=== PATIENT | male | born 1945 | race Caucasian/White ===

== ENCOUNTER 2018-05-31 05:25 | Emergency (ER) | payer OTHER ==
--- OUTSIDE RECORDS SUMMARY | 2018-05-31 05:27 | XMS REPORT | Clinical Summary ---
:1945 Author Organization [facility] Address [address] [place] [address] Care Team Providers Name Role Phone Tom Molina MD Primary Care Provider Allergies No Known Allergies Current Medications Prescription Sig. Disp. Refills Start Date End Date Status lansoprazole (PREVACID) 08/12/2017 Active 30 MG capsule lisinopril 07/31/2017 Active (PRINIVIL,ZESTRIL) 30 mg tablet aspirin (ECOTRIN) 81 MG Take 81 mg by mouth Active enteric coated tablet daily. tiZANidine (ZANAFLEX) 4 Take 4 mg by mouth Active MG tablet every 8 (eight) hours as needed for muscle spasms. Active Problems Problem Noted Date Thoracic aortic aneurysm without rupture 08/12/2017 Encounters Date Type Specialty Care Team Description 09/05/2017 Orders Only Cardiology Vishal Mccain MD 08/19/2017 Telephone Cardiology Blanca Barbour MA Results 08/12/2017 Lab Lab Vishal Mccain MD Thoracic aortic aneurysm without rupture 08/12/2017 Office Visit Cardiology Vishal Mccain MD Thoracic aortic aneurysm without rupture (Primary Dx) after 05/30/2017 Social History Tobacco Use Types Packs/Day Years Used Date Former Smoker Alcohol Use Drinks/Week oz/Week Comments No Sex Assigned at Date Recorded Not on file Last Filed Vital Signs Vital Sign Reading Time Taken Blood Pressure 150/78 08/12/2017 10:21 AM CDT Pulse 65 08/12/2017 10:21 AM CDT Temperature - - Respiratory Rate - - Oxygen Saturation - - Inhaled Oxygen Concentration - - Weight 74.8 kg (165 lb) 08/15/2017 9:11 AM CDT Height 177.8 cm (5' 10") 08/15/2017 9:11 AM CDT Body Mass Index 23.68 08/15/2017 9:11 AM CDT Plan of Treatment Date Type Specialty Care Team Description 08/11/2018 Office Visit Cardiology Vishal Mccain MD [address] [place] [address] Health Maintenance Due Date Last Done Comments COLON CANCER SCREENING 1996 SHINGRIX VACCINE (#1) 1996 ZOSTER VACCINE 2006 PNEUMOCOCCAL POLYSACCHARIDE VACCINE AGE 65 AND OVER 2011 PNEUMOCOCCAL-13 2011 INFLUENZA VACCINE 06/10/2018 Procedures Procedure Name Priority Date/Time Associated Diagnosis Comments CT ANGIOGRAM CHEST Routine 08/15/2017 9:30 AM Thoracic aortic Results for this W WO CONTRAST CDT aneurysm without procedure are in rupture the results section. COPY RECEIVED FROM: Routine 08/12/2017 11:40 AM Results for this CDT procedure are in the results section. COPY(IES) SENT TO: Routine 08/12/2017 11:40 AM Results for this CDT procedure are in the results section. BASIC METABOLIC Routine 08/12/2017 11:40 AM Thoracic aortic Results for this PANEL CDT aneurysm without procedure are in rupture the results section. after 05/30/2017 Results CTA Chest W Wo Contrast (08/15/2017 9:30 AM) Narrative Performed At EXAMINATION:CT ANGIOGRAM CHEST W WO CONTRAST [facility] CLINICAL HISTORY:I71.2 Thoracic aortic aneurysmwithout rupture, other TECHNIQUE: Multiple CT angiographic images of the chest were obtained during intravenous administration of contrast. Multiple computerized reformatted images as well as 3-D volume rendered images were also obtained.Precontrast images of the chest were also obtained..All CT images were acquired using low-dose technique with automated exposure control. COMPARISON: August 01, 2015. FINDINGS: 1.Stable aneurysm involving the ascending thoracic aorta. Maximal AP diameter at the sinotubular junction is approximately 5.1 cm and 4.3 cm involving the mid ascending aorta. The right innominate artery, right subclavian artery, and visualized portions of the right carotid artery appear patent. Left carotid artery and left subclavian artery are patent. Visualized portions of the celiac artery and SMA are patent. No evidence to suggest an aortic dissection. 2. Measurements are as follows: Aortic root: 5.1 cm Mid ascending aorta: 4.3 cm Transverse arch: 3.8 cm Proximal descending thoracic aorta: 2.8 cm Mid descending thoracic aorta: 2.3 cm Distal descending thoracic aorta: 2.5 cm 4.The heart size is normal. There are extensive calcified atherosclerotic changes involving the coronary vessels. No mediastinal lymphadenopathy. 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 5.A suspicious pulmonary mass or opacity is not identified. No pleural or pericardial effusion. No pneumothorax. 6.Osseous structures are intact with generative changes along the thoracolumbar spine. IMPRESSION: 1.Stable aneurysm involving the aortic root and ascending thoracic aorta with no interval change from August 01, 2015. [id number] Procedure Note Hm Interface, Radiology Results Incoming - 08/15/2017 11:29 AM CDT EXAMINATION: CT ANGIOGRAM CHEST W WO CONTRAST CLINICAL HISTORY: I71.2 Thoracic aortic aneurysm without rupture, other TECHNIQUE: Multiple CT angiographic images of the chest were obtained during intravenous administration of contrast. Multiple computerized reformatted images as well as 3-D volume rendered images were also obtained. Precontrast images of the chest were also obtained..All CT images were acquired using low-dose technique with automated exposure control. COMPARISON: August 01, 2015. FINDINGS: 1. Stable aneurysm involving the ascending thoracic aorta. Maximal AP diameter at the sinotubular junction is approximately 5.1 cm and 4.3 cm involving the mid ascending aorta. The right innominate artery, right subclavian artery, and visualized portions of the right carotid artery appear patent. Left carotid artery and left subclavian artery are patent. Visualized portions of the celiac artery and SMA are patent. No evidence to suggest an aortic dissection. 2. Measurements are as follows: Aortic root: 5.1 cm Mid ascending aorta: 4.3 cm Transverse arch: 3.8 cm Proximal descending thoracic aorta: 2.8 cm Mid descending thoracic aorta: 2.3 cm Distal descending thoracic aorta: 2.5 cm 4. The heart size is normal. There are extensive calcified atherosclerotic changes involving the coronary vessels. No mediastinal lymphadenopathy. 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 5. A suspicious pulmonary mass or opacity is not identified. No pleural or pericardial effusion. No pneumothorax. 6. Osseous structures are intact with generative changes along the thoracolumbar spine. IMPRESSION: 1. Stable aneurysm involving the aortic root and ascending thoracic aorta with no interval change from August 01, 2015. [id number] Performing Organization Address City/State/Zipcode Phone Number [facility] [address] [place] [address] COPY RECEIVED FROM: (08/12/2017 11:40 AM) Copy received from: [facility] Comment: [facility] [address] [facility] [id number] [place] [address] Performing Organization Address City/State/Zipcode Phone Number [facility] COPY(IES) SENT TO: (08/12/2017 11:40 AM) Copies/mL [facility] Comment: [facility] [address] [facility] [address] [place] [address] Performing Organization Address City/State/Zipcode Phone Number [facility] Basic metabolic panel (08/12/2017 11:40 AM) Glucose 87 65 - 99 mg/dL [facility] Comment: [place] Fasting reference interval BUN, whole blood 19 7 - 25 mg/dL [facility] [place] Creatinine 1.47 (H) 0.70 - 1.18 [facility] Comment: mg/dL [place] For patients >49 years of age, the reference limit for Creatinine is approximately 13% higher for people identified as -Green[place]ic. EGFR Non-Afr. [place] 47 (L) > OR=60 [facility] mL/min/1.73m2 [place] EGFR 55 (L) > OR=60 [facility] mL/min/1.73m2 [place] BUN/creatinine ratio 13 6 - 22 (calc) [facility] [place] Sodium 141 135 - 146 mmol/L [facility] [place] Potassium 4.6 3.5 - 5.3 mmol/L [facility] [place] Chloride 106 98 - 110 mmol/L [facility] [place] CO2 27 20 - 31 mmol/L [facility] [place] Calcium 11.1 (H) 8.6 - 10.3 mg/dL [facility] [place] Specimen Blood Resulting Agency Comment Performing Organization Information: Site ID: [id number] Name: [facility] Address: [address] [place] [id number] Director: Anabelle Hutchinson MD Performing Organization Address City/[facility]/Zipcode Phone Number [facility] [address] [address] after 05/30/2017 Insurance Payer Benefit Plan / Group Subscriber ID Type Phone Address [employer] MED[employer]ARE [employer] MED[employer]ARE PPO/PFFS/[facility] xxxxxxxxx PPO Home: [address] [phone] [place] [id number]
--- OUTSIDE RECORDS SUMMARY | 2018-05-31 05:28 | XMS REPORT | Continuity of Care Document ---
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[facility] up> heart [facility] Chronic pain Active Problem 03/24/2017 in neck and [facility] disorder<sup>2</s back Hospital up> GERD (<span Active Problem 03/24/2017 [facility] ID="[id number]" Hospital >Confirmed</span> ) Hypertension Active Problem 03/24/2017 [facility] Enlarged prostate Active Problem 03/24/2017 [facility] Medications Medication Details Route Status Patient Ordering Order Source Instructions Provider Date Acetaminophen 325 1 tab, PO, Q4H, Active [facility] MG / Oxycodone PRN for pain, X [address] [place] [address] Hydrochloride 5 7 day, # 50 tab, MG Oral Tablet 0 Refill(s) [Percocet 5/325] rivaroxaban 10 MG 10 mg=1 tab, PO, Active [facility] Oral Tablet Daily, # 10 tab, [address] [place] [address] [Xarelto] 0 Refill(s), Pharmacy: [facility]/pharmacy #[id number] Saline Flush 0.9% 10 ml, Route: No Longer [facility] IVP, Drug Form: [facility] 2016 [facility] INJ, Dosing Weight 74.716, kg, Q12H, Start date: 03/20/17 21:00:00 CDT, Duration: 30 day, Stop date: 04/19/17 9:00:00 CDTNotes: (Same as: BD Posiflush) Saline Flush 0.9% 10 ml, Route: No Longer [facility] IVP, Drug Form: [facility] 2016 [facility] INJ, Dosing Weight 74.716, kg, PRN, PRN Line Flush, Start date: 03/20/17 13:01:00 CDT, Duration: 30 day, Stop date: 04/19/17 13:00:00 CDTNotes: (Same as: BD Posiflush) Lisinopril 30 mg, 3 tab, No Longer [facility] Route: PO, Drug Active 2016 Hospital form: TAB, Daily, Dosing Weight 74.716, kg, Start date: 03/20/17 9:00:00 CDT, Duration: 30 day, Stop date: 04/18/17 9:00:00 CDTNotes: (Same as: Prinivil, Zestril) lansoprazole 30 mg, Route: No Longer [facility] PO, Drug form: Active 2017 Hospital TABDIS, Daily, Dosing Weight 74.716, kg, Start date: 03/20/17 9:00:00 CDT, Duration: 30 day, Stop date: 04/18/17 9:00:00 CDT Famotidine 20 MG 20 mg, 1 tab, Inactive [facility] Oral Tablet Route: PO, Drug 2016 Hospital form: TAB, Q12H, Dosing Weight 74.716, kg, Start date: 03/19/17 21:00:00 CDT, Duration: 30 day, Stop date: 04/18/17 9:00:00 CDTNotes: (Same as: Pepcid) gabapentin 300 MG 300 mg, 1 cap, No Longer [facility] Oral Capsule Route: PO, Drug Active 2016 Hospital form: CAP, Bedtime, Dosing Weight 74.716, kg, Start date: 03/19/17 21:00:00 CDT, Duration: 30 day, Stop date: 04/17/17 21:00:00 CDTNotes: (Same as: Neurontin) Nortriptyline 50 mg, 2 cap, No Longer [facility] Route: PO, Drug Active 2016 Hospital form: CAP, Bedtime, Dosing Weight 74.716, kg, Start date: 03/19/17 21:00:00 CDT, Duration: 30 day, Stop date: 04/17/17 21:00:00 CDTNotes: (Same as:Pamelor, Aventyl) Tylenol 650 mg, 2 tab, No Longer [facility] Route: PO, Drug Active 2016 Hospital form: TAB, Q6H, Start date: 03/19/17 17:00:00 CDT, Duration: 30 day, Stop date: 04/18/17 11:00:00 CDTNotes: Do not exceed 4 gm/day. (Same as: Tylenol) Docusate Sodium 100 mg, 1 cap, No Longer [facility] 100 MG Oral Route: PO, Drug Active 2016 [facility] Capsule form: CAP, BID, Dosing Weight 74.716, kg, Start date: 03/19/17 17:00:00 CDT, Duration: 30 day, Stop date: 04/18/17 9:00:00 CDTNotes: (Same as: Colace) (Do Not Crush) Protonix 40 mg, 1 tab, No Longer [facility] Route: PO, Drug Active 2016 Hospital form: ECTAB, Before Dinner, Start date: 03/19/17 16:30:00 CDT, Duration: 30 day, Stop date: 04/17/17 16:30:00 CDTNotes: Tablet should not be chewed or crushed. (Same as: Protonix) rivaroxaban 10 mg, 1 tab, No Longer [facility] Route: PO, Drug Active 2016 Hospital form: TAB, Q24H, Dosing Weight 74.716, kg, Start date: 03/19/17 16:08:00 CDT, Duration: 30 day, Stop date: 04/17/17 16:08:00 CDTNotes: (Same as: Xarelto) Do Not Crush Acetaminophen 10 1,000 mg, 100 Inactive [facility] MG/ML Injectable mL, Route: IV, 2017 Hospital Solution Drug form: INJ, Q6H, Dosing Weight 74.716, kg, For > or=50 kg, Start date: 03/19/17 15:00:00 CDT, Duration: 30 day, Stop date: 04/18/17 9:00:00 CDTNotes: Infuse over 15 minutes Do not exceed 4gm/day of acetaminophen MEDICATION WASTE Product Size: 1000 mg Product Wasted: __0_ mg Dilaudid 1 mg, 1 mL, No Longer [facility] Route: IVP, Drug Active 2016 Hospital form: INJ, Q2H, Dosing Weight 74.716, kg, PRN Pain Score 4-6, Start date: 03/19/17 13:39:00 CDT, Duration: 30 day, Stop date: 04/18/17 13:38:00 CDTNotes: Same as: Dilaudid Cefazolin 1 gm, Route: No Longer [facility] IVPB, ABXQ8H, Active 2016 [facility] Dosing Weight 74.716, kg, Start date: 03/19/17 13:00:00 CDT, Duration: 3 doses or times, Stop date: 03/20/17 5:00:00 CDTNotes: (Same As: [facility]) MEDICATION WASTE Product Size: 1000 mg Product Wasted: _0 mg phenylephrine Route: IV, Drug Inactive [facility] (ANES) form: INJ, ONCE, 2016 Hospital Stop date: 03/19/17 10:15:00 CDT dexamethasone Route: IV, Drug Inactive [facility] (ANES) form: INJ, ONCE, 2016 Hospital Stop date: 03/19/17 10:15:00 CDT glycopyrrolate Route: IV, Drug Inactive [facility] (ANES) form: INJ, ONCE, 2016 Hospital Stop date: 03/19/17 10:15:00 CDT ondansetron Route: IV, Drug Inactive [facility] (ANES) form: INJ, ONCE, 2016 Hospital Stop date: 03/19/17 10:15:00 CDT Oxycodone 5 mg, 1 tab, No Longer [facility] Hydrochloride 5 Route: PO, Drug Active [facility] MG Oral Tablet form: TAB, Q4H, Dosing Weight 74.716, kg, PRN Pain Score 1-3, Start date: 03/19/17 10:07:00 CDT, Duration: 30 day, Stop date: 04/18/17 10:06:00 CDTNotes: (Same as: Roxicodone) Dulcolax Laxative 5 mg, 1 tab, No Longer [facility] Route: PO, Drug Active [address] [place] [address] form: ECTAB, Q24H, Dosing Weight 74.716, kg, PRN Constipation, Start date: 03/19/17 10:07:00 CDT, Duration: 30 day, Stop date: 04/18/17 10:06:00 CDTNotes: (Same As: Dulcolax, Correctol) (Do Not Crush) "Do Not Crush" Ondansetron 4 mg, 2 mL, No Longer [facility] Route: IVP, Drug Active 2017 Hospital form: INJ, Q6H, Dosing Weight 74.716, kg, PRN Nausea & Vomiting, Start date: 03/19/17 10:07:00 CDT, Duration: 30 day, Stop date: 04/18/17 10:06:00 CDTNotes: (Same as: Zofran) MEDICATION WASTE Product Size: 4 mg Product Wasted: _0__ mg Al hydroxide/Mg 30 ml, Route: No Longer [facility] hydroxide/simethi PO, Drug Form: Active 2017 Hospital cone 200 mg-200 SUSP, Dosing mg-20 mg/5 mL Weight 74.716, oral suspension kg, Q4H, PRN Indigestion, Start date: 03/19/17 10:07:00 CDT, Duration: 30 day, Stop date: 04/18/17 10:06:00 CDTNotes: (aluminum hydroxide-magnes ium hyd-simethicone [phone]/5ml 30 ml ud CHARITY) Lactated Ringers 1,000 mL, Rate: No Longer [facility] 1,000 mL 100 ml/hr, Active 2017 Hospital Infuse over: 10 hr, Route: IV, Dosing Weight 74.716 kg, Total Volume: 1,000, Start date: 03/19/17 10:07:00 CDT, Duration: 30 day, Stop date: 04/18/17 10:06:00 CDT Hydromorphone 1 mg, 0.5 mL, Inactive [facility] Route: IVP, Drug 2017 Hospital form: INJ, Q2H, Dosing Weight 74.716, kg, PRN Pain Score 4-6, Start date: 03/19/17 10:07:00 CDT, Duration: 30 day, Stop date: 04/18/17 10:06:00 CDTNotes: Same as Dilaudid metoprolol (ANES) Route: IV, Drug Inactive [facility] form: INJ, ONCE, 2016 Hospital Stop date: 03/19/17 9:39:00 CDT Dilaudid (ANES) Route: IV, Drug Inactive [facility] form: INJ, ONCE, 2016 Hospital Stop date: 03/19/17 9:34:00 CDT rocuronium (ANES) Route: IV, Drug Inactive [facility] form: INJ, ONCE, 2016 Hospital Stop date: 03/19/17 9:19:00 CDT ceFAZolin (ANES) Route: IV, Drug Inactive [facility] form: INJ, ONCE, 2016 Hospital Stop date: 03/19/17 9:19:00 CDT acetaminophen Route: IV, Drug Inactive [facility] (ANES) form: INJ, ONCE, 2016 Hospital Stop date: 03/19/17 9:19:00 CDT propofol (ANES) Route: IV, Drug Inactive [facility] form: INJ, ONCE, 2016 Hospital Stop date: 03/19/17 9:19:00 CDT tranexamic acid Route: IV, Drug Inactive [facility] (ANES) form: INJ, ONCE, 2016 Hospital Stop date: 03/19/17 9:14:00 CDT midazolam (ANES) Route: IV, Drug Inactive [facility] form: SOLN, 2016 [facility] ONCE, Stop date: 03/19/17 9:14:00 CDT fentaNYL (ANES) Route: IV, Drug Inactive [facility] form: INJ, ONCE, 2016 Hospital Stop date: 03/19/17 9:14:00 CDT Hydromorphone 0.5 mg, 0.25 mL, Inactive [facility] Route: IVP, Drug 2016 [facility] form: INJ, Q5Min, Dosing Weight 74.716, kg, PRN Pain Score 7-10, Start date: 03/19/17 8:48:00 CDT, Duration: 4 doses or times, Stop date: Limited # of timesNotes: Same as Dilaudid Naloxone 0.4 mg, 1 mL, Inactive [facility] Route: IVP, Drug 2016 Hospital form: INJ, Q2MIN, Dosing Weight 74.716, kg, PRN Narcotic Reversal, Start date: 03/19/17 8:48:00 CDT, Duration: 8 doses or times, Stop date: Limited # of timesNotes: Same as Narcan Flumazenil 0.2 mg, 2 mL, Inactive [facility] Route: IVP, Drug 2016 Hospital form: INJ, PRN, Dosing Weight 74.716, kg, PRN Benzodiazepine Reversal, Initial dose, Start date: 03/19/17 8:48:00 CDT, Duration: 30 day, Stop date: 04/18/17 8:47:00 CDTNotes: (Same as: Romazicon) Hydralazine 10 mg, 0.5 mL, Inactive [facility] Route: IVP, Drug 2016 Hospital form: INJ, Q20Min, Dosing Weight 74.716, kg, PRN Elevated BP, Start date: 03/19/17 8:48:00 CDT, Duration: 2 doses or times, Stop date: Limited # of timesNotes: (Same as: Apresoline) Push over 5 minutes Metoprolol 1 mg, 1 mL, Inactive 03/19/ [facility] Route: IVP, Drug 2016 Hospital form: INJ, Q5Min, Dosing Weight 74.716, kg, PRN Other -See Comment, Start date: 03/19/17 8:48:00 CDT, Duration: 5 doses or times, Stop date: Limited # of timesNotes: (Same as: Lopressor) Push over 2 minutes Diphenhydramine 12.5 mg, 0.25 Inactive [facility] mL, Route: IVP, 2016 Hospital Drug form: INJ, Q6H, Dosing Weight 74.716, kg, PRN Itching, Start date: 03/19/17 8:48:00 CDT, Duration: 30 day, Stop date: 04/18/17 8:47:00 CDTNotes: (Same as: Benadryl) Ondansetron 4 mg, 2 mL, Inactive 03/19/ [facility] Route: IVP, Drug 2016 Hospital form: INJ, ONCE, Dosing Weight 74.716, kg, PRN Nausea & Vomiting, Start date: 03/19/17 8:48:00 CDTNotes: (Same as: Zofran) MEDICATION WASTE Product Size: 4 mg Product Wasted: _0__ mg Morphine 2 mg, 1 mL, Inactive [facility] Route: IVP, Drug 2016 Hospital form: INJ, Q5Min, Dosing Weight 74.716, kg, PRN Pain Score 4-6, Start date: 03/19/17 8:48:00 CDT, Duration: 5 doses or times, Stop date: Limited # of timesNotes: (Same as:MORPhine Sulfate) LR 1000 mL INJ Route: IV, Total Inactive [facility] (ANES) Volume: 1,000, 2017 Hospital Start date: 03/19/17 8:29:00 CDT, Stop date: 03/19/17 9:29:00 CDT Lidocaine 0.1 mL, Route: Inactive [facility] INTRADERM, Drug 2016 Hospital Form: SOLN, Dosing Weight 74.716, kg, ONCALL, Start date: 03/19/17 7:00:00 CDT, Duration: 1 doses or timesNotes: Ingredients: 2 ml lidocaine 1% inj , 0.2ml sodium bicarbonate 8.4% inj total volume=2.2ml Refrigerate: 14 days Room temp: 7 days Calcium Chloride 1,000 mL, Rate: Inactive [facility] 0.0014 MEQ/ML / 25 ml/hr, Infuse 2017 Hospital Potassium over: 40 hr, Chloride 0.004 Route: IV, MEQ/ML / Sodium Dosing Weight Chloride 0.103 74.716 kg, Total MEQ/ML / Sodium Volume: 1,000, Lactate 0.028 Start date: MEQ/ML Injectable 03/19/17 6:59:00 Solution CDT, Duration: 30 day, Stop date: 04/18/17 6:58:00 CDT Neurontin 300 mg, 1 cap, Inactive [facility] Route: PO, Drug 2016 Hospital form: LAILA ONCFRANCHESCA, Start date: 03/19/17 6:00:00 CDT, Duration: 1 doses or times, Stop date: 03/19/17 18:00:00 CDTNotes: (Same as: Neurontin) Cyklokapron 1,000 mg, 10 mL, No Longer [facility] Route: IV, Drug Active 2017 Hospital form: INJ, ONCALL, Start date: 03/19/17 6:00:00 CDT, Duration: 1 doses or times, Stop date: 03/19/17 18:00:00 CDTNotes: (Same As: Cyklokapron) Lactated Ringers IV, 100 ml/hr, No Longer [facility] Injection IV ONCALL, Start Active 2017 Hospital date: 03/19/17 6:00:00 CDT, Duration: 1, 1,000 ml ceFAZolin + 2 gm, Route: No Longer [facility] sodium chloride IVPB, ONCALL, Active 2017 Hospital 0.9% 100 mL INJ Start date: (for IV set) 100 03/19/17 6:00:00 mL CDT, Duration: 1 doses or times, Stop date: 03/19/17 18:00:00 CDTNotes: (Same As: [facility]) MEDICATION WASTE Product Size: 1000 mg Product Wasted: 0__ mg Sodium Chloride IV, 0 ml/hr, No Longer [facility] 0.9% IV PRN, PRN Line Active 2017 Hospital Flush, Start date: 03/18/17 14:29:00 CDT, Duration: 30, 25 ml BD Normal Saline 10 mL, Route: No Longer [facility] Flush IV, Drug Form: Active 2016 [facility] INJ, PRN, PRN Line Flush, Start date: 03/18/17 14:29:00 CDT, Duration: 30 day, Stop date: 04/17/17 14:28:00 CDTNotes: (Same as: BD Posiflush) lansoprazole 30 30 mg=1 tab, PO, Active [facility] mg oral tablet, Daily, # 30 tab, 2017 Hospital disintegrating 0 Refill(s) lisinopril 30 mg 30 mg=1 tab, PO, Active [facility] oral tablet Daily, # 30 tab, 2017 Hospital 0 Refill(s) nortriptyline 50 50 mg=1 cap, PO, Active [facility] mg oral capsule Bedtime, # 30 2017 Hospital cap, 1 Refill(s) silodosin 8 MG 8 mg=1 cap, PO, Active [facility] Oral Capsule Daily, 0 2016 [facility] [Rapaflo] Refill(s) Allergies, Adverse Reactions, Alerts Substance Category Reaction Severity Reaction Status Date Comments Source type Reported NKDA Assertion Drug Active [facility] allergy [facility] Immunizations Immunization Date Given Site Status Last Updated Comments Source Results Order Name Results Value Reference Date Interpretation Comments Source Range CHEM PANEL Calcium Lvl 9.3 mg/dL 8.5 - 10.5 03/20 Hospital CHEM PANEL eGFR 50 03/20 Result Comment: The eGFR is calculated using the CKD-EPI formula. In most young, healthy individuals the eGFR will be >90 mL/ min/1.73m2. The eGFR declines with age. An eGFR of 60-89 may be normal in mL/min/1. some populations, particularly the elderly, for whom the CKD-EPI formula has not been extensively validated. Use of the eGFR is not recommended in the following populations: [address] Individuals with unstable creatinine concentrations, including patients and those with serious co-morbid conditions. Patients with extremes in muscle mass or diet. The data above are obtained from the National Kidney Disease Education Program (NKDEP) which additionally recommends that when the eGFR is used in patients with extremes of body mass index for purposes of drug dosing, the eGFR should be multiplied by the estimated BMI. CHEM PANEL Glucose Lvl 116 mg/dL 70 - 99 03/20 Hospital CHEM PANEL BUN 29 mg/dL 7 - 22 03/20 Hospital CHEM PANEL Chloride Lvl 104 meq/L 95 - 109 03/20 Hospital CHEM PANEL Sodium Lvl 138 meq/L 135 - 145 03/20 Hospital CHEM PANEL CO2 29 meq/L 24 - 32 03/20 Hospital CHEM PANEL Potassium 4.6 meq/L 3.5 - 5.1 03/20 Hospital CHEM PANEL Creatinine 1.41 mg/dL 0.50 - 03/20 [facility] Lvl 1.40 Hospital CHEM PANEL AGAP 9.6 meq/L 10.0 - 03/20 20.0 Hospital HEMATOLOGY Hct 38.5 % 42.0 - 03/20 [facility] 54.0 [facility] HEMATOLOGY Hgb 13.0 g/dL 14.0 - 03/20 [facility] 18. Hospital ELECTROLYTE Chloride Lvl 108 meq/L 95 - 109 03/19 Hospital ELECTROLYTE AGAP 14.7 meq/L 10.0 - 03/19 [facility] S 20. Hospital ELECTROLYTE Calcium Lvl 9.5 mg/dL 8.5 - 10.5 03/19 Hospital ELECTROLYTE CO2 25 meq/L 24 - 32 03/19 Hospital ELECTROLYTE eGFR 43 03/19 Result Comment: The eGFR is calculated using the CKD-EPI formula. In most young, healthy individuals the eGFR will be >90 mL/ min/1.73m2. The eGFR declines with age. An eGFR of 60-89 may be normal in [facility] mL/min/1. some populations, particularly the elderly, for whom the CKD-EPI formula has not been extensively validated. Use of the eGFR is not recommended in the following populations: [facility] 3m2 Individuals with unstable creatinine concentrations, including patients and those with serious co-morbid conditions. Patients with extremes in muscle mass or diet. The data above are obtained from the National Kidney Disease Education Program (NKDEP) which additionally recommends that when the eGFR is used in patients with extremes of body mass index for purposes of drug dosing, the eGFR should be multiplied by the estimated BMI. ELECTROLYTE Creatinine 1.60 mg/dL 0.50 - 03/19 [facility] S Lvl 1.40 Hospital ELECTROLYTE Glucose Lvl 143 mg/dL 70 - 99 03/19 Hospital ELECTROLYTE BUN 28 mg/dL 7 - 22 03/19 Hospital ELECTROLYTE Sodium Lvl 143 meq/L 135 - 145 03/19 Hospital ELECTROLYTE Potassium 4.7 meq/L 3.5 - 5.1 03/19 [facility] S Lvl Hospital HEMATOLOGY Hct 41.9 % 42.0 - 03/19 [facility] 54.0 [facility] HEMATOLOGY Hgb 14.1 g/dL 14.0 - 03/19 [facility] 18. [facility] CHEM PANEL B/C Ratio 19 6 - 25 03/19 [facility] CHEM PANEL A/G Ratio 1.0 0.7 - 1.6 / Hospital CHEM PANEL Globulin 3.9 g/dL 2.7 - 4.2 03/19 Hospital CHEM PANEL AGAP 16.2 meq/L 10.0 - 03/19 20.0 Hospital CHEM PANEL eGFR 44 03/19 Result Comment: The eGFR is calculated using the CKD-EPI formula. In most young, healthy individuals the eGFR will be >90 mL/ min/1.73m2. The eGFR declines with age. An eGFR of 60-89 may be normal in mL/min/1.7 some populations, particularly the elderly, for whom the CKD-EPI formula has not been extensively validated. Use of the eGFR is not recommended in the following populations: [address] Individuals with unstable creatinine concentrations, including patients and those with serious co-morbid conditions. Patients with extremes in muscle mass or diet. The data above are obtained from the National Kidney Disease Education Program (NKDEP) which additionally recommends that when the eGFR is used in patients with extremes of body mass index for purposes of drug dosing, the eGFR should be multiplied by the estimated BMI. CHEM PANEL AST 27 unit/L 0 - 37 03/19 Hospital CHEM PANEL Bili Total 0.4 mg/dL 0.2 - 1.3 03/19 Hospital CHEM PANEL Alk Phos 94 unit/L 39 - 136 03/19 Hospital CHEM PANEL Albumin Lvl 3.8 g/dL 3.5 - 5.0 03/19 Hospital CHEM PANEL Total 7.7 g/dL 6.4 - 8.4 03/19 [facility] CHEM PANEL Calcium Lvl 10.6 mg/dL 8.5 - 10.5 03/19 Hospital CHEM PANEL ALT 30 unit/L 0 - 65 03/19 Hospital CHEM PANEL BUN 30 mg/dL 7 - 22 03/19 Hospital CHEM PANEL Potassium 4.2 meq/L 3.5 - 5.1 03/19l Hospital CHEM PANEL Sodium Lvl 145 meq/L 135 - 145 03/19 Hospital CHEM PANEL Creatinine 1.58 mg/dL 0.50 - 05/10 [facility] Lvl 1.40 /2016 Hospital CHEM PANEL CO2 25 meq/L 24 - 32 05/ [facility] CHEM PANEL Chloride Lvl 108 meq/L 95 - 109 05 [facility] CHEM PANEL Glucose Lvl 101 mg/dL 70 - 99 05/ [facility] HEMATOLOGY Monocytes # 0.7 K/CMM 0.0 - 0.8 05/ [facility] HEMATOLOGY Eosinophils 0.3 K/CMM 0.0 - 0.5 05/10 [facility] # /2016 Hospital HEMATOLOGY Lymphocytes 1.7 K/CMM 1.0 - 5.5 05/ [facility] # Hospital HEMATOLOGY Monocytes 12.3 % 2.0 - 12.0 05/ [facility] HEMATOLOGY Eosinophils 4.7 % 0.0 - 4.0 05/ [facility] HEMATOLOGY Basophils 0.8 % 0.0 - 1.0 05 [facility] HEMATOLOGY Segs-Bands # 2.8 K/CMM 1.5 - 8.1 05 [facility] HEMATOLOGY Segs 51.7 % 45.0 - 05 [facility] 75.0 [facility] HEMATOLOGY Lymphocytes 30.5 % 20.0 - 05 [facility] 40.0 [facility] HEMATOLOGY PTT 33.8 s 22.9 - 03/19 [facility] 35.8 [facility] HEMATOLOGY PT 13.7 s 12.0 - 03/19 [facility] 14.7 [facility] HEMATOLOGY INR 1.03 0.85 - 03/19 [facility] 1.17 [facility] HEMATOLOGY RDW 12.8 % 11.5 - 0510 [facility] 14.5 [facility] HEMATOLOGY Platelet 123 K/CMM 133 - 450 05 [facility] HEMATOLOGY MPV 8.5 fL 7.4 - 10.4 05 [facility] HEMATOLOGY MCHC 34.5 g/dL 32.0 - 05 [facility] 36.0 [facility] HEMATOLOGY Hgb 16.6 g/dL 14.0 - 03/19 [facility] 18.0 [facility] HEMATOLOGY Hct 48.0 % 42.0 - 05 [facility] 54.0 [facility] HEMATOLOGY MCV 91.9 fL 80.0 - 0510 [facility] 94.0 [facility] HEMATOLOGY MCH 31.7 pg 27.0 - 03/19 [facility] 31.0 [facility] HEMATOLOGY WBC 5.5 K/CMM 3.7 - 10.4 03/19 [facility] HEMATOLOGY RBC 5.22 M/CMM 4.70 - 03/19 [facility] 6.10 [facility] URINE AND UA Sq Epi None Seen 03/19 [facility] STOOL [facility] URINE AND UA <=1.0 0.1 - 1.0 03/19 [facility] STOOL Urobilinogen mg/dL [facility] URINE AND UA Protein Negative Negative 03/19 [facility] STOOL mg/dL mg/dL [facility] URINE AND UA pH 6.0 5.0 - 8.0 03/19 [facility] STOOL [facility] URINE AND UA Blood Negative Negative 03/19 [facility] STOOL [facility] (03/19/17 7:14 AM) URINE AND UA Ketones Negative Negative 03/19 [facility] STOOL mg/dL mg/dL [facility] URINE AND UA Bili Negative Negative 03/19 [facility] STOOL [facility] *NA* (03/19/17 7:14 AM) URINE AND UA Glucose Negative Negative 03/19 [facility] STOOL mg/dL mg/dL [facility] URINE AND UA RBC null 0 - 2 03/19 [facility] STOOL [facility] URINE AND UA Leuk Est Negative Negative 03/19 [facility] STOOL [facility] (03/19/17 7:14 AM) URINE AND UA WBC 3 /HPF 0 - 5 03/19 [facility] STOOL [facility] URINE AND UA Nitrite Negative Negative 03/19 [facility] STOOL [facility] (03/19/17 7:14 AM) URINE AND UA Amorph Occasional None Seen 03/19 [facility] STOOL Mily /HPF /HPF /2016 [facility] URINE AND UA Mucus Few /LPF None Seen 03/19 [facility] STOOL /LPF /2016 [facility] URINE AND UA Turbidity Slight Clear 03/19 [facility] STOOL [facility] *ABN* (03/19/17 7:14 AM) URINE AND UA Spec Grav 1.017 <=1.030 03/19 [facility] STOOL [facility] URINE AND UA Color Yellow Yellow 03/19 [facility] STOOL Hospital *NA* (03/19/17 7:14 AM) Pelvis AP Pelvis AP DX Pelvis single view 03/19 - [facility] DX /2016 - Hospital HISTORY: Postop. Read by: Zak Monroy MD Dictated Date/time: 03/19/17 11:09 Electronically Signed by: Zak Monroy MD 03/19/17 11:10 FINAL REPORT COMPARISON: None available. FINDINGS: Left hip replacement evident. Postoperative changes surrounding soft tissues. 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 IMPRESSION: 1. Status post left hip replacement. SL: [id number] Hip 2/3 Hip 2/3 FLUOROSCOPIC GUIDANCE: 03/19 - [facility] views uni views uni DX - Hospital DX INDICATION: Intraoperative guidance for arthroplasty Read by: Maxime Pradhan MD Dictated Date/time: 03/19/17 16:51 Electronically Signed by: Maxime Pradhan 03/19/17 16:51 FINAL REPORT TOTAL FLUOROSCOPY TIME: 47.6 seconds FINDINGS: Fluoroscopic guidance provided to the clinical service for purposes interprocedural guidance. Images provided demonstrate intraoperative views during left total hip arthroplasty Images obtain ed during the procedure were interpreted by performing physician. IMPRESSION: 1. Intraoperative findings as described. SL: [id number] BLOOD BANK Antibody Negative 03/11 [facility] RESULTS Scrn /2016 [facility] (03/11/17 1:04 PM) BLOOD BANK ABO/Rh O POS 03/11 [facility] RESULTS [facility] BLOOD BANK RBC product Product available 03/11 [facility] RESULTS [facility] (03/11/17 12:59 PM) Vital Signs Vital Sign Value Date Comments Source Respitory Rate 16 03/21/2017 [facility] Systolic (mm Hg) 136 03/21/2017 [facility] Diastolic (mm Hg) 74 03/21/2017 [facility] Temperature Oral (F) 98.2 F 03/21/2017 [facility] Heart Rate 69 03/21/2017 [facility] Systolic (mm Hg) 142 03/21/2017 [facility] Diastolic (mm Hg) 74 03/21/2017 [facility] Respitory Rate 15 03/21/2017 [facility] Heart Rate 72 03/21/2017 [facility] Temperature Oral (F) 98.2 F 03/21/2017 [facility] Temperature Oral (F) 98.4 F 03/21/2017 [facility] Respitory Rate 15 03/21/2017 [facility] Heart Rate 76 03/21/2017 [facility] Systolic (mm Hg) 156 03/21/2017 [facility] Diastolic (mm Hg) 74 03/21/2017 [facility] Height 170.82 cm 03/11/2017 [facility] BMI Calculated 25.61 03/11/2017 [facility] Weight 74.716 03/11/2017 [facility] Encounters Location Location Encounter Encounter Reason Attending ADM DC Status Source Details Type Number For Provider Date Date Visit [facility] [id number] [place] [facility] Procedures Procedure Code Date Perfomer Comments Source Shoulder joint [id number] 11/11/2015 left shoulder [facility] operations<sup>1 [facility] </sup> Neck repair [id number] 03/11/2015 [facility]
--- OUTSIDE RECORDS SUMMARY | 2018-05-31 05:29 | XMS REPORT | Summary of Care ---
:1945 Author Organization [facility] Address [address] [place] [address]- Encounter HQ Ramya_nicko(KENNETH) [id number] Date(s): 03/19/17 - 03/21/17 [facility] [id number] [place] [address]- Discharge Disposition: Home or Self Care Attending Physician: Arden Lyons MD Admitting Physician: Arden Lyons MD Referring Physician: Arden Lyons MD Vital Signs Most recent to oldest 1 2 3 [Reference Range]: Height 170.82 cm (03/11/17 12:17 PM) Temperature Oral [96.4-99.1 98.2 DegF 98.2 DegF 98.4 DegF DegF] (03/21/17 9:13 AM) (03/21/17 5:35 AM) (03/20/17 11:33 PM) Blood Pressure [90-140/60-90 136/74 mmHg 142/74 mmHg 156/74 mmHg mmHg] (03/21/17 9:13 AM) *HI* *HI* (03/21/17 5:35 AM) (03/20/17 11:33 PM) Respiratory Rate [14-20 BRMIN] 16 BRMIN 15 BRMIN 15 BRMIN (03/21/17 9:13 AM) (03/21/17 5:35 AM) (03/20/17 11:33 PM) Peripheral Pulse Rate [60-100 69 bpm 72 bpm 76 bpm bpm] (03/21/17 9:13 AM) (03/21/17 5:35 AM) (03/20/17 11:33 PM) Weight 74.716 kg (03/11/17 12:17 PM) Body Mass Index 25.61 m2 (03/11/17 12:17 PM) Problem List Condition Effective Dates Status Health Status Informant Aneurysm(Confirmed)1 Resolved Chronic pain disorder(Confirmed)2 Active GERD (gastroesophageal reflux Active disease)(Confirmed) Hypertension(Confirmed) Active Enlarged prostate(Confirmed) Active 1of the [id number] neck and back Allergies, Adverse Reactions, Alerts Substance Reaction Severity Status NKDA Active Medications acetaminophen (ANES) Route: IV, Drug form: INJ, ONCE, Stop date: 03/19/17 9:19:00 CDT Start Date: 03/19/17 Stop Date: 03/19/17 Status: Completedacetaminophen-10 mg/mL INTRAVENOUS solution 1,000 mg, 100 mL, Route: IV, Drug form: INJ, Q6H, Dosing Weight 74.716, kg, For > or=50 kg, Start date: 03/19/17 15:00:00 CDT, Duration: 30 day, Stop date: 07/27 9:00:00 CDT Notes: Infuse over 15 minutesDo not exceed 4gm/day of acetaminophen MEDICATION WASTE ProductSize: 1000 mgProduct Wasted: __0_ mg Start Date: 03/19/17 Stop Date: 03/19/17 Status: DiscontinuedAl hydroxide/Mg hydroxide/simethicone 200 mg-200 mg-20 mg/5 mL oral suspension 30 ml, Route: PO, Drug Form: SUSP, Dosing Weight 74.716, kg, Q4H, PRN Indigestion, Start date: 03/19/17 10:07:00 CDT, Duration: 30 day, Stop date: 07/27 10:06:00 CDT Notes: (aluminum hydroxide-magnesium hyd-simethicone 398-770-10qi/5ml 30 ml ud CHARITY) Start Date: 03/19/17 Stop Date: 03/21/17 Status: DiscontinuedANES diphenhydrAMINE 12.5 mg, 0.25 mL, Route: IVP, Drug form: INJ, Q6H, Dosing Weight 74.716, kg, PRN Itching, Start date: 03/19/17 8:48:00 CDT, Duration: 30 day, Stop date: 07/27 8:47:00 CDT Notes: (Same as: Benadryl) Start Date: 03/19/17 Stop Date: 03/19/17 Status: DiscontinuedANES flumazenil 0.2 mg, 2 mL, Route: IVP, Drug form: INJ, PRN, Dosing Weight 74.716, kg, PRN Benzodiazepine Reversal, Initial dose, Start date: 03/19/17 8:48:00 CDT, Duration: 30 day, Stop date: 04/18/17 8:47:00 CDT Notes: (Same as: Romazicon) Start Date: 03/19/17 Stop Date: 03/19/17 Status: DiscontinuedANES hydrALAZINE 10 mg, 0.5 mL, Route: IVP, Drug form: INJ, Q20Min, Dosing Weight 74.716, kg, PRN Elevated BP, Start date: 03/19/17 8:48:00 CDT, Duration: 2 doses or times, Stop date: Limited # of times Notes: (Same as: Apresoline)Push over 5 minutes Start Date: 03/19/17 Stop Date: 03/19/17 Status: DiscontinuedANES HYDROmorphone 0.5 mg, 0.25 mL, Route: IVP, Drug form: INJ, Q5Min, Dosing Weight 74.716, kg, PRN Pain Score 7-10, Start date: 03/19/17 8:48:00 CDT, Duration: 4 doses or times, Stop date: Limited # of times Notes: Same as Dilaudid Start Date: 03/19/17 Stop Date: 03/19/17 Status: DiscontinuedANES metoprolol 1 mg, 1 mL, Route: IVP, Drug form: INJ, Q5Min, Dosing Weight 74.716, kg, PRN Other -See Comment, Start date: 03/19/17 8:48:00 CDT, Duration: 5 doses or times , Stop date: Limited # of times Notes: (Same as: Lopressor)Push over 2 minutes Start Date: 03/19/17 Stop Date: 03/19/17 Status: DiscontinuedANES morphine Sulfate 2 mg, 1 mL, Route: IVP, Drug form: INJ, Q5Min, Dosing Weight 74.716, kg, PRN Pain Score 4-6, Start date: 03/19/17 8:48:00 CDT, Duration: 5 doses or times, Stop date: Limited # of times Notes: (Same as:MORPhine Sulfate) Start Date: 03/19/17 Stop Date: 03/19/17 Status: DiscontinuedANES naloxone 0.4 mg, 1 mL, Route: IVP, Drug form: INJ, Q2MIN, Dosing Weight 74.716, kg, PRN Narcotic Reversal, Start date: 03/19/17 8:48:00 CDT, Duration: 8 doses or times , Stop date: Limited # of times Notes: Same as Narcan Start Date: 03/19/17 Stop Date: 03/19/17 Status: DiscontinuedANES ondansetron 4 mg, 2 mL, Route: IVP, Drug form: INJ, ONCE, Dosing Weight 74.716, kg, PRN Nausea & Vomiting, Start date: 03/19/17 8:48:00 CDT Notes: (Same as: Pilar) MEDICATION WASTE Product Size: 4 mgProduct Wasted: _0__ mg Start Date: 03/19/17 Stop Date: 03/19/17 Status: DiscontinuedBD Normal Saline Flush 10 mL, Route: IV, Drug Form: INJ, PRN, PRN Line Flush, Start date: 03/18/17 14: 29:00 CDT, Duration: 30 day, Stop date: 04/17/17 14:28:00 CDT Notes: (Same as: BD Posiflush) Start Date: 03/18/17 Stop Date: 03/20/17 Status: Discontinuedbuffered lidocaine 1% INJ 0.1 mL, Route: INTRADERM, Drug Form: SOLN, Dosing Weight 74.716, kg, ONCALL, Start date: 03/19/17 7:00:00 CDT, Duration: 1 doses or times Notes: Ingredients: 2 ml lidocaine 1% inj , 0.2ml sodium bicarbonate 8.4% inj total volume=2.2ml Refrigerate: 14 days Room temp: 7 days Start Date: 03/19/17 Stop Date: 03/19/17 Status: DiscontinuedceFAZolin (ANES) Route: IV, Drug form: INJ, ONCE, Stop date: 03/19/17 9:19:00 CDT Start Date: 03/19/17 Stop Date: 03/19/17 Status: CompletedceFAZolin (SCIP) + sodium chloride 0.9% INJ 100 mL 1 gm, Route: IVPB, ABXQ8H, Dosing Weight 74.716, kg, Start date: 03/19/17 13:00: 00 CDT, Duration: 3 doses or times, Stop date: 03/20/17 5:00:00 CDT Notes: (Same As: Ancef, Rigofzol) MEDICATION WASTE Product Size: 1000 mgProduct Wasted: _0 mg Start Date: 03/19/17 Stop Date: 03/20/17 Status: CompletedceFAZolin + sodium chloride 0.9% 100 mL INJ (for IV set) 100 mL 2 gm, Route: IVPB, ONCALL, Start date: 03/19/17 6:00:00 CDT, Duration: 1 doses or times, Stop date: 03/19/17 18:00:00 CDT Notes: (Same As: Rigo Stilesfzol) MEDICATION WASTE Product Size: 1000 mgProduct Wasted: 0__ mg Start Date: 03/19/17 Stop Date: 03/21/17 Status: DiscontinuedCyklokapron 1,000 mg, 10 mL, Route: IV, Drug form: INJ, ONCALL, Start date: 03/19/17 6:00: 00 CDT, Duration: 1 doses or times, Stop date: 03/19/17 18:00:00 CDT Notes: (Same As: Cyklokapron) Start Date: 03/19/17 Stop Date: 03/21/17 Status: DiscontinuedCyklokapron 1,000 mg, 10 mL, Route: IV, Drug form: INJ, PRE OP, Start date: 03/19/17 6:00: 00 CDT, Duration: 1 doses or times, Stop date: 03/19/17 18:00:00 CDT Notes: (Same As: Cyklokapron) Start Date: 03/19/17 Stop Date: 03/21/17 Status: Discontinueddexamethasone (ANES) Route: IV, Drug form: INJ, ONCE, Stop date: 03/19/17 10:15:00 CDT Start Date: 03/19/17 Stop Date: 03/19/17 Status: CompletedDilaudid 1 mg, 1 mL, Route: IVP, Drug form: INJ, Q2H, Dosing Weight 74.716, kg, PRN Pain Score 4-6, Start date: 03/19/17 13:39:00 CDT, Duration: 30 day, Stop date: 04/18 13:38:00 CDT Notes: Same as: Dilaudid Start Date: 03/19/17 Stop Date: 03/21/17 Status: DiscontinuedDilaudid (ANES) Route: IV, Drug form: INJ, ONCE, Stop date: 03/19/17 9:34:00 CDT Start Date: 03/19/17 Stop Date: 03/19/17 Status: Completeddocusate sodium 100 mg oral capsule 100 mg, 1 cap, Route: PO, Drug form: CAP, BID, Dosing Weight 74.716, kg, Start date: 03/19/17 17:00:00 CDT, Duration: 30 day, Stop date: 04/18/17 9:00:00 CDT Notes: (Same as: Colace) (Do Not Crush) Start Date: 03/19/17 Stop Date: 03/21/17 Status: DiscontinuedDulcolax Laxative 5 mg, 1 tab, Route: PO, Drug form: ECTAB, Q24H, Dosing Weight 74.716, kg, PRN Constipation, Start date: 03/19/17 10:07:00 CDT, Duration: 30 day, Stop date: 10:06:00 CDT Notes: (Same As: Dulcolax, Correctol) (Do Not Crush) "Do Not Crush" Start Date: 03/19/17 Stop Date: 03/21/17 Status: Discontinuedfamotidine 20 mg oral tablet 20 mg, 1 tab, Route: PO, Drug form: TAB, Q12H, Dosing Weight 74.716, kg, Start date: 03/19/17 21:00:00 CDT, Duration: 30 day, Stop date: 04/18/17 9:00:00 CDT Notes: (Same as: Pepcid) Start Date: 03/19/17 Stop Date: 03/19/17 Status: DeletedfentaNYL (ANES) Route: IV, Drug form: INJ, ONCE, Stop date: 03/19/17 9:14:00 CDT Start Date: 03/19/17 Stop Date: 03/19/17 Status: Completedgabapentin 300 mg oral capsule 300 mg, 1 cap, Route: PO, Drug form: CAP, Bedtime, Dosing Weight 74.716, kg, Start date: 03/19/17 21:00:00 CDT, Duration: 30 day, Stop date: 04/17/17 21:00: 00 CDT Notes: (Same as: Neurontin) Start Date: 03/19/17 Stop Date: 03/21/17 Status: Discontinuedglycopyrrolate (ANES) Route: IV, Drug form: INJ, ONCE, Stop date: 03/19/17 10:15:00 CDT Start Date: 03/19/17 Stop Date: 03/19/17 Status: Completedhydromorphone 1 mg, 0.5 mL, Route: IVP, Drug form: INJ, Q2H, Dosing Weight 74.716, kg, PRN Pain Score 4-6, Start date: 03/19/17 10:07:00 CDT, Duration: 30 day, Stop date: 04/18/17 10:06:00 CDT Notes: Same as Dilaudid Start Date: 03/19/17 Stop Date: 03/19/17 Status: DiscontinuedLactated Ringers 1,000 mL 1,000 mL, Rate: 100 ml/hr, Infuse over: 10 hr, Route: IV, Dosing Weight 74.716 kg, Total Volume: 1,000, Start date: 03/19/17 10:07:00 CDT, Duration: 30 day, Stop date: 04/18/17 10:06:00 CDT Start Date: 03/19/17 Stop Date: 03/21/17 Status: DiscontinuedLactated Ringers 1,000 mL 1,000 mL, Rate: 25 ml/hr, Infuse over: 40 hr, Route: IV, Dosing Weight 74.716 kg , Total Volume: 1,000, Start date: 03/19/17 6:59:00 CDT, Duration: 30 day, Stop date: 04/18/17 6:58:00 CDT Start Date: 03/19/17 Stop Date: 03/19/17 Status: DiscontinuedLactated Ringers Injection IV IV, 100 ml/hr, ONCALL, Start date: 03/19/17 6:00:00 CDT, Duration: 1, 1,000 ml Start Date: 03/19/17 Stop Date: 03/21/17 Status: Discontinuedlansoprazole 30 mg, Route: PO, Drug form: TABDIS, Daily, Dosing Weight 74.716, kg, Start date : 03/20/17 9:00:00 CDT, Duration: 30 day, Stop date: 04/18/17 9:00:00 CDT Start Date: 03/20/17 Stop Date: 03/19/17 Status: Deletedlansoprazole 30 mg oral tablet, disintegrating 30 mg=1 tab, PO, Daily, # 30 tab, 0 Refill(s) Start Date: 03/11/17 Status: Orderedlisinopril 30 mg, 3 tab, Route: PO, Drug form: TAB, Daily, Dosing Weight 74.716, kg, Start date: 03/20/17 9:00:00 CDT, Duration: 30 day, Stop date: 04/18/17 9:00:00 CDT Notes: (Same as: Venus Kapadia) Start Date: 03/20/17 Stop Date: 03/21/17 Status: Discontinuedlisinopril 30 mg oral tablet 30 mg=1 tab, PO, Daily, # 30 tab, 0 Refill(s) Start Date: 03/11/17 Status: OrderedLR 1000 mL INJ (ANES) Route: IV, Total Volume: 1,000, Start date: 03/19/17 8:29:00 CDT, Stop date: 08/26 9:29:00 CDT Start Date: 03/19/17 Stop Date: 03/19/17 Status: Completedmetoprolol (ANES) Route: IV, Drug form: INJ, ONCE, Stop date: 03/19/17 9:39:00 CDT Start Date: 03/19/17 Stop Date: 03/19/17 Status: Completedmidazolam (ANES) Route: IV, Drug form: SOLN, ONCE, Stop date: 03/19/17 9:14:00 CDT Start Date: 03/19/17 Stop Date: 03/19/17 Status: CompletedNeurontin 300 mg, 1 cap, Route: PO, Drug form: CAP, ONCALL, Start date: 03/19/17 6:00:00 CDT, Duration: 1 doses or times, Stop date: 03/19/17 18:00:00 CDT Notes: (Same as: Neurontin) Start Date: 03/19/17 Stop Date: 03/19/17 Status: Completednortriptyline 50 mg, 2 cap, Route: PO, Drug form: CAP, Bedtime, Dosing Weight 74.716, kg, Start date: 03/19/17 21:00:00 CDT, Duration: 30 day, Stop date: 04/17/17 21:00: 00 CDT Notes: (Same as:Pamelor, Aventyl) Start Date: 03/19/17 Stop Date: 03/21/17 Status: Discontinuednortriptyline 50 mg oral capsule 50 mg=1 cap, PO, Bedtime, # 30 cap, 1 Refill(s) Start Date: 03/11/17 Status: Orderedondansetron 4 mg, 2 mL, Route: IVP, Drug form: INJ, Q6H, Dosing Weight 74.716, kg, PRN Nausea & Vomiting, Start date: 03/19/17 10:07:00 CDT, Duration: 30 day, Stop date: 04/18/17 10:06:00 CDT Notes: (Same as: Pilar) MEDICATION WASTE Product Size: 4 mgProduct Wasted: _0__ mg Start Date: 03/19/17 Stop Date: 03/21/17 Status: Discontinuedondansetron (ANES) Route: IV, Drug form: INJ, ONCE, Stop date: 03/19/17 10:15:00 CDT Start Date: 03/19/17 Stop Date: 03/19/17 Status: CompletedoxyCODONE 5 mg immediate release 5 mg, 1 tab, Route: PO, Drug form: TAB, Q4H, Dosing Weight 74.716, kg, PRN Pain Score 1-3, Start date: 03/19/17 10:07:00 CDT, Duration: 30 day, Stop date: 04/18 10:06:00 CDT Notes: (Same as: Roxicodone) Start Date: 03/19/17 Stop Date: 03/21/17 Status: DiscontinuedPercocet 5/325 oral tablet 1 tab, PO, Q4H, PRN for pain, X 7 day, # 50 tab, 0 Refill(s) Start Date: 03/21/17 Stop Date: 03/28/17 Status: Orderedphenylephrine (ANES) Route: IV, Drug form: INJ, ONCE, Stop date: 03/19/17 10:15:00 CDT Start Date: 03/19/17 Stop Date: 03/19/17 Status: Completedpropofol (ANES) Route: IV, Drug form: INJ, ONCE, Stop date: 03/19/17 9:19:00 CDT Start Date: 03/19/17 Stop Date: 03/19/17 Status: CompletedProtonix 40 mg, 1 tab, Route: PO, Drug form: ECTAB, Before Dinner, Start date: 03/19/17 16:30:00 CDT, Duration: 30 day, Stop date: 04/17/17 16:30:00 CDT Notes: Tablet should not be chewed or crushed.(Same as: Protonix) Start Date: 03/19/17 Stop Date: 03/21/17 Status: DiscontinuedRapaflo 8 mg oral capsule 8 mg=1 cap, PO, Daily, 0 Refill(s) Start Date: 03/11/17 Status: Orderedrivaroxaban 10 mg, 1 tab, Route: PO, Drug form: TAB, Q24H, Dosing Weight 74.716, kg, Start date: 03/19/17 16:08:00 CDT, Duration: 30 day, Stop date: 04/17/17 16:08:00 CDT Notes: (Same as: Xarelto)Do Not Crush Start Date: 03/19/17 Stop Date: 03/21/17 Status: Discontinuedrocuronium (ANES) Route: IV, Drug form: INJ, ONCE, Stop date: 03/19/17 9:19:00 CDT Start Date: 03/19/17 Stop Date: 03/19/17 Status: CompletedSaline Flush 0.9% 10 ml, Route: IVP, Drug Form: INJ, Dosing Weight 74.716, kg, Q12H, Start date: 03/20/17 21:00:00 CDT, Duration: 30 day, Stop date: 04/19/17 9:00:00 CDT Notes: (Same as: BD Posiflush) Start Date: 03/20/17 Stop Date: 03/21/17 Status: DiscontinuedSaline Flush 0.9% 10 ml, Route: IVP, Drug Form: INJ, Dosing Weight 74.716, kg, PRN, PRN Line Flush , Start date: 03/20/17 13:01:00 CDT, Duration: 30 day, Stop date: 04/19/17 13:00 :00 CDT Notes: (Same as: BD Posiflush) Start Date: 03/20/17 Stop Date: 03/21/17 Status: DiscontinuedSodium Chloride 0.9% IV IV, 0 ml/hr, PRN, PRN Line Flush, Start date: 03/18/17 14:29:00 CDT, Duration: 30, 25 ml Start Date: 03/18/17 Stop Date: 03/21/17 Status: Discontinuedtranexamic acid (ANES) Route: IV, Drug form: INJ, ONCE, Stop date: 03/19/17 9:14:00 CDT Start Date: 03/19/17 Stop Date: 03/19/17 Status: CompletedTylenol 650 mg, 2 tab, Route: PO, Drug form: TAB, Q6H, Start date: 03/19/17 17:00:00 CDT , Duration: 30 day, Stop date: 04/18/17 11:00:00 CDT Notes: Do not exceed 4 gm/day. (Same as: Tylenol) Start Date: 03/19/17 Stop Date: 03/21/17 Status: DiscontinuedXarelto 10 mg oral tablet 10 mg=1 tab, PO, Daily, # 10 tab, 0 Refill(s), Pharmacy: [facility]/pharmacy #[id number] Start Date: 03/21/17 Status: Ordered Results BLOOD BANK RESULTS Most recent to oldest [Reference Range]: 1 2 3 ABO/Rh O POS *Unknown* (03/11/17 1:04 PM) Antibody Scrn Negative (03/11/17 1:04 PM) RBC product Product available (03/11/17 12:59 PM) ELECTROLYTES Most recent to oldest 1 2 3 [Reference Range]: Sodium Lvl [135-145 mEq/L] 138 mEq/L 143 mEq/L 145 mEq/L (03/20/17 3:29 AM) (03/19/17 10:28 AM) (03/19/17 7:14 AM) Potassium Lvl [3.5-5.1 4.6 mEq/L 4.7 mEq/L 4.2 mEq/L mEq/L] (03/20/17 3:29 AM) (03/19/17 10:28 AM) (03/19/17 7:14 AM) Chloride Lvl [95-109 mEq/L] 104 mEq/L 108 mEq/L 108 mEq/L (03/20/17 3:29 AM) (03/19/17 10:28 AM) (03/19/17 7:14 AM) CO2 [24-32 mEq/L] 29 mEq/L 25 mEq/L 25 mEq/L (03/20/17 3:29 AM) (03/19/17 10:28 AM) (03/19/17 7:14 AM) AGAP [10.0-20.0 mEq/L] 9.6 mEq/L 14.7 mEq/L 16.2 mEq/L *LOW* (03/19/17 10:28 AM) (03/19/17 7:14 AM) (03/20/17 3:29 AM) CHEM PANEL Most recent to oldest 1 2 3 [Reference Range]: Creatinine Lvl [0.50-1.40 1.41 mg/dL 1.60 mg/dL 1.58 mg/dL mg/dL] *HI* *HI* *HI* (03/20/17 3:29 AM) (03/19/17 10:28 AM) (03/19/17 7:14 AM) eGFR 50 mL/min/1.73m2 1 43 mL/min/1.73m2 2 44 mL/min/1.73m2 3 *NA* *NA* *NA* (03/20/17 3:29 AM) (03/19/17 10:28 AM) (03/19/17 7:14 AM) BUN [7-22 mg/dL] 29 mg/dL 28 mg/dL 30 mg/dL *HI* *HI* *HI* (03/20/17 3:29 AM) (03/19/17 10:28 AM) (03/19/17 7:14 AM) B/C Ratio [6-25] 19 (03/19/17 7:14 AM) Glucose Lvl [70-99 mg/dL] 116 mg/dL 143 mg/dL 101 mg/dL *HI* *HI* *HI* (03/20/17 3:29 AM) (03/19/17 10:28 AM) (03/19/17 7:14 AM) Total Protein [6.4-8.4 7.7 g/dL g/dL] (03/19/17 7:14 AM) Albumin Lvl [3.5-5.0 g/dL] 3.8 g/dL (03/19/17 7:14 AM) Globulin [2.7-4.2 g/dL] 3.9 g/dL (03/19/17 7:14 AM) A/G Ratio [0.7-1.6] 1.0 (03/19/17 7:14 AM) Calcium Lvl [8.5-10.5 9.3 mg/dL 9.5 mg/dL 10.6 mg/dL mg/dL] (03/20/17 3:29 AM) (03/19/17 10:28 AM) *HI* (03/19/17 7:14 AM) ALT [0-65 unit/L] 30 unit/L (03/19/17 7:14 AM) AST [0-37 unit/L] 27 unit/L (03/19/17 7:14 AM) Alk Phos [39-136 unit/L] 94 unit/L (03/19/17 7:14 AM) Bili Total [0.2-1.3 mg/dL] 0.4 mg/dL (03/19/17 7:14 AM) 1Result Comment: The eGFR is calculated using the CKD-EPI formula. In most young , healthy individualsthe eGFR will be >90 mL/min/1.73m2. The eGFR declines with age. An eGFR of 60-89 may be normal in some populations, particularly the elderly, for whom the CKD-EPI formula has not been extensively validated. Use of the eGFR is not recommended in the following populations: Individuals with unstable creatinine concentrations, including patients and those with serious co-morbid conditions. Patients with extremes in muscle mass or diet. The data above are obtained from the National Kidney Disease Education Program ( NKDEP) which additionally recommends that when the eGFR is used in patients with extremes of body mass index for purposesof drug dosing, the eGFR should be multiplied by the estimated BMI.2Result Comment: The eGFR is calculated using the CKD-EPI formula. In most young, healthy individualsthe eGFR will be >90 mL/ min/1.73m2. The eGFR declines with age. An eGFR of 60-89 may be normal in some populations, particularly the elderly, for whom the CKD-EPI formula has not been extensively validated. Use of the eGFR is not recommended in the following populations: Individuals with unstable creatinine concentrations, including patients and those with serious co-morbid conditions. Patients with extremes in muscle mass or diet. The data above are obtained from the National Kidney Disease Education Program ( NKDEP) which additionally recommends that when the eGFR is used in patients with extremes of body mass index for purposesof drug dosing, the eGFR should be multiplied by the estimated BMI.3Result Comment: The eGFR is calculated using the CKD-EPI formula. In most young, healthy individualsthe eGFR will be >90 mL/ min/1.73m2. The eGFR declines with age. An eGFR of 60-89 may be normal in some populations, particularly the elderly, for whom the CKD-EPI formula has not been extensively validated. Use of the eGFR is not recommended in the following populations: Individuals with unstable creatinine concentrations, including patients and those with serious co-morbid conditions. Patients with extremes in muscle mass or diet. The data above are obtained from the National Kidney Disease Education Program ( NKDEP) which additionally recommends that when the eGFR is used in patients with extremes of body mass index for purposesof drug dosing, the eGFR should be multiplied by the estimated BMI.URINE AND STOOL Most recent to oldest [Reference Range]: 1 2 3 UA Turbidity [Clear] Slight *ABN* (03/19/17 7:14 AM) UA Color [Yellow] Yellow *NA* (03/19/17 7:14 AM) UA pH [5.0-8.0] 6.0 (03/19/17 7:14 AM) UA Spec Grav [<=1.030] 1.017 (03/19/17 7:14 AM) UA Glucose [Negative mg/dL] Negative mg/dL *NA* (03/19/17 7:14 AM) UA Blood [Negative] Negative (03/19/17 7:14 AM) UA Ketones [Negative mg/dL] Negative mg/dL *NA* (03/19/17 7:14 AM) UA Protein [Negative mg/dL] Negative mg/dL (03/19/17 7:14 AM) UA Urobilinogen [0.1-1.0 mg/dL] <=1.0 mg/dL *NA* (03/19/17 7:14 AM) UA Bili [Negative] Negative *NA* (03/19/17 7:14 AM) UA Leuk Est [Negative] Negative (03/19/17 7:14 AM) UA Nitrite [Negative] Negative (03/19/17 7:14 AM) UA WBC [0-5 /HPF] 3 /HPF (03/19/17 7:14 AM) UA RBC [0-2 /HPF] <1 /HPF (03/19/17 7:14 AM) UA Sq Epi None Seen *NA* (03/19/17 7:14 AM) UA Amorph Mily [None Seen /HPF] Occasional /HPF *NA* (03/19/17 7:14 AM) UA Mucus [None Seen /LPF] Few /LPF *NA* (03/19/17 7:14 AM) HEMATOLOGY Most recent to oldest 1 2 3 [Reference Range]: WBC [3.7-10.4 K/CMM] 5.5 K/CMM (03/19/17 7:14 AM) RBC [4.70-6.10 M/CMM] 5.22 M/CMM (03/19/17 7:14 AM) Hgb [14.0-18.0 g/dL] 13.0 g/dL 14.1 g/dL 16.6 g/dL *LOW* (03/19/17 10:28 AM) (03/19/17 7:14 AM) (03/20/17 3:29 AM) Hct [42.0-54.0 %] 38.5 % 41.9 % 48.0 % *LOW* *LOW* (03/19/17 7:14 AM) (03/20/17 3:29 AM) (03/19/17 10:28 AM) MCV [80.0-94.0 fL] 91.9 fL (03/19/17 7:14 AM) MCH [27.0-31.0 pg] 31.7 pg *HI* (03/19/17 7:14 AM) MCHC [32.0-36.0 g/dL] 34.5 g/dL (03/19/17 7:14 AM) RDW [11.5-14.5 %] 12.8 % (03/19/17 7:14 AM) Platelet [133-450 K/CMM] 123 K/CMM *LOW* (03/19/17 7:14 AM) MPV [7.4-10.4 fL] 8.5 fL (03/19/17 7:14 AM) Segs [45.0-75.0 %] 51.7 % (03/19/17 7:14 AM) Lymphocytes [20.0-40.0 %] 30.5 % (03/19/17 7:14 AM) Monocytes [2.0-12.0 %] 12.3 % *HI* (03/19/17 7:14 AM) Eosinophils [0.0-4.0 %] 4.7 % *HI* (03/19/17 7:14 AM) Basophils [0.0-1.0 %] 0.8 % (03/19/17 7:14 AM) Segs-Bands # [1.5-8.1 K/CMM] 2.8 K/CMM (03/19/17 7:14 AM) Lymphocytes # [1.0-5.5 K/CMM] 1.7 K/CMM (03/19/17 7:14 AM) Monocytes # [0.0-0.8 K/CMM] 0.7 K/CMM (03/19/17 7:14 AM) Eosinophils # [0.0-0.5 K/CMM] 0.3 K/CMM (03/19/17 7:14 AM) PT [12.0-14.7 seconds] 13.7 seconds (03/19/17 7:14 AM) INR [0.85-1.17] 1.03 (03/19/17 7:14 AM) PTT [22.9-35.8 seconds] 33.8 seconds (03/19/17 7:14 AM) Immunizations No data available for this section Procedures Procedure Date Related Diagnosis Body Site Shoulder joint operations1 11/11/15 Neck repair 03/11/15 1left shoulder Social History Social History Type Response Substance Abuse Use: None. Alcohol Never Smoking Status Former smoker; Type: Cigarettes; Concerns about tobacco use in household: No; Exposure to Tobacco Smoke None; Other Tobacco Frequency stopped 1989; Cigarette Smoking Last 365 Days No; Reg Smoking Cessation Counseling No Assessment and Plan Extracted from: Title: Clinical Document Author: Arden Lyons MD Date: 03/21/17 Attending: Arden Lyons MD Service: Medicine General Code status: Full Code [Ordered] Reason for Admission: PAIN LEFT HIP, OSTEOARTHRITIS LEFT HIP Working DRG: Other musculoskelet sys & conn tiss O.R. proc w/o CC/HALF-WAY Isolation: None Documented Consulting Physicians: Arden Lyons MD Office: Service: Orthopedic Surgery Yunior Reardon MD Office: Service: Medicine Surgical Procedures: 03/19/17 08:57 LEFT ANTERIOR TOTAL HIP ARTHROPLASTY [id number] Primary Surgeon: Arden Lyons MD (Service: ORT) Vital Signs (last 24 hrs) Last Charted Temp Oral 98.4 DegF (MARCH 20 23:33) Heart Rate Peripheral 76 bpm (MARCH 20 23:33) Resp Rate 15 BRMIN (MARCH 20 23:33) SBP H 156mmHg (MARCH 20 23:33) DBP 74 mmHg (MARCH 20 23:33) SpO2 96 % (MARCH 20 23:33) ASSESSMENT & EXAM _left hip c/d/i PLAN & TREATMENT: continue PT continue current medical care plan d/c home after pt today DIAGNOSES & PROBLEMS: _ Ready for Discharge: _ Lines, Tubes, and Drains: 03/19/2017 07:53 Peripheral Lines: Forearm Left 20 gauge Over the needle catheter Continue above for medical neccesity.
[2018-05-31] MEDS ORDERED: ONDANSETRON 4 MG/2 ML VIAL ONE (05:43)
[2018-05-31] MEDS ORDERED: NA CHLORIDE 0.9% 1,000 ML ONE (05:43)
[2018-05-31] MEDS ORDERED: MORPHINE 4 MG/ML SYR ONE (05:52)
[2018-05-31] MEDS ORDERED: DIPHENOX/ATROP SULF 1 TAB PO ONE (05:52)
[2018-05-31 06:07] LABS: Absolute Lymphocytes (CBC) 1.6 K/uL (0.7-4.9); Absolute Monocytes 1.1 K/uL (0.1-1.3); Absolute Neutrophil 8.5 K/uL (1.8-8.0); Basophils % 0.6 % (0-1.3); Eosinophils % 0.7 % (0-4.4); Hematocrit 50.1 % (39.6-49.0); Lymphocytes % 13.8 % (15.3-44.8); MCV 96.5 fL (80-100); MPV 8.5 fL (7.6-11.3); Monocytes % 10.1 % (3.3-12.3); RBC Red Blood Cell Count 5.19 M/uL (4.33-5.43)
[2018-05-31 06:10] LABS: Albumin 3.8 g/dL (3.4-5.0); Bilirubin Direct 0.3 mg/dL (0-0.2); Bilirubin Total 1.2 mg/dL (0.2-1.0); Potassium 4.7 mmol/L (3.5-5.1); Protein, Total 7.6 g/dL (6.4-8.2)
--- NOTE | 2018-05-31 06:57 | EDPHYS ---
Physician Documentation [facility] Name: Omi Stone Age: 73 yrs Sex: Male : 1945 Arrival Date: 05/31/2018 Time: 05:26 Bed 7 Private MD: Chuck Molina C ED Physician Satr Chacko HPI: 05/31 05:45 This 73 yrs old Male presents to ER via Ambulatory with complaints of pkl Vomiting/Diarrhea. 05:45 The patient presents to the emergency department with nausea, vomiting, diarrhea. pkl Onset: The symptoms/episode began/occurred yesterday. Possible causes: unknown. Historical: - Allergies: 05:38 No Known Allergies; tl2 - Home Meds: 05:38 lansoprazole 30 mg Oral TbEC [Active]; Rapaflo 8 mg Oral cap [Active]; lisinopril 30 mg tl2 Oral tab 1 tab once daily [Active]; duloxetine oral oral [Active]; Crestor oral oral [Active]; - PMHx: 05:38 GERD; Hypertension; Hyperlipidemia; ascending aortic aneurysm; tl2 - Immunization history:: Adult Immunizations up to date. - Social history:: Smoking status: Patient/guardian denies using tobacco. - Ebola Screening: : No symptoms or risks identified at this time. ROS: 05:45 Eyes: Negative for injury, pain, redness, and discharge, ENT: Negative for injury, pkl pain, and discharge, Neck: Negative for injury, pain, and swelling, Cardiovascular: Negative for chest pain, palpitations, and edema, Respiratory: Negative for shortness of breath, cough, wheezing, and pleuritic chest pain. 05:45 Abdomen/GI: Positive for nausea, vomiting, and diarrhea, abdominal cramps. 05:45 Back: Negative for acute changes. 05:45 : Negative for urinary symptoms. 05:45 MS/extremity: Negative for acute changes. 05:45 Skin: Negative for rash. 05:45 Neuro: Negative for altered mental status. Exam: 05:45 Head/Face: Normocephalic, atraumatic. Eyes: Pupils equal round and reactive to light, pkl extra-ocular motions intact. Lids and lashes normal. Conjunctiva and sclera are non-icteric and not injected. Cornea within normal limits. Periorbital areas with no swelling, redness, or edema. ENT: Nares patent. No nasal discharge, no septal abnormalities noted. Tympanic membranes are normal and external auditory canals are clear. Oropharynx with no redness, swelling, or masses, exudates, or evidence of obstruction, uvula midline. Mucous membranes moist. Neck: Trachea midline, no thyromegaly or masses palpated, and no cervical lymphadenopathy. Supple, full range of motion without nuchal rigidity, or vertebral point tenderness. No Meningismus. Chest/axilla: Normal chest wall appearance and motion. Nontender with no deformity. No lesions are appreciated. Cardiovascular: Regular rate and rhythm with a normal S1 and S2. No gallops, murmurs, or rubs. Normal PMI, no JVD. No pulse deficits. Respiratory: Lungs have equal breath sounds bilaterally, clear to auscultation and percussion. No rales, rhonchi or wheezes noted. No increased work of breathing, no retractions or nasal flaring. 05:45 Abdomen/GI: Bowel sounds: active, Palpation: soft, mild abdominal tenderness, in the right upper quadrant and left upper quadrant. 05:45 Back: Exam negative for acute changes. 05:45 : Exam negative for acute changes. 05:45 Musculoskeletal/extremity: Exam is negative for acute changes. 05:45 Skin: Exam negative for rash. 05:45 Neuro: Orientation: is normal, Mentation: is normal, Cranial nerves: grossly normal, Motor: is normal. Vital Signs: 05:38 BP 126 / 79; Pulse 87; Resp 18; Temp 97.3; Pulse Ox 97% on R/A; Weight 72.57 kg; Height tl2 5 ft. 10 in. (177.80 cm); Pain 0/10; 06:36 BP 142 / 89; Pulse 64; Resp 18; Temp 97.4; Pulse Ox 98% on R/A; Pain 2/10; ak1 07:35 BP 151 / 80; Pulse 58; Resp 16; Temp 97.9(O); Pulse Ox 98% ; ae1 05:38 Body Mass Index 22.96 (72.57 kg, 177.80 cm) tl2 MDM: 05:38 Patient medically screened. pkl 06:12 Data reviewed: vital signs, nurses notes, lab test result(s), radiologic studies, plain pkl films. 06:58 ED course: Patient feeling better. No vomiting or diarrhea noted in ER. pkl 05/31 05:38 Order name: Amylase, Serum; Complete Time: 06:11 ak1 05/31 05:38 Order name: Basic Metabolic Panel; Complete Time: 06:11 ak1 05/31 05:38 Order name: CBC with Diff; Complete Time: 06:58 ak1 05/31 05:38 Order name: Creatinine for Radiology; Complete Time: 06:09 ak1 05/31 05:38 Order name: Hepatic Function; Complete Time: 06:11 ak1 05/31 05:38 Order name: Lipase; Complete Time: 06:11 ak1 05/31 05:38 Order name: IV Saline Lock; Complete Time: 06:36 ak1 05/31 05:43 Order name: XRAY Abdomen Acute Series pkl 05/31 05:38 Order name: Labs collected and sent; Complete Time: 06:36 ak1 Administered Medications: 05:50 Drug: NS 0.9% 1000 ml Route: IV; Rate: 1 bolus; Site: right antecubital; ea 07:40 Follow up: IV Status: Completed infusion ae1 05:50 Drug: Zofran 4 mg Route: IVP; Site: right antecubital; ea 06:32 Follow up: Response: No adverse reaction ak1 05:55 Drug: morphine 2 mg Route: IVP; Site: right antecubital; ea 06:33 Follow up: Response: No adverse reaction ak1 06:35 Drug: LoMOTIL 2 tabs Route: PO; ak1 07:06 Follow up: Response: No adverse reaction ak1 Disposition: 05/31/18 06:56 Discharged to Home. Impression: Gastroenteritis. Chronic renal disease. - Condition is Stable. - Prescriptions for Zofran 4 mg Oral Tablet - take 1 tablet by ORAL route every 12 hours As needed; 6 tablet. Cipro 500 mg Oral Tablet - take 1 tablet by ORAL route every 12 hours for 5 days; 10 tablet. Lomotil 2.5- 0.025 mg Oral Tablet - take 2 tablets by ORAL route once daily As needed; 6 tablet. - Medication Reconciliation Form, Thank You Letter, Antibiotic Education, Prescription Opioid Use form. - Follow up: Chuck Molina MD; When: 2 - 3 days; Reason: Re-evaluation by your physician. - Problem is new. - Symptoms have improved. Signatures: Dispatcher [employer] Star Hansen MD MD pkCristel Rivera RN RN ak1 Suzy Blackburn, RN RN tl2 Collins Martin RN RN ae1 Lily Tracey RN RN ea Corrections: (The following items were deleted from the chart) 07:40 06:56 05/31/2018 06:56 Discharged to Home. Impression: Gastroenteritis. Chronic renal ae1 disease. Condition is Stable. Forms are Medication Reconciliation Form, Thank You Letter, Antibiotic Education, Prescription Opioid Use. Follow up: A Molina; When: 2 - 3 days; Reason: Re-evaluation by your physician. Problem is new. Symptoms have improved. pkl
--- NOTE | 2018-05-31 06:57 | ER ---
Nurse's Notes [facility] Name: Omi Stone Age: 73 yrs Sex: Male : 1945 Arrival Date: 05/31/2018 Time: 05:26 Bed 7 Private MD: Chuck Molina C Diagnosis: Gastroenteritis. Chronic renal disease Presentation: 05/31 05:35 Presenting complaint: Patient states: Nausea, vomiting and diarrhea since 1300 tl2 yesterday. Denies pain. Transition of care: patient was not received from another setting of care. Onset of symptoms was May 30, 2018 at 13:00. Risk Assessment: Do you want to hurt yourself or someone else? Patient reports no desire to harm self or others. Initial Sepsis Screen: Does the patient meet any 2 criteria? No. Patient's initial sepsis screen is negative. Does the patient have a suspected source of infection? No. Patient's initial sepsis screen is negative. Care prior to arrival: None. 05:35 Method Of Arrival: Ambulatory tl2 05:35 Acuity: GABRIELA 3 tl2 Triage Assessment: 05:38 General: Appears in no apparent distress. uncomfortable, Behavior is calm, cooperative, tl2 appropriate for age. Pain: Denies pain. GI: Reports diarrhea, nausea, vomiting. Historical: - Allergies: 05:38 No Known Allergies; tl2 - Home Meds: 05:38 lansoprazole 30 mg Oral TbEC [Active]; Rapaflo 8 mg Oral cap [Active]; lisinopril 30 mg tl2 Oral tab 1 tab once daily [Active]; duloxetine oral oral [Active]; Crestor oral oral [Active]; - PMHx: 05:38 GERD; Hypertension; Hyperlipidemia; ascending aortic aneurysm; tl2 - Immunization history:: Adult Immunizations up to date. - Social history:: Smoking status: Patient/guardian denies using tobacco. - Ebola Screening: : No symptoms or risks identified at this time. Screenin:39 Abuse screen: Denies threats or abuse. Nutritional screening: No deficits noted. tl2 Tuberculosis screening: No symptoms or risk factors identified. Fall Risk None identified. Assessment: 05:48 General: Appears uncomfortable, Behavior is calm, cooperative, appropriate for age. ea Pain: Denies pain. Neuro: Level of Consciousness is awake, alert, Oriented to person, place, time, situation. Cardiovascular: Heart tones S1 S2 present Patient's skin is warm and dry. Respiratory: Airway is patent Respiratory effort is even, unlabored, Respiratory pattern is regular, symmetrical. GI: Abdomen is non-distended, Bowel sounds present X 4 quads. Reports diarrhea. : No signs and/or symptoms were reported regarding the genitourinary system. EENT: No signs and/or symptoms were reported regarding the EENT system. Derm: Skin is intact. Musculoskeletal: Circulation, motion, and sensation intact. 06:36 Reassessment: Patient appears in no apparent distress at this time. Patient and/or ak1 family updated on plan of care and expected duration. Pain level reassessed. Patient is alert, oriented x 3, equal unlabored respirations, skin warm/dry/pink. Patient states symptoms have improved. 07:05 Reassessment: report given to Donald Nicole RN and Anai Hernandez RN. ak1 07:36 Reassessment: Patient appears in no apparent distress at this time. Patient denies pain ae1 at this time. Patient states feeling better. Patient states symptoms have improved. Vital Signs: 05:38 BP 126 / 79; Pulse 87; Resp 18; Temp 97.3; Pulse Ox 97% on R/A; Weight 72.57 kg; Height tl2 5 ft. 10 in. (177.80 cm); Pain 0/10; 06:36 BP 142 / 89; Pulse 64; Resp 18; Temp 97.4; Pulse Ox 98% on R/A; Pain 2/10; ak1 07:35 BP 151 / 80; Pulse 58; Resp 16; Temp 97.9(O); Pulse Ox 98% ; ae1 05:38 Body Mass Index 22.96 (72.57 kg, 177.80 cm) tl2 ED Course: 05:26 Patient arrived in ED. ds1 05:26 Chuck Molina MD is Private Physician. ds1 05:35 Triage completed. tl2 05:38 Star Chacko MD is Attending Physician. pkl 05:38 Arm band placed on right wrist. tl2 05:39 Patient has correct armband on for positive identification. Bed in low position. Call tl2 light in reach. Side rails up X 1. Adult w/ patient. 05:45 Inserted saline lock: 20 gauge in right antecubital area, using aseptic technique. ea Blood collected. 05:47 Lily Tracey, RN is Primary Nurse. ea 06:13 Patient moved to radiology via wheelchair. tm4 06:14 XRAY Abdomen Acute Series In Process Unspecified. EDMS 06:55 Chuck Molina MD is Referral Physician. pkl 07:36 No provider procedures requiring assistance completed. IV discontinued, intact, ae1 bleeding controlled, No redness/swelling at site. Pressure dressing applied. Administered Medications: 05:50 Drug: NS 0.9% 1000 ml Route: IV; Rate: 1 bolus; Site: right antecubital; ea 07:40 Follow up: IV Status: Completed infusion ae1 05:50 Drug: Zofran 4 mg Route: IVP; Site: right antecubital; ea 06:32 Follow up: Response: No adverse reaction ak1 05:55 Drug: morphine 2 mg Route: IVP; Site: right antecubital; ea 06:33 Follow up: Response: No adverse reaction ak1 06:35 Drug: LoMOTIL 2 tabs Route: PO; ak1 07:06 Follow up: Response: No adverse reaction ak1 Outcome: 06:56 Discharge ordered by . pkl 07:36 Discharged to home ambulatory, with significant other. ae1 07:36 Condition: stable 07:36 Discharge instructions given to patient, significant other, Instructed on discharge instructions, follow up and referral plans. medication usage, Demonstrated understanding of instructions, Prescriptions given X 3. 07:40 Patient left the ED. ae1 Signatures: Dispatcher [employer] EDMA Star Chacko MD MD pkl Padmini Andre tm4 Ifeoma Espinosa ds1 Cristel Ramos RN RN ak1 Suzy Blackburn RN RN tl2 Collins Martin RN RN ae1 Lily Tracey, RN MK ea
[2018-05-31 07:47] VITALS: O2SAT 98
[2018-05-31 07:49] VITALS: BP 151/80; TEMP 97.9
--- NOTE | 2018-06-01 08:53 | RAD REPORT ---
EXAM DESCRIPTION: RAD - Abdomen Acute Series - 06/01/2018 6:58 am CLINICAL HISTORY: vomiting diarrhea COMPARISON: Abdomen 1 View (KUB) dated 06/11/2017; Abdomen 1 View (KUB) dated 05/22/2017; Chest Pa And Lat (2 Views) dated 05/22/2017; Chest Pa And Lat (2 Views) dated 02/13/2017 FINDINGS: Frontal view of the chest demonstrates clear lungs. The heart is normal in size. Hardware is noted in the right aspect of the cervical spine. The bowel gas pattern is nonobstructive. No pathologic calcifications seen. Left total hip arthroplas ty present. S-shaped scoliosis of the thoracolumbar spine is noted. IMPRESSION: No acute abnormality detected.
== END 2018-05-31 07:40 | disposition home or self-care (01) ==
LOC: ER 05:25
DX: K52.9 Noninfective gastroenteritis and colitis, unspecified (principal); I12.9 Hypertensive chronic kidney disease with stage 1 through stage 4 chronic kidney disease, or unspecified chronic kidney disease; N18.9 Chronic kidney disease, unspecified; E78.5 Hyperlipidemia, unspecified
CPT/HCPCS: 36415; 74022; 80048; 80076; 82150; 83690; 85025; 96361; 96374; 96375; 99284; J2405; J7030

== ENCOUNTER 2019-03-22 19:15 | Emergency (ER) | payer OTHER ==
--- OUTSIDE RECORDS SUMMARY | 2019-03-22 19:18 | XMS REPORT | Clinical Summary ---
:1945 Author Organization [facility] Address [address] [place] [address] Care Team Providers Name Role Phone Tom Molina MD Primary Care Provider Allergies No Known Allergies Medications Medication Sig Dispensed Refills Start Date End Date Status lansoprazole (PREVACID) 0 08/12/2017 Active 30 MG capsule lisinopril 0 07/31/2017 Active (PRINIVIL,ZESTRIL) 30 mg tablet aspirin (ECOTRIN) 81 MG Take 81 mg by 0 Active enteric coated tablet mouth daily. tiZANidine (ZANAFLEX) 4 Take 4 mg by 0 Active MG tablet mouth every 8 (eight) hours as needed for muscle spasms. ULTRAM 50 mg tablet 0 07/20/2018 Active CRESTOR 5 mg tablet 0 06/21/2018 Active RAPAFLO 8 mg capsule 0 08/07/2018 Active DULoxetine (CYMBALTA) Take 20 mg by 0 Active 20 MG capsule mouth daily. Active Problems Problem Noted Date Essential hypertension 08/11/2018 Thoracic aortic aneurysm without rupture 08/12/2017 Encounters Date Type Specialty Care Team Description 10/27/2018 Orders Only Cardiology Vishal Dover MD 08/27/2018 Orders Only Cardiology Blanca Barbour MA Thoracic aortic aneurysm without rupture (HCC) (Primary Dx) 08/25/2018 Orders Only Cardiology Blanca Barbour MA Thoracic aortic aneurysm without rupture (HCC) (Primary Dx) 08/11/2018 Office Visit Cardiology Vishal Dover MD Thoracic aortic aneurysm without rupture (HCC) (Primary Dx); Essential hypertension after 03/21/2018 Social History Tobacco Use Types Packs/Day Years Used Date Former Smoker Smokeless Tobacco: Never Used Alcohol Use Drinks/Week oz/Week Comments No Sex Assigned at Date Recorded Not on file Job Start Date Occupation Industry Not on file Not on file Not on file Travel History Travel Start Travel End No recent travel history available. Last Filed Vital Signs Vital Sign Reading Time Taken Blood Pressure 123/72 08/11/2018 8:59 AM CDT Pulse 68 08/11/2018 8:59 AM CDT Temperature - - Respiratory Rate - - Oxygen Saturation - - Inhaled Oxygen Concentration - - Weight 72.6 kg (160 lb) 09/21/2018 9:13 AM [employer] Height 180.3 cm (5' 11") 09/21/2018 9:13 AM [employer]GER Body Mass Index 22.32 09/21/2018 9:13 AM [employer]OURCES MANAGER Plan of Treatment Date Type Specialty Care Team Description 08/10/2019 Office Visit Cardiology Vishal Dover MD [address] [address] Health Maintenance Due Date Last Done Comments COLON CANCER SCREENING 1996 SHINGLES VACCINES (#1) 1996 65+ PNEUMOCOCCAL VACCINE (1 of 2 - PCV13) 2011 PNEUMOCOCCAL POLYSACCHARIDE VACCINE AGE 65 AND OVER 2011 INFLUENZA VACCINE 06/10/2019 Procedures Procedure Name Priority Date/Time Associated Diagnosis Comments CT ANGIOGRAM ABDOMEN W Routine 10/27/[address] ANGIOGRAM CHEST W Routine 09/21/2018 10:23 Thoracic aortic Results for this WO CONTRAST AM [employer]GER aneurysm without procedure are in rupture (HCC) the results section. POC CREATININE Routine 09/21/2018 9:18 Results for this AM [employer]OURCES MANAGER procedure are in the results section. ESTIMATED GFR Routine 09/21/2018 9:18 Results for this AM [employer]NAGER procedure are in the results section. ECHOCARDIOGRAM 2D Routine 08/21/2018 11:17 Thoracic aortic Results for this COMPLETE W MMODE AM CDT aneurysm without procedure are in SPECTRAL COLOR DOPPLER rupture (HCC) the results (66757) Essential section. hypertension after 03/21/2018 Results CTA Abdomen W Wo Contrast (10/27/2018) Narrative Performed At CTA Chest W Wo Contrast (09/21/2018 10:23 AM [employer] RESOURCES MANAGER) Narrative Performed At EXAMINATION:CT ANGIOGRAM CHEST W WO CONTRAST HM RADIANT CLINICAL HISTORY:I71.2 Thoracic aortic aneurysmwithout rupture, other TECHNIQUE: Multiple CT angiographic images of the chest were obtained during intravenous administration of contrast. Multiple computerized reformatted images as well as 3-D volume rendered images were also obtained. CT scans are performed using radiation dose reduction techniques. Technical factors are evaluated and adjusted to ensure appropriate moderation of exposure. Automated dose management technology is applied to adjust radiation exposure while achieving a diagnostic quality image. COMPARISON:None. FINDINGS: Aneurysmal dilatation of the aortic root is stable to previous examination and measures 49 mm in maximal diameter. Aneurysmal dilatation of the ascending thoracic aorta is also relatively stable, measuring maximal diameter 46 mm (image 20, series 400b and image 61, series 2). Previously it was reported to measure 42 mm; however, when measured in the same coronal plane, the maximal diameter is stable. The transverse arch and descending thoracic aorta remain normal in caliber, measuring approximately 29 mm and and 26 mm in diameter, respectively. There is no great vessel origin stenosis off the thoracic aortic arch. The heart size is normal. Calcifications are present within the coronary arteries. There is no pericardial effusion. A tiny amount of fluid in the superior pericardial recess is again noted. No lymphadenopathy is present within the chest. There is no pleural effusion. Atelectasis is present in the right and left lower lobes. There is no consolidation. Imaging of the upper abdomen demonstrates a partially visualized right renal cyst, measuring 7.3 cm in maximal diameter. Cysts are again demonstrated within the liver, the largest measuring 1.9 cm. There are degenerative changes within the thoracic spine. Surgical clips are present within the right lower neck. IMPRESSION: Stable aneurysmal dilatation of the aortic root and ascending thoracic aorta to maximal diameters of 49 mm and 46 mm, respectively. [id number] Procedure Note [facility], Radiology Results Incoming - 09/21/2018 11:04 AM NATURAL RESOURCES MANAGER EXAMINATION: CT ANGIOGRAM CHEST W WO CONTRAST CLINICAL HISTORY: I71.2 Thoracic aortic aneurysm without rupture, other TECHNIQUE: Multiple CT angiographic images of the chest were obtained during intravenous administration of contrast. Multiple computerized reformatted images as well as 3-D volume rendered images were also obtained. CT scans are performed using radiation dose reduction techniques. Technical factors are evaluated and adjusted to ensure appropriate moderation of exposure. Automated dose management technology is applied to adjust radiation exposure while achieving a diagnostic quality image. COMPARISON: None. FINDINGS: Aneurysmal dilatation of the aortic root is stable to previous examination and measures 49 mm in maximal diameter. Aneurysmal dilatation of the ascending thoracic aorta is also relatively stable, measuring maximal diameter 46 mm (image 20, series 400b and image 61, series 2). Previously it was reported to measure 42 mm; however, when measured in the same coronal plane, the maximal diameter is stable. The transverse arch and descending thoracic aorta remain normal in caliber, measuring approximately 29 mm and and 26 mm in diameter, respectively. There is no great vessel origin stenosis off the thoracic aortic arch. The heart size is normal. Calcifications are present within the coronary arteries. There is no pericardial effusion. A tiny amount of fluid in the superior pericardial recess is again noted. No lymphadenopathy is present within the chest. There is no pleural effusion. Atelectasis is present in the right and left lower lobes. There is no consolidation. Imaging of the upper abdomen demonstrates a partially visualized right renal cyst, measuring 7.3 cm in maximal diameter. Cysts are again demonstrated within the liver, the largest measuring 1.9 cm. There are degenerative changes within the thoracic spine. Surgical clips are present within the right lower neck. IMPRESSION: Stable aneurysmal dilatation of the aortic root and ascending thoracic aorta to maximal diameters of 49 mm and 46 mm, respectively. [id number] Performing Organization Address [facility] Phone Number [facility] [address] [place] [address] Estimated GFR (09/21/2018 9:18 AM [employer]URAL RESOURCES MANAGER) Estimated GFR 50 (A) mL/min/1.73 m2 [facility] Comment: HOSPITAL CatergoryUnitsInterpretation G1 >=90 Normal or high G2 60-89Mildly decreased G2t33-95Iapbet to moderately decreased S7x30-99Lwdvqnnyva to severely decreased G4 15-29Severely decreased G5 <15Kidney failure The eGFR was calculated using the Chronic Kidney Disease Epidemiology Collaboration (CKD-EPI) equation. Interpretation is based on recommendations of the National Kidney Foundation-Kidney Disease Outcomes Quality Initiative (NKF-KDOQI) published in 2014. Specimen Blood Performing Organization Address City/[facility]/Zipcode Phone Number [facility] DEPARTMENT OF PATHOLOGY AND [address] [place] [address] GENOMIC MEDICINE [address] [address] POC creatinine (09/21/2018 9:18 AM [employer]URAL RESOURCES MANAGER) POC creatinine 1.4 (H) 0.7 - 1.2 mg/dl [facility] Comment: Meter ID: [id number] Repairer Helper: Anshu Raphael Specimen Blood Performing Organization Address City/State/Zipcode Phone Number [facility] DEPARTMENT OF PATHOLOGY AND [address] [place] [address] GENOMIC MEDICINE [facility] [address] [place] [address] Echocardiogram complete w contrast and 3D if needed (08/21/2018 11:17 AM CDT) Narrative Performed At [facility] Echocardiography Report Pat.Name:OMI STONE RPat.ID:[id number] St.Date: 08/21/2018Refer.MD:VISHAL DOVER MD Exam Time: 10:12:00 AM Study Type:Routine Echo Height:70inWeight: 160lb BSA: 1.9 c1UBKMyo:1945,73Y Sex: MALEBP:123/72 HR:61 bpm Sonogrphr: HEMANT Saenz FASE Pat. Stat.:OutpatientRoom:Star ICD - 9: 424.1 Study Status:Final Echo Event ID:[id number] Order ID:[id number] Reason for Study:Thoracic aortic aneurysm without rupture History / Clinical:Aortic Valve Disorders Procedures:2D Echo, Colorflow Doppler, Two-Dimensional Echocardiogram with Spectral Doppler and Color Flow Race:C SUMMARY: Left ventricular size is normal. LV function is normal. Aortic root diameter is severely enlarged. Ascending aorta diameter is moderately enlarged. 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 Recommend CT for further aortic evaluation FINDINGS: LV: LV size is normal. LV function is normal. Overall wall motionis normal. Estimated EF is 55-59%. RV: RV size is normal. RV function is normal. LA: LA size is normal. RA: RA size is normal. AO: Aortic root diameter is severely enlarged. Ascending aorta diameteris moderately enlarged. TOREY: No pericardial effusion seen. AV: Focal calcification. Bi cuspid aortic valve. Mild aortic regurgitation.No evidence of aortic stenosis. MV: No structural abnormalities noted. PV: No structural abnormalities noted. TV: No structural abnormalities noted. Fairchild: LV relaxation is impaired. LV filling pressure is within normalrange. Other:Estimated PA systolic pressure is 25 mmHg, assuming a mean RAPof 5 mmHg. MEASUREMENTS: 2D Parasternal Long Reading LVOT 2.2 cmAo An2.3 cm LVIDd4.5 cmIndex2.4 cm/m Ao Rtd 5.5 cm Index2.9 cm/m LVIDs3.2 cm LV Kwyg462.8 g(122-174) LV%fs 30.2 % LVM Index 89.9 g/m2 IVSd 0.9 cmRWT0.4 LVPWd0.9 cm LA Sng Plane LA Area 14.4 cm2(8.8-23.4) LA Vol33.5 ml Index17.6 ml/m LA LngAx 5.4 cm Signed 08/21/2018 01:18 PM Danie Kelley MD Procedure Note Interface, Radiology Results In - 08/21/2018 1:19 PM CDT [facility] Echocardiography Report Pat.Name: OMI STONE Adan Breaux.ID: [id number] .Date: 08/21/2018 Refer.MD: VISHAL DOVER MD Exam Time: 10:12:00 AM Study Type:Routine Echo Height: 70in Weight: 160lb BSA: 1.9 m2 Age: 7 1945,73Y Sex: MALE BP: 123/72 HR: 61 bpm Sonogrphr: HEMANT Saenz FASE Pat. Stat.:Outpatient Room: Star ICD - 9: 424.1 Study Status:Final Echo Event ID:[id number] Order ID: [id number] Reason for Study:Thoracic aortic aneurysm without rupture History / Clinical:Aortic Valve Disorders Procedures:2D Echo, Colorflow Doppler, Two-Dimensional Echocardiogram with Spectral Doppler and Color Flow Race: C SUMMARY: Left ventricular size is normal. LV function is normal. Aortic root diameter is severely enlarged. Ascending aorta diameter is moderately enlarged. 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 Recommend CT for further aortic evaluation FINDINGS: LV: LV size is normal. LV function is normal. Overall wall motion is normal. Estimated EF is 55-59%. RV: RV size is normal. RV function is normal. LA: LA size is normal. RA: RA size is normal. AO: Aortic root diameter is severely enlarged. Ascending aorta diameter is moderately enlarged. TOREY: No pericardial effusion seen. AV: Focal calcification. Bi cuspid aortic valve. Mild aortic regurgitation. No evidence of aortic stenosis. MV: No structural abnormalities noted. PV: No structural abnormalities noted. TV: No structural abnormalities noted. Fairchild: LV relaxation is impaired. LV filling pressure is within normal range. Other: Estimated PA systolic pressure is 25 mmHg, assuming a mean RAP of 5 mmHg. MEASUREMENTS: 2D Parasternal Long Reading LVOT 2.2 cm Ao An 2.3 cm LVIDd 4.5 cm Index 2.4 cm/m Ao Rtd 5.5 cm Index 2.9 cm/m LVIDs 3.2 cm LV Mass 170.8 g (122-174) LV%fs 30.2 % LVM Index 89.9 g/m2 IVSd 0.9 cm RWT 0.4 LVPWd 0.9 cm LA Sng Plane LA Area 14.4 cm2 (8.8-23.4) LA Vol 33.5 ml Index 17.6 ml/m LA LngAx 5.4 cm Signed 08/21/2018 01:18 PM Danie Kelley MD Performing Organization Address City/State/Zipcode Phone Number [facility] [address] [place] [address] after 03/21/2018 Insurance Payer Benefit Plan / Group Subscriber ID Type Phone Address [employer] MED[employer]ARE HU[employer] MEDICARE PPO/PFFS/ERS [facility] xxxxxxxxx PPO
--- OUTSIDE RECORDS SUMMARY | 2019-03-22 19:19 | XMS REPORT | Continuity of Care Document ---
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 Enlarged prostate Active Problem 03/24/2017 [facility] Medications Medication Details Route Status Patient Ordering Order Source Instructions Provider Date Acetaminophen 325 1 tab, PO, Q4H, Active [facility] / Oxycodone PRN for pain, X [address] [place] [address] Hydrochloride 5 7 day, # 50 tab, MG Oral Tablet 0 Refill(s) [Percocet 5/325] rivaroxaban 10 MG 10 mg=1 tab, PO, Active [facility] Oral Tablet Daily, # 10 tab, [address] [place] [address] [Xarelto] 0 Refill(s), Pharmacy: [facility]/pharmacy #[id number] Saline Flush 0.9% 10 ml, Route: No Longer [facility] IVP, Drug Form: [facility] 2016 [facility] INJ, Dosing Weight 74.716, kg, Q12H, Start date: 03/20/17 21:00:00 CDT, Duration: 30 day, Stop date: 04/19/17 9:00:00 CDTNotes: (Same as: BD Posiflush) Saline Flush 0.9% 10 ml, Route: No Longer [facility] IVP, Drug Form: [facility] 2016 [facility] INJ, Dosing Weight 74.716, kg, PRN, PRN [...] MG 300 mg, 1 cap, No Longer [facility] Oral Capsule Route: PO, Drug Active 2016 [...] MG Oral Route: PO, Drug Active 2016 [facility] Capsule form: CAP, BID, Dosing Weight 74.716, [...] No Longer [facility] IVPB, ABXQ8H, Active 2016 [facility] Dosing Weight 74.716, kg, Start date: 03/19/17 [...] [facility] Hydrochloride 5 Route: PO, Drug Active [facility] Oral Tablet form: TAB, Q4H, Dosing Weight 74.716, kg, PRN Pain Score 1-3, Start date: 03/19/17 10:07:00 CDT, Duration: 30 day, Stop date: 04/18/17 10:06:00 CDTNotes: (Same as: Roxicodone) Dulcolax Laxative 5 mg, 1 tab, No Longer [facility] Route: PO, Drug Active [address] [place] [address] form: ECTAB, Q24H, Dosing Weight 74.716, kg, [...] 04/18/17 10:06:00 CDTNotes: (aluminum hydroxide-magnes ium hyd-simethicone [id number]/5ml 30 ml ud CHARITY) Lactated Ringers 1,000 [...] IV, Drug Inactive [facility] form: SOLN, 2016 [facility] ONCE, Stop date: 03/19/17 9:14:00 CDT fentaNYL (ANES) Route: IV, Drug Inactive [facility] form: INJ, ONCE, 2016 Hospital Stop date: 03/19/17 9:14:00 CDT Hydromorphone 0.5 mg, 0.25 mL, Inactive [facility] Route: IVP, Drug 2016 [facility] form: INJ, Q5Min, Dosing Weight 74.716, [...] [facility] Flush IV, Drug Form: Active 2016 [facility] INJ, PRN, PRN Line Flush, Start date: [...] 8 MG 8 mg=1 cap, PO, Active y Oral Capsule Daily, 0 2016 [facility] [Rapaflo] Refill(s) Allergies, Adverse Reactions, Alerts Substance Category Reaction Severity Reaction Status Date Comments Source type Reported Immunizations Immunization Date Given Site Status Last [...] is not recommended in the following populations: [address] Individuals with unstable creatinine concentrations, including [...] Lvl 116 mg/dL 70 - 99 03/20 [facility] CHEM PANEL BUN 29 mg/dL 7 - 22 03/20 Hospital CHEM PANEL Chloride Lvl 104 meq/L 95 - 109 03/20 Hospital CHEM PANEL Sodium Lvl 138 meq/L 135 - 145 03/20 Hospital CHEM PANEL CO2 29 meq/L 24 - 32 03/20 Hospital CHEM PANEL Potassium 4.6 meq/L 3.5 - 5.1 03/20 Hospital CHEM PANEL Creatinine 1.41 mg/dL 0.50 - 03[facility] CHEM PANEL AGAP 9.6 meq/L 10.0 - 03/20 20.0 Hospital HEMATOLOGY Hct 38.5 % 42.0 - 03/20 [facility] 54.0 [facility] HEMATOLOGY Hgb 13.0 g/dL 14.0 - 03/20 [facility] 18.0 [facility] ELECTROLYTE Chloride Lvl 108 meq/L 95 - 109 03/19 Hospital ELECTROLYTE AGAP 14.7 meq/L 10.0 - 03/19 [facility] S 20.0 [facility] ELECTROLYTE Calcium Lvl 9.5 mg/dL 8.5 [...] is not recommended in the following populations: [address] Individuals with unstable creatinine concentrations, including [...] ELECTROLYTE Creatinine 1.60 mg/dL 0.50 - 03/19 [facility] S Lvl 1.40 Hospital ELECTROLYTE Glucose Lvl 143 mg/dL 70 - 99 03/19 Hospital ELECTROLYTE BUN 28 mg/dL 7 - 22 03/19 Hospital ELECTROLYTE Sodium Lvl 143 meq/L 135 - 145 03/19 Hospital ELECTROLYTE Potassium 4.7 meq/L 3.5 - 5.1 03/19 [facility] HEMATOLOGY Hct 41.9 % 42.0 - 03/19 54.0 [facility] HEMATOLOGY Hgb 14.1 g/dL 14.0 - 03/19 [facility] 18. [facility] CHEM PANEL B/C Ratio 19 6 - 25 03/19 Hospital CHEM PANEL A/G Ratio 1.0 0.7 - 1.6 05 Hospital CHEM PANEL Globulin 3.9 g/dL 2.7 [...] is not recommended in the following populations: [facility] 3m2 Individuals with unstable creatinine concentrations, including [...] CHEM PANEL Creatinine 1.58 mg/dL 0.50 - 03/19 Lvl 1.40 Hospital CHEM PANEL CO2 25 meq/L 24 - 32 05/10 [facility] CHEM PANEL Chloride Lvl 108 meq/L 95 - 109 05/ [facility] CHEM PANEL Glucose Lvl 101 mg/dL 70 - 99 05/ [facility] HEMATOLOGY Monocytes # 0.7 K/CMM 0.0 - 0.8 05/10 [facility] HEMATOLOGY Eosinophils 0.3 K/CMM 0.0 - 0.5 05/10 [facility] # /2016 Hospital HEMATOLOGY Lymphocytes 1.7 K/CMM 1.0 - 5.5 05/10 [facility] # /2016 [facility] HEMATOLOGY Monocytes 12.3 % 2.0 - 12.0 05/10 [facility] HEMATOLOGY Eosinophils 4.7 % 0.0 - 4.0 05/ [facility] HEMATOLOGY Basophils 0.8 % 0.0 - 1.0 05/ [facility] HEMATOLOGY Segs-Bands # 2.8 K/CMM [...] Hospital HEMATOLOGY RDW 12.8 % 11.5 - 10 [facility] 14.5 [facility] HEMATOLOGY Platelet 123 K/CMM 133 - 450 05/ [facility] HEMATOLOGY MPV 8.5 fL 7.4 - 10.4 05/ [facility] HEMATOLOGY MCHC 34.5 g/dL 32.0 - 05 [facility] 36.0 [facility] HEMATOLOGY Hgb 16.6 g/dL 14.0 - 03/19 [facility] 18.0 [facility] HEMATOLOGY Hct 48.0 % 42.0 - 0510 [facility] 54.0 [facility] HEMATOLOGY MCV 91.9 fL 80.0 - 0510 [facility] 94.0 [facility] HEMATOLOGY MCH 31.7 pg 27.0 - 03/19 [facility] 31.0 [facility] HEMATOLOGY WBC 5.5 K/CMM 3.7 - 10.4 03/19 [facility] HEMATOLOGY RBC 5.22 M/CMM 4.70 - 03/19 [facility] 6.10 [facility] URINE AND UA Sq Epi None Seen 03/19 [facility] STOOL [facility] URINE AND UA <=1.0 0.1 - 1.0 03/19 [facility] Urobilinogen mg/dL [facility] URINE AND UA Protein Negative Negative 03/19 [facility] mg/dL mg/dL [facility] URINE AND UA pH 6.0 5.0 - 8.0 03/19 [facility] URINE AND UA Blood Negative Negative 03/19 [facility] (03/19/17 7:14 AM) URINE AND UA Ketones Negative Negative 03/19 [facility] mg/dL mg/dL [facility] URINE AND UA Bili Negative Negative 03/19 [facility] STO[facility] *NA* (03/19/17 7:14 AM) URINE AND UA Glucose Negative Negative 03/19 [facility] mg/dL mg/dL [facility] URINE AND UA RBC null 0 - 2 03/19 [facility] STO[facility] URINE AND UA Leuk Est Negative Negative 03/19 [facility] STO[facility] (03/19/17 7:14 AM) URINE AND UA WBC 3 /HPF 0 - 5 [facility] ST[facility] URINE AND UA Nitrite Negative Negative 03/19 [facility] STOOL [facility] (03/19/17 7:14 AM) URINE AND UA Amorph Occasional None Seen 03/19 [facility] Mily /HPF /HPF /2016 [facility] URINE AND UA Mucus Few /LPF None Seen 03/19 [facility] /LPF /2016 [facility] URINE AND UA Turbidity Slight Clear 03/19 [facility] STO[facility] *ABN* (03/19/17 7:14 AM) URINE AND UA Spec Grav 1.017 <=1.030 [facility] ST[facility] URINE AND UA Color Yellow Yellow 03/19 [facility] STOOL [facility] *NA* (03/19/17 7:14 AM) Pelvis AP Pelvis AP DX Pelvis single view 03/19 [facility] DX - Hospital HISTORY: Postop. Read by: Zak Monroy MD Dictated Date/time: 03/19/17 11:09 Electronically Signed by: Zak Monroy MD 03/19/17 11:10 FINAL REPORT COMPARISON: None available. FINDINGS: Left hip replacement evident. Postoperative changes surrounding soft tissues. 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 IMPRESSION: 1. Status post left hip replacement. SL: [id number] Hip 2/3 Hip 2/3 FLUOROSCOPIC GUIDANCE: 03/19 - [facility] views uni views uni DX - [...] IMPRESSION: 1. Intraoperative findings as described. SL: [id number] BLOOD BANK Antibody Negative 03/11 [facility] RESULTS Scrn /2016 [facility] (03/11/17 1:04 PM) BLOOD BANK ABO/Rh O POS 03/11 [facility] RESULTS [facility] BLOOD BANK RBC product Product available 03/11 [facility] RESULTS /2016 [facility] (03/11/17 12:59 PM) Vital Signs Vital Sign Value Date Comments Source Respitory Rate 16 03/21/2017 [facility] Systolic (mm Hg) 136 03/21/2017 [facility] Diastolic (mm Hg) 74 03/21/2017 [facility] Temperature Oral (F) 98.2 F 03/21/2017 [facility] Heart Rate 69 03/21/2017 [facility] Systolic (mm Hg) 142 03/21/2017 [facility] Diastolic (mm Hg) 74 03/21/2017 [facility] Respitory Rate 15 03/21/2017 [facility] Heart Rate 72 03/21/2017 [facility] Temperature Oral (F) 98.2 F 03/21/2017 [facility] Temperature Oral (F) 98.4 F 03/21/2017 [facility] Respitory Rate 15 03/21/2017 [facility] Heart Rate 76 03/21/2017 [facility] Systolic (mm Hg) 156 03/21/2017 [facility] Diastolic (mm Hg) 74 03/21/2017 [facility] Height 170.82 cm 03/11/2017 [facility] BMI Calculated 25.61 03/11/2017 [facility] Weight 74.716 03/11/2017 [facility] Encounters Location Location Encounter Encounter Reason Attending ADM DC Status Source Details Type Number For Provider Date Date Visit [facility] Inpatient [id number] [place] 03/19 03/21 [facility] /2016 [facility] Procedures Procedure Code Date Perfomer Comments Source Shoulder joint [id number] 11/11/2015 left shoulder [facility] operations<sup>1 [facility] </sup> Neck repair [id number] 03/11/2015 [facility]
--- OUTSIDE RECORDS SUMMARY | 2019-03-22 19:20 | XMS REPORT ---
:1945 [facility] [address] [place] [address] [address] Care Team Providers Name Role Phone KAL TARANGO Unavailable Unavailable Problems This patient has no known problems. Allergies, Adverse Reactions, Alerts This patient has no known allergies or adverse reactions. Medications This patient has no known medications. Encounters Start End Encounter Admission Attending Care Care Encounter Date/Time Date/Time Type Type Clinicians Facility Department ID 2018-08-28 2018-11-21 Outpatient C DOLLY TARANGO BALANCE PT [id number] 09:11:00 23:59:00 KAL
[2019-03-22 21:20] LABS: Absolute Lymphocytes (CBC) 1.7 K/uL (0.7-4.9); Absolute Monocytes 0.7 K/uL (0.1-1.3); Absolute Neutrophil 6.9 K/uL (1.8-8.0); Basophils % 1.3 % (0-1.3); Eosinophils % 2.6 % (0-4.4); Hematocrit 47.9 % (39.6-49.0); Lymphocytes % 17.6 % (15.3-44.8); MPV 8.1 fL (7.6-11.3); Monocytes % 7.4 % (3.3-12.3); RBC Red Blood Cell Count 5.07 M/uL (4.33-5.43)
[2019-03-22 21:43] LABS: Albumin 4.1 g/dL (3.4-5.0); Bilirubin Direct 0.1 mg/dL (0-0.2); Bilirubin Total 0.4 mg/dL (0.2-1.0); Potassium 4.7 mmol/L (3.5-5.1); Protein, Total 8.2 g/dL (6.4-8.2)
[2019-03-22] MEDS ORDERED: TETANUS & DIPHTHERIA TOX,ADULT 0.5 ML VIAL ONE (22:10)
[2019-03-22] MEDS ORDERED: NA CHLORIDE 0.9% 1,000 ML ONE (22:19)
[2019-03-22] MEDS ORDERED: MAGNESIUM CITRATE 300 ML BOT ONE (23:12)
[2019-03-22] MEDS ORDERED: NACL 0.9% IRR SOLN 0 ML IRR ONE (23:26)
--- NOTE | 2019-03-23 00:30 | EDPHYS ---
Physician Documentation [facility] Name: Omi Stone Age: 73 yrs Sex: Male : 1945 Arrival Date: 03/22/2019 Time: 19:18 Bed 19 Private MD: Chuck Molina C ED Physician Patrick Hancock HPI: 03/22 20:45 This 73 yrs old Male presents to ER via Ambulatory with complaints of cp Constipation. 20:45 The patient presents with constipation. cp 20:45 Onset: The symptoms/episode began/occurred today. Associated signs and symptoms: cp Pertinent negatives: blood in stools, chest pain, diarrhea, fever, hematuria, testicular pain, vomiting, abdominal pain. Modifying factors: The symptoms are alleviated by nothing, tried OTC laxative and enema. reports last BM 2 days ago. Historical: - Allergies: 19:22 No Known Allergies; aj - Home Meds: 19:22 Crestor Oral [Active]; duloxetine Oral [Active]; lansoprazole 30 mg Oral TbEC [Active]; aj lisinopril 30 mg Oral tab [Active]; lisinopril 30 mg Oral tab 1 tab once daily [Active]; nortriptyline 50 mg Oral cap [Active]; Rapaflo 8 mg Oral cap [Active]; - PMHx: 19:22 ascending aortic aneurysm; GERD; Hyperlipidemia; Hypertension; aj - Immunization history:: Adult Immunizations up to date. - Social history:: Smoking status: Patient/guardian denies using tobacco. - Ebola Screening: : Patient negative for fever greater than or equal to 101.5 degrees Fahrenheit, and additional compatible Ebola Virus Disease symptoms Patient denies exposure to infectious person Patient denies travel to an Ebola-affected area in the 21 days before illness onset No symptoms or risks identified at this time. ROS: 21:00 Constitutional: Negative for body aches, chills, fever, poor PO intake. cp 21:00 Eyes: Negative for injury, pain, redness, and discharge. cp 21:00 ENT: Negative for drainage from ear(s), ear pain, sore throat, difficulty swallowing, difficulty handling secretions. 21:00 Cardiovascular: Negative for chest pain, palpitations. 21:00 Respiratory: Negative for cough, shortness of breath, wheezing. 21:00 Abdomen/GI: Positive for constipation, Negative for abdominal pain, vomiting, diarrhea, anorexia, black/tarry stool, rectal bleeding. 21:00 Back: Negative for radiated pain. 21:00 : Negative for urinary symptoms. 21:00 Skin: Negative for cellulitis, rash. 21:00 Neuro: Negative for altered mental status, dizziness, headache, weakness. 21:00 All other systems are negative. Exam: 21:05 Constitutional: The patient appears in no acute distress, alert, awake, cp non-diaphoretic, non-toxic, well developed, well nourished. 21:05 Head/Face: Normocephalic, atraumatic. cp 21:05 Eyes: Periorbital structures: appear normal, Conjunctiva: normal, no exudate, no injection, Sclera: no appreciated abnormality, Lids and lashes: appear normal, bilaterally. 21:05 ENT: External ear(s): are unremarkable, Nose: is normal, Mouth: Lips: moist, Oral mucosa: pink and intact, moist, Posterior pharynx: is normal, airway is patent, no erythema, no exudate. 21:05 Chest/axilla: Inspection: normal, Palpation: is normal, no crepitus, no tenderness. 21:05 Cardiovascular: Rate: normal, Rhythm: regular, Edema: is not appreciated, JVD: is not appreciated. 21:05 Respiratory: the patient does not display signs of respiratory distress, Respirations: normal, no use of accessory muscles, no retractions, no splinting, no tachypnea, labored breathing, is not present, Breath sounds: are clear throughout, no decreased breath sounds, no stridor, no wheezing. 21:05 Abdomen/GI: Inspection: distension, is not seen, Bowel sounds: active, all quadrants, Palpation: soft, in all quadrants, nontender, in all quadrants, rebound tenderness, is not appreciated, voluntary guarding, is not appreciated, involuntary guarding, is not appreciated, Rectal exam: Stool: brown, fecal impaction, is not appreciated. 21:05 Back: pain, is absent, ROM is normal. 21:05 Skin: no rash present. 21:05 Neuro: Orientation: to person, place \T\ time. Mentation: is normal. Vital Signs: 19:22 BP 163 / 88; Pulse 72; Resp 20; Temp 98.4; Pulse Ox 96% on R/A; Weight 74.84 kg; Height aj 5 ft. 10 in. (177.80 cm); 21:35 BP 162 / 98; Pulse 76; Resp 17 S; Pulse Ox 97% on R/A; jd3 22:21 BP 175 / 94; Pulse 61; Resp 17 S; Pulse Ox 99% on R/A; jd3 23:28 BP 183 / 99; Pulse 65; Resp 17 S; Pulse Ox 100% on R/A; jd3 03/23 00:43 BP 164 / 98; Pulse 75; Resp 17 S; Pulse Ox 100% on R/A; jd3 03/22 19:22 Body Mass Index 23.67 (74.84 kg, 177.80 cm) aj MDM: 03/22 20:29 Patient medically screened. cp 21:00 Differential diagnosis: bowel obstruction, constipation, fecal impaction, ileus. cp 21:50 ED course: xrays of abdomen show air/fluid levels. cp 03/23 00:27 Data reviewed: vital signs, nurses notes, lab test result(s), radiologic studies, CT cp scan, plain films. 00:27 Test interpretation: by ED physician or midlevel provider: plain radiologic studies. cp Response to treatment: the patient's symptoms have markedly improved after treatment, Patient with observed bowel movement while in Ed and patient reports he is feeling better, and as a result, I will discharge patient. 03/22 20:37 Order name: Basic Metabolic Panel; Complete Time: 21:47 cp 03/22 20:37 Order name: CBC with Diff; Complete Time: 21:47 cp 03/22 20:37 Order name: Creatinine for Radiology; Complete Time: 21:47 cp 03/22 20:37 Order name: Hepatic Function; Complete Time: 21:47 cp 03/22 20:37 Order name: Lipase; Complete Time: 21:47 cp 03/22 20:38 Order name: XRAY Abdomen With Erect cp 03/22 20:37 Order name: IV Saline Lock; Complete Time: 21:14 cp 03/22 20:37 Order name: Labs collected and sent; Complete Time: 21:14 cp 03/22 21:53 Order name: CT Abd/Pelvis - Without Cont: no oral contrast cp 03/22 22:48 Order name: Misc. Order: soap suds enema; Complete Time: 23:27 cp Administered Medications: 03/22 22:19 Drug: NS 0.9% 500 ml Route: IV; Rate: bolus; Site: right antecubital; jd3 23:03 Follow up: Response: No adverse reaction; IV Status: Completed infusion; IV Intake: jd3 500ml 22:19 Drug: NS 0.9% 500 ml Route: IV; Rate: 100 ml/hr; Site: right antecubital; jd3 03/23 00:49 Follow up: Response: No adverse reaction; IV Status: Order to discontinue infusion jd3 03/22 23:02 Drug: Magnesium Citrate Liquid 300 ml Route: PO; jd3 03/23 00:48 Follow up: Response: No adverse reaction jd3 Disposition: 03/23/19 00:29 Discharged to Home. Impression: Constipation. - Condition is Stable. - Discharge Instructions: Constipation, Adult. - Prescriptions for Miralax 17 gram/dose Oral - take 1 packet by ORAL route once daily As needed dilute powder in 8 ounces of water or juice; 20 packet. - Medication Reconciliation Form, Thank You Letter, Antibiotic Education, Prescription Opioid Use form. - Follow up: Gary Padilla MD; When: 1 - 2 days; Reason: Recheck today's complaints. - Problem is new. - Symptoms have improved. Signatures: Dispatcher [employer] María Elena John RN RN Slim Shaffer PA PA cp Davies, Jonathon, RN RN jd3 Corrections: (The following items were deleted from the chart) 00:50 00:29 03/23/2019 00:29 Discharged to Home. Impression: Constipation. Condition is jd3 Stable. Forms are Medication Reconciliation Form, Thank You Letter, Antibiotic Education, Prescription Opioid Use. Follow up: Gary Padilla; When: 1 - 2 days; Reason: Recheck today's complaints. Problem is new. Symptoms have improved. cp
--- NOTE | 2019-03-23 00:30 | ER ---
Nurse's Notes [facility] Name: Omi Stone Age: 73 yrs Sex: Male : 1945 Arrival Date: 03/22/2019 Time: 19:18 Bed 19 Private MD: Chuck Molina C Diagnosis: Constipation Presentation: 03/22 19:20 Presenting complaint: Patient states: No BM for 2 days. 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 Reports pressure at rectum, denies abdominal pain. Transition of care: patient was not received from another setting of care. Onset of symptoms was March 19, 2019. Risk Assessment: Do you want to hurt yourself or someone else? Patient reports no desire to harm self or others. Initial Sepsis Screen: Does the patient meet any 2 criteria? No. Patient's initial sepsis screen is negative. Does the patient have a suspected source of infection? No. Patient's initial sepsis screen is negative. Care prior to arrival: None. 19:20 Method Of Arrival: Ambulatory 19:20 Acuity: GABRIELA 3 aj Triage Assessment: 19:22 General: Appears in no apparent distress. uncomfortable, Behavior is calm, cooperative, aj appropriate for age. Pain: Denies pain. Neuro: Level of Consciousness is awake, alert, obeys commands, Oriented to person, place, time, situation, Appropriate for age. Respiratory: Airway is patent Respiratory effort is even, unlabored, Respiratory pattern is regular, symmetrical. GI: Reports constipation. Derm: Skin is intact, is healthy with good turgor, Skin is pink, warm \T\ dry. normal. Historical: - Allergies: 19:22 No Known Allergies; aj - Home Meds: 19:22 Crestor Oral [Active]; duloxetine Oral [Active]; lansoprazole 30 mg Oral TbEC [Active]; aj lisinopril 30 mg Oral tab [Active]; lisinopril 30 mg Oral tab 1 tab once daily [Active]; nortriptyline 50 mg Oral cap [Active]; Rapaflo 8 mg Oral cap [Active]; - PMHx: 19:22 ascending aortic aneurysm; GERD; Hyperlipidemia; Hypertension; aj - Immunization history:: Adult Immunizations up to date. - Social history:: Smoking status: Patient/guardian denies using tobacco. - Ebola Screening: : Patient negative for fever greater than or equal to 101.5 degrees Fahrenheit, and additional compatible Ebola Virus Disease symptoms Patient denies exposure to infectious person Patient denies travel to an Ebola-affected area in the 21 days before illness onset No symptoms or risks identified at this time. Screenin:29 Abuse screen: Denies threats or abuse. Nutritional screening: No deficits noted. jd3 Tuberculosis screening: No symptoms or risk factors identified. Fall Risk Ambulatory Aid- None/Bed Rest/Nurse Assist (0 pts). Gait- Normal/Bed Rest/Wheelchair (0 pts) Mental Status- Oriented to own ability (0 pts). Total Carias Fall Scale indicates No Risk (0-24 pts). Assessment: 20:26 General: Appears in no apparent distress. uncomfortable, Behavior is calm, cooperative, jd3 appropriate for age. Pain: Complains of pain in abdomen Quality of pain is described as aching, pressure, tender. Neuro: Level of Consciousness is awake, alert, obeys commands, Oriented to person, place, time, situation, Appropriate for age. Cardiovascular: Capillary refill < 3 seconds Patient's skin is warm and dry. Respiratory: Airway is patent Respiratory effort is even, unlabored, Respiratory pattern is regular, symmetrical. GI: Bowel sounds present X 4 quads. Abd is soft X 4 quads Abdomen is tender to palpation X 4 quads. : No signs and/or symptoms were reported regarding the genitourinary system. EENT: No signs and/or symptoms were reported regarding the EENT system. Derm: Skin is intact, Skin is dry, Skin is normal, Skin temperature is warm. Musculoskeletal: Circulation, motion, and sensation intact. Range of motion: intact in all extremities. 21:35 Reassessment: Patient appears in no apparent distress at this time. Patient and/or jd3 family updated on plan of care and expected duration. Pain level reassessed. Patient is alert, oriented x 3, equal unlabored respirations, skin warm/dry/pink. awaiting results. 22:20 Reassessment: Patient appears in no apparent distress at this time. Patient and/or jd3 family updated on plan of care and expected duration. Pain level reassessed. Patient is alert, oriented x 3, equal unlabored respirations, skin warm/dry/pink. 23:29 Reassessment: Patient appears in no apparent distress at this time. Patient and/or jd3 family updated on plan of care and expected duration. Pain level reassessed. Patient is alert, oriented x 3, equal unlabored respirations, skin warm/dry/pink. Vital Signs: 19:22 BP 163 / 88; Pulse 72; Resp 20; Temp 98.4; Pulse Ox 96% on R/A; Weight 74.84 kg; Height aj 5 ft. 10 in. (177.80 cm); 21:35 BP 162 / 98; Pulse 76; Resp 17 S; Pulse Ox 97% on R/A; jd3 22:21 BP 175 / 94; Pulse 61; Resp 17 S; Pulse Ox 99% on R/A; jd3 23:28 BP 183 / 99; Pulse 65; Resp 17 S; Pulse Ox 100% on R/A; jd3 03/23 00:43 BP 164 / 98; Pulse 75; Resp 17 S; Pulse Ox 100% on R/A; jd3 03/22 19:22 Body Mass Index 23.67 (74.84 kg, 177.80 cm) ED Course: 03/22 19:18 Patient arrived in ED. es 19:18 Chuck Molina MD is Private Physician. es 19:21 Triage completed. 19:22 Arm band placed on right wrist. Patient placed in waiting room, Patient notified of wait time. 20:26 Stephane Gold, RN is Primary Nurse. jd3 20:29 Slim Silva PA is PHCP. cp 20:29 Patrick Hancock MD is Attending Physician. cp 20:29 Patient has correct armband on for positive identification. Bed in low position. Call j light in reach. Side rails up X 1. Adult w/ patient. 21:03 XRAY Abdomen With Erect In Process Unspecified. EDMS 21:[address] vm2 22:15 Inserted saline lock: 20 gauge in right antecubital area, using aseptic technique. jd3 Blood collected. 22:20 CT Abd/Pelvis - Without Cont: no oral contrast In Process Unspecified. EDMS 03/23 00:27 Gary Padilla MD is Referral Physician. cp 00:44 No provider procedures requiring assistance completed. jd3 00:46 IV discontinued, intact, bleeding controlled, No redness/swelling at site. Pressure jd3 dressing applied. Administered Medications: 03/22 22:19 Drug: NS 0.9% 500 ml Route: IV; Rate: bolus; Site: right antecubital; jd3 23:03 Follow up: Response: No adverse reaction; IV Status: Completed infusion; IV Intake: jd3 500ml 22:19 Drug: NS 0.9% 500 ml Route: IV; Rate: 100 ml/hr; Site: right antecubital; jd3 03/23 00:49 Follow up: Response: No adverse reaction; IV Status: Order to discontinue infusion jd3 03/22 23:02 Drug: Magnesium Citrate Liquid 300 ml Route: PO; jd3 03/23 00:48 Follow up: Response: No adverse reaction jd3 Intake: 03/22 23:03 IV: 500ml; Total: 500ml. jd3 Outcome: 03/23 00:29 Discharge ordered by . cp 00:46 Discharged to home ambulatory, with family. jd3 00:46 Condition: stable 00:46 Discharge instructions given to patient, family, Instructed on discharge instructions, follow up and referral plans. medication usage, Demonstrated understanding of instructions, follow-up care, medications, Prescriptions given X 1. 00:50 Patient left the ED. jd3 Signatures: Dispatcher [employer] María Elena John, RN Meghann Lara Corey, PA PA cp McGuire, [facility] Stephane Gold RN RN jd3
[2019-03-23 09:09] VITALS: TEMP 98.4
[2019-03-23 09:13] VITALS: O2SAT 100
[2019-03-23 09:15] VITALS: BP 164/98
--- NOTE | 2019-03-23 10:27 | RAD REPORT ---
EXAM DESCRIPTION: RAD - Abdomen W Erect - 03/22/2019 9:02 pm CLINICAL HISTORY: 73 years old and is Male; CONSTIPATION TECHNIQUE: Frontal view of the abdomen/pelvis with upright view of the abdomen. COMPARISON: No relevant prior studies available. FINDINGS: Limitations: None. Intraperitoneal space: No free air. Gastrointestinal tract: There is a small to moderate amount of fluid layering throughout the int estinal tract. No gaseous distention. Small amounts of formed stool identified in the rectum. Bones/joints: Visualized portions of the left hip arthroplasty are in good position and well sea alexandro. There is moderate degenerative change in the spine and right hip. IMPRESSION: Nonspecific fluid layering throughout the intestinal tract most consistent with mild ile us. Small amount of rectal stool present. Electronically signed by: Kelly Alamo MD 03/22/2019 10:24 PM CDT Due to temporary technical issues with the PACS/Fluency reporting system, reports are being signed by the in house radiologist as a courtesy to ensure prompt reporting. The interpreting radiologist is f ully responsible for the content of the report.
--- NOTE | 2019-03-23 10:29 | RAD REPORT ---
EXAM DESCRIPTION: CT - Abdomen Pelvis Wo Contrast - 03/22/2019 10:44 pm CLINICAL HISTORY: 73 years Male, CONSTIPATION COMPARISON: None. TECHNIQUE: 5 mm axial images of the abdomen and pelvis were obtained without intravenous contrast. 3 mm coronal and sagittal reformatted images were obtained. This exam was performed according to our departmental dose-optimization program, which includes autom ated exposure control, adjustment of the mA and/or kV according to patient size and/or use of iterati ve reconstruction technique. INTRAVENOUS CONTRAST: None. FINDINGS: Lung bases: There are no active infiltrates. There is evidence of coronary arterial diseas e. Liver: There are 3 hepatic cysts. The largest is exophytic arising from the anterior and inferior asp ect of the right hepatic lobe. This measures 4.3 x 4.9 x 4.0 cm in maximum dimensions. Spleen: Normal. Pancreas: Normal. Gallbladder: Normal. Right adrenal gland: Normal. Left adrenal gland: Normal. Right kidney: There are 6 cortical cyst identified. The largest arises from the upper pole measuring 6.9 x 8.2 x 7. 7 cm. There is a small hyperdense nodule arising from the midpole directed laterally best identified on axi al image #44 coronal image #6. This measures 1.1 x 0.7 cm. Further evaluation with a nonemergent ultrasound recommended. Left kidney: There are 4 cortical cyst identified. The largest arises from the lower pole and measures 3.2 x 2.8 c m. There are multiple small nonobstructing medullary stones. The largest stone is in the lower pole osiel uring 0.4 x 0.3 cm. Retroperitoneal structures: There is severe atherosclerotic disease about the abdominal aorta and marilee ac arteries. Bowel survey: There is increased stool throughout the colon. There is no evidence of impaction. The a ppendix is unremarkable. The distal ileum is unremarkable.. Urinary bladder: Normal. Uterus and adnexa: Normal. Prostate gland: Obscured by beam hardening artifact associated with left hip prosthesis. The prostate gland appears to be grossly normal in size.. Peritoneal cavity: Normal. Mesentery structures: Normal. Abdominal wall: No hernia. Bony structures: No suspicious lesions. There is severe multilevel degenerative disease throughout th e lower thoracic and lumbar spine. IMPRESSION: 1. Increased stool throughout the colon. No evidence of impaction. 2. Indeterminate small nodular mass right kidney. Nonemergent ultrasound evaluation recommended. 3. Left nephrolithiasis. 4. Hepatic and bilateral renal cysts. 5. Atherosclerotic disease. Electronically signed by: Constantine White MD 03/22/2019 10:34 PM CDT Due to temporary technical issues with the PACS/Fluency reporting system, reports are being signed by the in house radiologist as a courtesy to ensure prompt reporting. The interpreting radiologist is f ully responsible for the content of the report.
== END 2019-03-23 00:50 | disposition home or self-care (01) ==
LOC: ER 19:15
DX: K59.00 Constipation, unspecified (principal); I10 Essential (primary) hypertension; E78.5 Hyperlipidemia, unspecified; K21.9 Gastro-esophageal reflux disease without esophagitis
CPT/HCPCS: 96361; 85025; 80048; 36415; 80076; 83690; 74176; 74019; 96360; 99284; J7030; 90714

== ENCOUNTER 2019-11-04 22:46 | Emergency (ER) | payer OTHER ==
--- OUTSIDE RECORDS SUMMARY | 2019-11-04 22:49 | XMS REPORT ---
:1945 [facility] Address [address] [place] [address] [address] Care Team Providers Name Role Phone KAL TARANGO Unavailable Unavailable Problems This patient has no known problems. Allergies, Adverse Reactions, Alerts This patient has no known allergies or adverse reactions. Medications This patient has no known medications. Encounters Start End Encounter Admission Attending Care Care Encounter Date/Time Date/Time Type Type Clinicians Facility Department ID 2018-08-28 2018-11-21 Outpatient C DOLLY TARANGO BALANCE PT [id number] 09:11:00 23:59:00 KAL
[2019-11-05 01:06] LABS: Protime INR 0.99
[2019-11-05 01:07] LABS: Absolute Lymphocytes (CBC) 2.8 K/uL (0.7-4.9); Basophils % 0.6 % (0-1.3); Hematocrit 39.3 % (39.6-49.0); Lymphocytes % 40.7 % (15.3-44.8); MPV 7.8 fL (7.6-11.3)
[2019-11-05 01:22] LABS: ALT/SGPT 34 U/L (12-78); AST/SGOT 32 U/L (15-37); Albumin 3.7 g/dL (3.4-5.0); Alkaline Phosphatase 48 U/L (45-117); BUN Blood Urea Nitrogen 40 mg/dL (7-18); Bicarbonate 27 mmol/L (21-32); Bilirubin Direct 0.1 mg/dL (0-0.2); Bilirubin Total 0.4 mg/dL (0.2-1.0); Glucose Level 105 mg/dL (74-106); Lipase 249 U/L (73-393); Magnesium 2.3 mg/dL (1.8-2.4); NT PRO-BNP 362 pg/mL (<125); Protein, Total 7.2 g/dL (6.4-8.2); Sodium Level 139 mmol/L (136-145); Troponin (Emerg Dept Use Only) < 0.02 ng/mL (0.0-0.045)
[2019-11-05] MEDS ORDERED: NA CHLORIDE 0.9% 1,000 ML ONE (01:22)
--- NOTE | 2019-11-05 02:20 | ER ---
Nurse's Notes [facility] Name: Omi Stone Age: 74 yrs Sex: Male : 1945 Arrival Date: 11/04/2019 Time: 22:49 Bed 13 Private MD: Diagnosis: Edema, unspecified;Aneurysm of aorta in diseases classified elsewhere;Essential (primary) hypertension;Unspecified kidney failure Presentation: 11/04 22:52 Presenting complaint: Patient states: Noticed ankle swollen today, denies any pain; lp1 States some shortness of breath; Had a recent heart cath surgery on 10/20/19. Transition of care: patient was not received from another setting of care. Onset of symptoms was November 04, 2019. Risk Assessment: Do you want to hurt yourself or someone else? Patient reports no desire to harm self or others. Initial Sepsis Screen: Does the patient meet any 2 criteria? No. Patient's initial sepsis screen is negative. Does the patient have a suspected source of infection? No. Patient's initial sepsis screen is negative. Care prior to arrival: None. 22:52 Method Of Arrival: Ambulatory lp1 22:52 Acuity: GABRIELA 3 lp1 Historical: - Allergies: 22:54 No Known Allergies; lp1 - Home Meds: 23:00 amlodipine 10 mg tab 1 tab once daily [Active]; tamsulosin 0.4 mg oral cp24 1 cap once lp1 daily [Active]; Rapaflo 8 mg Oral cap 1 cap once daily [Active]; rosuvastatin 5 mg oral tab 1 tab once daily [Active]; tramadol 50 mg Oral tab 1 tab every 6 hours [Active]; tizanidine 4 mg oral cap [Active]; duloxetine 60 mg oral cpDR 1 cap twice a day [Active]; - PMHx: 22:54 ascending aortic aneurysm; GERD; Hyperlipidemia; Hypertension; lp1 - PSHx: 22:54 None; lp1 - Immunization history:: Adult Immunizations up to date. - Social history:: Smoking status: Patient/guardian denies using tobacco. - Ebola Screening: : No symptoms or risks identified at this time. - Family history:: not pertinent. Screenin:54 Abuse screen: Denies threats or abuse. Denies injuries from another. Nutritional lp1 screening: No deficits noted. Tuberculosis screening: No symptoms or risk factors identified. 11/05 01:15 Fall Risk IV access (20 points). Total Carias Fall Scale indicates No Risk (0-24 pts). rr5 Assessment: 01:15 General: Appears in no apparent distress. comfortable, Behavior is calm, cooperative, rr5 appropriate for age, received patient, awake conscious and coherent not in distress, awaiting for review. chatting with his doctorate of chiropractic at bedside.. 01:15 Pain: Denies pain. Neuro: Level of Consciousness is awake, alert, obeys commands, rr5 Oriented to person, place, time, situation, Appropriate for age. Cardiovascular: Capillary refill < 3 seconds Patient's skin is warm and dry. Respiratory: Airway is patent Respiratory effort is even, unlabored, Respiratory pattern is regular, symmetrical. GI: No signs and/or symptoms were reported involving the gastrointestinal system. : No signs and/or symptoms were reported regarding the genitourinary system. EENT: No signs and/or symptoms were reported regarding the EENT system. Derm: Skin is intact, is healthy with good turgor, Skin temperature is warm. Musculoskeletal: Swelling present in right leg and left leg. 02:15 Reassessment: Patient appears in no apparent distress at this time. No changes from rr5 previously documented assessment. Patient is alert, oriented x 3, equal unlabored respirations, skin warm/dry/pink. chatting with his doctorate of chiropractic at bedside. 03:15 Reassessment: Patient appears in no apparent distress at this time. Patient is alert, rr5 oriented x 3, equal unlabored respirations, skin warm/dry/pink. discharge instruction given and explained without complaints made, verbalized understading. Vital Signs: 11/04 22:54 BP 129 / 85; Pulse 66; Resp 18; Temp 97.5(O); Pulse Ox 97% on R/A; Weight 76.2 kg (R); lp1 Height 5 ft. 10 in. (177.80 cm); Pain 0/10; 11/05 01:15 BP 143 / 88; Pulse 73; Resp 17; Pulse Ox 98% ; rr5 02:15 BP 147 / 85; Pulse 70; Resp 16; Pulse Ox 97% on R/A; rr5 03:15 BP 138 / 84; Pulse 74; Resp 19; Pulse Ox 100% on R/A; rr5 11/04 22:54 Body Mass Index 24.11 (76.20 kg, 177.80 cm) lp1 ED Course: 11/04 22:49 Patient arrived in ED. cl3 22:53 Triage completed. lp1 22:53 Arm band placed on right wrist. lp1 23:25 Slim Sherman MD is Attending Physician. chuck 11/05 00:50 Inserted saline lock: 20 gauge in right antecubital area, using aseptic technique. Blood collected. 01:15 Patient has correct armband on for positive identification. Bed in low position. Call rr5 light in reach. Side rails up X2. campus monitor on. Pulse ox on. NIBP on. 01:20 Ultrasound completed. hr 01:23 US Extremity Venous W Compression Raudel In Process Unspecified. EDMS 01:23 Chriss Martel, MK is Primary Nurse. rr5 01:26 XRAY Chest (1 view) In Process Unspecified. EDMS 02:18 Neal Warren MD is Referral Physician. chuck 03:15 No provider procedures requiring assistance completed. IV discontinued, intact, rr5 bleeding controlled, No redness/swelling at site. Pressure dressing applied. Administered Medications: 01:24 Drug: NS 0.9% 1000 ml Route: IV; Rate: 75 ml/hr; Site: right antecubital; rr5 03:46 Follow up: Response: No adverse reaction; IV Status: Order to discontinue infusion; IV rr5 Intake: 150ml 02:30 Drug: ToPROL XL (metoprolol SUCCINATE XL) 50 mg Route: PO; 03:20 Follow up: Response: No adverse reaction 03:19 Drug: Lisinopril 10 mg Route: PO; 03:20 Follow up: Response: No adverse reaction Intake: 03:46 IV: 150ml; Total: 150ml. rr5 Outcome: 02:19 Discharge ordered by . chuck 03:15 Discharged to home ambulatory, with family. rr5 03:15 Condition: stable 03:15 Discharge instructions given to patient, Instructed on discharge instructions, follow up and referral plans. medication usage, Demonstrated understanding of instructions, follow-up care, medications, Prescriptions given X 2. 03:21 Patient left the ED. Signatures: Dispatcher [employer] EDAZ Slim Sherman MD MD cha Rod, Haley hr Pena, Laura, RN RN lp1 Jesse Bynum Raymond RN RN rr5 Feliberto Danielson cl3
--- NOTE | 2019-11-05 02:21 | EDPHYS ---
Physician Documentation [facility] Name: Omi Stone Age: 74 yrs Sex: Male : 1945 Arrival Date: 11/04/2019 Time: 22:49 Bed 13 Private MD: ED Physician Slim Sherman HPI: 11/05 00:31 This 74 yrs old Male presents to ER via Ambulatory with complaints of Ankle chuck Swelling. 00:31 The patient presents with decreased range of motion. The complaints affect the right chuck leg and left leg. Onset: The symptoms/episode began/occurred 1 week(s) ago. Context: The problem was sustained at an unknown location. Associated signs and symptoms: The patient has no apparent associated signs or symptoms. Modifying factors: The symptoms are alleviated by elevation of extremity, the symptoms are aggravated by weight bearing, movement. Severity of symptoms: At their worst the symptoms were mild, in the emergency department the symptoms are unchanged. The patient has not experienced similar symptoms in the past. Historical: - Allergies: 11/04 22:54 No Known Allergies; lp1 - Home Meds: 23:00 amlodipine 10 mg tab 1 tab once daily [Active]; tamsulosin 0.4 mg oral cp24 1 cap once lp1 daily [Active]; Rapaflo 8 mg Oral cap 1 cap once daily [Active]; rosuvastatin 5 mg oral tab 1 tab once daily [Active]; tramadol 50 mg Oral tab 1 tab every 6 hours [Active]; tizanidine 4 mg oral cap [Active]; duloxetine 60 mg oral cpDR 1 cap twice a day [Active]; - PMHx: 22:54 ascending aortic aneurysm; GERD; Hyperlipidemia; Hypertension; lp1 - PSHx: 22:54 None; lp1 - Immunization history:: Adult Immunizations up to date. - Social history:: Smoking status: Patient/guardian denies using tobacco. - Ebola Screening: : No symptoms or risks identified at this time. - Family history:: not pertinent. ROS: 11/05 00:31 Constitutional: Negative for fever, chills, and weight loss, Eyes: Negative for injury, chuck pain, redness, and discharge, ENT: Negative for injury, pain, and discharge, Neck: Negative for injury, pain, and swelling, Cardiovascular: Negative for chest pain, palpitations, and edema, Respiratory: Negative for shortness of breath, cough, wheezing, and pleuritic chest pain, Abdomen/GI: Negative for abdominal pain, nausea, vomiting, diarrhea, and constipation, Back: Negative for injury and pain, : Negative for injury, bleeding, discharge, and swelling, Skin: Negative for injury, rash, and discoloration, Neuro: Negative for headache, weakness, numbness, tingling, and seizure, Psych: Negative for depression, anxiety, suicide ideation, homicidal ideation, and hallucinations, Allergy/Immunology: Negative for hives, rash, and allergies, Endocrine: Negative for neck swelling, polydipsia, polyuria, polyphagia, and marked weight changes, Hematologic/Lymphatic: Negative for swollen nodes, abnormal bleeding, and unusual bruising. MS/extremity: Positive for swelling, of the right leg and left leg. Exam: 00:31 Constitutional: This is a well developed, well nourished patient who is awake, alert, hcuck and in no acute distress. Head/Face: Normocephalic, atraumatic. Eyes: Pupils equal round and reactive to light, extra-ocular motions intact. Lids and lashes normal. Conjunctiva and sclera are non-icteric and not injected. Cornea within normal limits. Periorbital areas with no swelling, redness, or edema. ENT: Nares patent. No nasal discharge, no septal abnormalities noted. Tympanic membranes are normal and external auditory canals are clear. Oropharynx with no redness, swelling, or masses, exudates, or evidence of obstruction, uvula midline. Mucous membranes moist. Neck: Trachea midline, no thyromegaly or masses palpated, and no cervical lymphadenopathy. Supple, full range of motion without nuchal rigidity, or vertebral point tenderness. No Meningismus. Chest/axilla: Normal chest wall appearance and motion. Nontender with no deformity. No lesions are appreciated. Cardiovascular: Regular rate and rhythm with a normal S1 and S2. No gallops, murmurs, or rubs. Normal PMI, no JVD. No pulse deficits. Respiratory: Lungs have equal breath sounds bilaterally, clear to auscultation and percussion. No rales, rhonchi or wheezes noted. No increased work of breathing, no retractions or nasal flaring. Back: No spinal tenderness. No costovertebral tenderness. Full range of motion. Skin: Warm, dry with normal turgor. Normal color with no rashes, no lesions, and no evidence of cellulitis. Neuro: Awake and alert, GCS 15, oriented to person, place, time, and situation. Cranial nerves II-XII grossly intact. Motor strength 5/5 in all extremities. Sensory grossly intact. Cerebellar exam normal. Normal gait. Psych: Awake, alert, with orientation to person, place and time. Behavior, mood, and affect are within normal limits. 00:31 Musculoskeletal/extremity: ROM: full active range of motion, full passive range of motion, Circulation is intact in all extremities. Sensation intact. Compartment Syndrome exam of affected extremity: is normal. DVT Exam: no pain, no tenderness, negative Homans' sign noted on exam, no appreciated bluish discoloration, no erythema, no increased warmth, swelling. Vital Signs: 11/04 22:54 BP 129 / 85; Pulse 66; Resp 18; Temp 97.5(O); Pulse Ox 97% on R/A; Weight 76.2 kg (R); lp1 Height 5 ft. 10 in. (177.80 cm); Pain 0/10; 11/05 01:15 BP 143 / 88; Pulse 73; Resp 17; Pulse Ox 98% ; rr5 02:15 BP 147 / 85; Pulse 70; Resp 16; Pulse Ox 97% on R/A; rr5 03:15 BP 138 / 84; Pulse 74; Resp 19; Pulse Ox 100% on R/A; rr5 11/04 22:54 Body Mass Index 24.11 (76.20 kg, 177.80 cm) lp1 MDM: 11/04 23:25 Patient medically screened. [facility] 11/05 00:31 Data reviewed: vital signs, nurses notes, lab test result(s), EKG, radiologic studies, chuck plain films. 11/05 00:31 Order name: Basic Metabolic Panel; Complete Time: 02:16 [facility] 11/05 00:31 Order name: CBC with Diff; Complete Time: 02:16 [facility] 11/05 00:31 Order name: LFT's; Complete Time: 02:16 [facility] 11/05 00:31 Order name: Magnesium; Complete Time: 02:16 [facility] 11/05 00:31 Order name: NT PRO-BNP; Complete Time: 02:16 [facility] 11/05 00:31 Order name: PT-INR; Complete Time: 02:16 [facility] 11/05 00:31 Order name: Troponin (emerg Dept Use Only); Complete Time: 02:16 [facility] 11/05 00:31 Order name: XRAY Chest (1 view) [facility] 11/05 00:31 Order name: EKG; Complete Time: 00:33 [facility] 11/05 00:31 Order name: US Extremity Venous W Compression Raudel [facility] 11/05 00:31 Order name: Lipase; Complete Time: 02:16 [facility] 11/05 00:31 Order name: Cardiac monitoring; Complete Time: 01:07 [facility] 11/05 00:31 Order name: EKG - Nurse/Tech; Complete Time: 01:07 [facility] 11/05 00:31 Order name: IV Saline Lock; Complete Time: : [facility] 11/05 00:31 Order name: Labs collected and sent; Complete Time: 01:07 [facility] 11/05 00:31 Order name: O2 Per Protocol; Complete Time: 01:08 [facility] 11/05 00:31 Order name: O2 Sat Monitoring; Complete Time: 01:08 [facility] Administered Medications: 01:24 Drug: NS 0.9% 1000 ml Route: IV; Rate: 75 ml/hr; Site: right antecubital; rr5 03:46 Follow up: Response: No adverse reaction; IV Status: Order to discontinue infusion; IV rr5 Intake: 150ml 02:30 Drug: ToPROL XL (metoprolol SUCCINATE XL) 50 mg Route: PO; 03:20 Follow up: Response: No adverse reaction 03:19 Drug: Lisinopril 10 mg Route: PO; 03:20 Follow up: Response: No adverse reaction Disposition: 11/05/19 02:19 Discharged to Home. Impression: Edema, unspecified, Aneurysm of aorta in diseases classified elsewhere, Essential (primary) hypertension, Unspecified kidney failure. - Condition is Stable. - Discharge Instructions: Edema, Hypertension, Hypertension, [id number], Edema, Sgkp-[id number]-[id number], How to Take Your Blood Pressure, Eudc-[id number], Managing Your Hypertension, Peripheral Edema. - Prescriptions for Norvasc 5 mg Oral Tablet - take 1 tablet by ORAL route once daily; 20 tablet. Lisinopril 10 mg Oral Tablet - take 1 tablet by ORAL route once daily; 20 tablet. Toprol XL 25 mg Oral Tablet - take 1 tablet by ORAL route once daily; 20 tablet. - Medication Reconciliation Form, Thank You Letter, Antibiotic Education, Prescription Opioid Use form. - Follow up: Private Physician; When: 2 - 3 days; Reason: Recheck today's complaints, Continuance of care, Re-evaluation by your physician. Follow up: Neal Warren; When: 2 - 3 days; Reason: Recheck today's complaints, Continuance of care, Re-evaluation by your physician. - Problem is new. - Symptoms have improved. Signatures: Dispatcher [employer] EDMS Slim Sherman MD MD cha Pena, Laura, RN RN lp1 Fletcher, Chriss Stack RN RN rr5 Corrections: (The following items were deleted from the chart) 03:21 02:19 11/05/2019 02:19 Discharged to Home. Impression: Edema, unspecified; Aneurysm of wh aorta in diseases classified elsewhere; Essential (primary) hypertension; Unspecified kidney failure. Condition is Stable. Discharge Instructions: Edema, Hypertension, Hypertension, Plar-oj-Ezmk, Edema, Bnqb-oe-Wuka, How to Take Your Blood Pressure, Ipzu-zv-Lwzj, Managing Your Hypertension, Peripheral Edema. Prescriptions for Norvasc 5 mg Oral Tablet - take 1 tablet by ORAL route once daily; 20 tablet, Lisinopril 10 mg Oral Tablet - take 1 tablet by ORAL route once daily; 20 tablet, Toprol XL 25 mg Oral Tablet - take 1 tablet by ORAL route once daily; 20 tablet. and Forms are Medication Reconciliation Form, Thank You Letter, Antibiotic Education, Prescription Opioid Use. Follow up: Private Physician; When: 2 - 3 days; Reason: Recheck today's complaints, Continuance of care, Re-evaluation by your physician. Follow up: Neal Warren; When: 2 - 3 days; Reason: Recheck today's complaints, Continuance of care, Re-evaluation by your physician. Problem is new. Symptoms have improved. chuck
[2019-11-05] MEDS ORDERED: METOPROLOL XL 50 MG TAB PO ONE (02:25)
[2019-11-05] MEDS ORDERED: lisinopriL 10 MG TAB ONE (03:17)
[2019-11-05 03:43] VITALS: TEMP 97.5
[2019-11-05 03:45] VITALS: BP 143/88; O2SAT 98
--- NOTE | 2019-11-05 08:22 | RAD REPORT ---
EXAM DESCRIPTION: US - Extrem Venous W Compress Raudel - 11/05/2019 1:23 am CLINICAL HISTORY: Bilateral leg pain and swelling COMPARISON: None. TECHNIQUE: Real-time sonographic evaluation of the bilateral lower extremity common femoral, superfi cial femoral, popliteal and posterior tibial veins was performed. FINDINGS: Normal compressibility, flow augmentation, phasic flow and spontaneous flow are identified in the left and right lower extremity common femoral, superficial femoral, popliteal and posterior t ibial veins. No intraluminal filling defects seen. IMPRESSION: No DVT identified in either lower extremity. Exam is considered limited due to affects of body habitus limiting vascular assessment.
--- NOTE | 2019-11-05 08:23 | RAD REPORT ---
EXAM DESCRIPTION: RAD - Chest Single View - 11/05/2019 1:26 am CLINICAL HISTORY: Cough COMPARISON: May 2018 TECHNIQUE: AP portable chest image was obtained 0119 hours . FINDINGS: No peripheral mass or consolidation. Interstitial pattern is not significantly different f rom comparison. Heart size is upper normal. Vasculature within normal limits. Mediastinum is accentua alexandro due to patient rotation. No measurable pleural effusion and no pneumothorax. No acute bony abnorm ality seen. No acute aortic findings suspected. IMPRESSION: No acute cardiopulmonary process. No significant changes from comparison exam.
--- NOTE | 2019-11-05 13:47 | EKG ---
Test Date: 2019-11-05 Test Time: 00:36:12 Sub[address] Operator: FERDINAND MEASUREMENT RESULTS: Intervals: Rate: 68 OK: 166 QRSD: 86 QT: 416 QTc: 442 Clarence: P: 64 OK: 166 QRS: 53 T: 85 INTERPRETIVE STATEMENTS: Normal sinus rhythm Normal ECG Compared to ECG 02/13/2017 08:35:54 Sinus bradycardia no longer present Electronically Signed On 11-05-19 13:46:22 TRANSITION NURSE by Neal Warren
== END 2019-11-05 03:21 | disposition home or self-care (01) ==
LOC: ER 22:46
DX: R60.9 Edema, unspecified (principal); I79.0 Aneurysm of aorta in diseases classified elsewhere; I10 Essential (primary) hypertension; N19 Unspecified kidney failure; E78.5 Hyperlipidemia, unspecified
CPT/HCPCS: 96361; 93005; 85025; 80048; 36415; 83735; 85610; 80076; 84484; 83690; 83880; 71045; 93970; 96360; 99284; J7030

== ENCOUNTER 2019-12-02 14:55 | Emergency (ER) | payer OTHER ==
--- OUTSIDE RECORDS SUMMARY | 2019-12-02 15:06 | XMS REPORT ---
:1945 [facility] Address [address] [place] [address] [address] Care Team Providers Name Role Phone KAL TARANGO Unavailable Unavailable Problems This patient has no known problems. Allergies, Adverse Reactions, Alerts This patient has no known allergies or adverse reactions. Medications This patient has no known medications. Encounters Start End Encounter Admission Attending Care Care Encounter Date/Time Date/Time Type Type Clinicians Facility Department ID 2018-08-28 2018-11-21 Outpatient C DOLLY TARANGO BALANCE PT [id number] 09:11:00 23:59:00 KAL
[2019-12-02 15:40] LABS: Absolute Lymphocytes (CBC) 0.9 K/uL (0.7-4.9); Basophils % 0.6 % (0-1.3); Hematocrit 27.4 % (39.6-49.0); Lymphocytes % 11.8 % (15.3-44.8); MPV 7.6 fL (7.6-11.3); RBC Red Blood Cell Count 2.88 M/uL (4.33-5.43)
[2019-12-02 15:53] LABS: Protime INR 11.92
[2019-12-02 16:06] LABS: Potassium 4.4 mmol/L (3.5-5.1)
[2019-12-02] MEDS ORDERED: VITAMIN K (ADULT) 10 MG/ML ONE (16:08)
--- NOTE | 2019-12-02 17:01 | ER ---
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 Transition of care: patient was not received from another setting of care. Onset of symptoms was December 02, 2019. Risk Assessment: Do you want to hurt yourself or someone else? Patient reports no desire to harm self or others. Initial Sepsis Screen: Does the patient meet any 2 criteria? No. Patient's initial sepsis screen is negative. Does the patient have a suspected source of infection? No. Patient's initial sepsis screen is negative. Care prior to arrival: None. 14:57 Method Of Arrival: EMS: [facility] iw 14:57 Acuity: GABRIELA 3 iw Historical: - Allergies: 15:00 No Known Allergies; iw - PMHx: 14:59 ascending aortic aneurysm; GERD; Hyperlipidemia; Hypertension; iw - PSHx: 14:59 CABG; iw - Immunization history:: Adult Immunizations up to date. - Social history:: Smoking status: Patient denies any tobacco usage or history of. - Ebola Screening: : Patient negative for fever greater than or equal to 101.5 degrees Fahrenheit, and additional compatible Ebola Virus Disease symptoms Patient denies exposure to infectious person Patient denies travel to an Ebola-affected area in the 21 days before illness onset No symptoms or risks identified at this time. Screenin:25 Abuse screen: Denies threats or abuse. Denies injuries from another. Nutritional sv screening: No deficits noted. Tuberculosis screening: No symptoms or risk factors identified. Fall Risk None identified. Assessment: 15:25 General: Appears in no apparent distress. comfortable, well groomed, well developed, sv Behavior is calm, cooperative, appropriate for age. Pain: Denies pain. Neuro: Level of Consciousness is awake, alert, obeys commands, Oriented to person, place, time, situation, Moves all extremities. Full function Speech is normal. Respiratory: Airway is patent Respiratory effort is even, unlabored, Respiratory pattern is regular, symmetrical. Derm: Skin is intact, Skin is pink, warm \T\ dry. Pt has a midsternal incision covered with steri strips from his recent surgery. 16:10 Reassessment: Johan BAIN at bedside speaking with pt and family. sv 17:41 Reassessment: Patient appears in no apparent distress at this time. No changes from sv previously documented assessment. Patient and/or family updated on plan of care and expected duration. Pain level reassessed. Patient is alert, oriented x 3, equal unlabored respirations, skin warm/dry/pink. Vital Signs: 15:00 BP 102 / 55; Pulse 43; Resp 15 S; Temp 97.7(O); Pulse Ox 100% on R/A; Weight 72.57 kg ca1 (R); Height 5 ft. 9 in. (175.26 cm) (R); 16:02 BP 120 / 74; Pulse 45; Resp 16; Pulse Ox 100% ; sv 17:09 BP 127 / 69; Pulse 50; Resp 19; Pulse Ox 100% on R/A; ca1 15:00 Body Mass Index 23.63 (72.57 kg, 175.26 cm) ca1 ED Course: 14:57 Patient arrived in ED. iw 14:58 Triage completed. iw 15:00 Arm band placed on. iw 15:05 [facility] Cooper [facility]C [facility] la1 15:05 Kody Castillo MD is Attending Physician. la1 15:10 EKG done, by manufacturing lab technician. reviewed by Johan BRINK. jp3 15:15 Inserted saline lock: 20 gauge in right forearm, using aseptic technique. Blood jp3 collected. Patient maintains SpO2 saturation greater than 95% on room air. 15:15 Initial lab(s) drawn, by nh, sent to lab. jp3 15:21 Ni Liu, RN is Primary Nurse. sv 15:21 Bed in low position. Call light in reach. Side rails up X 1. Side rails up X2. Warm jp3 blanket given. Pillow given. Verbal reassurance given. conveyor monitor on. Pulse ox on. NIBP on. 16:40 Warm blanket given. ice pack to his neck per his request. sv 17:41 No provider procedures requiring assistance completed. IV discontinued, intact, sv bleeding controlled, No redness/swelling at site. Pressure dressing applied. Administered Medications: 16:09 Drug: Vitamin K1 10 mg Route: Sub-Q; Site: right upper arm; sv Outcome: 17:01 Discharge ordered by MD. us 17:41 Discharged to home via wheelchair, with family. sv 17:41 Condition: stable 17:41 Discharge instructions given to patient, family, Instructed on discharge instructions, follow up and referral plans. Demonstrated understanding of instructions, follow-up care. 17:41 Patient left the ED. 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
--- NOTE | 2019-12-02 17:01 | EDPHYS ---
Physician Documentation [facility] Name: Omi Stone Age: 74 yrs Sex: Male : 1945 Arrival Date: 12/02/2019 Time: 14:57 Bed 26 Private MD: ED Physician Kody Castillo HPI: 12/02 15:20 This 74 yrs old Male presents to ER via EMS with complaints of Abnormal Lab la1 Results. 15:20 Elevated INR. Onset: The symptoms/episode began/occurred today. Severity of symptoms: la1 At their worst the symptoms were moderate. The patient has not experienced similar symptoms in the past. Pt recently had an aneurysm repair on 11/16/2019 and has an increased INR per home health of 9. . Historical: - Allergies: 15:00 No Known Allergies; iw - PMHx: 14:59 ascending aortic aneurysm; GERD; Hyperlipidemia; Hypertension; iw - PSHx: 14:59 CABG; iw - Immunization history:: Adult Immunizations up to date. - Social history:: Smoking status: Patient denies any tobacco usage or history of. - Ebola Screening: : Patient negative for fever greater than or equal to 101.5 degrees Fahrenheit, and additional compatible Ebola Virus Disease symptoms Patient denies exposure to infectious person Patient denies travel to an Ebola-affected area in the 21 days before illness onset No symptoms or risks identified at this time. ROS: 15:22 Constitutional: Negative for fever, chills, and weight loss, Eyes: Negative for injury, la1 pain, redness, and discharge, ENT: Negative for injury, pain, and discharge, Neck: Negative for injury, pain, and swelling, Cardiovascular: Negative for chest pain, palpitations, and edema, Respiratory: Negative for shortness of breath, cough, wheezing, and pleuritic chest pain, Abdomen/GI: Negative for abdominal pain, nausea, vomiting, diarrhea, and constipation, Back: Negative for injury and pain, MS/Extremity: Negative for injury and deformity, Neuro: Negative for headache, weakness, numbness, tingling, and seizure. 15:22 Neck: Positive for pain at rest. 15:22 Skin: Positive for Surgical wound to anterior chest wall from recent procedure. Exam: 15:24 Constitutional: This is a well developed, well nourished patient who is awake, alert, la1 and in no acute distress. Head/Face: Normocephalic, atraumatic. Eyes: Periorbital areas with no swelling, redness, or edema. ENT: Mucous membranes moist. Neck: Trachea midline. no vertebral point tenderness. No Meningismus. Chest/axilla: Normal chest wall appearance and motion. Nontender with no deformity. No lesions are appreciated. Cardiovascular: Regular rate and rhythm with a normal S1 and S2. No gallops, murmurs, or rubs. Normal PMI, no JVD. No pulse deficits. Respiratory: Lungs have equal breath sounds bilaterally, clear to auscultation Abdomen/GI: Soft, non-tender, with normal bowel sounds. No distension or tympany. No guarding or rebound. No evidence of tenderness throughout. Back: No spinal tenderness. No costovertebral tenderness. Full range of motion. MS/ Extremity: Pulses equal, no cyanosis. Neurovascular intact. Full, normal range of motion. 15:24 Skin: Wound recheck: surgical wounds to chest and abd, appear to be healing well without redness, swelling, or drainage.. Vital Signs: 15:00 BP 102 / 55; Pulse 43; Resp 15 S; Temp 97.7(O); Pulse Ox 100% on R/A; Weight 72.57 kg ca1 (R); Height 5 ft. 9 in. (175.26 cm) (R); 16:02 BP 120 / 74; Pulse 45; Resp 16; Pulse Ox 100% ; sv 17:09 BP 127 / 69; Pulse 50; Resp 19; Pulse Ox 100% on R/A; ca1 15:00 Body Mass Index 23.63 (72.57 kg, 175.26 cm) ca1 MDM: 15:05 Patient medically screened. la1 16:56 Data reviewed: vital signs, nurses notes, lab test result(s), I have discussed the la1 patient's presentation/case with the attending Emergency Department Physician; and as a result, I will discharge patient. Data interpreted: Pulse oximetry: on room air is 100 %. Interpretation: normal. Test interpretation: by ED physician or midlevel provider: ECG. Counseling: I had a detailed discussion with the patient and/or guardian regarding: the historical points, exam findings, and any diagnostic results supporting the discharge/admit diagnosis, lab results, the need for outpatient follow up, a parliamentary librarian, to return to the emergency department if symptoms worsen or persist or if there are any questions or concerns that arise at home. Physician consultation: Discussed case with Ximena RAM from [facility] cardiology, states pt should hold coumadin for the weekend and she will call to get them an appointment for Friday in the clinic, also updated Dr. napier on case who will be seeing the patient in his office the following Friday. PT given strict return precautions, family and pt amendable to plan. . Special discussion: Based on the history and exam findings, there is no indication for further emergent testing or inpatient evaluation. I discussed with the patient/guardian the need to see the parliamentary librarian for further evaluation of the symptoms. 16:59 ED course: Also discussed bradycaria with YO for cardiothoracic at [facility] who state la1 they will be adjusting his meds on Friday, pt denies CP, SOB, ABD pain, SMITH, or any complaints.. 12/02 15:15 Order name: CBC with Diff; Complete Time: 15:47 la1 12/02 15:15 Order name: BMP; Complete Time: 16:17 la1 12/02 15:15 Order name: IV; Complete Time: 15:16 la1 12/02 15:15 Order name: PT-INR; Complete Time: 15:58 la1 12/02 16:00 Order name: EKG Electrocardiogram; Complete Time: 16:10 EDMS 12/02 15:15 Order name: EKG - Nurse/Tech; Complete Time: 15:16 la1 Administered Medications: 16:09 Drug: Vitamin K1 10 mg Route: Sub-Q; Site: right upper arm; sv Disposition: 12/02/19 17:01 Discharged to Home. Impression: Coumadin Toxicity, Elevated INR. - Condition is Stable. - Discharge Instructions: Warfarin Coagulopathy. - Medication Reconciliation Form, Thank You Letter form. - Follow up: Private Physician; When: 2 - 3 days; Reason: Recheck today's complaints, Re-evaluation by your physician. - Problem is new. - Symptoms are unchanged. - Notes: Expect a call from your cardiology office tomorrow for appointment, if you do not hear from then please call them tomorrow to be seen on Friday. Do not take any more warfarin until you see your doctor. Return to the ER immediately with any new or concerning symptoms. Addendum: 12/04/2019 19:43 Co-signature as Attending Physician, Kody Castillo MD. r n Signatures: Dispatcher [employer] Ni Osman RN RN sv Williams, Irene, RN RN iw Nieto, Roman, MD MD rn Johan Cooper, PART MAKER-C PART MAKER-Cla1 Corrections: (The following items were deleted from the chart) 12/02 17:41 17:01 12/02/2019 17:01 Discharged to Home. Impression: Coumadin Toxicity; Elevated INR. sv Condition is Stable. Forms are Medication Reconciliation Form, Thank You Letter, Antibiotic Education, Prescription Opioid Use. Follow up: Private Physician; When: 2 - 3 days; Reason: Recheck today's complaints, Re-evaluation by your physician. Problem is new. Symptoms are unchanged. la1
[2019-12-02 17:48] VITALS: TEMP 97.7; O2SAT 100
[2019-12-02 17:51] VITALS: BP 127/69
--- NOTE | 2019-12-03 14:32 | EKG ---
Test Date: 2019-12-02 Test Time: 15:08:14 Dental Laboratory Worker: APOLINAR MEASUREMENT RESULTS: Intervals: Rate: 45 MI: 132 QRSD: 96 QT: 586 QTc: 506 [place]: P: 75 MI: 132 QRS: 92 T: 83 INTERPRETIVE STATEMENTS: Marked sinus bradycardia with premature atrial complexes Rightward axis Nonspecific T wave abnormality Prolonged QT Abnormal ECG Compared to ECG 11/05/2019 00:36:12 Atrial premature complex(es) now present Right-axis deviation now present T-wave abnormality now present Prolonged QT interval now present Sinus rhythm no longer present Electronically Signed On 12-03-19 14:31:24 LANDSCAPING SPECIALIST by Chaim Cook
== END 2019-12-02 17:41 | disposition home or self-care (01) ==
LOC: ER 14:55
DX: T45.511A Poisoning by anticoagulants, accidental (unintentional), initial encounter (principal); I10 Essential (primary) hypertension; Z98.890 Other specified postprocedural states; Z95.1 Presence of aortocoronary bypass graft
CPT/HCPCS: 93005; 85025; 80048; 36415; 85610; 96372; 99285; J3430

== ENCOUNTER 2019-12-06 00:55 | Inpatient (IN) | payer OTHER ==
--- OUTSIDE RECORDS SUMMARY | 2019-12-06 00:58 | XMS REPORT ---
:1945 [facility] Address [address] [place] [address] [address] [address] Care Team Providers Name Role Phone KAL TARANGO Unavailable Unavailable Problems This patient has no known problems. Allergies, Adverse Reactions, Alerts This patient has no known allergies or adverse reactions. Medications This patient has no known medications. Encounters Start End Encounter Admission Attending Care Care Encounter Date/Time Date/Time Type Type Clinicians Facility Department ID 2018-08-28 2018-11-21 Outpatient C DOLLY TARANGO BALANCE PT [id number] 09:11:00 23:59:00 KAL
[2019-12-06 01:33] LABS: Absolute Lymphocytes (CBC) 1.2 K/uL (0.7-4.9); Basophils % 0.9 % (0-1.3); Hematocrit 30.1 % (39.6-49.0); Lymphocytes % 15.5 % (15.3-44.8); MPV 7.4 fL (7.6-11.3); RBC Red Blood Cell Count 3.19 M/uL (4.33-5.43)
[2019-12-06 01:46] LABS: BUN Blood Urea Nitrogen 21 mg/dL (7-18); Bicarbonate 23 mmol/L (21-32); Glucose Level 108 mg/dL (74-106); NT PRO-BNP 3739 pg/mL (<125); Potassium 4.1 mmol/L (3.5-5.1); Sodium Level 135 mmol/L (136-145); Troponin (Emerg Dept Use Only) < 0.02 ng/mL (0.0-0.045); Uric Acid 2.8 mg/dL (3.5-7.2)
[2019-12-06 01:50] LABS: Protime INR 1.66
[2019-12-06] MEDS ORDERED: FUROSEMIDE 20 MG/ 2ML VIAL ONE (03:44)
[2019-12-06] MEDS ORDERED: ACETAMINOPHEN 325 MG TABLET ONE (03:44)
[2019-12-06] MEDS ORDERED: LIDOCAINE 1% MPF 2 ML AMPULE ONE (03:47)
[2019-12-06 06:01] LABS: Appearance TURBID (CLEAR); Body Fluid Source SYNOVIAL; Body Fluid WBC 21800 /mm^3; Color of fluid Red (COLORLESS)
--- NOTE | 2019-12-06 06:04 | ER ---
Nurse's Notes [facility] Name: Omi Stone Age: 74 yrs Sex: Male : 1945 Arrival Date: 12/06/2019 Time: 00:56 Bed 5 Private MD: Diagnosis: Pneumonia;Pleural effusion, not elsewhere classified;Inflammatory arthritis left first carpo-metacarpal joint Presentation: 12/06 00:52 Presenting complaint: EMS states: that pt had recent open heart surg and yesterday at 1600 started to complain of left wrist swelling and pain. Last week pt was taken off his Coumadin due to high INR and given Vitamin K shot. Pt is concerned that he is having some type of reaction to having no Coumadin. Transition of care: patient was not received from another setting of care. Onset of symptoms was December 05, 2019 at 16:00. Risk Assessment: Do you want to hurt yourself or someone else? Patient reports no desire to harm self or others. Initial Sepsis Screen: Does the patient meet any 2 criteria? RR > 20 per min. No. Patient's initial sepsis screen is negative. Does the patient have a suspected source of infection? No. Patient's initial sepsis screen is negative. Care prior to arrival: IV initiated. 20 GA, in the right forearm. 00:52 Method Of Arrival: EMS: [facility] 00:52 Acuity: GABRIELA 3 Historical: - Allergies: 01:21 No Known Allergies; - Home Meds: 01:21 Coumadin 5 mg oral tab - on hold at this time [Active]; amiodarone 400 mg Oral tab 1 fc tab once daily [Active]; tizanidine 4 mg Oral cap 1 cap twice a day [Active]; duloxetine 60 mg Oral cpDR 1 cap twice a day [Active]; tramadol 50 mg Oral tab 1 tab twice a day [Active]; metoprolol tartrate 50 mg Oral tab 1 tab 2 times per day [Active]; atorvastatin 40 mg oral tab 1 tab once daily [Active]; amlodipine 10 mg tab 1 tab once daily [Active]; tamsulosin 0.4 mg Oral cp24 1 cap once daily [Active]; - PMHx: 01:21 ascending aortic aneurysm; GERD; Hyperlipidemia; Hypertension; CAD; Atrial Fib; fc - PSHx: 01:21 CABG; Aortic Aneurysm repair; fc - Immunization history:: Last tetanus immunization: unknown, Flu vaccine is not up to date. - Coronavirus screen:: The patient has NOT traveled to [place], [place], or [place] in the past 14 days. The patient has NOT had contact with known/suspected case of Coronavirus?. - Social history:: Smoking status: Patient/guardian denies using tobacco, Patient/guardian denies using alcohol, street drugs. - Family history:: not pertinent. - Ebola Screening: : Patient negative for fever greater than or equal to 101.5 degrees Fahrenheit, and additional compatible Ebola Virus Disease symptoms Patient denies exposure to infectious person Patient denies travel to an Ebola-affected area in the 21 days before illness onset. - Hospitalizations: : Patient was recently seen at. Screenin:52 Abuse screen: Denies threats or abuse. Nutritional screening: No deficits noted. fc Tuberculosis screening: No symptoms or risk factors identified. Fall Risk None identified. Assessment: 01:22 Pain: Complains of pain in left hand Pain currently is 7 out of 10 on a pain scale. ls4 Quality of pain is described as throbbing. 01:43 General: Appears in no apparent distress. Behavior is cooperative. Pain: Complains of ea pain in left hand Quality of pain is described as throbbing. Neuro: Level of Consciousness is awake, alert, obeys commands, Oriented to person, place, time, situation. Cardiovascular: Patient's skin is warm and dry. Respiratory: Airway is patent Respiratory effort is even, unlabored, Respiratory pattern is regular, symmetrical. Derm: Skin is pink, warm \T\ dry. 02:24 Reassessment: Patient and/or family updated on plan of care and expected duration. Pain ea level reassessed. Patient is alert, oriented x 3, equal unlabored respirations, skin warm/dry/pink. 03:56 Reassessment: Patient and/or family updated on plan of care and expected duration. Pain ea level reassessed. Patient is alert, oriented x 3, equal unlabored respirations, skin warm/dry/pink. provider at bedside. 05:34 Reassessment: Patient appears in no apparent distress at this time. Patient and/or rv family updated on plan of care and expected duration. Pain level reassessed. Patient is alert, oriented x 3, equal unlabored respirations, skin warm/dry/pink. Patient states feeling better. Patient states symptoms have improved. 06:34 Reassessment: Patient appears in no apparent distress at this time. Patient and/or rv family updated on plan of care and expected duration. Pain level reassessed. Patient is alert, oriented x 3, equal unlabored respirations, skin warm/dry/pink. PATIENT UPDATED ON PLAN OF CARE, FOR ADMISSION. AWAITING ROOM ASSIGNMENT. 07:00 Reassessment: RECD REPORT FROM LILY TERRAZAS. 74YO WM P/W LEFT HAND SWELLING AFTER CARDIAC bp CATH WITH RADIAL ACCESS. VS STABLE ON MONITOR, ADMIT FOR PNEUMONIA IN PROCESS. 08:13 Reassessment: Dr. Molina at bedside. em Vital Signs: 00:52 BP 118 / 68; Pulse 53; Resp 24; Temp 98.1(O); Pulse Ox 97% on R/A; Weight 72.57 kg (R); fc Height 5 ft. 10 in. (177.80 cm) (R); Pain 8/10; 02:24 BP 130 / 75; Pulse 63; Resp 18; Pulse Ox 95% on R/A; ea 04:19 BP 137 / 70; Pulse 61; Resp 18; Pulse Ox 96% ; ea 05:34 BP 114 / 72; Pulse 62; Resp 21; Pulse Ox 96% on R/A; rv 06:00 BP 122 / 65; Pulse 59; Resp 25; Pulse Ox 97% on R/A; rv 06:35 BP 119 / 55; Pulse 57; Resp 19; Pulse Ox 95% on R/A; rv 07:39 BP 130 / 65; Pulse 57; Resp 17; Pulse Ox 97% ; bp 00:52 Body Mass Index 22.96 (72.57 kg, 177.80 cm) fc ED Course: 00:52 Arm band placed on Patient placed in an exam room, on a stretcher. fc 00:52 Patient has correct armband on for positive identification. Placed in gown. Bed in low fc position. Call light in reach. Side rails up X2. k 9 handler/ deputy on. Pulse ox on. NIBP on. 00:52 No provider procedures requiring assistance completed. Maintain EMS IV. Dressing fc intact. Good blood return noted. Site clean \T\ dry. Gauge \T\ site: 20 gauge to right f/a. 00:56 Patient arrived in ED. ds1 01:00 Lily Tracey, MK is Primary Nurse. ea 01:09 Kody Castillo MD is Attending Physician. rn 01:15 Triage completed. fc 01:21 Initial lab(s) drawn, by me, sent to lab. Inserted saline lock: 20 gauge in right ls4 antecubital area, using aseptic technique. Blood collected. Patient maintains SpO2 saturation greater than 95% on room air. 01:56 XRAY Chest (1 view) In Process Unspecified. EDMS 01:56 XRAY Wrist LEFT 3 view In Process Unspecified. EDMS 03:17 Extremity Venous Uni Ltd US In Process Unspecified. EDMS 04:00 assisted provider with left wrist joint aspiration, pt tolerated well. ea 06:02 Chuck Molina MD is Hospitalizing Provider. rn 07:02 Primary Nurse role handed off by Lily Tracey RN bp 07:02 Dominick Nguyễn, MK is Primary Nurse. bp 08:39 Patient admitted, IV remains in place. bp Administered Medications: 03:54 Drug: Tylenol 650 mg Route: PO; ea 04:18 Follow up: Response: No adverse reaction ea 03:54 Drug: Lasix 20 mg Route: IVP; Site: right antecubital; ea 04:18 Follow up: Response: No adverse reaction ea 03:55 Drug: Lidocaine (1 %) 1 amp {Note: administered by provider.} Volume: 5 ml; Route: ea Infiltration; 06:14 Drug: Cefepime 1 grams Route: IVPB; Rate: 200 ml/hr; Infused Over: 30 mins; Site: right ea antecubital; 06:39 Follow up: IV Status: Completed infusion rv 06:38 Drug: vancoMYCIN 1 grams Route: IVPB; Infused Over: 2 hrs; Site: right forearm; rv 08:38 Follow up: IV Status: Completed infusion; IV Intake: 150ml bp Intake: 08:38 IV: 150ml; Total: 150ml. bp Outcome: 06:03 Decision to Hospitalize by Provider. rn 08:37 Admitted to Tele accompanied by tech, via wheelchair, room 214, with chart, Report bp called to CONSUELO TERARZAS 08:37 Condition: stable 08:37 Instructed on the need for admit. 09:07 Patient left the ED. iw Signatures: Dispatcher [employer] Tess Bradford RN RN fc Munoz, Edgar, RN RN Ifeoma Medina ds1 Anat Pedro, RN RN Kody Quesada MD MD rn Antunez, Elena, RN RN ea Peltier, Brian, RN Jem Elias RN Nevaeh Marroquin RN RN ls4 Corrections: (The following items were deleted from the chart) 03:56 03:55 Lidocaine (1 %) 1 amp 5 ml Infiltration 5 ml salvador franco
[2019-12-06] MEDS ORDERED: NA CHLORIDE 0.9% 250 ML ONE (06:05)
[2019-12-06] MEDS ORDERED: VANCOMYCIN 1 GM/VIAL ONE (06:05)
--- NOTE | 2019-12-06 06:05 | EDPHYS ---
Physician Documentation [facility] Name: Omi Stone Age: 74 yrs Sex: Male : 1945 Arrival Date: 12/06/2019 Time: 00:56 Bed 5 Private MD: ED Physician Kody Castillo HPI: 12/06 02:20 This 74 yrs old Male presents to ER via EMS with complaints of Hand Swelling. rn 02:20 This 74 yrs old Male presents to ER via EMS with complaints of Hand Swelling rn and pain. 02:20 The patient or guardian reports pain, swelling. The complaints affect the MCP of left rn thumb and CMC of left thumb. Onset: The symptoms/episode began/occurred today. Modifying factors: The symptoms are alleviated by nothing, the symptoms are aggravated by movement. Severity of symptoms: At their worst the symptoms were mild, in the emergency department the symptoms are unchanged. The patient has not experienced similar symptoms in the past. Reports aortic aneurysm repair 11/16/19, at [facility], has been doing well, seen here recently and INR was very elevated, taken off coumadin. Here today because noticed swelling to left hand at base of thumb, does not recall injury. No fever. Denies previous gout or inflammatory arthritis. . Historical: - Allergies: : No Known Allergies; fc - Home Meds: : Coumadin 5 mg oral tab - on hold at this time [Active]; amiodarone 400 mg Oral tab 1 fc tab once daily [Active]; tizanidine 4 mg Oral cap 1 cap twice a day [Active]; duloxetine 60 mg Oral cpDR 1 cap twice a day [Active]; tramadol 50 mg Oral tab 1 tab twice a day [Active]; metoprolol tartrate 50 mg Oral tab 1 tab 2 times per day [Active]; atorvastatin 40 mg oral tab 1 tab once daily [Active]; amlodipine 10 mg tab 1 tab once daily [Active]; tamsulosin 0.4 mg Oral cp24 1 cap once daily [Active]; - PMHx: 01: ascending aortic aneurysm; GERD; Hyperlipidemia; Hypertension; CAD; Atrial Fib; fc - PSHx: : CABG; Aortic Aneurysm repair; fc - Immunization history:: Last tetanus immunization: unknown, Flu vaccine is not up to date. - Coronavirus screen:: The patient has NOT traveled to [place], [place], or [place] in the past 14 days. The patient has NOT had contact with known/suspected case of Coronavirus?. - Social history:: Smoking status: Patient/guardian denies using tobacco, Patient/guardian denies using alcohol, street drugs. - Family history:: not pertinent. - Ebola Screening: : Patient negative for fever greater than or equal to 101.5 degrees Fahrenheit, and additional compatible Ebola Virus Disease symptoms Patient denies exposure to infectious person Patient denies travel to an Ebola-affected area in the 21 days before illness onset. - Hospitalizations: : Patient was recently seen at. ROS: 02:20 Constitutional: Negative for fever, chills, and weight loss, Eyes: Negative for injury, rn pain, redness, and discharge, Neck: Negative for injury, pain, and swelling, Cardiovascular: Negative for chest pain, palpitations, and edema, Respiratory: Negative for cough, wheezing, and pleuritic chest pain, Abdomen/GI: Negative for abdominal pain, nausea, vomiting, diarrhea, and constipation, MS/Extremity: + left hand swelling and pain Skin: Negative for injury, rash, and discoloration, Neuro: Negative for headache, weakness, numbness, tingling, and seizure. Exam: 02:20 Constitutional: This is a well developed, well nourished patient who is awake, alert, rn and in no acute distress. Head/Face: Normocephalic, atraumatic. ENT: MMM, no stridor Cardiovascular: Bradycardic, irregular, intact and strong distal pulses Respiratory: Mild tachypnea, diminished at bases Abdomen/GI: soft, non-tender MS/ Extremity: Pulses equal, no cyanosis. Neurovascular intact. Full, normal range of motion. + area of swelling and tenderness dorsal base of left thumb without warmth or erythema. No cyanosis or ecchymosis. Neuro: Awake and alert, GCS 15, oriented to person, place, time, and situation. Cranial nerves II-XII grossly intact. Motor strength 5/5 in all extremities. Sensory grossly intact. Cerebellar exam normal. Vital Signs: 00:52 BP 118 / 68; Pulse 53; Resp 24; Temp 98.1(O); Pulse Ox 97% on R/A; Weight 72.57 kg (R); fc Height 5 ft. 10 in. (177.80 cm) (R); Pain 8/10; 02:24 BP 130 / 75; Pulse 63; Resp 18; Pulse Ox 95% on R/A; ea 04:19 BP 137 / 70; Pulse 61; Resp 18; Pulse Ox 96% ; ea 05:34 BP 114 / 72; Pulse 62; Resp 21; Pulse Ox 96% on R/A; rv 06:00 BP 122 / 65; Pulse 59; Resp 25; Pulse Ox 97% on R/A; rv 06:35 BP 119 / 55; Pulse 57; Resp 19; Pulse Ox 95% on R/A; rv 07:39 BP 130 / 65; Pulse 57; Resp 17; Pulse Ox 97% ; bp 00:52 Body Mass Index 22.96 (72.57 kg, 177.80 cm) fc Procedures: 04:03 Joint Treatment: Aspiration of left wrist using Lidocaine, 27g needle. Removed 1 ml's rn of clear fluid, yellow fluid, bloody fluid, Specimen sent to lab. Patient tolerated well. Pain resolved completely after injection of lidocaine into wrist. MDM: 01:09 Patient medically screened. rn 04:22 ED course: U/S BARBIE neg for DVT.. rn 05:58 Differential diagnosis: arthritis of left 1st CMC joint, inflammatory arthritis. rn Pneumonia, pleural effusion, pulmonary edema. Data reviewed: vital signs, nurses notes, lab test result(s), EKG, radiologic studies, plain films, ultrasound, and as a result, I will admit patient. Counseling: I had a detailed discussion with the patient and/or guardian regarding: the historical points, exam findings, and any diagnostic results supporting the discharge/admit diagnosis, lab results, radiology results, the need for further work-up and treatment in the hospital. Response to treatment: the patient's symptoms have markedly improved after treatment, and as a result, I will admit patient. Admission orders: after a detailed discussion of the patient's condition and case, the admit orders are written by me. ED course: Attempted transfer to [facility] given recent surgery and continuation of care, [facility] states no available beds, to admit here and reassess need for transfer, spoke with family, they are happy to stay here, did not want to be transferred, and will admit to Dr. Molina.. 12/06 01:11 Order name: Basic Metabolic Panel; Complete Time: 02:24 rn 12/06 01:11 Order name: CBC with Diff; Complete Time: 02:24 rn 12/06 01:11 Order name: NT PRO-BNP; Complete Time: 02:24 rn 12/06 01:11 Order name: PT-INR; Complete Time: 02:24 rn 12/06 01:11 Order name: Troponin (emerg Dept Use Only); Complete Time: 02:24 rn 12/06 01:11 Order name: Uric Acid; Complete Time: 02:24 rn 12/06 01:11 Order name: XRAY Chest (1 view) rn 12/06 01:12 Order name: Extremity Venous Uni Ltd US rn 12/06 01:12 Order name: XRAY Wrist LEFT 3 view rn 12/06 04:03 Order name: Fluid Cell Count,Body; Complete Time: 06:06 rn 12/06 04:03 Order name: Body Fluid Culture rn 12/06 04:03 Order name: Fluid Crystals; Complete Time: 04:22 rn 12/06 05:11 Order name: Blood Culture Adult (2) rn 12/06 05:11 Order name: Procalcitonin; Complete Time: 06:54 rn 12/06 01:11 Order name: EKG; Complete Time: 01:12 rn 12/06 01:11 Order name: Cardiac monitoring; Complete Time: rn 12/06 01:11 Order name: EKG - Nurse/Tech; Complete Time: : rn 12/06 01:11 Order name: IV Saline Lock; Complete Time: : rn 12/06 01:11 Order name: Labs collected and sent; Complete Time: rn 12/06 01:11 Order name: O2 Per Protocol; Complete Time: rn 12/06 01:11 Order name: O2 Sat Monitoring; Complete Time: : rn 12/06 08:43 Order name: Diet Heart Healthy; Complete Time: 08:44 iw Administered Medications: 03:54 Drug: Tylenol 650 mg Route: PO; ea 04:18 Follow up: Response: No adverse reaction ea 03:54 Drug: Lasix 20 mg Route: IVP; Site: right antecubital; ea 04:18 Follow up: Response: No adverse reaction ea 03:55 Drug: Lidocaine (1 %) 1 amp {Note: administered by provider.} Volume: 5 ml; Route: ea Infiltration; 06:14 Drug: Cefepime 1 grams Route: IVPB; Rate: 200 ml/hr; Infused Over: 30 mins; Site: right ea antecubital; 06:39 Follow up: IV Status: Completed infusion rv 06:38 Drug: vancoMYCIN 1 grams Route: IVPB; Infused Over: 2 hrs; Site: right forearm; rv 08:38 Follow up: IV Status: Completed infusion; IV Intake: 150ml bp Disposition: 12/06/19 06:03 Hospitalization ordered by Chuck Molina for Inpatient Admission. Preliminary diagnosis are Pneumonia, Pleural effusion, not elsewhere classified, Inflammatory arthritis left first carpo-metacarpal joint. - Bed requested for Telemetry/MedSurg (Inpatient). - Status is Inpatient Admission. iw - Condition is Stable. - Problem is new. - Symptoms have improved. UTI on Admission? No Signatures: Dispatcher [employer] EDMS Kelly Santos Felicia, RN RN fc Williams, Irene RN Kody Obrien MD MD rn Antunez, Elena, RN RN ea Vicente, Ronaldo, RN RN rv Dominick Nguyễn RN bp Corrections: (The following items were deleted from the chart) 07:50 06:03 Hospitalization Ordered by A Jesse WALDRON for Inpatient Admission. Preliminary bd diagnosis is Pneumonia; Pleural effusion, not elsewhere classified; Inflammatory arthritis left first carpo-metacarpal joint. Bed requested for Telemetry/MedSurg (Inpatient). Status is Inpatient Admission. Condition is Stable. Problem is new. Symptoms have improved. UTI on Admission? No. rn 09:07 07:50 12/06/2019 06:03 Hospitalization Ordered by A Jesse WALDRON for Inpatient Admission. iw Preliminary diagnosis is Pneumonia; Pleural effusion, not elsewhere classified; Inflammatory arthritis left first carpo-metacarpal joint. Bed requested for Telemetry/MedSurg (Inpatient). Status is Inpatient Admission. Condition is Stable. Problem is new. Symptoms have improved. UTI on Admission? No. bd
--- NOTE | 2019-12-06 06:55 | EKG ---
Test Date: 2019-12-06 Test Time: 01:03:08 Recycling Worker: NATALI MEASUREMENT RESULTS: Intervals: Rate: 61 NM: 186 QRSD: 88 QT: 502 QTc: 505 [place]: P: 58 NM: 186 QRS: 99 T: 247 INTERPRETIVE STATEMENTS: Sinus bradycardia with premature supraventricular complexes Rightward axis T wave abnormality, non specific Prolonged QT Abnormal ECG Compared to ECG 12/02/2019 15:08:14 T-wave abnormality still present Electronically Signed On 12-06-19 06:54:55 LIFE INSURANCE SALES AGENT by Chaim Cook
--- NOTE | 2019-12-06 08:04 | EKG ---
Test Date: 2019-12-06 Test Time: 01:01:21 Hospice Care Consultant: NATALI MEASUREMENT RESULTS: Intervals: Rate: 60 WV: 166 QRSD: 92 QT: 518 QTc: 518 [place]: P: 62 WV: 166 QRS: 96 T: 253 INTERPRETIVE STATEMENTS: Sinus bradycardia with frequent premature ventricular complexes Rightward axis Nonspecific ST and T wave abnormality Prolonged QT Abnormal ECG Compared to ECG 12/02/2019 15:08:14 Ventricular premature complex(es) now present ST (T wave) deviation now present Atrial premature complex(es) no longer present T-wave abnormality no longer present Electronically Signed On 12-06-19 08:03:55 BOWL ATTENDANT by Chaim Cook
--- NOTE | 2019-12-06 08:10 | RAD REPORT ---
EXAM DESCRIPTION: USExtremity Venous Uni Ltd12/06/2019 3:17 am CLINICAL HISTORY: Left arm pain COMPARISON: None FINDINGS: The left internal jugular, left subclavian, left cephalic, left axillary, left brachial, l eft basilic, left ulnar and left radial veins are generally compressible and demonstrate augmentation . Doppler demonstrates good flow. IMPRESSION: No evidence of thrombus within the veins of the left upper extremity
[2019-12-06] MEDS ORDERED: ONDANSETRON 4 MG/2 ML VIAL IV PRN (09:22)
[2019-12-06] MEDS ORDERED: ALBUTEROL 2.5 MG/3 ML NEB SOL NEB PRN (09:22)
[2019-12-06] MEDS ORDERED: IPRATROPIUM BROM 0.5MG/2.5ML NEB PRN (09:22)
[2019-12-06 09:26] VITALS: BMI 22.1
[2019-12-06] MEDS: CEFEPIME/SWI 1gm 10 ML IV SCH ×2 (10:00→20:35)
[2019-12-06] MEDS ORDERED: ASPIRIN EC 81 MG TAB PO ONE (10:21)
[2019-12-06] MEDS ORDERED: WARFARIN SODIUM 5 MG TAB PO ONE (10:21)
--- NOTE | 2019-12-06 10:51 | RAD REPORT ---
EXAM DESCRIPTION: RAD - Wrist Left 3 View - 12/06/2019 1:56 am CLINICAL HISTORY: Pain and swelling. COMPARISON: None. TECHNIQUE: PA, lateral, and oblique left hand views. FINDINGS: There is significant dextro articular hypertrophic bony changes about the first carpometac arpal joint and along the joint space between the scaphoid and trapezium. No acute fracture. No dislo cation. Mildly decreased bone density. Unremarkable soft tissues. IMPRESSION: 1. Lateral left wrist osteoarthritis. 2. Mild osteopenia. Electronically signed by: Irina Duong DO 12/06/2019 3:09 AM SWEEPER CLEANER INDUSTRIAL Due to temporary technical issues with the PACS/Fluency reporting system, reports are being signed by the in house radiologist as a courtesy to ensure prompt reporting. The interpreting radiologist is f ully responsible for the content of the report.
--- NOTE | 2019-12-06 10:52 | RAD REPORT ---
EXAM DESCRIPTION: RAD - Chest Single View - 12/06/2019 1:56 am CLINICAL HISTORY: Tachypnea, recent aneurysm repair COMPARISON: None. TECHNIQUE: AP Chest. FINDINGS: Mild cardiac enlargement. Sternal wires and mediastinal clips are present. There is left l ower lobe consolidation. Small left pleural effusion. Mild pulmonary vascular congestion. No pneumoth orax. Bones appear intact. Lower cervical fusion hardware is present. IMPRESSION: 1. Left lower lobe consolidation with a small left pleural effusion. Electronically signed by: Irina Duong DO 12/06/2019 3:07 AM NUCLEAR POWERPLANT SUPERVISOR Due to temporary technical issues with the PACS/Fluency reporting system, reports are being signed by the in house radiologist as a courtesy to ensure prompt reporting. The interpreting radiologist is f ully responsible for the content of the report.
[2019-12-06] MEDS ORDERED: CEFEPIME 1 GM/VIAL IV SCH (18:00)
[2019-12-06] MEDS ORDERED: VANCOMYCIN 1 GM in NA CHLORIDE 0.9% 500 ML IVPB SCH (18:00)
[2019-12-07] MEDS: VANCOMYCIN 1.25 GM in NA CHLORIDE 0.9% 250 ML IVPB SCH (05:32)
[2019-12-07 05:54] LABS: Absolute Lymphocytes (CBC) 1.4 K/uL (0.7-4.9); Basophils % 1.1 % (0-1.3); Hematocrit 30.4 % (39.6-49.0); Lymphocytes % 20.1 % (15.3-44.8); MPV 7.3 fL (7.6-11.3); RBC Red Blood Cell Count 3.28 M/uL (4.33-5.43)
[2019-12-07 06:40] LABS: Potassium 3.4 mmol/L (3.5-5.1)
[2019-12-07] MEDS ORDERED: POTASSIUM CL SA 10 MEQ TAB PO ONE (08:06)
[2019-12-07] MEDS ORDERED: TRAMADOL HCL 50 MG TAB PO PRN (08:09)
[2019-12-07] MEDS ORDERED: TIZANIDINE 4 MG TABLET PO PRN (08:09)
[2019-12-07] MEDS ORDERED: METOPROLOL XL 25 MG TAB PO ONE (08:15)
[2019-12-07] MEDS: CEFEPIME/SWI 1gm 10 ML IV SCH ×2 (08:29→21:10)
[2019-12-07] MEDS: COLCHICINE 0.6 MG TAB PO SCH ×2 (08:30→21:10)
[2019-12-07 08:32] LABS: Protime INR 1.84
[2019-12-07] MEDS ORDERED: WARFARIN SODIUM 4 MG TAB PO ONE (09:09)
[2019-12-07] MEDS: DULOXETINE 30 MG CAP PO PRN ×2 (10:47→21:08)
--- NOTE | 2019-12-07 15:55 | EKG ---
Test Date: 2019-12-07 Test Time: 08:14:08 Mock Up Assembler: RENNY MEASUREMENT RESULTS: Intervals: Rate: 88 TX: 132 QRSD: 84 QT: 370 QTc: 447 [place]: P: 36 [place]: 132 QRS: 75 T: 244 INTERPRETIVE STATEMENTS: Normal sinus rhythm ST & T wave abnormality, consider inferior ischemia ST & T wave abnormality, consider anterolateral ischemia Abnormal ECG Compared to ECG 12/06/2019 01:03:08 ST (T wave) deviation now present Possible ischemia now present Sinus bradycardia no longer present Atrial premature complex(es) no longer present Right-axis deviation no longer present T-wave abnormality no longer present Prolonged QT interval no longer present Electronically Signed On 12-07-19 15:51:54 VERIFICATION REP by Neal Warren
[2019-12-07] MEDS ORDERED: ATORVASTATIN 40 MG TAB PO SCH (21:00)
[2019-12-07] MEDS ORDERED: TAMSULOSIN 0.4 MG SR CAP PO SCH (21:00)
--- NOTE | 2019-12-08 00:39 | PN ---
Date of Progress Note: 12/07/2019 Subjective: Patient was seen this morning for followup. He still has some pain and slight swelling of the left wrist joint area. Overall, he looks better today than yesterday. No new complaints or p roblems reported. Objective: Vital Signs: Reviewed. HEENT: Unremarkable. Lungs: Clear to auscultation except some rales noted in lower lung truong. Not using accessory musc les of respiration. Heart: Heart sounds normal. No guarding, rigidity, tenderness, or distention. Extremities: No leg edema. Laboratory Data: White count 6.8, hemoglobin 10.3, platelets 172. Sodium 137, potassium 3.4, chlori de 108, bicarb 23, BUN 15, creatinine 1.23, glucose 103. Impression: 1.Pneumonia. 2.Chronic anticoagulation therapy. 3.Hypokalemia. 4.Paroxysmal atrial fibrillation. 5.Anemia. Plan: This morning patient had a short episode of paroxysmal atrial fibrillation and he converted to sinus rhythm on his own. Hemodynamically, he was stable. Metoprolol 25 mg p.o. x1 dose was ordered at that time. His usual dose of metoprolol 50 mg b.i.d. will be continued starting this evening. H is INR this morning was 1.8 and warfarin 4 mg p.o. x1 dose was ordered today. We will repeat blood w ork tomorrow. So far, cultures negative. Continue current antibiotics. I did talk to his network support engineer last night in [place], Dr. Mccain. YESY/MODL Voice ID: [id number] Report ID: [id number]
[2019-12-08] MEDS: VANCOMYCIN 1.25 GM in NA CHLORIDE 0.9% 250 ML IVPB SCH (06:11)
[2019-12-08 07:35] LABS: Absolute Lymphocytes (CBC) 1.6 K/uL (0.7-4.9); Basophils % 0.9 % (0-1.3); Hematocrit 31.4 % (39.6-49.0); MPV 7.2 fL (7.6-11.3); Protime INR 2.27; RBC Red Blood Cell Count 3.37 M/uL (4.33-5.43)
[2019-12-08 07:41] LABS: Magnesium 1.8 mg/dL (1.8-2.4); Potassium 3.8 mmol/L (3.5-5.1)
[2019-12-08] MEDS: COLCHICINE 0.6 MG TAB PO SCH (08:43)
[2019-12-08] MEDS: CEFEPIME/SWI 1gm 10 ML IV SCH (08:43)
[2019-12-08] MEDS ORDERED: WARFARIN SODIUM 2.5 MG TAB PO ONE (09:00)
--- NOTE | 2019-12-08 10:23 | RAD REPORT ---
EXAM DESCRIPTION: RAD - Chest Pa And Lat (2 Views) - 12/08/2019 10:00 am CLINICAL HISTORY: pneumonia Chest pain. COMPARISON: Chest Single View dated 12/06/2019; Chest Single View dated 11/05/2019; Abdomen Acute Ser ies dated 05/31/2018; Abdomen 1 View (KUB) dated 06/11/2017 FINDINGS: Small right and a moderate left pleural effusion is seen. Area of airspace opacity in the left lung base medially appears mildly improved since prior study. Small area of nodularity is presen t in the left lung base. This was not definitively present prior examinations. The heart is mildly en larged in size with sternotomy wires present. Followup CT imaging of the chest may be of value for fu rther workup.
--- NOTE | 2019-12-08 12:56 | RAD REPORT ---
EXAM DESCRIPTION: CT - Thorax Wo Con CLINICAL HISTORY: Chest pain abnormal CXR COMPARISON: THORAX W CONTRAST dated 08/09/2009; Chest Pa And Lat (2 Views) dated 12/08/2019; Chest Sin gle View dated 12/06/2019 FINDINGS: Mild airspace opacity is present in the left lung base likely representing pneumonia or at electasis. There is no evidence of a worrisome pulmonary nodule. Mild right basilar atelectasis also seen. Small bilateral pleural effusions are present, larger on the left. No pneumothorax. No axillary, mediastinal or hilar adenopathy. Sternotomy wires present. Lucency is seen in the left anterior first rib which may represent a nonuni alexandro fracture. Mild S-shaped scoliosis of the thoracic spine is evident. Renal cysts are present bilat erally with small calculi left kidney. Hepatic cysts also present. All CT scans are performed using dose optimization technique as appropriate and may include automated exposure control or mA/KV adjustment according to patient size. IMPRESSION: Airspace opacity in the left lung base is noted suggesting mild residual consolidation/ pneumonia. No worrisome pulmonary nodule seen in the region. Small bilateral pleural effusions are present, slightly greater on the left.
[2019-12-08 15:42] VITALS: BP 146/68; TEMP 97
[2019-12-08 15:48] VITALS: O2SAT 100
--- NOTE | 2020-01-10 14:26 | HP ---
Date of Admission: 12/06/2019 Reason For Admission: Pneumonia. History Of Present Illness: This is a 74-year-old male patient, came into emergency room, who recently had surgery done at [facility], takes chronic anticoagulation therapy and came into emergency room, had some cough, shortness of breath, and after he was evaluated, he was admitted to the hospital with pneumonia and I saw him in the evening time. His was with him at bedside. Recently, he was evaluated in the emergency room a few days ago for elevated INR on 12/02/2019. His INR was 11.92, and he was given vitamin K injection in the emergency room and his warfarin is being managed by his cardiothoracic surgeon in [place] who just did the surgery on him earlier this month. Patient has been complaining of some pain in his left wrist area with some swelling. Allergies: NO KNOWN ALLERGIES. Medications: List reviewed. Review of Systems: Respiratory: Cough, congestion. Constitutional: Fatigue. Musculoskeletal: Left wrist pain and swelling. All other systems reviewed and negative. Past Medical History: Type 2 diabetes mellitus, hypertension, mixed hyperlipidemia, coronary artery disease, paroxysmal atrial fibrillation, bicuspid aortic valve, thoracic aortic aneurysm involving ascending aorta, diverticulosis, chronic kidney disease stage 3, prostate cancer, thrombocytopenia, hypercalcemia. Past Surgical History: TURP, cervical laminectomy, and recent surgery for aortic valve repair with CABG and repair of ascending aortic aneurysm done in November,. Family History: Father , had ruptured appendix. Mother had hypertension. Brother with lung cancer. Social History: Negative for smoking or alcohol use. Physical Examination: Vital Signs: When he first came in, pulse rate 63, respiratory rate 18, blood pressure 130/75, oxygen saturation 95%. Height 5 feet 10 inches, weight 154 pounds. Temperature 97.3. General: Awake, alert, oriented, not in distress. HEENT: Head atraumatic, normocephalic. Conjunctivae nonerythematous. Sclerae white. Mouth, no thrush or edema noted. Ears/Nose, no mass, lesion, discharge noted. Neck: Supple. No JVD, lymph nodes, bruit, thyromegaly noted. Lungs: Some crackles noted in lower lung with diminished air entry. Heart: Normal heart sounds, no murmur or gallop. Abdomen: Soft, bowel sounds normal. No guarding, rigidity, tenderness, mass, hepatosplenomegaly, distention, or bruit noted. Extremities: No leg edema. No calf tenderness. Skin: No rash, ulcer, cellulitis. Lymphatics: No lymph node enlargement in neck, supraclavicular, infraclavicular region. Neuro: No focal neurological deficit. Chest: Unremarkable. External Genitalia: Deferred. Rectal: Deferred. Laboratory Data: White count 8, hemoglobin 9.9, platelets 190. INR 1.66. Sodium 135, potassium 4.1, chloride 105, bicarb 23, BUN 21, creatinine 1.59, glucose 108. ProBNP 3739. Uric acid 2.8. Wrist x-ray: Left wrist x-ray shows left wrist osteoarthritis, mild osteopenia. No other acute changes noted. Venous Doppler of left upper extremity was negative for DVT. Chest x-ray shows left lower lobe consolidation with small left pleural effusion. Impression: 1. Pneumonia. 2. Left wrist pain. 3. Paroxysmal atrial fibrillation. 4. Anemia. 5. Chronic anticoagulation therapy. 6. Volume depletion. 7. Hypertension. 8. Mixed hyperlipidemia. 9. Type 2 diabetes mellitus. 10. Coronary artery disease. Plan: Admit patient to hospital for further evaluation and management of this problem. Patient is appropriate for inpatient and is expected to spend 2 midnights in hospital. Patient had arthrocentesis done in the emergency room and synovial fluid analysis showed 21,800 WBC, 44,000 RBC, 94% neutrophils, 2 lymphocytes, no crystals noted. Uric acid level came back at 2.8. We will follow up on culture results. Continue empiric antibiotic at this point, and I will see him tomorrow for followup. Anticoagulation therapy will be continued. We will monitor INR and IV fluid will be given per order. Details and plan of treatment discussed with the patient and patient's . YESY/MODL Voice ID: [id number] MTDD
--- NOTE | 2020-01-11 00:41 | DS ---
Date of Discharge: 12/08/2019 Disposition: Discharged to go home. Physical Examination: HEENT: Unremarkable. Lungs: Clear to auscultation. Heart: Heart sounds normal. Abdomen: Soft, bowel sounds normal. No guarding, rigidity, tenderness, or distention. Extremities: No leg edema. Left wrist swelling and pain have almost resolved completely. Discharge Medications And Instructions: 1.Continue all prior home medication. 2.Take antibiotic for 10 days as prescribed. 3.As of tomorrow, start warfarin 5 mg take half tablet daily and get PT/INR blood test done this wee k on 12/10/2019 and you should contact dust handler, Dr. Mccain with test results so he can dallin e decision on adjustment on warfarin. 4.Follow up at my office next week. Laboratory Data: Last sodium 139, potassium 3.8, chloride 108, bicarb 23, BUN 14, creatinine 1.1, gl ucose 97, magnesium 1.8 yesterday which is on 12/07/2019, potassium was 3.4 and it was corrected. La st white count today on day of discharge 7.3, hemoglobin 10.4, platelets 165 and INR today on day of discharge is 2.27. Blood culture remained negative. Synovial fluid culture from left wrist remained negative. Final Diagnoses: 1.Pneumonia. 2.Paroxysmal atrial fibrillation. 3.Chronic anticoagulation therapy. 4.Hypokalemia. 5.Anemia. 6.Volume depletion. 7.Coronary artery disease. 8.Hypertension. 9.Mixed hyperlipidemia. 10.Type 2 diabetes mellitus. Hospital Course: This is a 74-year-old pleasant male patient, admitted to the hospital with pneumoni a and left wrist pain. Please see dictated H and P for more information. After patient was evaluate d in the emergency room, he was admitted to the hospital. Chest x-ray and CAT scan of the chest were done during this hospitalization. CAT scan from today on day of discharge shows airspace opacificat ion left lung base noted suggesting pneumonia. Bilateral small pleural effusion noted, low grade on the left side. Patient responded well to empiric IV antibiotics and his left wrist pain, swelling, a nd range of motion has improved significantly. He started ambulating well without any problem and he was discharged to go home in stable condition with above-mentioned medications and instructions. YESY/MODL Voice ID: [id number] Report ID: [id number]
== END 2019-12-08 17:34 | disposition home health service (06) | DRG 195 ==
LOC: ER 00:55 → ERHOLD 06:26 → 2ND 08:46
PROVIDERS: ADMIT Internal Medicine; ATTEND Internal Medicine
DX: J18.9 Pneumonia, unspecified organism (principal); I48.0 Paroxysmal atrial fibrillation; E11.9 Type 2 diabetes mellitus without complications; I10 Essential (primary) hypertension; E87.6 Hypokalemia; D64.9 Anemia, unspecified; E86.9 Volume depletion, unspecified; I25.10 Atherosclerotic heart disease of native coronary artery without angina pectoris; E78.2 Mixed hyperlipidemia; K57.90 Diverticulosis of intestine, part unspecified, without perforation or abscess without bleeding; E11.22 Type 2 diabetes mellitus with diabetic chronic kidney disease; I12.9 Hypertensive chronic kidney disease with stage 1 through stage 4 chronic kidney disease, or unspecified chronic kidney disease; N18.3 Chronic kidney disease, stage 3 (moderate); D69.6 Thrombocytopenia, unspecified; M25.532 Pain in left wrist; Z79.01 Long term (current) use of anticoagulants
CPT/HCPCS: 36415; 71045; 71046; 71250; 80048; 80202; 83735; 83880; 84145; 84484; 84550; 85025; 85610; 87040; 87070; 89050; 89060; 93005; 93971; 94760; 96365; 96366; 96368; 96375; 99285; J0692; J1940; J2001; J7030

== ENCOUNTER 2021-06-10 10:29 | Emergency (ER) | payer OTHER ==
--- OUTSIDE RECORDS SUMMARY | 2021-06-10 10:32 | XMS REPORT | Continuity of Care Document ---
:1945 Author Organization [facility] t Address [address] [place] [address] Care Team Providers Name Role Phone Hi Tarango MD Primary Care Physician Therapy, Covid Infusion Attending Clinician Unavailable Doctor Unassigned, Name Attending Clinician Unavailable Hi TARANGO Attending Clinician Unavailable Cosme Dover MD Attending Clinician Km CROUCH Attending Clinician Unavailable Luna CROUCH Attending Clinician Unavailable RON Attending Clinician Unavailable Prasad Lyons Attending Clinician Hi TARANGO Admitting Clinician Unavailable RON Admitting Clinician Unavailable STANISLAW Admitting Clinician Unavailable Prasad Lyons Admitting Clinician Payers Payer Name Policy Type Policy Effective Date Expiration Date Sour ce Number UHC MEDICAREUHC [id number] 2020 [facility] 00:00:00 Hospital [id number] 2020-Present Problems Condition Condition Condition Status Onset Resolution Last Treating Co mments Source Name Details Category Date Date Treatment Clinician Date Hx of CABG Hx of CABG Disease Active M ethodi 2-18 st 00:00: Hospita 00 l S/P AVR S/P AVR Disease Active Methodi (aortic (aortic 2-03 st valve valve 00:00: Hospita replacemen replacemen 00 l t) and t) and aortoplast aortoplast y y 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 0-29 st disease disease 00:00: Hospita involving involving 00 [place] coronary coronary artery of artery of [place] heart heart without without angina angina pectoris pectoris Bicuspid Bicuspid Disease Active 2018-11 Metho di aortic aortic 0-01 st valve valve 00:00: Hospita 00 l Essential Essential Disease Active 2017-11 Met hodi hypertensi hypertensi 0-02 st on on 00:00: Hospita 00 l 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 00:00: Hospit a without without 00 l rupture rupture PAIN LEFT Diagnosis Active 2017-03-28 Memoria HIP, 5-02 22:02:00 l OSTEOARTHR PAIN 00:00: Enoc n ITIS LEFT LEFT HIP, 00 HIP OSTEOARTHR ITIS LEFT HIP Active 03/11/2017 [facility] Aneurysm Problem Resolve 2017-03-24 Me moria (disorder) d 00:14:07 l Aneurysm Enoc n (disorder) Resolved Problem 03/24/2017 of the heart [facility] Chronic Problem Active 2017-03-24 Herb cris pain 00:14:07 l syndrome Chronic Sabi nn (disorder) pain syndrome (disorder) Active Problem 03/24/2017 in neck and back [facility] Gastroesop Problem Active 2017-03-24 M emoria hageal 00:14:07 l reflux Gravette disease Gastroesop (disorder) hageal reflux disease (disorder) Active Problem 03/24/2017 [facility] Hypertensi Problem Active 2017-03-24 M emoria ve 00:14:07 l disorder, Jarek systemic Hypertensi arterial ve (disorder) disorder, systemic arterial (disorder) Active Problem 03/24/2017 [facility] Large Problem Active 2017-03-24 Memdulce maria ia prostate 00:14:07 l (finding) Large Enoc n prostate (finding) Active Problem 03/24/2017 [facility] Allergies, Adverse Reactions, Alerts This patient has no known allergies or adverse reactions. Family History Family Member Diagnosis Comments Start Date Stop Date Source Natural father [facility] Natural mother [facility] Social History Social Habit Start Date Stop Date Quantity Comments Source Cigarettes smoked 2020-07-25 2020-07-[address] current (pack per 00:00:00 00:00:00 Hospita l day) - Reported Cigarette 2020-07-25 2020-07-25 [facility] pack-[facility] 00:00[facility]00 00:00:00 Hospital Tobacco use and 2020-07-25 2020-07-25 Never used [facility] exposure 00:00:00 00:00:00 Hospital Alcohol intake 2020-07-25 2020-07-25 Current [facility] 00:00:00 00:00:00 non-drinker of Hospital alcohol (finding) Social History 2017-03-11 2017-03-11 [facility] 17:34:26 17:34:26 History of tobacco 1999-08-10 Current smoker [facility] use 00:00:00 Hospital Sex Ass[birth year] At [birth year] [facility] 00:00:00 00:00:00 Hospital Smoking Status Start Date Stop Date Source Former smoker 2020-07-25 00:00:00 2020-07-25 00:00:[facility] Medications Ordered Filled Start Stop Current Ordering Indication Dosage Frequency Signature Comments Components Source Medication Medication Date Date Medication? Clinician (SIG) Name Name apixaban Yes 2.5mg Q.5D Take 1 Method i (Eliquis) 5-[address] 2.5 mg 00:00: (2.5 mg Hospita tablet 00 total) by l mouth 2 (two) times a day. Eliquis 2.5 2020- No TAKE 1 Met hodi mg tablet 5-03 05-[address] 00:00: 00:00 MOUTH Hospita 00 :00 TWICE A l DAY metoprolol Yes TAKE 1 Metho di tartrate 3-[address] (LOPRESSOR) 00:00: MOUTH Hospi ta 25 mg 00 TWICE A l tablet DAY DULoxetine 60mg Take 60 mg Methodi (CYMBALTA) 01-[address] 60 MG 13:53: 00:00 as needed. Hospi ta capsule 04 :00 l losartan 50mg QD Take 1 Method i (Cozaar) 50 01-23-17 tablet (50 s t MG tablet 00:00: 04:59 mg total) Ho spita 00 :00 by mouth l daily. Eliquis 2.5 No TAKE 1 Met hodi mg tablet 12-18- TABLET BY st 00:00: 00:00 MOUTH Hospita 00 :00 TWICE A l DAY apixaban 2019-11 2.5mg Q.5D Take 1 Metho di (Eliquis) 11-[address] 2.5 mg 00:00: 00:00 (2.5 mg Hospita tablet 00 :00 total) by l mouth 2 (two) times a day. apixaban 2019-11 No 2.5mg Q.5D Take 1 Metho di (Eliquis) 0-07 10-[address] 2.5 mg 00:00: 00:00 (2.5 mg Hospita tablet 00 :00 total) by l mouth 2 (two) times a day. Eliquis 2.5 No TAKE 1 Met hodi mg tablet 08-07-[address] 00:00: 00:00 MOUTH Hospita 00 :00 TWICE A l DAY metoprolol No TAKE 1 Meth giselle tartrate 14 -[address] (LOPRESSOR) 00:00: 00:00 MOUTH Hosp cynthia 25 mg 00 :00 TWICE A l tablet DAY apixaban No 2.5mg Q.5D Take 1 Metho di (Eliquis) 07-12-[address] 2.5 mg 00:00: 00:00 (2.5 mg Hospita tablet 00 :00 total) by l mouth 2 (two) times a day. losartan TAKE 1 Method i (COZAAR) 50 -20 -[address] MG tablet 00:00: 00:00 MOUTH Hospit a 00 :00 EVERY DAY l metoprolol 2020- No TAKE 1 Meth giselle tartrate 7-20 -[address] (LOPRESSOR) 00:00: 00:00 MOUTH Hosp cynthia 50 mg 00 :00 TWICE A l tablet DAY aspirin Yes 81mg QD Take 81 mg Meth giselle (ECOTRIN) 5-[address] 81 MG 15:10: daily. Hospita enteric 53 l coated tablet tiZANidine Yes 4mg Q8H Take 4 mg Me thodi (ZANAFLEX) 5-[address] 4 MG tablet 15:10: every 8 Hos helio 53 (eight) l hours as needed for muscle spasms. tamsulosin Yes .4mg QD Take 0.4 Met hodi (FLOMAX) 5-[address] 0.4 mg 15:10: mouth Hospita capsule 53 daily with l dinner. metoprolol 2019- No 25mg Q.5D Take 1 Meth giselle tartrate 5-19 09-14 tablet (25 st (LOPRESSOR) 00:00: 00:00 mg total) Hospita 25 mg 00 :00 by mouth 2 l tablet (two) times a day. ULTRAM 50 No 50mg Q8H Take 50 mg M ethodi mg tablet 07-20-[address] 00:00: 00:00 every 8 Hospita 00 :00 (eight) l hours as needed. rosuvastati 2020- No 1{tbl} Take 1 M ethodi n (CRESTOR) 06-21-[address] 5 MG tablet 00:00: 00:00 mouth. Hos helio 00 :00 l Acetaminoph Yes 1 tab, PO, Memoria en 325 MG / 5-12 Q4H, PRN l Oxycodone 15:37: for pain, Her faustin Hydrochlori 00 X 7 day, # de 5 MG 50 tab, 0 Oral Tablet Refill(s) [Percocet 5/325] rivaroxaban Yes 10 mg = 1 M emoria 10 MG Oral 5-12 tab, PO, l Tablet 11:04: Daily, Martinez Tilley [Xarelto] 00 10 tab, 0 Refill(s), Pharmacy: [id number] Saline 2017-0 No Notes: Memoria Flush 0.9% 5-12 (Same as: l 02:00: BD Posiflush) Saline No Notes: Memoria Flush 0.9% 5-11 (Same as: l 18:01: BD Posiflush) Lisinopril No Notes: Memor ia 5-11 (Same as: l 14:00: Prinivil, Zestril) lansoprazol No 30 mg, Herb cris e 5-11 Route: PO, l 14:00: Drug form: TABDIS, Daily, Dosing Weight 74.716, kg, Start date: 03/20/17 9:00:00 CDT, Duration: 30 day, Stop date: 04/18/17 9:00:00 CDT Famotidine No Notes: Memor ia 20 MG Oral 5-11 (Same as: l Tablet 02:00: Pepcid) Gravette 00 gabapentin No Notes: Memor ia 300 MG Oral 5-11 (Same as: l Capsule 02:00: Neurontin) Herm cj Nortriptyli No Notes: Herb cris ne 5-11 (Same l 02:00: as:Pamelor Jarek , Aventyl) Tylenol No Notes: Do Memor ia 5-10 not exceed l 22:00: 4 gm/day. Jarek 00 (Same as: Tylenol) Docusate No Notes: Memoria Sodium 100 5-10 (Same as: l MG Oral 22:00: Colace) Jarek Capsule 00 (Do Not Crush) Protonix No Notes: Memoria 5-10 Tablet l 21:30: should not Jarek 00 be chewed or crushed. (Same as: Protonix) rivaroxaban No Notes: Herb cris 5-10 (Same as: l 21:08: Xarelto) Gravette 00 Do Not Crush Acetaminoph No Notes: Herb cris en 10 MG/ML 5-10 Infuse l Injectable 20:00: over 15 Herm cj Solution 00 minutes Do not exceed 4gm/day of acetaminop hen MEDICATION WASTE Product Size: 1000 mg Product Wasted: __0_ mg Dilaudid No Notes: Memoria 5-10 Same as: l 18:39: Dilaudid [place] Cefazolin No Notes: Memori a 5-10 (Same As: l 18:00: Ancef, Gravette Kefzol) MEDICATION WASTE Product Size: 1000 mg Product Wasted: _0 mg phenylephri No Route: IV, Memoria ne (ANES) 5-10 Drug form: l 15:15: INJ, ONCE, Jarek 00 Stop date: 03/19/17 10:15:00 CDT dexamethaso No Route: IV, Memoria ne (ANES) 5-10 Drug form: l 15:15: INJ, ONCE, Jarek 00 Stop date: 03/19/17 10:15:00 CDT glycopyrrol No Route: IV, Memoria ate (ANES) 5-10 Drug form: l 15:15: INJ, ONCE, Gravette 00 Stop date: 03/19/17 10:15:00 CDT ondansetron No Route: IV, Memoria (ANES) 5-10 Drug form: l 15:15: INJ, ONCE, Stop date: 03/19/17 10:15:00 CDT Oxycodone No Notes: Memori a Hydrochlori 5-10 (Same as: l de 5 MG 15:07: Roxicodone Herm cj Oral Tablet ) Dulcolax No Notes: Memoria Laxative 5-10 (Same As: l 15:07: Dulcolax, Jarek 00 Correctol) (Do Not Crush) "Do Not Crush" Ondansetron No Notes: Herb cris 5-10 (Same as: l 15:07: Zofran) Gravette MEDICATION WASTE Product Size: 4 mg Product Wasted: _0__ mg Al No Notes: Memoria hydroxide/M 5-10 (aluminum l g 15:07: hydroxide- Jarek hydroxide/s 00 magnesium imethicone hyd-simeth 200 mg-200 icone mg-20 mg/5 200-200-20 mL oral mg/5ml 30 suspension ml ud CHARITY) Lactated 2017- No 1,000 mL, Herb cris Ringers 5-10 Rate: 100 l 1,000 mL 15:07: ml/hr, Infuse over: 10 hr, Route: IV, Dosing Weight 74.716 kg, Total Volume: 1,000, Start date: 03/19/17 10:07:00 CDT, Duration: 30 day, Stop date: 04/18/17 10:06:00 CDT Hydromorpho No Notes: Herb cris ne 5-10 Same as l 15:07: Dilaudid metoprolol No Route: IV, M emoria (ANES) 5-10 Drug form: l 14:39: INJ, ONCE, Stop date: 03/19/17 9:39:00 CDT Dilaudid No Route: IV, Mem oria (ANES) 5-10 Drug form: l 14:34: INJ, ONCE, Stop date: 03/19/17 9:34:00 CDT rocuronium No Route: IV, M emoria (ANES) 5-10 Drug form: l 14:19: INJ, ONCE, Stop date: 03/19/17 9:19:00 CDT ceFAZolin No Route: IV, Me moria (ANES) 5-10 Drug form: l 14:19: INJ, ONCE, Stop date: 03/19/17 9:19:00 CDT acetaminoph No Route: IV, Memoria en (ANES) 5-10 Drug form: l 14:19: INJ, ONCE, Stop date: 03/19/17 9:19:00 CDT propofol No Route: IV, Mem oria (ANES) 5-10 Drug form: l 14:19: INJ, ONCE, Stop date: 03/19/17 9:19:00 CDT tranexamic No Route: IV, M emoria acid (ANES) 5-10 Drug form: l 14:14: INJ, ONCE, Stop date: 03/19/17 9:14:00 CDT midazolam No Route: IV, Me moria (ANES) 5-10 Drug form: l 14:14: SOLN, 00 ONCE, Stop date: 03/19/17 9:14:00 CDT fentaNYL No Route: IV, Mem oria (ANES) 5-10 Drug form: l 14:14: INJ, ONCE, Stop date: 03/19/17 9:14:00 CDT Hydromorpho No Notes: Herb cris ne 5-10 Same as l 13:48: Dilaudid Naloxone No Notes: Memoria 5-10 Same as l 13:48: Narcan Flumazenil No Notes: Memor ia 5-10 (Same as: l 13:48: Romazicon) Hydralazine No Notes: Herb cris 5-10 (Same as: l 13:48: Apresoline ) Push over 5 minutes Metoprolol No Notes: Memor ia 5-10 (Same as: l 13:48: Lopressor) Push over 2 minutes Diphenhydra No Notes: Herb cris mine 5-10 (Same as: l 13:48: Benadryl) Ondansetron No Notes: Herb cris 5-10 (Same as: l 13:48: Zofran) MEDICATION WASTE Product Size: 4 mg Product Wasted: _0__ mg Morphine No Notes: Memoria 5-10 (Same l 13:48: as:MORPhin e Sulfate) LR 1000 mL No Route: IV, M emoria INJ (ANES) 5-10 Total l 13:29: Volume: 1,000, Start date: 03/19/17 8:29:00 CDT, Stop date: 03/19/17 9:29:00 CDT Lidocaine No Notes: Memori a 5-10 Ingredient l 12:00: s: 2 ml lidocaine 1% inj , 0.2ml sodium bicarbonat e 8.4% inj total volume = 2.2ml Refrigerat e: 14 days Room temp: 7 days Calcium 2017- No 1,000 mL, Memor ia Chloride 5-10 Rate: 25 l 0.0014 11:59: ml/hr, Jarek MEQ/ML / 00 Infuse Potassium over: 40 Chloride hr, Route: 0.004 IV, Dosing MEQ/ML / Weight Sodium 74.716 kg, Chloride Total 0.103 Volume: MEQ/ML / 1,000, Sodium Start Lactate date: 0.028 03/19/17 MEQ/ML 6:59:00 Injectable CDT, Solution Duration: 30 day, Stop date: 04/18/17 6:58:00 CDT Neurontin No Notes: Memori a 5-10 (Same as: l 11:00: Neurontin) Gravette 00 Cyklokapron No Notes: Herb cris 5-10 (Same As: l 11:00: Cyklokapro Gravette 00 n) Lactated No IV, 100 Memori a Ringers 5-10 ml/hr, l Injection 11:00: Sbai GONZALEZ nn IV 00 Start date: 03/19/17 6:00:00 CDT, Duration: 1, 1,000 ml ceFAZolin + No Notes: Herb cris sodium 5-10 (Same As: l chloride 11:00: Jarek Stiles 0.9% 100 mL 00 Kefzol) INJ (for IV set) 100 mL MEDICATION WASTE Product Size: 1000 mg Product Wasted: 0__ mg Sodium No IV, 0 Memoria Chloride 5-09 ml/hr, l 0.9% IV 19:29: PRN, PRN Enoc n 00 Line Flush, Start date: 03/18/17 14:29:00 CDT, Duration: 30, 25 ml BD Normal No Notes: Memori a Saline 5-09 (Same as: l Flush 19:29: BD Jarek 00 Posiflush) lansoprazol Yes 30 mg = 1 M emoria e 30 mg 5-02 tab, PO, l oral 17:13: Daily, # Jarek tablet, 00 30 tab, 0 disintegrat Refill(s) ing lisinopril 2017-0 Yes 30 mg = 1 Me moria 30 mg oral 5-02 tab, PO, l tablet 17:13: Daily, # Gravette 00 30 tab, 0 Refill(s) nortriptyli Yes 50 mg = 1 M emoria ne 50 mg 5-02 cap, PO, l oral 17:13: Bedtime, # Gravette capsule 00 30 cap, 1 Refill(s) silodosin 8 Yes 8 mg = 1 Me moria MG Oral 5-02 cap, PO, l Capsule 17:13: Daily, 0 Enoc n [Rapaflo] 00 Refill(s) Vital Signs Vital Name Observation Time Observation Value Comments Source Systolic blood 2021-01-23 13:56:00 144 mm[Hg] [facility] pressure Diastolic blood 2021-01-23 13:56:00 77 mm[Hg] [facility] pressure Heart rate 2021-01-23 13:56:00 44 /min [facility] Body height 2021-01-23 13:56:00 177.8 cm [facility] Body weight 2021-01-23 13:56:00 75.751 kg [facility] BMI 2021-01-23 13:56:00 23.96 kg/m2 [facility] Respitory Rate 2017-03-21 14:13:00 Memori al Jarek Systolic (mm Hg) 2017-03-21 14:13:00 Herb rial Jarek Diastolic (mm Hg) 2017-03-21 14:13:00 Mem orial Jarek Temperature Oral (F) 2017-03-21 14:13:00 98.2 F [facility] [place] Heart Rate 2017-03-21 14:13:00 [facility] [place] Systolic (mm Hg) 2017-03-21 10:35:00 Herb rial [place] Diastolic (mm Hg) 2017-03-21 10:35:00 Mem orial [place] Respitory Rate 2017-03-21 10:35:00 Memori al Jarek Heart Rate 2017-03-21 10:35:00 Memorial [place] Temperature Oral (F) 2017-03-21 10:35:00 98.2 F Memorial Jarek Temperature Oral (F) 2017-03-21 04:33:00 98.4 F Memorial Jarek Respitory Rate 2017-03-21 04:33:00 Memori al [place] Heart Rate 2017-03-21 04:33:00 Clarence Tilley Systolic (mm Hg) 2017-03-21 04:33:00 Herb Tilley Diastolic (mm Hg) 2017-03-21 04:33:00 Nona Tilley Height 2017-03-11 17:17:00 170.82 cm [facility] Jarek BMI Calculated 2017-03-11 17:17:00 Juan Diego Goff Weight 2017-03-11 17:17:00 [facility] Procedures Procedure Date / Time Performed Performing Clinician [facility] e ECG 12-LEAD 2021-01-23 13:58:29 Jose Dover spital TTE COMPLETE, W 2020-09-21 18:53:55 Jose Dovertal CONTRAST, W DOPPLER ([id number]) Shoulder joint 2015-11-11 06:00:00 [facility] Her faustin operations<sup>1</sup> Neck repair 2015-03-11 05:00:00 [facility] Plan of Care Planned Activity Planned Date Details Comments Source Future Scheduled Test 65+ PNEUMOCOCCAL Me [facility] VACCINE (1 of 4 - PCV13) [code = 65+ PNEUMOCOCCAL VACCINE (1 of 4 - PCV13)] Future Scheduled Test COVID-19 VACCINE (1) [facility] [code = COVID-19 VACCINE (1)] Future Scheduled Test Hepatitis C screening [facility] (procedure) [code = 526691731] Future Scheduled Test COLONOSCOPY SCREENING [facility] [code = COLONOSCOPY SCREENING] Future Scheduled Test SHINGLES VACCINES (#1) [facility] [code = SHINGLES VACCINES (#1)] Future Scheduled Test INFLUENZA VACCINE [code [facility] = INFLUENZA VACCINE] Encounters Start End Encounter Admission Attending Care Care Encounter Source Date/Time Date/Time Type Type Clinicians Facility Department ID 2021-05-26 2021-05-26 Nurse Therapy, [facility] 1.2.840.114 [id number] 07:59:21 08:29:21 Visit Adc Imani Adams 350.1.13.10 Infusion [place] 4.2.7.2.686 Surgical [id number] [place] 053 2021-05-26 2021-05-26 Orders Doctor SERRATO 1.2.840.114 [id number] 00:00:00 00:00:00 Only Unassigned, DALILA 350.1.13.10 [place] 4.2.7.2.686 [id number] 2021-05-21 2021-05-21 Outpatient STLMLC [facility] [id number] [facility] 00[facility]:00 [facility] 2020-12-13 2021-04-01 Outpatient C TARANGO, [facility] BALANCE PT [id number] [place] 11:08:00 23:59:00 [facility] 2021-03-20 2021-03-20 Refill Stanislaw, 1.2.840.1 [id number] Methodi 00:00:00 00:00:00 Jose Aguiar 88824.1.[address] 3.430.2.7 Hospit a .3.631454 l .8 2021-03-11 2021-03-11 Refill Stanislaw, 1.2.840.1 [id number] Methodi 00:00:00 00:00:[address] 3.430.2.7 Hospit a .3.164741 l .8 2021-01-23 2021-01-23 Office Stanislaw 1.2.840.1 [id number] Methodi 08:44:13 13:22:27 Visit Jose Aguiar 30903.1.[address] 3.430.2.7 Hospit a .3.220193 l .8 2021-01-23 2021-01-23 Outpatient [facility] [id number] [place] 00:00:00 00:00:00 JOSE [address] 2021-01-23 2021-01-23 Refill Stanislaw, 1.2.840.1 [id number] Methodi 00:00:00 00:00:[address] 3.430.2.7 Hospit a .3.497706 l .8 2020-12-17 2020-12-17 Refill Stanislaw, 1.2.840.1 [id number] Methodi 00:00:00 00:00:[address]65[address] 3.430.2.7 Hospit a .3.408825 l .8 2020-11-21 2020-11-21 [facility] [id number] 2020-09-25 2020-09-25 Refill Stanislaw, 1.2.840.1 [id number] Methodi 00:00:00 00:00:[address] 3.430.2.7 Hospit a .3.946592 l .8 2020-09-21 2020-09-21 Outpatient [facility] [id number] [address] [place] [address] 00:00:00 00:00:00 JOSE [address] 2020-09-21 2020-09-21 Travel 1.2.840.1 1.2.984.620 [id number] Methodi 00:00:00 00:00:[address] 3.430.2.7 0.2.7.3.698 Ho spita .3.321892 084.8 l .8 2020-09-06 2020-09-06 Refisabella Barbour, 1.2.840.1 [id number] Methodi 00:00:00 00:00:[address] 3.430.2.7 Hospit a .3.100347 l .8 2020-08-10 2020-08-10 Outpatient [facility] [id number] [facility] 2020-08-06 2020-08-06 Refill Stanislaw, 1.2.840.1 [id number] Methodi 00:00:00 00:00:00 Jose [address]37.1.[address] 3.430.2.7 Hospit a .3.114617 l .8 2020-07-25 2020-07-25 Osvaldo Dover 1.2.840.1 [id number] Methodi 11:35:29 14:53:02 Visit Jose Aguiar 38112.1.[address] 3.430.2.7 Hospit a .3.333084 l .8 2020-07-25 2020-07-25 Outpatient [facility] [id number] [address] [place] [address] 00:00:00 00:00:00 JOSE [address] 2020-07-24 2020-07-24 Travel 1.2.840.1 1.2.302.945 [id number] Methodi 00:00:00 00:00:[address] 3.430.2.7 0.2.7.3.698 Ho spita .3.580777 084.8 l .8 2020-07-23 2020-07-23 Refill Stanislaw, 1.2.840.1 [id number] Methodi 00:00:00 00:00:[address]52.1.[address] 3.430.2.7 Hospit a .3.334618 l .8 2020-07-12 2020-07-12 Orders Tommy Carrasco 1.2.840.1 [id number] Methodi 00:00:00 00:00:[address] 3.430.2.7 Hospit a .3.208418 l .8 2020-07-11 2020-07-11 Telephone Tommy Carrasco 1.2.840.1 [id number] Methodi 00:00:00 00:00:[address] 3.430.2.7 Hospit a .3.733690 l .8 2020-06-27 2020-06-27 Travel 1.2.840.1 1.2.323.373 [id number] Methodi 00:00:00 00:00:[address] 3.430.2.7 0.2.7.3.698 Ho spita .3.124945 084.8 l .8 2020-03-28 2020-03-28 Outpatient DOVER, [facility] [id number] [place] 00:00:00 00:00:00 JOSE [address] 2019-11-16 2019-11-24 Inpatient [facility]GILLIVRA [facility] [id number] [place] 00:00:00 00:00:00 Y, NENA [address] 2019-10-27 2019-10-27 Outpatient MACGILLIVRA [facility] [id number] [place] 00:00:00 00:00:00 Y, NENA 058 [facility] 2019-10-27 2019-10-27 Outpatient MACGILLIVRA [facility] [id number] [place] 00:00:00 00:00:00 Y, NENA 619 Meth giselle 2019-10-20 2019-10-20 Outpatient STANISLAW [facility] [id number] 000 [place] 00:00:00 00:00:00 JOSE [address] 2018-08-28 2018-11-21 Outpatient C TARANGO, [facility] [id number] [facility] 09:11:00 23:59:00 [facility] 2017-03-19 2017-03-21 [facility] [id number] [facility] 06:59:00 11:15:00 Arden B 00 Results Test Description Test Time Test Comments Results Result Comments Source ECG 12 lead 2021-01-24 10:24:59 Test Item Value Reference Range Interpretation Comme nts Ventricular rate (test code = 253) Atrial rate (test code = 255) TX interval (test code = 266) QRSD interval (test code = 260) QT interval (test code = 264) QTC interval (test code = 265) P axis 1 (test code = 267) QRS axis 1 (test code = 268) T wave axis (test code = 270) EKG impression (test code = 273) [id number]009[facility] 2017-03-20 08:29:0050[facility] [id number] 08:29:55028Pdxyswon HermannCHEM ZOEUF9562-17-11 08:29:0029[facility]CHE[facility] FUSZJ3764-73-16 08:29:55264Xqiizxec HermannCHEM XIWLF4352-73-82 08:29:33700Fopiogkb [facility]annCHE[facility] SZHQD0486-22-96 08:29:0029[facility]CHE[facility] OHQIE0418-44-36 08:29:004.6 [facility] PLPGL9625-30-61 08:29:001.41[facility]annCHE[facility] PANEL 2017-03-20 08:29:009.6[facility] KjzucbbPEDFHMDESR0492-43-33 08:29:0038.5[facility] MovkeqvLWURJLPWVR4612-53-68 08:29:0013.0[facility] RviaqyyFJADWUIDKWFM8071-90-75 15:28:23075Ebrbnyog FakzytoFWDIOBJKISTE8119-62-86 15:28:0014.7[facility] RBWGOXXBMMAP2556-02-46 15:28:009.5[facility] MqsrsfgTRMUDARSTQWN9924-49-69 15:28:0025[facility] TrftwhjUHMYKHWJRGLA6039-74-60 15:28:0043[facility] FGRWDVFXROME4213-73-60 15:28:001.60[facility] FrwbvymZHRWYLXNRSVW2470-05-57 15:28:91119Urpxicpu WzhcfsvIAWCCGKUAIYC1942-68-25 15:28:0028[facility] FZVKHUMLCKZW2272-21-39 15:28:46117Vglevglc VtmotleNVIDOQFUBCFE0846-41-05 15:28:004.7[facility] MxrbuioARDIAKLNKW2140-26-16 15:28:0041.9[facility] AAJQUAFPIU7767-91-75 15:28:0014.1[facility]UR[facility] AND UHOXV4528-75-34 12:14:001.017[facility] AND JTDYZ6806-01-35 12:14:00Yellow *NA*(03/19/17 7:14 AM)[facility]CHE[facility] WKIUB7189-73-33 12:14:0019[facility]annCHE[facility] LVYGP9216-69-85 12:14:001.0[facility]CHE[facility] XQMPE2401-00-38 12:14:003.9[facility]CHE[facility] FSWPE0220-48-15 12:14:0016.2[facility]CHE[facility] TJVEB5908-97-11 12:14:0044[facility]CHE[facility] YAKCB9904-73-82 12:14:0027 [facility] HermannCHEM [id number] 12:14:000.4[facility]ann[facility]M PANEL 2017-03-19 12:14:0094[facility] HermannCHEM [id number] 12:14:003.8[facility]annCHEM [id number] 12:14:007.7[facility]annCHEM [id number] 12:14:0010.6[facility]annCHEM SBFOE3587-14-21 12:14:0030[facility]annCHEM [id number] 12:14:0030[facility]annCHEM [id number] 12:14:004.2 [facility]annCHEM [id number] 12:14:23957Svjckulr HermannCHEM PANEL 2017-03-19 12:14:001.58[facility] HermannCHEM [id number] 12:14:0025[facility] HermannCHEM [id number] 12:14:83682Duvhukzc HermannCHEM ORIMY6908-79-02 12:14:50588Qtxrgldd HdwlihiGAQIJXOHEJ4872-99-80 12:14:000.7[facility] HXUWDQRDTW3508-29-74 12:14:000.3[facility] XojduxkJMAIUZGIPG2751-71-42 12:14:001.7 [facility] LhyeasjELCSJBJKOF5393-48-10 12:14:0012.3[facility] HermannHEMATOLOGY 2017-03-19 12:14:004.7[facility] CgppujcSANKBYYTJU1837-97-58 12:14:000.8[facility] EuztajqAECLSITLSW8590-59-21 12:14:002.8[facility] EawjrwmSRRLUHDOKF6733-77-92 12:14:0051.7[facility] EmsbrpdTAWORFUSFB2595-25-29 12:14:0030.5[facility] [id number] 12:14:00 Test Item Value Reference Range Interpretation Comments PTT (test code = PTT) 33.8 s 22.9-35.8 [facility] UeosfqlDWTCPUYGBO9657-30-19 12:14:00 Test Item Value Reference Range Interpretation Comments PT (test code = PT) 13.7 s 12.0-14.7 [facility] RlkubhjJHLRGJWXWY0193-39-35 12:14:001.03[facility] HermannHEMATOLOGY 2017-03-19 12:14:0012.8[facility] TxaoptcYDMWHBFDAQ8301-93-75 12:14:35865Zxprhnhf OsmmikyRPIAAKQDMQ4388-35-71 12:14:008.5[facility] IdtqyhtVMKPBCKXYP2333-16-27 12:14:0034.5[facility] MznkrmmHXVNZNPSTG7269-42-50 12:14:0016.6[facility] RCLTAXBNNN4801-74-38 12:14:0048.0[facility] OmbaxebEZKGJKANKR5788-19-21 12:14:00 91.9[facility] DwmzyutLMZIHNXXMO8297-91-13 12:14:00 Test Item Value Reference Range Interpretation Comments MCH (test code = MCH) 31.7 pg 27.0-31.0 [facility] OjjdxrfZSPZGEHQRV9620-91-45 12:14:005.5[facility] HermannHEMATOLOGY 2017-03-19 12:14:005.22[facility] AND [id number] 12:14:006.0 [facility] [id number] 12:14:00Negative (03/19/17 7:14 AM) [facility] [id number] 12:14:00Negative *NA*(03/19/17 7:14 AM) [facility] [id number] 12:14:00<1[facility] [id number] 12:14:00Negative (03/19/17 7:14 AM)[facility] [id number] 12:14:003[facility] [id number] 12:14:00 Negative (03/19/17 7:14 AM)[facility] AND [id number] 12:14:00 Slight *ABN*(03/19/17 7:14 AM)[facility] [id number] 18:04:00Negative (03/11/17 1:04 PM)[facility] [id number] 17:59:00Product available (03/11/17 12:59 PM)[facility]
[2021-06-10 11:40] LABS: Absolute Lymphocytes (CBC) 2.1 K/uL (0.7-4.9); Basophils % 2.6 % (0-1.3); Hematocrit 43.4 % (39.6-49.0); Lymphocytes % 33.3 % (15.3-44.8); MPV 8.5 fL (7.6-11.3); RBC Red Blood Cell Count 4.64 M/uL (4.33-5.43)
[2021-06-10 11:44] LABS: Protime INR 1.28
--- NOTE | 2021-06-10 11:47 | RAD REPORT ---
EXAM DESCRIPTION: CT - Stone Protocol - 06/10/2021 11:36 am CLINICAL HISTORY: Flank pain. HEMATURIA COMPARISON: Abdomen Pelvis Wo Contrast dated 03/22/2019; Renal Ultrasound-Complete dated 10/29/2019 TECHNIQUE: Axial images were obtained without oral or IV contrast. Lack of contrast limits solid org an and vascular assessment. The uquiq-zr-hlql spans the entirety of the system partially obscuring uppermost abdomen and lung bases. Coronal reformatted images were obtained and reviewed. All CT scans are performed using dose optimization technique as appropriate and may include automated exposure control or mA/KV adjustment according to patient size. FINDINGS: The lower lung truong are clear. Small hiatal hernia. Several low-density hepatic lesions present likely representing cysts.The spleen is normal. The pancr eas and adrenal glands are normal. No pathologic lymphadenopathy in the abdomen or pelvis. Cysts present in both kidneys hip bilateral caliceal stones also present. Hydronephrosis. No bowel obstruction, free air, free fluid or abscess. Normal appendix noted. Left total hip arthroplasty. Small bilateral inguinal hernias containing fat. IMPRESSION: Punctate caliceal stones in both kidneys without hydronephrosis. Extensive multiple renal cysts are present, benign in appearance.
[2021-06-10 11:50] LABS: Albumin 3.5 g/dL (3.4-5.0); Bilirubin Direct 0.2 mg/dL (0-0.2); Bilirubin Total 0.9 mg/dL (0.2-1.0); Potassium 4.3 mmol/L (3.5-5.1); Protein, Total 7.1 g/dL (6.4-8.2)
[2021-06-10 11:51] LABS: Urine Bacteria NONE SEEN /HPF (NONE SEEN); Urine Mucus LIGHT /HPF (NONE SEEN); Urine RBC >50 /HPF (NONE SEEN)
[2021-06-10] MEDS ORDERED: NA CHLORIDE 0.9% 500 ML ONE (11:52)
--- NOTE | 2021-06-10 12:20 | ER ---
Nurse's Notes [facility] Name: Omi Stone Age: 76 yrs Sex: Male : 1945 Arrival Date: 06/10/2021 Time: 10:37 Bed 15 Private MD: Diagnosis: Hematuria, unspecified Presentation: 06/10 10:50 Chief complaint: Patient states: Blood in urine since . + abd discomfort. No ll1 fever or N/V/D. Coronavirus screen: Client denies travel out of the [place] in the last 14 days. At this time, the client does not indicate any symptoms associated with coronavirus-19. Ebola Screen: Patient denies travel to an Ebola-affected area in the 21 days before illness onset. No symptoms or risks identified at this time. Initial Sepsis Screen: Does the patient meet any 2 criteria? No. Patient's initial sepsis screen is negative. Does the patient have a suspected source of infection? Yes: Dysuria/Frequency/Urgency/UTI. Risk Assessment: Do you want to hurt yourself or someone else? Patient reports no desire to harm self or others. Onset of symptoms was June 07, 2021. 10:50 Method Of Arrival: Ambulatory ll1 10:50 Acuity: GABRIELA 3 ll1 Historical: - Allergies: 10:49 No Known Allergies; ll1 - PMHx: 10:49 Atrial Fib; GERD; CAD; ascending aortic aneurysm; Hyperlipidemia; Hypertension; ll1 - PSHx: 10:49 3 heart surgeries; ll1 10:52 medtronic implant-NO MRI; ll1 - Immunization history:: Client reports having NOT received the Covid vaccine. Flu vaccine is not up to date. - Social history:: Smoking status: Patient denies any tobacco usage or history of. Screenin:38 Abuse screen: Denies threats or abuse. Nutritional screening: No deficits noted. jd3 Tuberculosis screening: No symptoms or risk factors identified. Fall Risk Ambulatory Aid- None/Bed Rest/Nurse Assist (0 pts). Gait- Normal/Bed Rest/Wheelchair (0 pts) Mental Status- Oriented to own ability (0 pts). Total Carias Fall Scale indicates No Risk (0-24 pts). Assessment: 11:36 General: Appears in no apparent distress. comfortable, Behavior is calm, cooperative, jd3 appropriate for age. Pain: Denies pain. Neuro: Level of Consciousness is awake, alert, obeys commands, Oriented to person, place, time, situation. Cardiovascular: Denies chest pain, Capillary refill < 3 seconds Patient's skin is warm and dry. Respiratory: Airway is patent Respiratory effort is even, unlabored, Respiratory pattern is regular, symmetrical, Denies cough, shortness of breath. GI: Abdomen is non-distended, Abd is soft and non tender X 4 quads. : Urine is blood tinged, Reports urgency, blood in urine. EENT: No signs and/or symptoms were reported regarding the EENT system. Derm: Skin is intact, Skin is dry, Skin is normal, Skin temperature is warm. Musculoskeletal: Circulation, motion, and sensation intact. Range of motion: intact in all extremities. 11:57 Reassessment: Patient appears in no apparent distress at this time. No changes from jd3 previously documented assessment. Patient and/or family updated on plan of care and expected duration. Pain level reassessed. Patient is alert, oriented x 3, equal unlabored respirations, skin warm/dry/pink. 12:32 Reassessment: Patient appears in no apparent distress at this time. Patient and/or jd3 family updated on plan of care and expected duration. Pain level reassessed. Patient is alert, oriented x 3, equal unlabored respirations, skin warm/dry/pink. reported understanding of discharge instructions. Vital Signs: 10:50 BP 106 / 75; Pulse 69; Resp 16; Temp 97.2; Pulse Ox 97% ; Weight 74.84 kg; Height 5 ft. ll1 10 in. (177.80 cm); Pain 7/10; 11:57 Pulse 68; Resp 17 S; Pulse Ox 97% on R/A; jd3 10:50 Body Mass Index 23.67 (74.84 kg, 177.80 cm) ll1 ED Course: 10:37 Patient arrived in ED. ds1 10:49 Arm band placed on. ll1 10:51 Triage completed. ll1 11:04 Latrice Calix FNP-C is [facility]. kb 11:04 Kody Castillo MD is Attending Physician. kb 11:35 CT Stone Protocol In Process Unspecified. EDMS 11:36 Stephane Gold RN is Primary Nurse. jd3 11:36 Inserted saline lock: 20 gauge in left forearm, using aseptic technique. Blood jd3 collected. 11:38 Patient has correct armband on for positive identification. Bed in low position. Call jd3 light in reach. Side rails up X 1. Adult w/ patient. Pulse ox on. NIBP on. 12:32 No provider procedures requiring assistance completed. IV discontinued, intact, jd3 bleeding controlled, No redness/swelling at site. Pressure dressing applied. Administered Medications: 11:57 Drug: NS 0.9% 500 ml Route: IV; Rate: bolus; Site: left forearm; jd3 12:33 Follow up: Response: No adverse reaction; IV Status: Completed infusion; IV Intake: jd3 500ml Intake: 12:33 IV: 500ml; Total: 500ml. jd3 Outcome: 12:20 Discharge ordered by . zee 12:32 Discharged to home ambulatory, with family. jd3 12:32 Condition: stable 12:32 Discharge instructions given to patient, family, Instructed on discharge instructions, follow up and referral plans. Demonstrated understanding of instructions, follow-up care. 12:32 Patient left the ED. jd3 Signatures: Dispatcher [employer] EDVT Latrice Calix, ENGINEERING DESIGNER-C ENGINEERING DESIGNER-Ifeoma Yates ds1 Stephane Gold RN RN jd3 Angela Danielson RN RN ll1
--- NOTE | 2021-06-10 12:20 | EDPHYS ---
Physician Documentation [facility] Name: Omi Stone Age: 76 yrs Sex: Male : 1945 Arrival Date: 06/10/2021 Time: 10:37 Bed 15 Private MD: ED Physician Kody Castillo HPI: 06/10 11:04 This 76 yrs old Male presents to ER via Ambulatory with complaints of Blood kb in Urine, Abdominal Pain. 12:45 The patient presents with urinary symptoms, hematuria. Onset: The symptoms/episode kb began/occurred 4 day(s) ago. Modifying factors: The symptoms are alleviated by nothing, the symptoms are aggravated by nothing. Associated signs and symptoms: Pertinent positives: hematuria, Pertinent negatives: abdominal pain, constipation, diarrhea, dysuria, fever, nausea, vomiting. Severity of symptoms: At their worst the symptoms were moderate, in the emergency department the symptoms are unchanged. The patient has not experienced similar symptoms in the past. The patient has not recently seen a physician. Pt reports blood in his urine since . Denies pain, difficulty urinating, or any other symptoms. Historical: - Allergies: 10:49 No Known Allergies; ll1 - PMHx: 10:49 Atrial Fib; GERD; CAD; ascending aortic aneurysm; Hyperlipidemia; Hypertension; ll1 - PSHx: 10:49 3 heart surgeries; ll1 10:52 medtronic implant-NO MRI; ll1 - Immunization history:: Client reports having NOT received the Covid vaccine. Flu vaccine is not up to date. - Social history:: Smoking status: Patient denies any tobacco usage or history of. ROS: 12:50 Constitutional: Negative for fever, chills, and weight loss. kb 12:50 Abdomen/GI: Positive for "gurgling" , Negative for abdominal pain, nausea, vomiting, and diarrhea. 12:50 : Positive for hematuria, Negative for urinary frequency, small amounts, burning with urination, difficulty urinating. 12:50 All other systems are negative. 12:50 All other systems are negative. Exam: 12:56 Constitutional: This is a well developed, well nourished patient who is awake, alert, kb and in no acute distress. Head/Face: Normocephalic, atraumatic. ENT: Moist Mucous membranes Cardiovascular: Regular rate and rhythm with a normal S1 and S2. No gallops, murmurs, or rubs. No pulse deficits. Respiratory: Respirations even and unlabored. No increased work of breathing, no retractions or nasal flaring. Abdomen/GI: Soft, non-tender. No distention Back: No spinal tenderness. No costovertebral tenderness. Full range of motion. Skin: Warm, dry with normal turgor. Normal color. MS/ Extremity: Pulses equal, no cyanosis. Neurovascular intact. Full, normal range of motion. Neuro: Awake and alert, GCS 15, oriented to person, place, time, and situation. Moves all extremities. Normal gait. Psych: Awake, alert, with orientation to person, place and time. Behavior, mood, and affect are within normal limits. Vital Signs: 10:50 BP 106 / 75; Pulse 69; Resp 16; Temp 97.2; Pulse Ox 97% ; Weight 74.84 kg; Height 5 ft. ll1 10 in. (177.80 cm); Pain 7/10; 11:57 Pulse 68; Resp 17 S; Pulse Ox 97% on R/A; jd3 10:50 Body Mass Index 23.67 (74.84 kg, 177.80 cm) ll1 MDM: 11:04 Patient medically screened. kb 12:18 Data reviewed: vital signs, nurses notes. Data interpreted: Pulse oximetry: on room air kb is 97 %. Interpretation: normal. Counseling: I had a detailed discussion with the patient and/or guardian regarding: the historical points, exam findings, and any diagnostic results supporting the discharge/admit diagnosis, lab results, radiology results, the need for outpatient follow up, a urologist, to return to the emergency department if symptoms worsen or persist or if there are any questions or concerns that arise at home. ED course: Discussed findings with ERP. Recommends outpatient follow up with urologist. Pt in agreement with plan. Pt educated on return precautions. Verbal understanding received. . 06/10 11:04 Order name: Basic Metabolic Panel kb 06/10 11:04 Order name: CBC with Diff; Complete Time: 11:46 kb 06/10 11:04 Order name: Hepatic Function; Complete Time: 11:51 kb 06/10 11:04 Order name: Lipase; Complete Time: 11:51 kb 06/10 11:04 Order name: Protime (+inr); Complete Time: 11:46 kb 08/01 11:04 Order name: Ptt, Activated; Complete Time: 11:46 kb 06/10 11:04 Order name: IV Saline Lock; Complete Time: 11:36 kb 06/10 11:04 Order name: Labs collected and sent; Complete Time: 11:36 kb 06/10 11:04 Order name: CT Stone Protocol; Complete Time: 11:49 kb 06/10 11:05 Order name: Basic Metabolic Panel; Complete Time: 11:51 EDMS 06/10 11:05 Order name: Urine Microscopic Only; Complete Time: 11:57 kb 06/10 11:05 Order name: Urine Dipstick-Ancillary (obtain specimen); Complete Time: 11:57 kb Administered Medications: :57 Drug: NS 0.9% 500 ml Route: IV; Rate: bolus; Site: left forearm; jd3 12:33 Follow up: Response: No adverse reaction; IV Status: Completed infusion; IV Intake: jd3 500ml Disposition: 13:07 Co-signature as Attending Physician, Kody Castillo MD I agree with the assessment and rn plan of care. Attestation: The patient's history, exam findings, diagnostics, and a summary of any interventions or procedures was reviewed in detail with Latrice BRINK. Disposition Summary: 06/10/21 12:20 Discharge Ordered Location: Home kb Condition: Stable kb Diagnosis - Hematuria, unspecified kb Followup: kb - With: Emergency Department - When: As needed - Reason: Worsening of condition Followup: kb - With: Private Physician - When: 2 - 3 days - Reason: Recheck today's complaints, Continuance of care, Re-evaluation by your physician Discharge Instructions: - Discharge Summary Sheet kb - Hematuria, Adult kb Forms: - Medication Reconciliation Form kb - Thank You Letter kb - Antibiotic Education kb - Prescription Opioid Use kb Signatures: Dispatcher [employer] EDLatrice Vallecillo FNP-C FNP-CkKody Gilliam MD MD rn Davies, Jonathon, RN RN jd3 Lewis, Lynsay, RN RN ll1 Corrections: (The following items were deleted from the chart) 12:05 11:33 URINALYSIS+U.LAB.BRZ ordered. EDMS EDMS
[2021-06-10 12:46] VITALS: BP 106/75; TEMP 97.2; O2SAT 97
== END 2021-06-10 12:32 | disposition home or self-care (01) ==
LOC: ER 10:29
DX: R31.9 Hematuria, unspecified (principal); R10.9 Unspecified abdominal pain; I48.91 Unspecified atrial fibrillation; K21.9 Gastro-esophageal reflux disease without esophagitis; I25.10 Atherosclerotic heart disease of native coronary artery without angina pectoris; E78.5 Hyperlipidemia, unspecified; I10 Essential (primary) hypertension; I71.2 Thoracic aortic aneurysm, without rupture
CPT/HCPCS: 85025; 80048; 36415; 85610; 80076; 85730; 81015; 83690; 76377; 74176; J7040; 96360; 99284

== ENCOUNTER 2022-05-29 05:59 | Emergency (ER) | payer OTHER ==
[2022-05-29 06:56] LABS: Absolute Lymphocytes (CBC) 3.2 K/uL (0.7-4.9); Hematocrit 47.1 % (39.6-49.0); Lymphocytes % 40.1 % (15.3-44.8); MCV 92.6 fL (80-100); MPV 8.3 fL (7.6-11.3); RBC Red Blood Cell Count 5.08 M/uL (4.33-5.43)
[2022-05-29] MEDS ORDERED: NA CHLORIDE 0.9% 1,000 ML ONE (06:57)
[2022-05-29] MEDS ORDERED: ONDANSETRON 4 MG/2 ML VIAL ONE (06:57)
[2022-05-29 07:12] LABS: Albumin 3.8 g/dL (3.4-5.0); Potassium 3.2 mmol/L (3.5-5.1); Protein, Total 7.8 g/dL (6.4-8.2)
--- NOTE | 2022-05-29 10:26 | RAD REPORT ---
EXAM DESCRIPTION: CTAbdomen Pelvis W Contrast - 05/29/2022 10:11 am CLINICAL HISTORY: Abdominal pain. abd pain, vomiting COMPARISON: Abdomen Pelvis W Contrast dated 05/10/2017 TECHNIQUE: Biphasic CT imaging of the abdomen and pelvis was performed with 100 ml non-ionic IV cont rast. All CT scans are performed using dose optimization technique as appropriate and may include automated exposure control or mA/KV adjustment according to patient size. FINDINGS: The lung bases are clear. There are multiple small cysts within the liver parenchyma. No solid liver mass seen. Bilateral renal cysts are present, benign in appearance. Small stones are present in the left kidney. No hydronephro sis. The spleen, adrenal glands pancreas are within normal limits. No bowel obstruction, free air, free fluid or abscess. There is mild wall thickening seen involving t he rectosigmoid colon which could indicate a mild colitis. The appendix is normal. Small fat containi ng right inguinal hernia. No evidence of significant lymphadenopathy. Left total hip arthroplasty. Mild lumbar degenerative changes. IMPRESSION: Mild rectosigmoid colitis pattern is seen. Left nephrolithiasis without hydronephrosis.
--- NOTE | 2022-05-29 11:10 | EDPHYS ---
Physician Documentation [facility] Name: Omi Stone Age: 77 yrs Sex: Male : 1945 Arrival Date: 05/29/2022 Time: 06:02 Bed 14 Private MD: ED Physician Maldonado Cole HPI: 05/29 06:31 This 77 yrs old Male presents to ER via Ambulatory with complaints of rn Vomiting/Diarrhea, abd pain. 06:31 The patient presents to the emergency department with nausea, vomiting, diarrhea, rn abdominal pain. Onset: The symptoms/episode began/occurred yesterday. Possible causes: unknown. The symptoms are aggravated by nothing. The symptoms are alleviated by nothing. Associated signs and symptoms: Pertinent positives: abdominal pain, diarrhea, nausea, vomiting, Pertinent negatives: GI bleeding. Severity of symptoms: At their worst the symptoms were moderate in the emergency department the symptoms are unchanged. The patient has not experienced similar symptoms in the past. The patient has not recently seen a physician. Patient reports nausea/vomiting/diarrhea and abdominal pain. Reports having trouble "keeping things down". No bleeding. Takes eliquis. Thinks may have been exposed to COVID, has not been tested. Reports fatigue and malaise. . Historical: - Allergies: 06:20 No Known Allergies; lg3 - Home Meds: 06:20 Eliquis oral [Active]; losartan oral [Active]; Tylenol #3 Oral [Active]; venlafaxine lg3 oral [Active]; atorvastatin 40 mg Oral tab 1 tab once daily [Active]; Famotidine Oral [Active]; icosapent ethyl oral [Active]; tamsulosin 0.4 mg Oral cp24 1 cap once daily [Active]; Hydromorphone Oral [Active]; metoprolol tartrate 50 mg Oral tab 1 tab 2 times per day [Active]; tramadol 50 mg Oral tab 1 tab twice a day [Active]; - PMHx: 06:20 ascending aortic aneurysm; Atrial Fib; CAD; GERD; Hyperlipidemia; Hypertension; lg3 - PSHx: 06:20 3 heart surgeries; medtronic implant-NO MRI; lg3 - Immunization history:: Adult Immunizations up to date, Client reports having NOT received the Covid vaccine. - Social history:: Smoking status: Patient denies any tobacco usage or history of. Patient/guardian denies using alcohol, street drugs. - Family history:: not pertinent. - Hospitalizations: : No recent hospitalization is reported. ROS: 06:31 Constitutional: Negative for fever, chills, and weight loss, Eyes: Negative for injury, rn pain, redness, and discharge, ENT: Negative for injury, pain, and discharge, Neck: Negative for injury, pain, and swelling, Cardiovascular: Negative for chest pain, palpitations, and edema, Respiratory: Negative for shortness of breath, cough, wheezing, and pleuritic chest pain, Abdomen/GI: Negative for constipation Back: Negative for injury and pain, MS/Extremity: Negative for injury and deformity, Skin: Negative for injury, rash, and discoloration, Neuro: Negative for numbness, tingling, and seizure. Exam: 06:31 Constitutional: This is a well developed, well nourished patient who is awake, alert, rn and in no acute distress. Head/Face: Normocephalic, atraumatic. ENT: dry MM Cardiovascular: Regular rate and rhythm. No pulse deficits. Respiratory: No increased work of breathing, no retractions or nasal flaring. Abdomen/GI: soft, mild mid abd tenderness, no peritoneal signs or distension Skin: Warm, dry MS/ Extremity: Pulses equal, no cyanosis. Equal circumference. Neuro: Awake and alert, GCS 15 Vital Signs: 06:18 BP 168 / 93; Pulse 72; Resp 18 S; Temp 98.0(O); Pulse Ox 98% on R/A; Weight 77.11 kg lg3 (R); Height 5 ft. 10 in. (177.80 cm) (R); 07:27 BP 167 / 92; Pulse 52; Resp 19; Pulse Ox 95% on 1.5 lpm NC; vg1 08:45 BP 165 / 96; Pulse 64; Resp 14; Pulse Ox 98% on 1.5 lpm NC; vg1 09:44 BP 144 / 86; Pulse 55; Resp 20; Pulse Ox 97% on 1.5 lpm NC; vg1 10:45 BP 160 / 94; Pulse 64; Resp 20; Pulse Ox 96% on R/A; vg1 06:18 Body Mass Index 24.39 (77.11 kg, 177.80 cm) lg3 MDM: 06:03 Patient medically screened. rn 05/30 04:06 Data reviewed: vital signs, nurses notes, lab test result(s), and as a result, I will. rn 05/29 06:25 Order name: CBC with Diff; Complete Time: 09: rn 05/29 06:25 Order name: CMP; Complete Time: 09: rn 05/29 06:25 Order name: Lipase; Complete Time: 09: rn 05/29 06:25 Order name: SARS-COV-2 RT PCR (Document "Date of Onset" if Symptomatic); Complete Time: rn 05/29 06:25 Order name: Flu; Complete Time: : rn 05/29 06:25 Order name: IV Saline Lock; Complete Time: 06:51 rn 05/29 06:25 Order name: Labs collected and sent; Complete Time: 06: rn 05/29 09:39 Order name: Abdomen ; Complete Time: 11:08 EDMS Administered Medications: 05/29 06:57 Drug: NS 0.9% 1000 ml Route: IV; Rate: 1 bolus; Site: left antecubital; lg3 08:30 Follow up: IV Status: Completed infusion; IV Intake: 1000ml vg1 06:57 Drug: Zofran (Ondansetron) 4 mg Route: IVP; Site: left antecubital; lg3 08:30 Follow up: Response: No adverse reaction; Marked relief of symptoms vg1 Disposition Summary: 05/29/22 11:09 Discharge Ordered Location: Home ms3 Condition: Stable ms3 Diagnosis - Left sided colitis ms3 - Renal insufficiency ms3 Followup: ms3 - With: Private Physician - When: 1 - 2 days - Reason: Re-evaluation by your physician Discharge Instructions: - Discharge Summary Sheet ms3 - Diarrhea, Adult ms3 - Vomiting, Adult ms3 Forms: - Medication Reconciliation Form ms3 - Thank You Letter ms3 - Antibiotic Education ms3 - Prescription Opioid Use ms3 Prescriptions: - Augmentin 875-125 mg Oral Tablet - take 1 tablet by ORAL route every 12 hours for 10 days; 20 tablet; Refills: 0, ms3 Product Selection Permitted Signatures: Dispatcher [employer] EDKody Dill MD MD rn Gibson, Lacie, RN RN lg3 Maldonado Cole DO DO ms3 Marjorie Vincent RN vg1
--- NOTE | 2022-05-29 11:10 | ER ---
Nurse's Notes [facility] Name: Omi Stone Age: 77 yrs Sex: Male : 1945 Arrival Date: 05/29/2022 Time: 06:02 Bed 14 Private MD: Diagnosis: Left sided colitis;Renal insufficiency Presentation: 05/29 06:18 Chief complaint: Patient states: generalized weakness, fatigue, nausea, vomiting, lg3 diarrhea and headache starting Friday. denies fever, cough, congestion or shortness of breath. Coronavirus screen: Client denies travel out of the [place] in the last 14 days. Client presents with at least one sign or symptom that may indicate coronavirus-19. Standard/surgical mask placed on the client. Ebola Screen: No symptoms or risks identified at this time. Initial Sepsis Screen: Does the patient meet any 2 criteria? No. Patient's initial sepsis screen is negative. Does the patient have a suspected source of infection? No. Patient's initial sepsis screen is negative. Risk Assessment: Do you want to hurt yourself or someone else? Patient reports no desire to harm self or others. Onset of symptoms was May 27, 2022. 06:18 Method Of Arrival: Ambulatory lg3 06:18 Acuity: GABRIELA 3 lg3 Triage Assessment: 06:20 General: Appears in no apparent distress. comfortable, Behavior is calm, cooperative. lg3 Pain: Complains of pain in abdomen. EENT: No deficits noted. No signs and/or symptoms were reported regarding the EENT system. Neuro: No deficits noted. Level of Consciousness is awake, alert, obeys commands, Oriented to person, place, time, situation. Cardiovascular: No deficits noted. Denies chest pain, shortness of breath, Capillary refill < 3 seconds Clubbing of nail beds is absent JVD is absent Patient's skin is warm and dry. Respiratory: No deficits noted. Airway is patent Trachea midline Respiratory effort is even, unlabored, Respiratory pattern is regular, symmetrical, Breath sounds are clear bilaterally. Denies cough, shortness of breath. GI: Reports lower abdominal pain, upper abdominal pain, cramping, intolerance of fluids, intolerance of food, nausea, vomiting. : No deficits noted. No signs and/or symptoms were reported regarding the genitourinary system. Derm: No deficits noted. No signs and/or symptoms reported regarding the dermatologic system. Skin is intact, is healthy with good turgor, Skin is dry, Skin temperature is warm. Musculoskeletal: No deficits noted. No signs and/or symptoms reported regarding the musculoskeletal system. Circulation, motion, and sensation intact. Range of motion: intact in all extremities, Reports generalized weakness. Historical: - Allergies: 06:20 No Known Allergies; lg3 - Home Meds: 06:20 Eliquis oral [Active]; losartan oral [Active]; Tylenol #3 Oral [Active]; venlafaxine lg3 oral [Active]; atorvastatin 40 mg Oral tab 1 tab once daily [Active]; Famotidine Oral [Active]; icosapent ethyl oral [Active]; tamsulosin 0.4 mg Oral cp24 1 cap once daily [Active]; Hydromorphone Oral [Active]; metoprolol tartrate 50 mg Oral tab 1 tab 2 times per day [Active]; tramadol 50 mg Oral tab 1 tab twice a day [Active]; - PMHx: 06:20 ascending aortic aneurysm; Atrial Fib; CAD; GERD; Hyperlipidemia; Hypertension; lg3 - PSHx: 06:20 3 heart surgeries; medtronic implant-NO MRI; lg3 - Immunization history:: Adult Immunizations up to date, Client reports having NOT received the Covid vaccine. - Social history:: Smoking status: Patient denies any tobacco usage or history of. Patient/guardian denies using alcohol, street drugs. - Family history:: not pertinent. - Hospitalizations: : No recent hospitalization is reported. Screenin:26 Abuse screen: Denies threats or abuse. Denies injuries from another. Nutritional lg3 screening: No deficits noted. Tuberculosis screening: No symptoms or risk factors identified. Fall Risk None identified. Assessment: 06:26 General: see triage assessment . lg3 07:12 Reassessment: Patient appears in no apparent distress at this time. Patient and/or vg1 family updated on plan of care and expected duration. Pain level reassessed. Patient is alert, oriented x 3, equal unlabored respirations, skin warm/dry/pink. placed pt on 1.5 L NC; pt decreased O2 to 89% while resting with eyes closed. 08:31 Reassessment: Patient appears in no apparent distress at this time. Patient and/or vg1 family updated on plan of care and expected duration. Pain level reassessed. Patient is alert, oriented x 3, equal unlabored respirations, skin warm/dry/pink. Patient states feeling better. 09:44 Reassessment: Patient appears in no apparent distress at this time. No changes from vg1 previously documented assessment. Patient and/or family updated on plan of care and expected duration. Pain level reassessed. Patient is alert, oriented x 3, equal unlabored respirations, skin warm/dry/pink. 10:48 Reassessment: Patient appears in no apparent distress at this time. pt resting with vg1 eyes closed. Vital Signs: 06:18 BP 168 / 93; Pulse 72; Resp 18 S; Temp 98.0(O); Pulse Ox 98% on R/A; Weight 77.11 kg lg3 (R); Height 5 ft. 10 in. (177.80 cm) (R); 07:27 BP 167 / 92; Pulse 52; Resp 19; Pulse Ox 95% on 1.5 lpm NC; vg1 08:45 BP 165 / 96; Pulse 64; Resp 14; Pulse Ox 98% on 1.5 lpm NC; vg1 09:44 BP 144 / 86; Pulse 55; Resp 20; Pulse Ox 97% on 1.5 lpm NC; vg1 10:45 BP 160 / 94; Pulse 64; Resp 20; Pulse Ox 96% on R/A; vg1 06:18 Body Mass Index 24.39 (77.11 kg, 177.80 cm) lg3 ED Course: 06:02 Patient arrived in ED. ja2 06:03 Kody Castillo MD is Attending Physician. rn 06:06 Paula Lu, MK is Primary Nurse. lg3 06:20 Triage completed. lg3 06:20 Arm band placed on right wrist. lg3 06:27 Patient has correct armband on for positive identification. Bed in low position. Call lg3 light in reach. Side rails up X 1. Client placed on continuous cardiac and pulse oximetry monitoring. NIBP monitoring applied. Door closed. Noise minimized. Family accompanied patient. 06:51 Flu Sent. lg3 06:51 SARS-COV-2 RT PCR (Document "Date of Onset" if Symptomatic) Sent. lg3 06:51 CBC with Diff Sent. lg3 06:51 CMP Sent. lg3 06:51 Lipase Sent. lg3 06:51 Inserted saline lock: 20 gauge in left antecubital area, using aseptic technique. Blood lg3 collected. 07:11 Attending Physician role handed off by Kody Castillo MD ms3 07:11 Maldonado Cole DO is Attending Physician. ms3 07:24 Primary Nurse role handed off by Paula Lu RN jl7 07:27 Marjorie Vincent, RN is Primary Nurse. vg1 09:47 Patient moved to [place] via stretcher. vg1 09:58 Abdomen In Process Unspecified. EDMS 11:23 No provider procedures requiring assistance completed. IV discontinued, intact, vg1 bleeding controlled, No redness/swelling at site. Pressure dressing applied. Administered Medications: 06:57 Drug: NS 0.9% 1000 ml Route: IV; Rate: 1 bolus; Site: left antecubital; lg3 08:30 Follow up: IV Status: Completed infusion; IV Intake: 1000ml vg1 06:57 Drug: Zofran (Ondansetron) 4 mg Route: IVP; Site: left antecubital; lg3 08:30 Follow up: Response: No adverse reaction; Marked relief of symptoms vg1 Medication: 11:23 VIS not applicable for this client. vg1 Intake: 08:30 IV: 1000ml; Total: 1000ml. vg1 Outcome: 11:09 Discharge ordered by . ms3 11:22 Discharged to home ambulatory, with family. vg1 11:22 Condition: good 11:22 Discharge instructions given to patient, Instructed on discharge instructions, follow up and referral plans. medication usage, Demonstrated understanding of instructions, follow-up care, medications, Prescriptions given X 1. 11:23 Patient left the ED. vg1 Signatures: Dispatcher [employer] EDMS Kody Castillo MD MD rn Leal, Jahala, RN RN jl7 Paula Lu, MK RN lg3 Marjorie Vincent, MK RN vg1 Maldonado Cole DO DO ms3 Eliseo Lakeisha workman
[2022-05-29 11:32] VITALS: TEMP 98
[2022-05-29 11:41] VITALS: BP 160/94; O2SAT 96
--- OUTSIDE RECORDS SUMMARY | 2022-05-30 15:02 | XMS REPORT | Continuity of Care Document ---
:1945 Author Organization [facility] t Address [address] [place] [address] Care Team Providers Name Role Phone Hi Tarango MD Primary Care Physician STANISLAW Attending Clinician Unavailable Therapy, Covid Infusion Attending Clinician Unavailable Ofelia Boogie MD Attending Clinician Ofelia BOOGIE Attending Clinician Unavailable Doctor Unassigned, Name Attending Clinician Unavailable Hi TARANGO Attending Clinician Unavailable Km CROUCH Attending Clinician Unavailable Luna CROUCH Attending Clinician Unavailable RON Attending Clinician Unavailable Hi TARANGO Admitting Clinician Unavailable RON Admitting Clinician Unavailable STANISLAW Admitting Clinician Unavailable Payers Payer Name Policy Type Policy Number Effective Date Expiration Date Jalen macdonald 0578 [id number] 2020 00:00:00 Problems Condition Condition Condition Status Onset Resolution Last Treating Co mments Source Name Details Category Date Date Treatment Clinician Date Hx of CABG Hx of CABG Disease Active 2020-0 M [facility] 00:00: Hospita 00 l H/O aortic H/O aortic Disease Active 2020-0 M ethodi valve valve 2-03 st replacemen replacemen 00:00: Ho spita t t 00 l 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 Meth[facility] di artery artery 0-29 st disease disease 00:00: Hospita involving involving 00 l [place] coronary coronary artery of artery of [place] heart heart without without angina angina pectoris pectoris Bicuspid Bicuspid Disease Active 2018-11 Metho di aortic aortic 0-01 st valve valve 00:00: Hospita 00 l Primary Primary Disease Active 2017-11 Method[facility] hypertensi hypertensi 0-02 st on on 00:00: Hospita 00 l 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 00:00: Hospit a without without 00 l rupture rupture PAIN LEFT Diagnosis Active 2017-03-28 Memoria HIP, 5-02 22:02:00 l OSTEOARTHR PAIN 00:00: Enoc n ITIS LEFT LEFT HIP, 00 HIP OSTEOARTHR ITIS LEFT HIP Active 03/11/2017 [facility] Aneurysm Problem Resolve 2017-03-24 Me moria (disorder) d 00:14:07 l Aneurysm Enoc n (disorder) Resolved Problem 03/24/2017 of the heart [facility] Chronic Problem Active 2017-03-24 Herb cris pain 00:14:07 l syndrome Chronic Sabi nn (disorder) pain syndrome (disorder) Active Problem 03/24/2017 in neck and back [facility] Gastroesop Problem Active 2017-03-24 M emoria hageal 00:14:07 l reflux Jarek disease Gastroesop (disorder) hageal reflux disease (disorder) Active Problem 03/24/2017 [facility] Hypertensi Problem Active 2017-03-24 M emoria ve 00:14:07 l disorder, Jarek systemic Hypertensi arterial ve (disorder) disorder, systemic arterial (disorder) Active Problem 03/24/2017 [facility] Large Problem Active 2017-03-24 Memor ia prostate 00:14:07 l (finding) Large Enoc n prostate (finding) Active Problem 03/24/2017 [facility] Allergies, Adverse Reactions, Alerts Allergy Allergy Status Severity Reaction(s) Onset Inactive Treating Comm ents Source Name Type Date Date Clinician NO KNOWN Drug Active Univers ALLERGIE Class ity of S [facility] Family History Family Member Diagnosis Comments Start Date Stop Date Source Natural father [facility] Natural mother [facility] Social History Social Habit Start Date Stop Date Quantity Comments Source Alcohol intake 2021-08-14 2021-08-14 Current Buddhism 00:00:00 00:00:00 non-drinker of Hospital alcohol (finding) Cigarettes smoked 2017-08-12 2017-08-[address] current (pack per 00:00:00 00:00:00 Hospita l day) - Reported Cigarette 2017-08-12 2017-08-12 Buddhism pack-years 00:00:00 00:00:00 Hospital Tobacco use and 2017-08-12 2017-08-12 Smokeless Buddhism exposure 00:00:00 00:00:00 tobacco non-user [facility] Social History 2017-03-11 2017-03-11 [facility] 17:34:26 17:34:26 History of tobacco 1999-08-10 Cigarette Smoker [facility] use 00:00:00 Hospital Sex Ass[birth year] Universit [facility] of 00:00:00 00:00:00 [facility] Smoking Status Start Date Stop Date Source Ex-smoker 2017-08-12 00:00:00 2017-08-12 00:00:00 [facility] Medications Ordered Filled Start Stop Current Ordering Indication Dosage Frequency Signature Comments Components Source Medication Medication Date Date Medication? Clinician (SIG) Name Name Jose 2.5 Yes TAKE 1 Meth giselle mg tablet 1-[address] 00:00: MOUTH Hospita 00 TWICE A l DAY aspirin 2020-11 Yes 81mg QD Take 81 mg Meth giselle (ECOTRIN) 2-[address] 81 MG 12:56: daily. Hospita enteric 54 l coated tablet tamsulosin 2020-11 Yes .4mg QD Take 0.4 Met hodi (FLOMAX) 2-[address] 0.4 mg 12:56: mouth Hospita capsule 54 daily with l dinner. famotidine 2020-11 Yes 40mg QD Take 40 mg M ethodi (PEPCID) 40 2-[address] MG tablet 12:56: daily. Hospit a 54 l venlafaxine 2020-11 Yes 50mg QD Take 50 mg Methodi (EFFEXOR) 2-[address] 50 MG 12:56: daily. Hospita tablet 54 l atorvastati 2020-11 Yes 40mg QD Take 40 mg Methodi n (LIPITOR) 2-[address] 40 mg 12:56: daily. Hospita tablet 54 l acetaminoph 2020-11 Yes [id number] 1{tbl} Q4H Take 1 M ethodi en-codeine 2-[address] (TYLENOL 12:56: mouth Hospita WITH 54 every 4 l CODEINE #3) (four) 300-30 mg hours as per tablet needed for moderate pain .acute pain. losartan-hy 2020-11- No 1{tbl} QD Take 1 M ethodi drochloroth 12-[address] iazide 00:00: 05:59 mouth Hospita (HYZAAR) 00 :00 daily. l 100-12.5 mg per tablet tiZANidine 2020-11- No 4mg Q8H Take 4 mg M ethodi (ZANAFLEX) 0 10-[address] 4 MG tablet 14:43: 00:00 every 8 Ho spita 47 :00 (eight) l hours as needed for muscle spasms. losartan 2020-11- No [id number] 50mg QD Take 1 Methodi (Cozaar) 50 0-05 10-30 00 tablet (50 s t MG tablet 00:00: 00:00 mg total) Ho spita 00 :00 by mouth l daily. Eliquis 2.5 2021- No TAKE 1 Met hodi mg tablet 07-[address] 00:00: 00:00 MOUTH Hospita 00 :00 TWICE A l DAY metoprolol 2020- No TAKE 1 Meth giselle tartrate 07-27 10-[address] (LOPRESSOR) 00:00: 00:00 MOUTH Hosp cynthia 25 mg 00 :00 TWICE A l tablet DAY imdevimab 2020- No [id number] Un [place] ([id number]) 05-26 ity of 600 mg, 13:15: 14:08 [place] casirivimab 00 :00 Medical ([id number]) Branch 600 mg in NaCl 0.9% (NS) 60 mL infusion imdevimab 2020- No [id number] IV Un [place] ([id number]) 05-26 Infusion, it y of 600 mg, 13:15: 14:08 ONCE, Sat Josepha s casirivimab 00 :00 05/26/21 at Pr [facility] ([id number]) 0815, For Bra nch 600 mg in 1 NaCl 0.9% dose
Ad (NS) 60 mL clinical care leader infusion as an IV infusion via pump or gravity through an intravenou s line containing a sterile, in-line or add-on 0.2-micron polyethers ulfone (PES) filter. Stable 36 hours refrigerat ed; 4 hours at room temperatur e.
apixaban Yes 2.5mg Q.5D Take 1 Method i (Eliquis) 03-[address] 2.5 mg 00:00: (2.5 mg Hospita tablet 00 total) by l mouth 2 (two) times a day. apixaban 2020- No 2.5mg Q.5D Take 1 Metho di (Eliquis) 03-[address] 2.5 mg 00:00: 00:00 (2.5 mg Hospita tablet 00 :00 total) by l mouth 2 (two) times a day. Eliquis 2.5 2020- No TAKE 1 Met hodi mg tablet 03-[address] 00:00: 00:00 MOUTH Hospita 00 :00 TWICE A l DAY Eliquis 2.5 2020- No TAKE 1 Met hodi mg tablet 03-[address] 00:00: 00:00 MOUTH Hospita 00 :00 TWICE A l DAY metoprolol Yes TAKE 1 Metho di tartrate 3-[address] (LOPRESSOR) 00:00: MOUTH Hospi ta 25 mg 00 TWICE A l tablet DAY metoprolol 2020- No TAKE 1 Meth giselle tartrate 3-17 09-[address] (LOPRESSOR) 00:00: 00:00 MOUTH Hosp cynthia 25 mg 00 :00 TWICE A l tablet DAY DULoxetine 2020- No 60mg Take 60 mg Methodi (CYMBALTA) 01-[address] 60 MG 13:53: 00:00 as needed. Hospi ta capsule 04 :00 l DULoxetine 2020- No 60mg Take 60 mg Methodi (CYMBALTA) 01-[address] 60 MG 08:53: 00:00 as needed. Hospi ta capsule 04 :00 l losartan 2021- No 50mg QD Take 1 Method i (Cozaar) 50 01-23 tablet (50 s t MG tablet 00:00: 04:59 mg total) Ho spita 00 :00 by mouth l daily. losartan No 50mg QD Take 1 Method i (Cozaar) 50 01-23- tablet (50 s t MG tablet 00:00: 00:00 mg total) Ho spita 00 :00 by mouth l daily. Eliquis 2.5 2020- No TAKE 1 Met hodi mg tablet 12-18- TABLET BY st 00:00: 00:00 MOUTH Hospita 00 :00 TWICE A l DAY Eliquis 2.5 2020- No TAKE 1 Met hodi mg tablet 12-18- TABLET BY st 00:00: 00:00 MOUTH Hospita 00 :00 TWICE A l DAY apixaban 2019-11 No 2.5mg Q.5D Take 1 [...] 2.5mg Q.5D Take 1 Metho di (Eliquis) 0-28 11-[address] 2.5 mg 00:00: 00:00 (2.5 mg Hospita tablet 00 :00 total) by l mouth 2 (two) times a day. Eliquis 2.5 2019- No TAKE 1 Met hodi mg tablet 08-07-[address] 00:00: 00:00 MOUTH Hospita 00 :00 TWICE A l DAY metoprolol 2020- No TAKE 1 Meth giselle tartrate 07-24-[address] (LOPRESSOR) 00:00: 00:00 MOUTH Hosp cynthia 25 mg 00 :00 TWICE A l tablet DAY metoprolol 2020- No TAKE 1 Meth giselle tartrate 07-24-[address] (LOPRESSOR) 00:00: 00:00 MOUTH Hosp cynthia 25 mg 00 :00 TWICE A l tablet DAY apixaban 2019- No 2.5mg Q.5D Take 1 Metho di (Eliquis) 07-12-[address] 2.5 mg 00:00: 00:00 (2.5 mg Hospita tablet 00 :00 total) by l mouth 2 (two) times a day. losartan 2020- No TAKE 1 Method i (COZAAR) 50 7-20 -[address] MG tablet 00:00: 00:00 MOUTH Hospit a 00 :00 EVERY DAY l metoprolol 2020- No TAKE 1 Meth giselle tartrate 20 -[address] (LOPRESSOR) 00:00: 00:00 MOUTH Hosp cynthia 50 mg 00 :00 TWICE A l tablet DAY losartan 2020- No TAKE 1 Method i (COZAAR) 50 7-20 -[address] MG tablet 00:00: [...] tablet (two) times a day. ULTRAM 50 2020- No 50mg Q8H Take 50 mg M ethodi mg tablet 07-[address] 00:00: 00:00 every 8 Hospita 00 :00 (eight) l hours as needed. ULTRAM 50 No 50mg Q8H Take 50 mg M ethodi mg tablet 07-[address] 00:00: 00:00 every 8 Hospita 00 :00 (eight) l hours as needed. rosuvastati 2020- No 1{tbl} Take 1 M ethodi n (CRESTOR) 06-[address] 5 MG tablet 00:00: 00:00 mouth. Hos helio 00 :00 l rosuvastati 2020- No 1{tbl} Take 1 M ethodi n (CRESTOR) 06-[address] 5 MG tablet 00:00: 00:00 mouth. Hos helio 00 :00 l nortriptyli Yes Univer s ne 25 mg 9-10 ity of capsule 00:00: [address] nortriptyli Yes Univer s ne 25 mg 9-10 ity of capsule 00:00: [address] lisinopril Yes Univers 30 mg 8-25 ity of tablet 00:00: [address] lisinopril Yes Univers 30 mg 8-25 ity of tablet 00:00: [place] 00 [facility] baclofen 10 Yes Univer s mg tablet 06-27 ity of 00:00: Medical Branch baclofen 10 Yes Univer s mg tablet 06-27 ity of 00:00: Medical Branch RAPAFLO 8 Yes Univers mg capsule 06-16 ity of 00:00: Medical Branch RAPAFLO 8 Yes Univers mg capsule 06-16 ity of 00:00: Medical Branch Acetaminoph Yes 1 tab, PO, Memoria en 325 MG / 5-12 Q4H, PRN l Oxycodone 15:37: for pain, Her faustin Hydrochlori 00 X 7 day, # de 5 MG 50 tab, 0 Oral Tablet Refill(s) [Percocet 5/325] rivaroxaban Yes 10 mg = 1 M emoria 10 MG Oral 5-12 tab, PO, l Tablet 11:04: Daily, # Jarek [Xarelto] 00 10 tab, 0 Refill(s), Pharmacy: [facility][id number] Saline No Notes: Memoria Flush 0.9% 5-12 (Same as: l 02:00: BD Posiflush) Saline No Notes: Memoria Flush 0.9% 5-11 (Same as: l 18:01: BD Jarek 00 Posiflush) Lisinopril No Notes: Memor ia 5-11 (Same as: l 14:00: Prinivil, Zestril) lansoprazol No 30 mg, Herb cris e 5-11 Route: PO, l 14:00: Drug form: TABDIS, Daily, Dosing Weight 74.716, kg, Start date: 03/20/17 9:00:00 CDT, Duration: 30 day, Stop date: 04/18/17 9:00:00 CDT Famotidine No Notes: Memor ia 20 MG Oral 5-11 (Same as: l Tablet 02:00: Pepcid) gabapentin No Notes: Memor ia 300 MG Oral 5-11 (Same as: l Capsule 02:00: Neurontin) Nortriptyli No Notes: Herb cris ne 5-11 (Same l 02:00: as:Pamelor Jarek 00 , Aventyl) Tylenol No Notes: Do Memor ia 5-10 not exceed l 22:00: 4 gm/day. [place] 00 (Same as: Tylenol) Docusate No Notes: Memoria Sodium 100 5-10 (Same as: l MG Oral 22:00: Colace) Jarek Capsule 00 (Do Not Crush) Protonix No Notes: Memoria 5-10 Tablet l 21:30: should not [place] 00 be chewed or crushed. (Same as: Protonix) rivaroxaban No Notes: Herb cris 5-10 (Same as: l 21:08: Xarelto) Jarek 00 Do Not Crush Acetaminoph No Notes: Herb cris en 10 MG/ML 5-10 Infuse l Injectable 20:00: over 15 Herm cj Solution 00 minutes Do not exceed 4gm/day of acetaminop hen MEDICATION WASTE Product Size: 1000 mg Product Wasted: __0_ mg Dilaudid No Notes: Memoria 5-10 Same as: l 18:39: Dilaudid Cefazolin No Notes: Memori a 5-10 (Same As: l 18:00: Ancef, [place] 00 Kefzol) MEDICATION WASTE Product Size: 1000 mg Product Wasted: _0 mg phenylephri No Route: IV, Memoria ne (ANES) 5-10 Drug form: l 15:15: INJ, ONCE, Stop date: 03/19/17 10:15:00 CDT dexamethaso No Route: IV, Memoria ne (ANES) 5-10 Drug form: l 15:15: INJ, ONCE, Stop date: 03/19/17 10:15:00 CDT glycopyrrol No Route: IV, Memoria ate (ANES) 5-10 Drug form: l 15:15: INJ, ONCE, Stop date: 03/19/17 10:15:00 CDT ondansetron No Route: IV, Memoria (ANES) 5-10 Drug form: l 15:15: INJ, ONCE, Jarek Stop date: 03/19/17 10:15:00 CDT Oxycodone No Notes: Memori a Hydrochlori 5-10 (Same as: l de 5 MG 15:07: Roxicodone Herm cj Oral Tablet 00 ) Dulcolax No Notes: Memoria Laxative 5-10 (Same As: l 15:07: Dulcolax, [place] 00 Correctol) (Do Not Crush) "Do Not Crush" Ondansetron No Notes: Herb cris 5-10 (Same as: l 15:07: Zofran) [place] 00 MEDICATION WASTE Product Size: 4 mg Product Wasted: _0__ mg Al No Notes: Memoria hydroxide/M 5-10 (aluminum l g 15:07: hydroxide- Jarek hydroxide/s 00 magnesium imethicone hyd-simeth 200 mg-200 icone mg-20 mg/5 200-200-20 mL oral mg/5ml 30 suspension ml ud CHARITY) Lactated No 1,000 mL, Herb cris Ringers 5-10 [...] 5-10 Drug form: l 14:34: INJ, ONCE, [place] 00 Stop date: 03/19/17 9:34:00 CDT rocuronium No [...] (ANES) 5-10 Drug form: l 14:14: SOLN, ONCE, Stop date: 03/19/17 9:14:00 CDT fentaNYL [...] INJ (ANES) 5-10 Total l 13:29: Volume: Jarek 00 1,000, Start date: 03/19/17 8:29:00 CDT, Stop date: 03/19/17 9:29:00 CDT Lidocaine No Notes: Memori a 5-10 Ingredient l 12:00: s: 2 ml lidocaine 1% inj , 0.2ml sodium bicarbonat e 8.4% inj total volume = 2.2ml Refrigerat e: 14 days Room temp: 7 days Calcium No 1,000 mL, Memor ia Chloride 5-10 Rate: 25 l 0.0014 11:59: ml/hr, MEQ/ML / 00 Infuse Potassium over: 40 Chloride hr, Route: 0.004 IV, Dosing MEQ/ML / Weight Sodium 74.716 kg, Chloride Total 0.103 Volume: MEQ/ML / 1,000, Sodium Start Lactate date: 0.028 03/19/17 MEQ/ML 6:59:00 Injectable CDT, Solution Duration: 30 day, Stop date: 04/18/17 6:58:00 CDT Neurontin No Notes: Memori a 5-10 (Same as: l 11:00: Neurontin) Jarek 00 Cyklokapron No Notes: Herb cris 5-10 (Same As: l 11:00: Cyklokapro n) Lactated No IV, 100 Memori a Ringers 5-10 ml/hr, l Injection 11:00: Sabi GONZALEZ nn IV 00 Start date: 03/19/17 6:00:00 CDT, Duration: 1, 1,000 ml ceFAZolin + No Notes: Herb cris sodium 5-10 (Same As: l chloride 11:00: Ancef, [place] 0.9% 100 mL 00 Kefzol) INJ (for [...] 30 tab, 0 disintegrat Refill(s) ing lisinopril Yes 30 mg = 1 Me moria 30 mg oral 5-02 tab, PO, l tablet 17:13: Daily, # [place] 00 30 tab, 0 Refill(s) nortriptyli Yes 50 mg = 1 M emoria ne 50 mg 5-02 cap, PO, l oral 17:13: Bedtime, # Jarek capsule 00 30 cap, 1 Refill(s) silodosin 8 Yes 8 mg = 1 Me moria MG Oral 5-02 cap, PO, l Capsule 17:13: Daily, 0 Enoc n [Rapaflo] 00 Refill(s) Vital Signs Vital Name Observation Time Observation Value Comments Source Systolic blood 2021-05-26 15:10:00 146 mm[Hg] Univer sity [facility] Diastolic blood 2021-05-26 15:10:00 81 mm[Hg] [facility] Heart rate 2021-05-26 15:10:00 67 /min [facility] Body temperature 2021-05-26 15:10:00 36.78 Rena [facility] saturation in 2021-05-26 15:10:00 97 /min [facility] blood by [facility] Pulse oximetry Branch Respiratory rate 2021-05-26 14:40:00 18 /min Univ ersity of [facility] Body height 2021-05-26 13:05:00 177.8 cm Universi ty of [facility] Body weight 2021-05-26 13:05:00 74.844 kg Universi ty of [facility] BMI 2021-05-26 13:05:00 23.68 kg/m2 Universi ty of [facility] Systolic blood 2021-05-26 15:10:00 146 mm[Hg] Univer sity of pressure [facility] Diastolic blood 2021-05-26 15:10:00 81 mm[Hg] Unive rsity of pressure [facility] Heart rate 2021-05-26 15:10:00 67 /min Universi ty of [facility] Body temperature 2021-05-26 15:10:00 36.78 Rena [facility] Oxygen saturation in 2021-05-26 15:10:00 97 /min University of Arterial blood by [facility] Pulse oximetry Branch Respiratory rate 2021-05-26 14:40:00 18 /min [facility] ersity of [facility] Body height 2021-05-26 13:05:00 177.8 cm Universi ty of [facility] Body weight 2021-05-26 13:05:00 74.844 kg Universi ty of [facility] BMI 2021-05-26 13:05:00 23.68 kg/m2 Universi ty [facility] Systolic blood 2021-10-30 19:01:00 178 mm[Hg] [facility] pressure Diastolic blood 2021-10-30 19:01:00 82 mm[Hg] [facility] pressure Heart rate 2021-10-30 19:01:00 59 /min [facility] 2021-10-30 18:56:00 177.8 cm [facility] Body weight 2021-10-30 18:56:00 76.658 [facility] BMI 2021-10-30 18:56:00 24.25 kg/m2 [facility] Systolic blood 2021-01-23 13:56:00 144 mm[Hg] [facility] pressure Diastolic blood 2021-01-23 13:56:00 77 mm[Hg] [facility] pressure Heart rate 2021-01-23 13:56:00 44 /min [facility] Body height 2021-01-23 13:56:00 177.8 cm [facility] Body weight 2021-01-23 13:56:00 75.751 kg [facility] BMI 2021-01-23 13:56:00 23.96 kg/m2 [facility] Respitory Rate 2017-03-21 14:13:00 Memori al [place] Systolic (mm Hg) 2017-03-21 14:13:00 Herb rial [place] Diastolic (mm Hg) 2017-03-21 14:13:00 Mem orial Jarek Temperature Oral (F) 2017-03-21 14:13:00 98.2 F Memorial Jarek Heart Rate 2017-03-21 14:13:00 [facility] [place] Systolic (mm Hg) 2017-03-21 10:35:00 Herb rial Jarek Diastolic (mm Hg) 2017-03-21 10:35:00 Mem orial [place] Respitory Rate 2017-03-21 10:35:00 Memori al Jarek Heart Rate 2017-03-21 10:35:00 Memorial Jarek Temperature Oral (F) 2017-03-21 10:35:00 98.2 F [facility] [place] Temperature Oral (F) 2017-03-21 04:33:00 98.4 F Memorial Jarek Respitory Rate 2017-03-21 04:33:00 Memori al [place] Heart Rate 2017-03-21 04:33:00 Memorial [place] Systolic (mm Hg) 2017-03-21 04:33:00 Herb rial Jarek Diastolic (mm Hg) 2017-03-21 04:33:00 Mem orial Jarek Height 2017-03-11 17:17:00 170.82 cm Memorial Jarek BMI Calculated 2017-03-11 17:17:00 Memori al Jarek Weight 2017-03-11 17:17:00 Memorial Jarek Procedures Procedure Date / Time Performed Performing Clinician [facility] e ECG 12-LEAD 2021-10-30 19:00:23 Jose Dover TTE COMPLETE, W 2021-08-27 19:05:31 Jose Dover CONTRAST, W DOPPLER ([id number]) [id number] CONSENT 2021-05-26 05:01:00 Doctor Unassigned, No [facility] ECG 12-LEAD 2021-01-23 13:58:29 Jose Dover spital TTE COMPLETE, W 2020-09-21 18:53:55 Jose Dover spital CONTRAST, W DOPPLER ([id number]) Shoulder joint 2015-11-11 06:00:00 [facility] Her faustin operations<sup>1</sup > Neck repair 2015-03-11 05:00:00 [facility] faustin Plan of Care Planned Activity Planned Date Details Comments Source Future Scheduled 2021-12-11 COVID-19 VACCINE (1) Met [facility] Hospital Test 14:18:26 [code = COVID-19 VACCINE (1)] Future Scheduled 2021-12-11 65+ [facility]UMOCOCC[address] [facility] Test 14:18:26 VACCINE (1 of 4 - PCV13) [code = 65+ PNEUMOCOCCAL VACCINE (1 of 4 - PCV13)] Future Scheduled 2021-12-11 Hepatitis C screening [facility] Test 14:18:26 (procedure) [code = 874126985] Future Scheduled 2021-12-11 COLONOSCOPY SCREENING [facility] Hospital Test 14:18:26 [code = COLONOSCOPY SCREENING] Future Scheduled 2021-12-11 SHINGLES VACCINES (#1) M [facility] Hospital Test 14:18:26 [code = SHINGLES VACCINES (#1)] Future Scheduled 2021-12-11 INFLUENZA VACCINE Method ist Hospital Test 14:18:26 [code = INFLUENZA VACCINE] Future Scheduled 65+ [facility]UMOCOCCAL [facility] Test VACCINE (1 of 4 - PCV13) [code = 65+ PNEUMOCOCCAL VACCINE (1 of 4 - PCV13)] Future Scheduled COVID-19 VACCINE (1) Met [facility] Hospital Test [code = COVID-19 VACCINE (1)] Future Scheduled Hepatitis C screening [facility] Test (procedure) [code = 623156059] Future Scheduled COLONOSCOPY SCREENING [facility] Hospital Test [code = COLONOSCOPY SCREENING] Future Scheduled SHINGLES VACCINES (#1) M ethodist Hospital Test [code = SHINGLES VACCINES (#1)] Future Scheduled INFLUENZA VACCINE Method ist Hospital Test [code = INFLUENZA VACCINE] Encounters Start End Encounter Admission Attending Care Care Encounter Source Date/Time Date/Time Type Type Clinicians Facility Department ID 2022-03-01 Outpatient STLMLC STLMLC [id number] Common 11:23:02 [facility] 2022-02-25 Outpatient STLMLC STLMLC [id number] Common 09:02:01 [facility] 2021-12-05 Outpatient STLMLC STLMLC [id number] Common 11:50:50 [facility] 2022-04-30 2022-04-30 [facility] [id number] [address] [place] 00:00:00 00:00:[address] JOSE [address] 2022-02-27 2022-02-27 ambulatory STLMLC STLMLC [id number] Common 00:00:00 00:00:00 [facility] 2021-11-28 2021-11-28 Refill Stanislaw 1.2.840.1 [id number] Methodi 00:00:00 00:00:00 Jose Aguiar [id number] 3.430.2.7 Hospit a .3.389716 l .8 2021-11-14 2021-11-14 ambulatory STLMLC STLMLC [id number] Common 00:00:00 00:00:00 [facility] 2021-10-30 2021-10-30 Office Stanislaw 1.2.840.1 [id number] Methodi 12:49:23 14:21:17 Visit Jose Aguiar [id number] 3.430.2.7 Hospit a .3.749941 l .8 2021-10-30 2021-10-30 Travel 1.2.840.1 [id number] Methodi 00:00:00 00:00:[id number] 3.430.2.7 0.2.7.3.698 Ho spita .3.602400 084.8 l .8 2021-10-22 2021-10-22 Telephone Stanislaw 1.2.840.1 [id number] Methodi 00:00:00 00:00:00 Jose R[address] [id number] 3.430.2.7 Hospit a .3.482633 l .8 2021-08-29 2021-08-29 Outpatient STLMLC STLMLC [id number] Common 00:00:00 00:00:00 [facility] 2021-08-27 2021-08-27 Outpatient [facility] [id number] [place] 00:00:00 00:00:00 JOSE Diaz [facility] 2021-08-27 2021-08-27 Travel 1.2.840.1 [id number] Methodi 00:00:00 00:00:[id number] 3.430.2.7 0.2.7.3.698 Ho spita .3.678197 084.8 l .8 2021-08-14 2021-08-14 Office Stanislaw, 1.2.840.1 [id number] Methodi 14:13:03 16:47:52 Visit Jose Aguiar 68548.1.[address] 3.430.2.7 Hospit a .3.312441 l .8 2021-08-14 2021-08-14 Travel 1.2.840.1 1.2.579.012 9832 [id number] Methodi 00:00:00 00:00:[address] 3.430.2.7 0.2.7.3.698 Ho spita .3.981614 084.8 l .8 2021-08-10 2021-08-10 Travel 1.2.840.1 1.2.436.048 9780 [id number] Methodi 00:00:00 00:00:[address] 3.430.2.7 0.2.7.3.698 Ho spita .3.537116 084.8 l .8 2021-08-10 2021-08-10 Telephone [place], 1.2.840.1 [id number] 2100 [id number] Methodi 00:00:00 00:00:00 Jose R. 68691.1.[address] 3.430.2.7 Hospit a .3.056645 l .8 2021-08-10 2021-08-10 Ashley [place], 1.2.840.1 [id number] 2100 [id number] Methodi 00:00:00 00:00:00 Jose R[address] 85393.1.[address] 3.430.2.7 Hospit a .3.402268 l .8 2021-07-31 2021-07-31 Refill Stanislaw, 1.2.840.1 [id number] 7393 Methodi 00:00:00 00:00:[address] 80830.1.[address] 3.430.2.7 Hospit a .3.097325 l .8 2021-07-27 2021-07-27 Refisabella [place], 1.2.840.1 [id number] 2080 Methodi 00:00:00 00:00:00 Jose R. 80106.1.[address] 3.430.2.7 Hospit a .3.494728 l .8 2021-06-28 2021-06-28 Outpatient STLMLC STLMLC [id number] Common 00:00:00 00:00:00 [facility] 2021-06-13 2021-06-13 Outpatient STLMLC STLMLC [id number] Common 00:00:00 00:00:00 [facility] 2021-06-11 2021-06-11 Outpatient STLMLC STLMLC [id number] Common 00:00:00 00:00:00 [facility] 2021-05-26 2021-05-26 Nurse Therapy, [facility] 1.2.840.114 [id number] 07:59:21 08:29:21 Visit Adc Imani [place] 350.1.13.10 Infusion [place] 4.2.7.2.686 Surgical [id number] [place] 053 2021-05-26 2021-05-26 Nurse Therapy, Adc Covid Infusion [facility] 1.2.840.114 [id number] Univers 07:59:21 08:29:21 [facility] [place] [facility] [id number] [place] [id number] [place] 2021-05-26 2021-05-26 Outpatient R [facility] [id number] -[id number] Univers 08:00:00 08:00:00 [id number] ity [facility] 2021-05-26 2021-05-26 Outpatient R ARIELLE [facility] [id number] [facility] 08:00:00 08:00:00 RAFAEL ity [facility] 2021-05-26 2021-05-26 Orders Doctor AMA 1.2.840.114 [id number] 00:00:00 00:00:00 Only Unassigned, DALILA 350.1.13.[address] [place] [facility] 4.2.7.2.686 [id number] Formerly named [facility] 2021-05-26 2021-05-26 Orders Doctor AMA 1.2.840.114 [id number] Univers 00:00:00 00:00:00 Only Unassigned, DALILA 350.1.13.[address] [place] [facility] 4.2.7.2.686 Joseph as [phone] [address] 2021-05-21 2021-05-21 Outpatient STLMLC STLMLC [id number] Common 00:00:00 00:00:00 [facility] 2020-12-13 2021-04-01 Outpatient DO[facility] [id number] [facility] 23[facility]59[facility]00 [facility] 2021-03-20 2021-03-20 Real [place] 1.2.840.1 [id number] 5915 [place] 00:00:00 00:00:00 Jose Aguiar 15552.1.[address] 3.430.2.7 Hospit a .3.861494 l .8 2021-03-11 2021-03-11 Real [place] 1.2.840.1 [id number] 9250 Methodi 00:00:00 00:00:00 Jose R[address] 89546.1.[address] 3.430.2.7 Hospit a .3.803442 l .8 2021-01-23 2021-01-23 Office [place], 1.2.840.1 [id number] 5554 Methodi 08:44:13 13:22:27 Visit Jose R. 86773.1.[address] 3.430.2.7 Hospit a .3.256763 l .8 2021-01-23 2021-01-23 Refill [place], 1.2.840.1 [id number] 5154 Methodi 00:00:00 00:00:[address]33.1.[address] 3.430.2.7 Hospit a .3.502324 l .8 2020-12-17 2020-12-17 Refill [place], 1.2.840.1 [id number] 5984 Methodi 00:00:00 00:00:[address] 10866.1.[address] 3.430.2.7 Hospit a .3.652831 l .8 2020-11-21 2020-11-21 Outpatient STLMLC STLMLC [id number] Common 00:00:00 00:00:00 [facility] 2020-09-25 2020-09-25 Refill [place], 1.2.840.1 [id number] 1135 Methodi 00:00:00 00:00:[address] 57774.1.[address] 3.430.2.7 Hospit a .3.946143 l .8 2020-09-21 2020-09-21 Outpatient STANISLAW, [facility] [id number] 2 [place] 00:00:00 00:00:00 JOSE [address] 2020-09-21 2020-09-21 Travel 1.2.840.1 1.2.557.968 [id number] [id number] Methodi 00:00:00 00:00:[address] 3.430.2.7 0.2.7.3.698 Ho spita .3.140650 084.8 l .8 2020-09-06 2020-09-06 Refill Km, 1.2.840.1 [id number] Methodi 00:00:00 00:00:[address] 3.430.2.7 Hospit a .3.097471 l .8 2020-08-10 2020-08-10 Outpatient STLMLC STLMLC [id number] Common 00:00:00 00:00:00 [facility] 2020-08-06 2020-08-06 Refill Stanislaw, 1.2.840.1 [id number] 5972 Methodi 00:00:00 00:00:00 Jose Aguiar 96824.1.[address] 3.430.2.7 Hospit a .3.742319 l .8 2020-07-25 2020-07-25 Osvaldo [place], 1.2.840.1 [id number] 7760 Methodi 11:35:29 14:53:02 Visit Jose Aguiar 41773.1.[address] 3.430.2.7 Hospit a .3.134823 l .8 2020-07-24 2020-07-24 Travel 1.2.840.1 1.2.157.463 6773 [id number] Methodi 00:00:00 00:00:[address] 3.430.2.7 0.2.7.3.698 Ho spita .3.424498 084.8 l .8 2020-07-23 2020-07-23 Refill Stanislaw, 1.2.840.1 [id number] 9541 Methodi 00:00:00 00:00:00 Jose Aguiar 30515.1.[address] 3.430.2.7 Hospit a .3.423100 l .8 2020-07-12 2020-07-12 Tommy Lopez 1.2.840.1 [id number] 2100 [id number] Methodi 00:00:00 00:00:[address] 3.430.2.7 Hospit a .3.831202 l .8 2020-07-11 2020-07-11 Telephone Tommy Carrasco 1.2.840.1 [id number] 21 [id number] Methodi 00:00:00 00:00:[address] 3.430.2.7 Hospit a .3.365718 l .8 2020-06-27 2020-06-27 Travel 1.2.840.1 1.2.281.227 4635 054656 Methodi 00:00:00 00:00:[address] 3.430.2.7 0.2.7.3.698 spita .3.567324 084.8 l .8 2020-03-28 2020-03-28 [facility] [id number] 256 [place] 00:00:00 00:00:00 JOSE 805 Method i 2019-11-16 2019-11-24 Inpatient MACGILLIVRA [facility] 027 2100 [id number] [place] 00:00:00 00:00:00 NENA Medina 522 [place] 2019-10-27 2019-10-27 Outpatient MACGILLIVRA [facility] 646 [id number] [place] 00:00:00 00:00:00 NENA Medina 058 [place] 2019-10-27 2019-10-27 Outpatient MACGILLIVRA [facility] 994 [id number] [place] 00:00:00 00:00:00 NENA Medina 619 [place] 2019-10-20 2019-10-20 [facility] [id number] 000 [place] 00:00:00 00:00:00 JOSE [address] 2018-08-28 2018-11-21 Outpatient C TARANGO, [facility] 1000 [id number] [place] 09:11:00 23:59:00 KAL [facility] 2017-03-19 2017-03-21 Inpatient [facility] [id number] [id number] [facility] 11:59:00 16:15:[address] Results Test Description Test Time Test Comments Results Result Comments Source ECG 12 lead 2021-10-31 04:07:33 Test Item Value Reference Range Interpretation Comme nts Ventricular rate (test code = 253) Atrial rate (test code = 255) OR interval (test code = 266) QRSD interval (test code = 260) QT interval (test code = 264) QTC interval (test code = 265) P axis 1 (test code = 267) QRS axis 1 (test code = 268) T wave axis (test code = 270) EKG impression (test code = 273) Sinus bradycardia-Otherwise normal ECG-In automated comparison with ECG of 23-JAN-2021 08:58,-premature atrial complexes are no longer present- [facility] 12 [id number] 10:24:59 Test Item Value Reference Range Interpretation Comments Ventricular rate (test code = 253) Atrial rate (test code = 255) OR interval (test code = 266) QRSD interval (test code = 260) QT interval (test code = 264) QTC interval (test code = 265) P axis 1 (test code = 267) QRS axis 1 (test code = 268) T wave axis (test code = 270) EKG impression (test code = 273) [facility]2017-05-11 08:29:00 Test Item Value Reference Range Interpretation Comments Calcium Lvl (test code = Calcium Lvl) 9.3 8.5-10.5 [facility]2017-05-11 08:29:00 Test Item Value Reference Range Interpretation Comments eGFR (test code = eGFR) 50 [facility]2017-05-11 08:29:00 Test Item Value Reference Range Interpretation Comments Glucose Lvl (test code = Glucose Lvl) 116 70-99 [facility]2017-05-11 08:29:00 Test Item Value Reference Range Interpretation Comments BUN (test code = BUN) 29 7-22 [facility]2017-05-11 08:29:00 Test Item Value Reference Range Interpretation Comments Chloride Lvl (test code = Chloride Lvl) 104 95-109 [facility]2017-05-11 08:29:00 Test Item Value Reference Range Interpretation Comments Sodium Lvl (test code = Sodium Lvl) 138 135-145 [facility]2017-05-11 08:29:00 Test Item Value Reference Range Interpretation Comments CO2 (test code = CO2) 29 24-32 [facility]2017-05-11 08:29:00 Test Item Value Reference Range Interpretation Comments Potassium Lvl (test code = Potassium 4.6 3.5-5.1 Lvl) [facility]2017-05-11 08:29:00 Test Item Value Reference Range Interpretation Comments Creatinine Lvl (test code = Creatinine 1.41 0.50-1.40 Lvl) [facility]2017-05-11 08:29:00 Test Item Value Reference Range Interpretation Comments AGAP (test code = AGAP) 9.6 10.0-20.0 [facility]zQGNNGEZNLW3340-44-33 08:29:00 Test Item Value Reference Range Interpretation Comments Hct (test code = Hct) 38.5 42.0-54.0 [facility] HospitalEjkdjgdNOHUTUJZOB3581-88-51 08:29:00 Test Item Value Reference Range Interpretation Comments Hgb (test code = Hgb) 13.0 14.0-18.0 [facility] ServicesJwdxljoGNNSNORUAMUN3382-04-02 15:28:00 Test Item Value Reference Range Interpretation Comments Chloride Lvl (test code = Chloride Lvl) 108 95-109 [facility] ServicesWhwgtaxEHGBTHBTBPQC4888-25-22 15:28:00 Test Item Value Reference Range Interpretation Comments AGAP (test code = AGAP) 14.7 10.0-20.0 [facility] ServicesTdcopgeACYUUCTAIOJI4708-57-13 15:28:00 Test Item Value Reference Range Interpretation Comments Calcium Lvl (test code = Calcium Lvl) 9.5 8.5-10.5 [facility] ServicesVmpzrqbLIYKDQNPCGKP4181-58-89 15:28:00 Test Item Value Reference Range Interpretation Comments CO2 (test code = CO2) 25 24-32 [facility] ServicesJorrlqpTIRCYLNCJDMZ8146-65-56 15:28:00 Test Item Value Reference Range Interpretation Comments eGFR (test code = eGFR) 43 [facility] ServicesLwiusqrAEXWBPNQCBFC2011-52-59 15:28:00 Test Item Value Reference Range Interpretation Comments Creatinine Lvl (test code = Creatinine 1.60 0.50-1.40 Lvl) [facility] ServicesEqudzvmCUAHMOZURFMD7280-67-04 15:28:00 Test Item Value Reference Range Interpretation Comments Glucose Lvl (test code = Glucose Lvl) 143 70-99 [facility] ServicesWvkoeojBWIAPUBKSXJN8348-71-07 15:28:00 Test Item Value Reference Range Interpretation Comments BUN (test code = BUN) 28 7-22 [facility] ServicesUjmjrfuSAWDUVZUIWPJ5378-48-59 15:28:00 Test Item Value Reference Range Interpretation Comments Sodium Lvl (test code = Sodium Lvl) 143 135-145 [facility] ServicesBggkeukNTOUPQPCNPSE6218-46-39 15:28:00 Test Item Value Reference Range Interpretation Comments Potassium Lvl (test code = Potassium 4.7 3.5-5.1 Lvl) [facility] HospitalYurxzpjFMGPDXAZOU6731-37-95 15:28:00 Test Item Value Reference Range Interpretation Comments Hct (test code = Hct) 41.9 42.0-54.0 [facility] HospitalTtzkkpdILPXEWEXVY2052-71-32 15:28:00 Test Item Value Reference Range Interpretation Comments Hgb (test code = Hgb) 14.1 14.0-18.0 [facility]2017-05-10 12:14:00 Test Item Value Reference Range Interpretation Comments Alk Phos (test code = Alk Phos) 94 39-136 [facility]2017-05-10 12:14:00 Test Item Value Reference Range Interpretation Comments Albumin Lvl (test code = Albumin Lvl) 3.8 3.5-5.0 [facility]2017-05-10 12:14:00 Test Item Value Reference Range Interpretation Comments Total Protein (test code = Total 7.7 6.4-8.4 Protein) [facility]2017-05-10 12:14:00 Test Item Value Reference Range Interpretation Comments Calcium Lvl (test code = Calcium Lvl) 10.6 8.5-10.5 [facility]2017-05-10 12:14:00 Test Item Value Reference Range Interpretation Comments ALT (test code = ALT) 30 See_Comment [Auto mated message] The system which ge nerated this result transmit alexandro reference range : <=65. The reference range was not used to interpr et this result as josee l/abnormal. [facility]2017-05-10 12:14:00 Test Item Value Reference Range Interpretation Comments BUN (test code = BUN) 30 7-22 [facility]2017-05-10 12:14:00 Test Item Value Reference Range Interpretation Comments Potassium Lvl (test code = Potassium 4.2 3.5-5.1 Lvl) [facility]2017-05-10 12:14:00 Test Item Value Reference Range Interpretation Comments Sodium Lvl (test code = Sodium Lvl) 145 135-145 [facility]2017-05-10 12:14:00 Test Item Value Reference Range Interpretation Comments Creatinine Lvl (test code = Creatinine 1.58 0.50-1.40 Lvl) [facility]2017-05-10 12:14:00 Test Item Value Reference Range Interpretation Comments CO2 (test code = CO2) 25 24-32 [facility]2017-05-10 12:14:00 Test Item Value Reference Range Interpretation Comments Chloride Lvl (test code = Chloride Lvl) 108 95-109 [facility]2017-05-10 12:14:00 Test Item Value Reference Range Interpretation Comments Glucose Lvl (test code = Glucose Lvl) 101 70-99 [facility] HospitalBnyabzjBYQZVVKVHA0749-58-10 12:14:00 Test Item Value Reference Range Interpretation Comments Monocytes # (test code 0.7 See_Comment [Aut omated message] The = Monocytes #) system which generated this result tra nsmitted reference range : <=0.8. The reference r adriano was not used to int erpret this result as normal/abnormal . [facility] HospitalYkdoottJKKJQNHEED0874-30-79 12:14:00 Test Item Value Reference Range Interpretation Comments Eosinophils # (test code 0.3 See_Comment [A utomated message] The = Eosinophils #) system ic h generated this result tra nsmitted reference range : <=0.5. The reference r adriano was not used to int erpret this result as normal/abnormal . [facility] HospitalJggkfdlVEJKDIMYPL4894-91-48 12:14:00 Test Item Value Reference Range Interpretation Comments Lymphocytes # (test code = Lymphocytes 1.7 1.0-5.5 #) [facility] HospitalQcdcllwTLYZIOOVAC9940-14-53 12:14:00 Test Item Value Reference Range Interpretation Comments Monocytes (test code = Monocytes) 12.3 2.0-12.0 [facility] HospitalQrwgrkhUZTPJIBJWS0270-20-65 12:14:00 Test Item Value Reference Range Interpretation Comments Eosinophils (test code = 4.7 See_Comment [A utomated message] The Eosinophils) system which ge nerated this result tra nsmitted reference range : <=4.0. The reference r adriano was not used to int erpret this result as normal/abnormal . [facility] HospitalXfuxlqcQWIBAPRJYD3980-96-42 12:14:00 Test Item Value Reference Range Interpretation Comments Basophils (test code = 0.8 See_Comment [Aut omated message] The Basophils) system which ge nerated this result tra nsmitted reference range : <=1.0. The reference r adriano was not used to int erpret this result as normal/abnormal . [facility] HospitalPhgxbcgFVSXIXJZLR3225-44-84 12:14:00 Test Item Value Reference Range Interpretation Comments Segs-Bands # (test code = Segs-Bands #) 2.8 1.5-8.1 [facility] HospitalWsqhjmbZVEONHUDGN7666-18-05 12:14:00 Test Item Value Reference Range Interpretation Comments Segs (test code = Segs) 51.7 45.0-75.0 [facility] HospitalWmrbxeeZYHOXMELXC5865-19-98 12:14:00 Test Item Value Reference Range Interpretation Comments Lymphocytes (test code = Lymphocytes) 30.5 20.0-40.0 [facility] HospitalJfvcvxiKTEOAFCLGF6121-06-88 12:14:00 Test Item Value Reference Range Interpretation Comments PTT (test code = PTT) 33.8 s 22.9-35.8 [facility] HospitalGavfdokESFCKGHUNW8881-06-08 12:14:00 Test Item Value Reference Range Interpretation Comments PT (test code = PT) 13.7 s 12.0-14.7 [facility] HospitalQzbbsglMXCDFOCQDH3078-44-12 12:14:00 Test Item Value Reference Range Interpretation Comments INR (test code = INR) 1.03 0.85-1.17 [facility] HospitalXlrshpnCTJZWHNRHE8433-20-31 12:14:00 Test Item Value Reference Range Interpretation Comments RDW (test code = RDW) 12.8 11.5-14.5 [facility] HospitalAxkvzpoAOFJEFSCRU3937-58-61 12:14:00 Test Item Value Reference Range Interpretation Comments Platelet (test code = Platelet) 123 133-450 [facility] HospitalEtneirqATTLHHYADX9673-50-94 12:14:00 Test Item Value Reference Range Interpretation Comments MPV (test code = MPV) 8.5 7.4-10.4 [facility] HospitalTiyvdvoKYFGPCEDDX3655-30-24 12:14:00 Test Item Value Reference Range Interpretation Comments MCHC (test code = MCHC) 34.5 32.0-36.0 [facility] HospitalDujkyssMZGCPUMKUM9657-71-70 12:14:00 Test Item Value Reference Range Interpretation Comments Hgb (test code = Hgb) 16.6 14.0-18.0 [facility] HospitalBlmcefyKLNRANIUPL8730-07-36 12:14:00 Test Item Value Reference Range Interpretation Comments Hct (test code = Hct) 48.0 42.0-54.0 [facility] HospitalLzgkzdkZDLUWUZEIS9172-97-22 12:14:00 Test Item Value Reference Range Interpretation Comments MCV (test code = MCV) 91.9 80.0-94.0 [facility] HospitalMjwdnooZDRWEDKYJU6327-05-05 12:14:00 Test Item Value Reference Range Interpretation Comments MCH (test code = MCH) 31.7 pg 27.0-31.0 [facility] HospitalVppduwpNULCAKNXFF9720-98-67 12:14:00 Test Item Value Reference Range Interpretation Comments WBC (test code = WBC) 5.5 3.7-10.4 [facility] HospitalRelbyzkSBRSINBZSJ6982-34-75 12:14:00 Test Item Value Reference Range Interpretation Comments RBC (test code = RBC) 5.22 4.70-6.10 [facility] AND [id number] 12:14:00 Test Item Value Reference Range Interpretation Comments UA Sq Epi (test code = UA Sq Epi) None Seen [facility] AND [id number] 12:14:00 Test Item Value Reference Range Interpretation Comments UA Urobilinogen (test code = UA <=1.0 mg/dL 0.1-1.0 Urobilinogen) [facility] AND [id number] 12:14:00 Test Item Value Reference Range Interpretation Comments UA Protein (test code = UA Negative mg/dL Protein) [facility] AND [id number] 12:14:00 Test Item Value Reference Range Interpretation Comments UA pH (test code = UA pH) 6.0 5.0-8.0 [facility] AND [id number] 12:14:00 Test Item Value Reference Range Interpretation Comments UA Blood (test code = Negative (03/19/17 7:14 UA Blood) AM) [facility] AND [id number] 12:14:00 Test Item Value Reference Range Interpretation Comments UA Ketones (test code = UA Negative mg/dL Ketones) [facility] AND [id number] 12:14:00 Test Item Value Reference Range Interpretation Comments UA Bili (test code = Negative *NA*(03/19/17 UA Bili) 7:14 AM) [facility] AND [id number] 12:14:00 Test Item Value Reference Range Interpretation Comments UA Glucose (test code = UA Negative mg/dL Glucose) [facility] AND [id number] 12:14:00 Test Item Value Reference Range Interpretation Comments UA RBC (test code = no gt See_Comment [Automa alexandro message] The UA RBC) system which ge nerated this result transmit alexandro reference range : <=2. The reference range was not used to interpr et this result as josee l/abnormal. [facility] AND [id number] 12:14:00 Test Item Value Reference Range Interpretation Comments UA Leuk Est (test Negative (03/19/17 7:14 code = UA Leuk Est) AM) [facility] AND [id number] 12:14:00 Test Item Value Reference Range Interpretation Comments UA WBC (test code = 3 See_Comment [Automa alexandro message] The UA WBC) system which ge nerated this result transmit alexandro reference range : <=5. The reference range was not used to interpr et this result as josee l/abnormal. [facility] AND [id number] 12:14:00 Test Item Value Reference Range Interpretation Comments UA Nitrite (test code Negative (03/19/17 7:14 = UA Nitrite) AM) [facility] AND [id number] 12:14:00 Test Item Value Reference Range Interpretation Comments UA Amorph Mily (test code = Occasional /HPF UA Amorph Mily) [facility] AND [id number] 12:14:00 Test Item Value Reference Range Interpretation Comments UA Mucus (test code = UA Mucus) Few /LPF [facility] AND [id number] 12:14:00 Test Item Value Reference Range Interpretation Comments UA Turbidity (test code Slight *ABN*(03/19/17 = UA Turbidity) 7:14 AM) [facility] AND [id number] 12:14:00 Test Item Value Reference Range Interpretation Comments UA Spec Grav (test code = UA Spec Grav) 1.017 [facility] AND [id number] 12:14:00 Test Item Value Reference Range Interpretation Comments UA Color (test code = Yellow *NA*(03/19/17 UA Color) 7:14 AM) [facility] [id number] 12:14:00 Test Item Value Reference Range Interpretation Comments B/C Ratio (test code = B/C Ratio) 19 6-25 [facility] [id number] 12:14:00 Test Item Value Reference Range Interpretation Comments A/G Ratio (test code = A/G Ratio) 1.0 0.7-1.6 [facility]2017-05-10 12:14:00 Test Item Value Reference Range Interpretation Comments Globulin (test code = Globulin) 3.9 2.7-4.2 [facility]2017-05-10 12:14:00 Test Item Value Reference Range Interpretation Comments AGAP (test code = AGAP) 16.2 10.0-20.0 [facility]2017-05-10 12:14:00 Test Item Value Reference Range Interpretation Comments eGFR (test code = eGFR) 44 [facility]2017-05-10 12:14:00 Test Item Value Reference Range Interpretation Comments AST (test code = AST) 27 See_Comment [Auto mated message] The system which ge nerated this result transmit alexandro reference range : <=37. The reference range was not used to interpr et this result as josee l/abnormal. [facility] [id number] 12:14:00 Test Item Value Reference Range Interpretation Comments Bili Total (test code = Bili Total) 0.4 0.2-1.3 [facility] [id number] 18:04:00 Test Item Value Reference Range Interpretation Comments Antibody Scrn (test Negative (03/11/17 1:04 code = Antibody Scrn) PM) [facility] [id number] 18:04:00 Test Item Value Reference Range Interpretation Comments ABO/Rh (test code = ABO/Rh) O POS [facility] [id number] 17:59:00 Test Item Value Reference Range Interpretation Comments RBC product (test code Product available = RBC product) (03/11/17 12:59 PM) Clarence Tilley
== END 2022-05-29 11:23 | disposition home or self-care (01) ==
LOC: ER 05:59
DX: K51.50 Left sided colitis without complications (principal); N28.9 Disorder of kidney and ureter, unspecified; I10 Essential (primary) hypertension; I48.91 Unspecified atrial fibrillation; Z79.01 Long term (current) use of anticoagulants; Z20.822 Contact with and (suspected) exposure to COVID-19
CPT/HCPCS: 85025; 36415; 83690; 80053; 87804 ×2; 74177; U0003; Q9967; J7030; J2405

== ENCOUNTER 2022-08-01 20:47 | Emergency (ER) | payer OTHER ==
--- OUTSIDE RECORDS SUMMARY | 2022-08-01 20:54 | XMS REPORT | Continuity of Care Document ---
:1945 Author Organization [facility] t Address [address] [place] [address] Care Team Providers Name Role Phone Kal Tarango MD Primary Care Physician Carlos Dover MD Attending Clinician Jose Dover MD Attending Clinician Therapy, [facility] Covid Infusion Attending Clinician Unavailable Rafael Boogie MD Attending Clinician RAFAEL BOOGIE Attending Clinician Unavailable Doctor Unassigned, [place] Attending Clinician Unavailable KAL TARANGO Attending Clinician Unavailable Blanca Barbour MA Attending Clinician Unavailable Tommy Carrasco MA Attending Clinician Unavailable NENA VELASQUEZ Attending Clinician Unavailable Arden Lyons Attending Clinician KAL TARANGO Admitting Clinician Unavailable NENA VELASQUEZ Admitting Clinician Unavailable JOSE DOVER Admitting Clinician Unavailable Arden Lyons Admitting Clinician Payers Payer Name Policy Type Policy Number Effective Date Expiration Date S renae 0578 [id number] 2020 00:00:00 Problems Condition Condition Condition Status Onset Resolution Last Treating Co mments Source Name Details Category Date Date Treatment Clinician Date Hx of CABG Hx of CABG Disease Active 2019-0 M rhondaodi 2-18 [facility] 00:00: Hospita 00 l H/O aortic H/O aortic Disease Active 2019-0 M ethodi valve valve 2-03 st replacemen replacemen 00:00: Ho silvanota t t 00 l 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 00:00: Hospita involving involving [place] coronary coronary artery of artery of [place] heart heart without without angina angina pectoris pectoris CAD in CAD in Disease Active 2018-11 [facility] [place] 0-29 st artery artery 00:00: Hospita 00 l Bicuspid Bicuspid Disease Active 2018-11 Metho di aortic aortic 0-01 st valve valve 00:00: Hospita 00 l Primary Primary Disease Active 2017-11 [facility] hypertensi hypertensi 0-02 st on on 00:00: Hospita 00 l 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 00:00: Hospit a without without 00 l rupture rupture PAIN LEFT PAIN LEFT Diagnosis Active 2017-03-28 Memoria HIP, HIP, 5-02 22:02:00 l OSTEOARTHR OSTEOARTHR 00:00: He rmann ITIS LEFT ITIS LEFT 00 HIP HIP Active 03/11/2017 [facility] Aneurysm Aneurysm Problem Resolve 2017-03-24 Memoria (disorder) (disorder) d 00:14:07 l Resolved Jarek Problem 03/24/2017 of the heart [facility] Chronic Chronic Problem Active 2017-03-24 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 Enoc n (disorder) (disorder) Active Problem 03/24/2017 in neck and back [facility] Gastroesop Gastroeso Problem Active 2017-03-24 Memoria hageal phageal 00:14:07 l reflux reflux Jarek disease disease (disorder) (disorder) Active Problem 03/24/2017 [facility] Hypertensi Hypertens Problem Active 2017-03-24 Memoria ve josef 00:14:07 l disorder, disorder, Herm cj systemic systemic arterial arterial (disorder) (disorder) Active Problem 03/24/2017 [facility] Large Large Problem Active 2017-03-24 Memor ia prostate prostate 00:14:07 l (finding) (finding) Herm cj Active Problem 03/24/2017 [facility] Allergies, Adverse Reactions, Alerts Allergy Allergy Status Severity Reaction(s) Onset Inactive Treating Comm ents Source Name Type Date Date Clinician NO KNOWN Drug Active Univers ALLERGIE Class ity of S [facility] Family History Family Member Diagnosis Comments Start Date Stop Date Source Natural father [facility] Natural [facility] Social History Social Habit Start Date Stop Date Quantity Comments Source Alcohol intake 2022-04-30 2022-04-30 Current [facility] 00:00:00 00:00:00 non-drinker of Hospital alcohol (finding) Cigarettes smoked 2019-08-10 2019[facility]08[facility] 00:[facility]:00 00:00:00 Hospita l day) - Reported Cigarette 2019-08-10 2019-08-10 [facility] pack-[facility] 00:00:00 00:00:00 Hospital Tobacco use and 2019-08-10 2019-08-10 Smokeless tobacco [facility] exposure 00:00:00 00:00:00 non-user Hospital Social History 2017-03-11 2017-03-11 [facility] 17:34:26 17:34:26 History of tobacco 1999-08-10 Current smoker [facility] use 00:00:00 Hospital Sex Ass[birth year] At [birth year] [facility] 00:00:00 00:00:00 Hospital Smoking Status Start Date Stop Date Source Ex-smoker 2019-08-10 00:00:00 2019-08-10 00:00:00 [facility] Medications Ordered Filled Start Stop Current Ordering Indication Dosage Frequency Signature Comments Components Source Medication Medication Date Date Medication? Clinician (SIG) Name Name Jose 2.5 Yes TAKE 1 Meth giselle mg tablet 7-[address] 00:00: MOUTH Hospita 00 TWICE A l DAY aspirin 2022-0 Yes 81mg QD Take 81 mg Meth giselle (ECOTRIN) 6-[address] 81 MG 09:19: daily. Hospita enteric 26 l coated tablet tamsulosin Yes .4mg QD Take 0.4 Met hodi (FLOMAX) 6-[address] 0.4 mg 09:19: mouth Hospita capsule 26 daily with l dinner. famotidine Yes 40mg QD Take 40 mg M ethodi (PEPCID) 40 6-[address] MG tablet 09:19: daily. Hospit a 26 l venlafaxine Yes 50mg QD Take 50 mg Methodi (EFFEXOR) 6-[address] 50 MG 09:19: daily. Hospita tablet 26 l atorvastati Yes 40mg QD Take 40 mg Methodi n (LIPITOR) 6-[address] 40 mg 09:19: daily. Hospita tablet 26 l acetamin[place] [id number] 1{tbl} Q4H Take 1 M ethodi en-codeine 6-[address] (TYLENOL 09:19: mouth Hospita WITH 26 every 4 l CODEINE #3) (four) 300-30 mg hours as per tablet needed for moderate pain .acute pain. metoprolol 2022- No 25mg QD Take 1 Meth giselle succinate -30 04- tablet (25 st XL 00:00: 04:59 mg total) Hospita (TOPROL-XL) 00 :00 by mouth l 25 mg 24 hr daily. tablet Eliquis 2.5 2021- No TAKE 1 Met hodi mg tablet -03 06-[address] 00:00: 00:00 MOUTH Hospita 00 :00 TWICE A l DAY Eliquis 2.5 Yes TAKE 1 Meth giselle mg tablet 1-[address] 00:00: MOUTH Hospita 00 TWICE A l DAY Eliquis 2.5 2021- No TAKE 1 Met hodi mg tablet 1-26 02-[address] 00:00: 00:00 MOUTH Hospita 00 :00 TWICE A l DAY aspirin 2020-11 Yes [...] Hospita tablet 54 l acetaminoph 2020-11 Yes [id number] 1{tbl} Q4H Take 1 M ethodi en-codeine 2-[address] (TYLENOL 12:56: mouth Hospita WITH 54 every 4 l CODEINE #3) (four) 300-30 mg hours as per tablet needed for moderate pain .acute pain. losartan-hy 2020-11- No 1{tbl} QD Take 1 M ethodi drochloroth 2-21 12-[address] iazide 00:00: 05:59 mouth Hospita (HYZAAR) 00 :00 daily. l 100-12.5 mg per tablet losartan-hy 2020-11- No 1{tbl} QD Take 1 M ethodi drochloroth 2-21 12-[address] iazide 00:00: 05:59 mouth Hospita (HYZAAR) 00 :00 daily. l 100-12.5 mg per tablet tiZANidine 2020-11- No 4mg Q8H Take 4 mg M ethodi (ZANAFLEX) 0-05 10-[address] 4 MG tablet 14:43: 00:00 every 8 Ho spita 47 :00 (eight) l hours as needed for muscle spasms. tiZANidine 2020-11- No 4mg Q8H Take 4 mg M ethodi (ZANAFLEX) 0-05 10-[address] 4 MG tablet 14:43: 00:00 every 8 Ho spita 47 :00 (eight) l hours as needed for muscle spasms. losartan 2020-11 No [id number] 50mg QD Take 1 Methodi (Cozaar) 50 0-05 10-30 00 tablet (50 s t MG tablet 00:00: 00:00 mg total) Ho spita 00 :00 by mouth l daily. losartan 2020-11 No [id number] 50mg QD Take 1 Methodi (Cozaar) 50 0-05 10-30 00 tablet (50 s t MG tablet 00:00: 00:00 mg total) Ho spita 00 :00 by mouth l daily. Eliquis 2.5 2021- No TAKE 1 Met hodi mg tablet 07-[address] 00:00: 00:00 MOUTH Hospita 00 :00 TWICE A l DAY Eliquis 2.5 2021- No TAKE 1 Met [...] A l tablet DAY imdevimab 2020- No [id number] [place] ([id number]) 05-26 ity of 600 mg, 13:15: 14:08 [place] casirivimab 00 :00 Medical ([id number]) Branch 600 mg in NaCl 0.9% (NS) 60 mL infusion imdevimab 2020- No [id number] IV [place] ([id number]) 05-26 Infusion, it y of 600 mg, 13:15: 14:08 ONCE, Sat Sanchez falk casirivimab 00 :00 05/26/21 at [facility] ([id number]) 0815, For Bra nch 600 mg in 1 NaCl 0.9% dose
Ad (NS) 60 mL information security engineer infusion as an IV infusion via pump or gravity through an intravenou s line containing a sterile, in-line or add-on 0.2-micron polyethers ulfone (PES) filter. Stable 36 hours refrigerat ed; 4 hours at room temperatur e.
apixaban Yes 2.5mg Q.5D Take 1 Method i (Eliquis) - tablet st 2.5 mg 00:00: (2.5 mg Hospita tablet 00 total) by l mouth 2 (two) times a day. apixaban 2020- No 2.5mg Q.5D Take 1 Metho di (Eliquis) -09 18- tablet st 2.5 mg 00:00: 00:00 (2.5 mg Hospita tablet 00 :00 total) by l mouth 2 (two) times a day. Eliquis 2.5 2020- No TAKE 1 Met hodi mg tablet 03-12- TABLET BY st 00:00: 00:00 MOUTH Hospita 00 :00 TWICE A l DAY Eliquis 2.5 2020- No TAKE 1 Met hodi mg tablet -01 12-[address] 00:00: 00:00 MOUTH Hospita 00 :00 TWICE A l DAY metoprolol Yes TAKE 1 Metho di tartrate 3-[address] (LOPRESSOR) 00:00: MOUTH Hospi ta 25 mg 00 TWICE A l tablet DAY metoprolol 2020- No TAKE 1 Meth giselle tartrate -17 -[address] (LOPRESSOR) 00:00: 00:00 MOUTH Hosp cynthia 25 mg 00 :00 TWICE A l tablet DAY DULoxetine 2020- No 60mg Take 60 mg Methodi (CYMBALTA) 01-[address] 60 MG 13:53: 00:00 as needed. Hospi ta capsule 04 :00 l DULoxetine 2020- No 60mg Take 60 mg [facility] (CYMBALTA) 01-23-[address] 60 MG 08:53: 00:00 as needed. Hospi ta capsule 04 :00 l losartan No 50mg QD Take 1 Method i (Cozaar) 50 3-16 03-17 tablet (50 s t MG tablet 00:00: 04:59 mg total) Ho spita 00 :00 by mouth l daily. losartan 2020- No 50mg QD Take 1 Method i (Cozaar) 50 3-16 10-05 tablet (50 s t MG tablet 00:00: 00:00 mg total) Ho spita 00 :00 by mouth l daily. losartan No 50mg QD Take 1 Method i (Cozaar) 50 3-16 10-05 tablet (50 s t MG tablet 00:00: [...] 2.5mg Q.5D Take 1 Metho di (Eliquis) 11-25- tablet st 2.5 mg 00:00: 00:00 (2.5 mg Hospita tablet 00 :00 total) by l mouth 2 (two) times a day. apixaban 2019-11 No 2.5mg Q.5D Take 1 Metho di (Eliquis) -16 -[address] 2.5 mg 00:00: 00:00 (2.5 mg Hospita tablet 00 :00 total) by l mouth 2 (two) times a day. apixaban 2019-11 No 2.5mg Q.5D Take 1 Metho di (Eliquis) 0-28 -[address] 2.5 mg 00:00: 00:00 (2.5 mg Hospita tablet 00 :00 total) by l mouth 2 (two) times a day. Eliquis 2.5 2019- No TAKE 1 Met hodi mg tablet -09-[address] 00:00: 00:00 MOUTH Hospita 00 :00 TWICE A l DAY metoprolol 2020- No TAKE 1 Meth giselle tartrate 07-24- TABLET BY st (LOPRESSOR) 00:00: 00:00 MOUTH Hosp cynthia 25 mg 00 :00 TWICE A l tablet DAY metoprolol 2020- No TAKE 1 Meth giselle tartrate 07-24- TABLET BY st (LOPRESSOR) 00:00: 00:00 MOUTH Hosp cynthia 25 mg 00 :00 TWICE A l tablet DAY apixaban 2019- No 2.5mg Q.5D Take 1 Metho di (Eliquis) 07-[address] 2.5 mg 00:00: 00:00 (2.5 mg Hospita tablet 00 :00 total) by l mouth 2 (two) times a day. losartan 2020- No TAKE 1 Method i (COZAAR) 50 -27 01-[address] MG tablet 00:00: 00:00 MOUTH Hospit a 00 :00 EVERY DAY l metoprolol 2020- No TAKE 1 Meth giselle tartrate 05-29-[address] (LOPRESSOR) 00:00: 00:00 MOUTH Hosp cynthia 50 mg 00 :00 TWICE A l tablet DAY losartan 2020- No TAKE 1 Method i (COZAAR) 50 -20 -[address] MG tablet 00:00: 00:00 MOUTH Hospit a 00 :00 EVERY DAY l metoprolol 2020- No TAKE 1 Meth giselle tartrate 05-29-[address] (LOPRESSOR) 00:00: 00:00 MOUTH Hosp cynthia 50 mg 00 :00 TWICE A l tablet DAY aspirin Yes 81mg QD Take 81 mg Meth giselle (ECOTRIN) 5-[address] 81 MG 15:10: daily. Hospita enteric 53 l coated tablet tiZANidine 0 Yes 4mg Q8H Take 4 mg Me thodi (ZANAFLEX) 5-[address] 4 MG tablet 15:10: every 8 Hos helio 53 (eight) l hours as needed for muscle spasms. tamsulosin 2019-0 Yes .4mg QD Take 0.4 Met hodi (FLOMAX) 5-[address] 0.4 mg 15:10: mouth Hospita capsule 53 daily with l dinner. metoprolol 2019- No 25mg Q.5D Take 1 Meth giselle tartrate 19 09-14 tablet (25 st (LOPRESSOR) 00:00: 00:00 mg total) Hospita 25 mg 00 :00 by mouth 2 l tablet (two) times a day. ULTRAM 50 2020- No 50mg Q8H Take 50 mg M ethodi mg tablet 07-[address] 00:00: 00:00 every 8 Hospita 00 :00 (eight) l hours as needed. ULTRAM 50 No 50mg Q8H Take 50 mg M ethodi mg tablet 07-[address] 00:00: 00:00 every 8 [...] 25 mg 9-10 ity of capsule 00:00: [place] [facility] nortriptyli 2016- Yes Univer s ne 25 mg 9-10 ity of capsule 00:00: [place] [facility] lisinopril Yes Univers 30 mg 8-25 ity of tablet 00:00: [place] [facility] lisinopril 2016- Yes Univers 30 mg 8-25 ity of tablet 00:00: [facility] baclofen 10 Yes Univer s mg tablet 8-18 ity of 00:00: [place] [facility] baclofen 10 Yes Univer s mg tablet 8-18 ity of 00:00: [facility] RAPAFLO 8 Yes Univers mg capsule 8-07 ity of 00:00: [facility] RAPAFLO 8 Yes Univers mg capsule 06-16 ity of 00:00: [address] Acetaminoph Yes 1 tab, PO, Memoria en 325 MG / 5-12 Q4H, PRN l Oxycodone 15:37: for pain, Her faustin Hydrochlori 00 X 7 day, # de 5 MG 50 tab, 0 Oral Tablet Refill(s) [Percocet 5/325] Acetaminoph Yes 1 tab, PO, Memoria en [...] [Xarelto] 00 10 tab, 0 Refill(s), Pharmacy: [facility] #[id number] rivaroxaban Yes 10 mg = 1 M emoria 10 MG Oral 5-12 tab, PO, l Tablet 11:04: Daily, # Jarek [Xarelto] 00 10 tab, 0 Refill(s), Pharmacy: [facility] #[id number] Saline No Notes: Memoria Flush 0.9% 5-12 (Same as: l 02:00: [place] 00 Posiflush) Saline No Notes: Memoria Flush 0.9% 5-12 (Same as: l 02:00: BD Jarek 00 Posiflush) Saline No Notes: Memoria Flush 0.9% 5-11 (Same as: l 18:01: BD [place] 00 Posiflush) Saline No Notes: Memoria Flush 0.9% 5-11 (Same as: l 18:01: BD [place] 00 Posiflush) Lisinopril No Notes: Memor ia 5-11 (Same as: l 14:00: Prinivil, [place] 00 Zestril) lansoprazol No 30 mg, Herb cris e 5-11 Route: PO, l 14:00: Drug form: Jarek 00 TABDIS, Daily, Dosing Weight 74.716, kg, Start date: 03/20/17 9:00:00 CDT, Duration: 30 day, Stop date: 04/18/17 9:00:00 CDT Lisinopril No Notes: Memor ia 5-11 (Same as: l 14:00: Prinivil, Jarek Zestril) lansoprazol No 30 mg, Herb cris e 5-11 Route: PO, l 14:00: Drug form: [place] 00 TABDIS, Daily, Dosing Weight 74.716, kg, Start [...] l 02:00: as:Pamelor Jarek 00 , Aventyl) Famotidine No Notes: Memor ia 20 MG Oral 5-11 (Same as: l Tablet 02:00: Pepcid) gabapentin No Notes: Memor ia 300 MG Oral 5-11 (Same as: l Capsule 02:00: Neurontin) Herm cj Nortriptyli No Notes: Herb cris ne 5-11 (Same l 02:00: as:Pamelor [place] 00 , Aventyl) Tylenol No Notes: Do Memor ia 5-10 not exceed l 22:00: 4 gm/day. [place] 00 (Same as: Tylenol) Docusate No Notes: Memoria Sodium 100 5-10 (Same as: l MG Oral 22:00: Colace) [place] Capsule 00 (Do Not Crush) Tylenol No Notes: Do Memor ia 5-10 not exceed l 22:00: 4 gm/day. [place] 00 (Same as: Tylenol) Docusate No Notes: Memoria Sodium 100 5-10 (Same as: l MG Oral 22:00: Colace) [place] Capsule 00 (Do Not Crush) Protonix No Notes: Memoria 5-10 Tablet l 21:30: should not Jarek 00 be chewed or crushed. (Same as: Protonix) Protonix No Notes: Memoria 5-10 Tablet l 21:30: should not [place] 00 be chewed or crushed. (Same as: Protonix) rivaroxaban No Notes: Herb cris 5-10 (Same as: l 21:08: Xarelto) [place] 00 Do Not Crush rivaroxaban No Notes: Herb cris 5-10 (Same as: l 21:08: Xarelto) [place] 00 Do Not Crush Acetaminoph No Notes: Herb cris en 10 MG/ML 5-10 Infuse l Injectable 20:00: over 15 Herm cj Solution 00 minutes Do not exceed 4gm/day of acetaminop hen MEDICATION WASTE Product Size: 1000 mg Product Wasted: __0_ mg Acetaminoph No Notes: Herb cris en 10 MG/ML 5-10 Infuse l Injectable 20:00: over 15 Herm cj Solution 00 minutes Do not exceed 4gm/day of acetaminop hen MEDICATION WASTE Product Size: 1000 mg Product Wasted: __0_ mg Dilaudid No Notes: Memoria 5-10 Same as: l 18:39: Dilaudid [place] Dilaudid No Notes: Memoria 5-10 Same as: l 18:39: Dilaudid [place] Cefazolin No Notes: Memori a 5-10 (Same As: l 18:00: Ancef, Jarek 00 Kefzol) MEDICATION WASTE Product Size: 1000 mg Product Wasted: _0 mg Cefazolin No Notes: Memori a 5-10 (Same As: l 18:00: Ancef, [place] 00 Kefzol) MEDICATION WASTE Product Size: 1000 mg Product Wasted: _0 mg phenylephri No Route: IV, Memoria ne (ANES) 5-10 Drug form: l 15:15: INJ, ONCE, Stop date: 03/19/17 10:15:00 CDT dexamethaso 2017-0 No Route: IV, Memoria ne (ANES) 5-10 Drug form: l 15:15: INJ, ONCE, Stop date: 03/19/17 10:15:00 CDT glycopyrrol 2017-0 No Route: IV, Memoria ate (ANES) 5-10 Drug form: l 15:15: INJ, ONCE, Stop date: 03/19/17 10:15:00 CDT ondansetron 0 No Route: IV, Memoria (ANES) 5-10 Drug form: l 15:15: INJ, ONCE, Stop date: 03/19/17 10:15:00 CDT phenylephri 2017-0 No Route: IV, Memoria ne (ANES) 5-10 Drug form: l 15:15: INJ, ONCE, Stop date: 03/19/17 10:15:00 CDT dexamethaso 2017-0 No Route: IV, Memoria ne (ANES) 5-10 Drug form: l 15:15: INJ, ONCE, Stop date: 03/19/17 10:15:00 CDT glycopyrrol 2017-0 No Route: IV, Memoria ate (ANES) 5-10 Drug form: l 15:15: INJ, ONCE, Stop date: 03/19/17 10:15:00 CDT ondansetron [id number] No Route: IV, Memoria (ANES) 5-10 Drug form: l 15:15: INJ, ONCE, Stop date: 03/19/17 10:15:00 CDT Oxycodone 2016- No Notes: Memori a Hydrochlori 5-10 (Same as: l de 5 MG 15:07: Roxicodone Herm cj Oral Tablet ) Dulcolax No Notes: Memoria Laxative 5-10 (Same As: l 15:07: Dulcolax, [place] 00 Correctol) (Do Not Crush) "Do Not Crush" Ondansetron No Notes: Herb cris 5-10 (Same as: l 15:07: Zofran) Jarek 00 MEDICATION WASTE Product Size: 4 mg Product Wasted: _0__ mg Al No Notes: Memoria hydroxide/M 5-10 (aluminum l g 15:07: hydroxide- Jarek hydroxide/s 00 magnesium imethicone hyd-simeth 200 mg-200 icone mg-20 mg/5 200-200-20 mL oral mg/5ml 30 suspension ml ud CHARITY) Lactated No 1,000 mL, Herb cris Ringers 5-10 Rate: 100 l 1,000 mL 15:07: ml/hr, Jarek 00 Infuse over: 10 hr, Route: IV, Dosing Weight 74.716 kg, Total Volume: 1,000, Start date: 03/19/17 10:07:00 CDT, Duration: 30 day, Stop date: 04/18/17 10:06:00 CDT Hydromorpho No Notes: Herb cris ne 5-10 Same as l 15:07: Dilaudid Jarek 00 Oxycodone No Notes: Memori a Hydrochlori 5-10 (Same as: l de 5 MG 15:07: Roxicodone Herm cj Oral Tablet 00 ) Dulcolax No Notes: Memoria Laxative 5-10 (Same As: l 15:07: Dulcolax, Jarek 00 Correctol) (Do Not Crush) "Do Not Crush" Ondansetron No Notes: Herb cris 5-10 (Same as: l 15:07: Zofran) [place] 00 MEDICATION WASTE Product Size: 4 mg Product Wasted: _0__ mg Al No Notes: Memoria hydroxide/M 5-10 (aluminum l g 15:07: hydroxide- Jarek hydroxide/s 00 magnesium imethicone hyd-simeth 200 mg-200 icone mg-20 mg/5 200-200-20 mL oral mg/5ml 30 suspension ml ud CHARITY) Lactated No 1,000 mL, Herb cris Ringers 5-10 Rate: 100 l 1,000 mL 15:07: ml/hr, [place] 00 Infuse over: 10 hr, Route: IV, Dosing Weight 74.716 kg, Total Volume: 1,000, Start date: 03/19/17 10:07:00 CDT, Duration: 30 day, Stop date: 04/18/17 10:06:00 CDT Hydromorpho 2017-0 No Notes: Herb cris ne 5-10 Same as l 15:07: Dilaudid metoprolol No Route: IV, M emoria (ANES) 5-10 Drug form: l 14:39: INJ, ONCE, Stop date: 03/19/17 9:39:00 CDT metoprolol 2016-0 No Route: IV, M emoria (ANES) 5-10 Drug form: l 14:39: INJ, ONCE, Stop date: 03/19/17 9:39:00 CDT Dilaudid 0 No Route: IV, Mem oria (ANES) 5-10 Drug form: l 14:34: INJ, ONCE, Stop date: 03/19/17 9:34:00 CDT Dilaudid 0 No Route: IV, Mem oria (ANES) 5-10 Drug form: l 14:34: INJ, ONCE, Stop date: 03/19/17 9:34:00 CDT rocuronium 2016-0 No Route: IV, M emoria (ANES) 5-10 Drug form: l 14:19: INJ, ONCE, Stop date: 03/19/17 9:19:00 CDT ceFAZolin 2016-0 No Route: IV, Me moria (ANES) 5-10 Drug form: l 14:19: INJ, ONCE, Stop date: 03/19/17 9:19:00 CDT acetaminoph 0 No Route: IV, Memoria en (ANES) 5-10 Drug form: l 14:19: INJ, ONCE, Stop date: 03/19/17 9:19:00 CDT propofol [id number] No Route: IV, Mem oria (ANES) 5-10 Drug form: l 14:19: INJ, ONCE, Stop date: 03/19/17 9:19:00 CDT rocuronium 2017-0 No Route: IV, M emoria (ANES) 5-10 Drug form: l 14:19: INJ, ONCE, Stop date: 03/19/17 9:19:00 CDT ceFAZolin 2017-0 No Route: IV, Me moria (ANES) 5-10 Drug form: l 14:19: INJ, ONCE, Stop date: 03/19/17 9:19:00 CDT acetaminoph 2017-0 No Route: IV, Memoria en (ANES) 5-10 Drug form: l 14:19: INJ, ONCE, Stop date: 03/19/17 9:19:00 CDT propofol [id number] No Route: IV, Mem oria (ANES) 5-10 Drug form: l 14:19: INJ, ONCE, Stop date: 03/19/17 9:19:00 CDT tranexamic [id number] No Route: IV, M emoria acid (ANES) 5-10 Drug form: l 14:14: INJ, ONCE, Stop date: 03/19/17 9:14:00 CDT midazolam 2017-0 No Route: IV, Me moria (ANES) 5-10 Drug form: l 14:14: SOLN, ONCE, Stop date: 03/19/17 9:14:00 CDT fentaNYL 2017-0 No Route: IV, Mem oria (ANES) 5-10 Drug form: l 14:14: INJ, ONCE, Stop date: 03/19/17 9:14:00 CDT tranexamic [id number] No Route: IV, M emoria acid (ANES) 5-10 Drug form: l 14:14: INJ, ONCE, Stop date: 03/19/17 9:14:00 CDT midazolam 2017-0 No Route: IV, Me moria (ANES) 5-10 Drug form: l 14:14: SOLN, ONCE, Stop date: 03/19/17 9:14:00 CDT fentaNYL 2017-0 No Route: IV, Mem oria (ANES) 5-10 Drug form: l 14:14: INJ, ONCE, Stop date: 03/19/17 9:14:00 CDT Hydromorpho 2017-0 No Notes: Herb cris ne 5-10 Same as l 13:48: Dilaudid Jarek 00 Naloxone No Notes: Memoria 5-10 Same as l 13:48: Narcan [place] 00 Flumazenil No Notes: Memor ia 5-10 (Same as: l 13:48: Romazicon) Jarek Hydralazine No Notes: Herb cris 5-10 (Same as: l 13:48: Apresoline Jarek 00 ) Push over 5 minutes Metoprolol No Notes: Memor ia 5-10 (Same as: l 13:48: Lopressor) Jarek Push over 2 minutes Diphenhydra No Notes: Herb cris mine 5-10 (Same as: l 13:48: Benadryl) Jarek Ondansetron No Notes: Herb cris 5-10 (Same as: l 13:48: Zofran) [place] 00 MEDICATION WASTE Product Size: 4 mg Product Wasted: _0__ mg Morphine No Notes: Memoria 5-10 (Same l 13:48: as:MORPhin Jarek 00 e Sulfate) Hydromorpho No Notes: Herb cris ne 5-10 Same as l 13:48: Dilaudid [place] 00 Naloxone No Notes: Memoria 5-10 Same as l 13:48: Narcan [place] 00 Flumazenil No Notes: Memor ia 5-10 (Same as: l 13:48: Romazicon) [place] Hydralazine No Notes: Herb cris 5-10 (Same as: l 13:48: Apresoline [place] 00 ) Push over 5 minutes Metoprolol No Notes: Memor ia 5-10 (Same as: l 13:48: Lopressor) [place] 00 Push over 2 minutes Diphenhydra No Notes: Herb cris mine 5-10 (Same as: l 13:48: Benadryl) Jarek Ondansetron No Notes: Herb cris 5-10 (Same as: l 13:48: Zofran) Jarek 00 MEDICATION WASTE Product Size: 4 mg Product Wasted: _0__ mg Morphine No Notes: Memoria 5-10 (Same l 13:48: as:MORPhin [place] 00 e Sulfate) LR 1000 mL No Route: IV, M emoria INJ (ANES) 5-10 Total l 13:29: Volume: Jarek 00 1,000, Start date: 03/19/17 8:29:00 CDT, Stop date: 03/19/17 9:29:00 CDT LR 1000 mL No Route: IV, M emoria INJ (ANES) 5-10 Total l 13:29: Volume: [place] 00 1,000, Start date: 03/19/17 8:29:00 CDT, Stop date: 03/19/17 9:29:00 CDT Lidocaine No Notes: Memori a 5-10 Ingredient l 12:00: s: 2 ml [place] 00 lidocaine 1% inj , 0.2ml sodium bicarbonat e 8.4% inj total volume = 2.2ml Refrigerat e: 14 days Room temp: 7 days Lidocaine No Notes: Memori a 5-10 Ingredient l 12:00: s: 2 ml Jarek 00 lidocaine 1% inj , 0.2ml sodium bicarbonat e 8.4% inj total volume = 2.2ml Refrigerat e: 14 days Room temp: 7 days Calcium No 1,000 mL, Memor ia Chloride 5-10 Rate: 25 l 0.0014 11:59: ml/hr, [place] MEQ/ML / 00 Infuse Potassium over: 40 Chloride hr, Route: 0.004 IV, Dosing MEQ/ML / Weight Sodium 74.716 kg, Chloride Total 0.103 Volume: MEQ/ML / 1,000, Sodium Start Lactate date: 0.028 03/19/17 MEQ/ML 6:59:00 Injectable CDT, Solution Duration: 30 day, Stop date: 04/18/17 6:58:00 CDT Calcium No 1,000 mL, Memor ia Chloride 5-10 Rate: 25 l 0.0014 11:59: ml/hr, [place] MEQ/ML / 00 Infuse Potassium over: 40 Chloride hr, Route: 0.004 IV, Dosing MEQ/ML / Weight Sodium 74.716 kg, Chloride Total 0.103 Volume: MEQ/ML / 1,000, Sodium Start Lactate date: 0.028 03/19/17 MEQ/ML 6:59:00 Injectable CDT, Solution Duration: 30 day, Stop date: 04/18/17 6:58:00 CDT Neurontin No Notes: Memori a 5-10 (Same as: l 11:00: Neurontin) Jarek Cyklokapron No Notes: Herb cris 5-10 (Same As: l 11:00: Cyklokapro [place] 00 n) Lactated No IV, 100 Memori a Ringers 5-10 ml/hr, l Injection 11:00: Fuentes GONZALEZa nn IV 00 Start date: 03/19/17 6:00:00 CDT, Duration: 1, 1,000 ml ceFAZolin + No Notes: Herb cris sodium 5-10 (Same As: l chloride 11:00: Ancef, [place] 0.9% 100 mL 00 Kefzol) INJ (for IV set) 100 mL MEDICATION WASTE Product Size: 1000 mg Product Wasted: 0__ mg Neurontin No Notes: Memori a 5-10 (Same as: l 11:00: Neurontin) Jarek Cyklokapron No Notes: Herb cris 5-10 (Same As: l 11:00: Cyklokapro [place] 00 n) Lactated No IV, 100 Memori a Ringers 5-10 ml/hr, l Injection 11:00: Fuentes GONZALEZa nn IV 00 Start date: 03/19/17 6:00:00 CDT, Duration: 1, 1,000 ml ceFAZolin + No Notes: Herb cris sodium 5-10 (Same As: l chloride 11:00: Ancef, Jarek 0.9% 100 mL 00 Kefzol) INJ (for IV set) 100 mL MEDICATION WASTE Product Size: 1000 mg Product Wasted: 0__ mg Sodium No IV, 0 Memoria Chloride 5-09 ml/hr, l 0.9% IV 19:29: PRN, PRN Enoc n 00 Line Flush, Start date: 03/18/17 14:29:00 CDT, Duration: 30, 25 ml BD Normal No Notes: Memori a Saline 03-18 (Same as: l Flush 19:29: BD [place] 00 Posiflush) Sodium No IV, 0 Memoria Chloride - ml/hr, l 0.9% IV 19:29: PRN, PRN Enoc n 00 Line Flush, Start date: 03/18/17 14:29:00 CDT, Duration: 30, 25 ml BD Normal No Notes: Memori a Saline 03-18 (Same as: l Flush 19:29: BD [place] 00 Posiflush) lansoprazol Yes 30 mg = 1 M emoria e 30 mg 5-02 tab, PO, l oral 17:13: Daily, # Jarek tablet, 00 30 tab, 0 disintegrat Refill(s) ing lisinopril Yes 30 mg = 1 Me moria 30 mg oral 5-02 tab, PO, l tablet 17:13: Daily, # Jarek 00 30 tab, 0 Refill(s) nortriptyli 0 Yes 50 mg = 1 M emoria ne 50 mg 5-02 cap, PO, l oral 17:13: Bedtime, # [place] capsule 00 30 cap, 1 Refill(s) silodosin 8 Yes 8 mg = 1 Me moria MG Oral 5-02 cap, PO, l Capsule 17:13: Daily, 0 Enoc n [Rapaflo] 00 Refill(s) lansoprazol Yes 30 mg = 1 M emoria e 30 mg 5-02 tab, PO, l oral 17:13: Daily, # Jarek tablet, 00 30 tab, 0 disintegrat Refill(s) ing lisinopril Yes 30 mg = 1 Me moria 30 mg oral 5-02 tab, PO, l tablet 17:13: Daily, # Jarek 00 30 tab, 0 Refill(s) nortriptyli 2017-0 Yes 50 mg = 1 M emoria ne 50 mg 5-02 cap, PO, l oral 17:13: Bedtime, # Jarek capsule 00 30 cap, 1 Refill(s) silodosin 8 Yes 8 mg = 1 Me moria MG Oral 02 cap, PO, l Capsule 17:13: Daily, 0 Enoc n [Rapaflo] 00 Refill(s) Vital Signs Vital Name Observation Time Observation Value Comments Source Systolic blood 2021-05-26 15:10:00 146 mm[Hg] Univer sity of pressure [facility] Diastolic blood 2021-05-26 15:10:00 81 mm[Hg] Unive rsity of pressure [facility] Heart rate 2021-05-26 15:10:00 67 /min Universi ty of [facility] Body temperature 2021-05-26 15:10:00 36.78 Rena Univ ersity of [facility] Oxygen saturation in 2021-05-26 15:10:00 97 /min University of Arterial blood by [place] [employer] will Pulse oximetry Branch Respiratory rate 2021-05-26 14:40:00 18 /min Univ ersity of [facility] Body height 2021-05-26 13:05:00 177.8 cm [facility] Body weight 2021-05-26 13:05:00 74.844 kg [facility] [place] [facility] BMI 2021-05-26 13:05:00 23.68 kg/m2 [facility] Systolic blood 2021-05-26 15:10:00 146 mm[Hg] Univer sity of [facility] Diastolic blood 2021-05-26 15:10:00 81 mm[Hg] Unive rsity of [facility] Heart rate 2021-05-26 15:10:00 67 /min [facility] [place] [facility] Body temperature 2021-05-26 15:10:00 36.78 Rena Univ [facility] Oxygen saturation in 2021-05-26 15:10:00 97 /min University of Arterial blood by [facility] will Pulse oximetry Branch Respiratory rate 2021-05-26 14:40:00 18 /min Univ ersity of [facility] Body height 2021-05-26 13:05:00 177.8 cm [facility] [place] [facility] Body weight 2021-05-26 13:05:00 74.844 kg [facility] BMI 2021-05-26 13:05:00 23.68 kg/m2 Universi ty of [facility] Body height 2022-07-26 14:44:00 177.8 cm [facility] Body weight 2022-07-26 14:44:00 79.379 kg [facility] BMI 2022-07-26 14:44:00 25.11 kg/m2 [facility] Systolic blood 2022-04-30 14:19:00 144 mm[Hg] [facility] Diastolic blood 2022-04-30 14:19:00 85 mm[Hg] [facility] pressure Heart rate 2022-04-30 14:19:00 81 /min [facility] Systolic blood 2021-10-30 19:01:00 178 mm[Hg] [facility] pressure Diastolic blood 2021-10-30 19:01:00 82 mm[Hg] [facility] pressure Heart rate 2021-10-30 19:01:00 59 /min [facility] Body height 2021-10-30 18:56:00 177.8 cm [facility] Body weight 2021-10-30 18:56:00 76.658 kg [facility] BMI 2021-10-30 18:56:00 24.25 kg/m2 [facility] Systolic blood 2021-01-23 13:56:00 144 mm[Hg] [facility] pressure Diastolic blood 2021-01-23 13:56:00 77 mm[Hg] [facility] pressure Heart rate 2021-01-23 13:56:00 44 /min [facility] Body height 2021-01-23 13:56:00 177.8 cm [facility] Body weight 2021-01-23 13:56:00 75.751 kg [facility] BMI 2021-01-23 13:56:00 23.96 kg/m2 [facility] Respitory Rate 2017-03-21 14:13:00 Memamber al [place] Systolic (mm Hg) 2017-03-21 14:13:00 Herb crisl Jarek Diastolic (mm Hg) 2017-03-21 14:13:00 Mem orial [place] Temperature Oral (F) 2017-03-21 14:13:00 98.2 F [facility] [place] Heart Rate 2017-03-21 14:13:00 Memorial Jarek Systolic (mm Hg) 2017-03-21 10:35:00 Herb rial [place] Diastolic (mm Hg) 2017-03-21 10:35:00 Mem orial [place] Respitory Rate 2017-03-21 10:35:00 Memori al [place] Heart Rate 2017-03-21 10:35:00 Memorial Jarek Temperature Oral (F) 2017-03-21 10:35:00 98.2 F Memorial [place] Temperature Oral (F) 2017-03-21 04:33:00 98.4 F [facility] Jarek Respitory Rate 2017-03-21 04:33:00 Memori al Jarek Heart Rate 2017-03-21 04:33:00 [facility] Jarek Systolic (mm Hg) 2017-03-21 04:33:00 Herb rial Jarek Diastolic (mm Hg) 2017-03-21 04:33:00 Mem orial Jarek Height 2017-03-11 17:17:00 [facility]82 [facility] Cal[facility] 2017-03-11 [facility] [place] Weight 2017-03-11 17:17:[address] [facility] Procedures Procedure Date / Time Performed Performing Clinician Sour e NH INJECT TRIGGER 2022-07-26 18:04:06 Carlos Dover [facility] POINT, 1 OR 2 XR CERVICAL SPINE 2 2022-07-26 14:47:44 [facility] OR 3 VW ECG 12-LEAD 2022-04-30 14:20:54 Jose [place] [facility]ital ECG 12-LEAD 2021-10-30 19:00:23 Jose [place] Ho spital TTE COMPLETE, W 2021-08-27 19:05:31 Jose Dover spital CONTRAST, W DOPPLER ([id number]) IMMTRAC2 CONSENT 2021-05-26 05:01:00 Doctor Unassigned, No [facility] ECG 12-LEAD 2021-01-23 13:58:29 Jose Dover Ho spital TTE COMPLETE, W 2020-09-21 18:53:55 Jose Dover Ho spital CONTRAST, W DOPPLER ([id number]) Shoulder joint 2015-11-11 06:00:00 [facility] operations<sup>1</sup > Neck repair 2015-03-11 05:00:00 [facility] Her faustin Plan of Care Planned Activity Planned Date Details Comments Source Future Scheduled 2022-07-26 HEPATITIS B VACCINES Met [facility] Test 09:45:36 (1 of 3 - 3-dose series) [code = HEPATITIS B VACCINES (1 of 3 - 3-dose series)] Future Scheduled 2022-07-26 COVID-19 VACCINE (#1) [facility] Hospital Test 09:45:36 [code = COVID-19 VACCINE (#1)] Future Scheduled 2022-07-26 65+ PNEUMOCOCCAL Method[facility] Hospital Test 09:45:36 VACCINE (1 - PCV) [code = 65+ PNEUMOCOCCAL VACCINE (1 - PCV)] Future Scheduled 2022-07-26 Hepatitis C screening [facility] Test 09:45:36 (procedure) [code = 204994525] Future Scheduled 2022-07-26 SHINGLES VACCINES (1 Met [facility] Test 09:45:36 of 2) [code = SHINGLES VACCINES (1 of 2)] Future Scheduled 2022-07-26 COLONOSCOPY SCREENING [facility] Test 09:45:36 [code = COLONOSCOPY SCREENING] Future Scheduled 2022-07-26 INFLUENZA VACCINE Method [facility] Test 09:45:36 [code = INFLUENZA VACCINE] Future Scheduled 2021-12-11 COVID-19 VACCINE (1) Met [facility] Test 14:18:26 [code = COVID-19 VACCINE (1)] Future Scheduled 2021-12-11 65+ PNEUMOCOCCAL Methodi [facility] Test 14:18:26 VACCINE (1 of 4 - PCV13) [code = 65+ PNEUMOCOCCAL VACCINE (1 of 4 - PCV13)] Future Scheduled 2021-12-11 Hepatitis C screening [facility] Hospital Test 14:18:26 (procedure) [code = 059492264] Future Scheduled 2021-12-11 COLONOSCOPY SCREENING [facility] Hospital Test 14:18:26 [code = COLONOSCOPY SCREENING] Future Scheduled 2021-12-11 SHINGLES VACCINES (#1) M [facility] Hospital Test 14:18:26 [code = SHINGLES VACCINES (#1)] Future Scheduled 2021-12-11 INFLUENZA VACCINE [facility] Test 14:18:26 [code = INFLUENZA VACCINE] Future Scheduled 65+ PNEUMOCOCCAL Methodi Hospital Test VACCINE (1 of 4 - PCV13) [code = 65+ PNEUMOCOCCAL VACCINE (1 of 4 - PCV13)] Future Scheduled COVID-19 VACCINE (1) Met [facility] Hospital Test [code = COVID-19 VACCINE (1)] Future Scheduled Hepatitis C screening Me [facility] Test (procedure) [code = 570251185] Future Scheduled COLONOSCOPY SCREENING [facility] Hospital Test [code = COLONOSCOPY SCREENING] Future Scheduled SHINGLES VACCINES (#1) [facility] Test [code = SHINGLES VACCINES (#1)] Future Scheduled INFLUENZA VACCINE [facility] Test [code = INFLUENZA VACCINE] Encounters Start End Encounter Admission Attending Care Care Encounter Source Date/Time Date/Time Type Type Clinicians Facility Department ID 2022-03-01 Outpatient [facility] [id number] Common 11:23:02 [facility] 2022-02-25 Outpatient [facility] [id number] Common 09:02:01 [facility] 2021-12-05 Outpatient [facility] [id number] Common 11:50:50 [facility] 2022-07-26 2022-07-26 Office Carlos Dover 1.2.840.1 [id number] Methodi 09:45:00 11:33:46 Visit Cedrick 43020.1.[address] 3.430.2.7 Hospit a .3.869531 l .8 2022-07-26 2022-07-26 Outpatient CARLOS DOVER [facility] [id number] [place] 00:00:00 00:00:[address] 2022-07-26 2022-07-26 Outpatient CARLOS DOVER [facility] [id number] [place] 00:00:00 00:00:[address] 2022-07-26 2022-07-26 Travel 1.2.840.1 1.2.932.013 [id number] Methodi 00:00:00 00:00:[address] 3.430.2.7 0.2.7.3.698 Ho spita .3.361197 084.8 l .8 2022-07-01 2022-07-01 Travel 1.2.840.1 1.2.234.869 4427 [id number] Methodi 00:00:00 00:00:[address] 3.430.2.7 0.2.7.3.698 Ho spita .3.251512 084.8 l .8 2022-06-02 2022-06-02 Refill [place] 1.2.840.1 [id number] 0475 Methodi 00:00:00 00:00:00 Jose Aguiar 91534.1.[address] 3.430.2.7 Hospit a .3.166701 l .8 2022-04-30 2022-04-30 Office [place] 1.2.840.1 [id number] 8496 Methodi 09:30:00 15:24:44 Visit Jose Nix50.1.[address] 3.430.2.7 Hospit a .3.544447 l .8 2022-04-30 2022-04-30 [facility] [id number] [address] [place] [address] 00:00:00 00:00:[address] JOSE [address] 2022-04-30 2022-04-30 Travel 1.2.840.1 1.2.924.274 1632 [id number] Methodi 00:00:00 00:00:[address] 3.430.2.7 0.2.7.3.698 Ho spita .3.433289 084.8 l .8 2022-03-02 2022-03-02 Refill [place] 1.2.840.1 [id number] 6015 Methodi 00:00:00 00:00:00 Jose Aguiar 88497.1.[address] 3.430.2.7 Hospit a .3.832887 l .8 2022-02-27 2022-02-27 ambulatory [facility]C [facility] [id number] Common 00:00:00 00:00:00 [facility] 2021-11-28 2021-11-28 Refill [place], 1.2.840.1 [id number] Methodi 00:00:00 00:00:[address]189.1.[address] 3.430.2.7 Hospit a .3.526910 l .8 2021-11-28 2021-11-28 Refill [place], 1.2.840.1 [id number] 7218 Methodi 00:00:00 00:00:00 Jose Aguiar 34061.1.[address] 3.430.2.7 Hospit a .3.605126 l .8 2021-11-14 2021-11-14 ambulatory [facility]LMLC [facility] [id number] Common 00:00:00 00:00:00 [facility] 2021-10-30 2021-10-30 Office [place], 1.2.840.1 [id number] 4229 Methodi 13:00:00 14:21:17 Visit Jose Aguiar 86494.1.[address] 3.430.2.7 Hospit a .3.873060 l .8 2021-10-30 2021-10-30 Office [place], 1.2.840.1 [id number] 0182 Methodi 12:49:23 14:21:17 Visit Jose AdanNhi 47281.1.[address] 3.430.2.7 Hospit a .3.015720 l .8 2021-10-30 2021-10-30 Travel 1.2.840.1 1.2.188.710 8991 [id number] Methodi 00:00:00 00:00:[address] 3.430.2.7 0.2.7.3.698 Ho spita .3.871232 084.8 l .8 2021-10-30 2021-10-30 Travel 1.2.840.1 1.2.153.331 0881 [id number] Methodi 00:00:00 00:00:[address] 3.430.2.7 0.2.7.3.698 Ho spita .3.939811 084.8 l .8 2021-10-22 2021-10-22 Telephone [place], 1.2.840.1 [id number] 2099 [id number] Methodi 00:00:00 00:00:00 Jose [address]171.1.[address] 3.430.2.7 Hospit a .3.350126 l .8 2021-10-22 2021-10-22 Telephone [place], 1.2.840.1 [id number] 2099 [id number] Methodi 00:00:00 00:00:[address]483.1.[address] 3.430.2.7 Hospit a .3.219836 l .8 2021-08-29 2021-08-29 Outpatient [facility] [id number] Common 00:00:00 00:00:00 [facility] 2021-08-27 2021-08-27 [facility] [id number] [place] 00:00:00 00:00:00 JOSE [address] 2021-08-27 2021-08-27 Travel 1.2.840.1 1.2.190.988 5961 [id number] Methodi 00:00:00 00:00:[address] 3.430.2.7 0.2.7.3.698 Ho spita .3.574784 084.8 l .8 2021-08-27 2021-08-27 Travel 1.2.840.1 1.2.304.723 9020 823949 Methodi 00:00:00 00:00:[address] 3.430.2.7 0.2.7.3.698 Ho spita .3.825179 084.8 l .8 2021-08-14 2021-08-14 Office [place], 1.2.840.1 [id number] 4208 Methodi 14:30:00 16:47:52 Visit Jose R. 04894.1.[address] 3.430.2.7 Hospit a .3.988073 l .8 2021-08-14 2021-08-14 Office [place], 1.2.840.1 [id number] 7642 Methodi 14:13:03 16:47:52 Visit Jose Aguiar 34346.1.[address] 3.430.2.7 Hospit a .3.441293 l .8 2021-08-14 2021-08-14 Travel 1.2.840.1 1.2.116.600 1025 [id number] Methodi 00:00:00 00:00:[address] 3.430.2.7 0.2.7.3.698 Ho spita .3.564431 084.8 l .8 2021-08-14 2021-08-14 Travel 1.2.840.1 1.2.865.276 5175 340226 Methodi 00:00:00 00:00:[address] 3.430.2.7 0.2.7.3.698 Ho spita .3.530458 084.8 l .8 2021-08-10 2021-08-10 Travel 1.2.840.1 1.2.905.229 9204 [id number] Methodi 00:00:00 00:00:[address] 3.430.2.7 0.2.7.3.698 Ho spita .3.473388 084.8 l .8 2021-08-10 2021-08-10 Telephone [place], 1.2.840.1 [id number] 2099 [id number] Methodi 00:00:00 00:00:00 Jose Aguiar 81032.1.[address] 3.430.2.7 Hospit a .3.093190 l .8 2021-08-10 2021-08-10 Telephone [place], 1.2.840.1 [id number] 2099 [id number] Methodi 00:00:00 00:00:00 Jose Aguiar 54329.1.[address] 3.430.2.7 Hospit a .3.373060 l .8 2021-08-10 2021-08-10 Travel 1.2.840.1 1.2.973.023 3309 [id number] Methodi 00:00:00 00:00:[address] 3.430.2.7 0.2.7.3.698 Ho spita .3.864180 084.8 l .8 2021-08-10 2021-08-10 Telephone [place], 1.2.840.1 [id number] 2099 [id number] Methodi 00:00:00 00:00:00 Jose R[address] 15481.1.[address] 3.430.2.7 Hospit a .3.937683 l .8 2021-08-10 2021-08-10 Telephone [place], 1.2.840.1 [id number] 2099 [id number] Methodi 00:00:00 00:00:00 Jose R. 19870.1.[address] 3.430.2.7 Hospit a .3.854265 l .8 2021-07-31 2021-07-31 Refisabella [place], 1.2.840.1 [id number] 0325 Methodi 00:00:00 00:00:00 Jose R[address] 43950.1.[address] 3.430.2.7 Hospit a .3.352119 l .8 2021-07-27 2021-07-27 Real [place], 1.2.840.1 [id number] 9892 Methodi 00:00:00 00:00:00 [address] 96706.1.[address] 3.430.2.7 Hospit a .3.583591 l .8 2021-06-28 2021-06-28 Outpatient [facility] [id number] Common 00:00:00 00:00:00 [facility] 2021-06-13 2021-06-13 Outpatient [facility] [id number] Common 00:00:00 00:00:00 [facility] 2021-06-11 2021-06-11 Outpatient [facility] [id number] Common 00:00:00 00:00:00 [facility] 2021-05-26 2021-05-26 Nurse Therapy, [facility] 1.2.840.114 [id number] 07:59:21 08:29:21 Visit Adc Covyamilex Adams 350.1.13.10 Infusion [place] 4.2.7.2.686 Surgical [id number] [place] [address] 2021-05-26 2021-05-26 Nurse Therapy, Adc Covid Infusion [facility] 1.2.840.114 [id number] [facility] 07:59:21 08:29:21 Visit Rafael Boogie 350.1.13.10 ity [place] [id number] [address] 2021-05-26 2021-05-26 Outpatient R [facility] [id number] Univers 08:00:00 08:00:00 [id number] ity [facility] 2021-05-26 2021-05-26 [facility] [id number] Univers 08:00:00 08:00:00 RAFAEL ity [facility] 2021-05-26 2021-05-26 Orders Doctor SERRATO 1.2.840.114 [id number] 00:00:00 00:00:00 Only Unassigned, DALILA 350.1.13.10 [place] [facility] 4.2.7.2.686 [id number] [facility] 2021-05-26 2021-05-26 Orders Doctor SERRATO 1.2.840.114 [id number] Univers 00:00:00 00:00:00 Only Unassigned, DALILA 350.1.13.10 ity of [place] [facility] 4.2.7.2.686 Joseph as [id number] [address] 2021-05-21 2021-05-21 Outpatient [facility] [id number] Common 00:00:00 00:00:00 [facility] 2020-12-13 2021-04-01 Outpatient C TARANGO, [facility] PT [id number] [place] 11:08:00 23:59:00 [facility] 2021-03-20 2021-03-20 Refill [place], 1.2.840.1 [id number] Methodi 00:00:00 00:00:00 Jose R. 19091.1.[address] 3.430.2.7 Hospit a .3.891299 l .8 2021-03-11 2021-03-11 Refill [place], 1.2.840.1 [id number] 5448 Methodi 00:00:00 00:00:00 Jose R. 28398.1.[address] 3.430.2.7 Hospit a .3.936709 l .8 2021-01-23 2021-01-23 Office [place], 1.2.840.1 [id number] 1419 Methodi 08:44:13 13:22:27 Visit Jose R. 53019.1.[address] 3.430.2.7 Hospit a .3.822830 l .8 2021-01-23 2021-01-23 Refill [place], 1.2.840.1 [id number] 4227 Methodi 00:00:00 00:00:00 [address]7435.1.[address] 3.430.2.7 Hospit a .3.555332 l .8 2020-12-17 2020-12-17 Refill [place], 1.2.840.1 [id number] 8451 Methodi 00:00:00 00:00:[address] R[address] 34386.1.[address] 3.430.2.7 Hospit a .3.708410 l .8 2020-11-21 2020-11-21 Outpatient [facility] [id number] Common 00:00:00 00:00:00 [facility] 2020-09-25 2020-09-25 Refill [place], 1.2.840.1 [id number] Methodi 00:00:00 00:00:[address]36.1.[address] 3.430.2.7 Hospit a .3.056483 l .8 2020-09-21 2020-09-21 Outpatient DOVER, [facility] [id number] 072 [place] 00:00:00 00:00:00 JOSE [address] 2020-09-21 2020-09-21 Travel 1.2.840.1 1.2.050.357 9374 [id number] Methodi 00:00:00 00:00:[address] 3.430.2.7 0.2.7.3.698 Ho spita .3.499998 084.8 l .8 2020-09-06 2020-09-06 Refill Km 1.2.840.1 [id number] [id number] Methodi 00:00:00 00:00:[address] 3.430.2.7 Hospit a .3.745747 l .8 2020-08-10 2020-08-10 Outpatient [facility] [id number] Common 00:00:00 00:00:00 [facility] 2020-08-06 2020-08-06 Refill [place] 1.2.840.1 [id number] Methodi 00:00:00 00:00:00 Jose Aguiar 36954.1.[address] 3.430.2.7 Hospit a .3.677233 l .8 2020-07-25 2020-07-25 Office [place] 1.2.840.1 [id number] 2979 Methodi 11:35:29 14:53:02 Visit Jose Aguiar 48216.1.[address] 3.430.2.7 Hospit a .3.028485 l .8 2020-07-24 2020-07-24 Travel 1.2.840.1 1.2.751.193 5906 [id number] Methodi 00:00:00 00:00:[address] 3.430.2.7 0.2.7.3.698 Ho spita .3.184041 084.8 l .8 2020-07-23 2020-07-23 Refill [place], 1.2.840.1 [id number] 0068 Methodi 00:00:00 00:00:00 Jose Aguiar 67597.1.[address] 3.430.2.7 Hospit a .3.369367 l .8 2020-07-12 2020-07-12 Orders LunaCaryin 1.2.840.1 [id number] [id number] Methodi 00:00:00 00:00:[address] 3.430.2.7 Hospit a .3.416189 l .8 2020-07-11 2020-07-11 Telephone Tommy Carrasco 1.2.840.1 [id number] Methodi 00:00:00 00:00:[address] 3.430.2.7 Hospit a .3.708136 l .8 2020-06-27 2020-06-27 Travel 1.2.840.1 1.2.308.050 [id number] Methodi 00:00:00 00:00:[address] 3.430.2.7 0.2.7.3.698 Ho spita .3.515903 084.8 l .8 2020-03-28 2020-03-28 [facility] [id number] [place] 00:00:00 00:00:00 JOSE [address] 2019-11-16 2019-11-24 Inpatient [facility] 2100 [id number] [place] 00:00:00 00:00:00 NENA Medina [address] 2019-10-27 2019-10-27 Outpatient [facility] [id number] [place] 00:00:00 00:00:00 NENA Medina 058 [address] 2019-10-27 2019-10-27 Outpatient [facility] [id number] [place] 00:00:00 00:00:00 NENA Medina [address] 2019-10-20 2019-10-20 [place] [id number] [place] 00:00:00 00:00:00 JOSE [address] 2018-08-28 2018-11-21 Outpatient C EMELINA, C [facility] [id number] [facility] 09:11:00 23:59:00 KAL [facility] 2017-03-19 2017-03-21 Inpatient [facility] [id number] [place] 11:59:00 16:15:00 r Jarek 00 l [facility] 2017-03-19 2017-03-21 Inpatient [facility] [id number] [place] 11:59:00 16:15:00 r Jarek 00 l [facility] 2017-03-19 2017-03-21 Outpatient Eloy, 9 9 [id number] 06:59:00 11:15:00 Arden B 00 Results Test Description Test Time Test Comments Results Result Comments Source ECG 12 lead 2022-04-30 21:44:56 Test Item Value Reference Range Interpretation Comme nts Ventricular rate (test code = 253) Atrial rate (test code = 255) NH interval (test code = 266) QRSD interval (test code = 260) QT interval (test code = 264) QTC interval (test code = 265) P axis 1 (test code = 267) QRS axis 1 (test code = 268) T wave axis (test code = 270) EKG impression (test code = 273) Poor data quality-Sinus rhythm wit h marked sinus arrhythmia-Nonspecific T wave abnormality-Abnormal ECG-In automated comparison with ECG of 30-OCT-2021 13:00,-No significant change was found-Electronically Signed By Miguel WALDRON, [facility] ([id number]) on 04/30/2022 4:44:52 PM [facility] 12 [id number] 04:07:33 Test Item Value Reference Range Interpretation Comments Ventricular rate (test code = 253) Atrial rate (test code = 255) NH interval (test code = 266) QRSD interval (test code = 260) QT interval (test code = 264) QTC interval (test code = 265) P axis 1 (test code = 267) QRS axis 1 (test code = 268) T wave axis (test code = 270) EKG impression (test Sinus code = 273) bradycardia-Otherwise normal ECG-In automated comparison with ECG of 23-JAN-2021 08:58,-premature atrial complexes are no longer present-Electronically Signed By Miguel WALDRON [facility] ([id number]) on 10/30/2021 10:07:27 [place] [address] [id number] 10:24:59 Test Item Value Reference Range Interpretation Comments Ventricular rate (test code = 253) Atrial rate (test code = 255) [place] interval (test code = 266) QRSD interval (test code = 260) QT interval (test code = 264) QTC interval (test code = 265) P axis 1 (test code = 267) QRS axis 1 (test code = 268) T wave axis (test code = 270) EKG impression (test code = 273) [facility]2017-05-11 08:29:00 Test Item Value Reference Range Interpretation Comments Calcium Lvl (test code = Calcium Lvl) 9.3 8.5-10.5 [facility]2017-05-11 08:29:00 Test Item Value Reference Range Interpretation Comments eGFR (test code = eGFR) 50 [facility]2017-05-11 08:29:00 Test Item Value Reference Range Interpretation Comments Glucose Lvl (test code = Glucose Lvl) 116 70-99 [facility]2017-05-11 08:29:00 Test Item Value Reference Range Interpretation Comments BUN (test code = BUN) 29 7-22 [facility]2017-05-11 08:29:00 Test Item Value Reference Range Interpretation Comments Chloride Lvl (test code = Chloride Lvl) 104 95-109 [facility]2017-05-11 08:29:00 Test Item Value Reference Range Interpretation Comments Sodium Lvl (test code = Sodium Lvl) 138 135-145 [facility]2017-05-11 08:29:00 Test Item Value Reference Range Interpretation Comments CO2 (test code = CO2) 29 24-32 [facility]2017-05-11 08:29:00 Test Item Value Reference Range Interpretation Comments Potassium Lvl (test code = Potassium 4.6 3.5-5.1 Lvl) [facility]2017-05-11 08:29:00 Test Item Value Reference Range Interpretation Comments Creatinine Lvl (test code = Creatinine 1.41 0.50-1.40 Lvl) [facility]2017-05-11 08:29:00 Test Item Value Reference Range Interpretation Comments AGAP (test code = AGAP) 9.6 10.0-20.0 [facility]hijgxhCDWSQVPVWT5709-69-04 08:29:00 Test Item Value Reference Range Interpretation Comments Hct (test code = Hct) 38.5 42.0-54.0 [facility] CenterFomigopYSZOTAZNSU6116-32-81 08:29:00 Test Item Value Reference Range Interpretation Comments Hgb (test code = Hgb) 13.0 14.0-18.0 [facility]2017-05-11 08:29:00 Test Item Value Reference Range Interpretation Comments Calcium Lvl (test code = Calcium Lvl) 9.3 8.5-10.5 [facility]2017-05-11 08:29:00 Test Item Value Reference Range Interpretation Comments eGFR (test code = eGFR) 50 [facility]2017-05-11 08:29:00 Test Item Value Reference Range Interpretation Comments Glucose Lvl (test code = Glucose Lvl) 116 70-99 [facility]2017-05-11 08:29:00 Test Item Value Reference Range Interpretation Comments BUN (test code = BUN) 29 7-22 [facility]2017-05-11 08:29:00 Test Item Value Reference Range Interpretation Comments Chloride Lvl (test code = Chloride Lvl) 104 95-109 [facility]2017-05-11 08:29:00 Test Item Value Reference Range Interpretation Comments Sodium Lvl (test code = Sodium Lvl) 138 135-145 [facility]2017-05-11 08:29:00 Test Item Value Reference Range Interpretation Comments CO2 (test code = CO2) 29 24-32 [place] 909117-05-11 08:29:00 Test Item Value Reference Range Interpretation Comments Potassium Lvl (test code = Potassium 4.6 3.5-5.1 Lvl) [facility]2017-05-11 08:29:00 Test Item Value Reference Range Interpretation Comments Creatinine Lvl (test code = Creatinine 1.41 0.50-1.40 Lvl) [facility]2017-05-11 08:29:00 Test Item Value Reference Range Interpretation Comments AGAP (test code = AGAP) 9.6 10.0-20.0 [facility] CenterBcvrrzuQFCHRHYZZR1360-45-43 08:29:00 Test Item Value Reference Range Interpretation Comments Hct (test code = Hct) 38.5 42.0-54.0 [facility] CenterEljhkvmWXLLRZPYHU3254-54-70 08:29:00 Test Item Value Reference Range Interpretation Comments Hgb (test code = Hgb) 13.0 14.0-18.0 [facility]IdvvwdrTXAJEDTEMGBO0843-86-67 15:28:00 Test Item Value Reference Range Interpretation Comments Chloride Lvl (test code = Chloride Lvl) 108 95-109 [facility]inteTkvrxjwSUVDNDXTWUTI9172-41-81 15:28:00 Test Item Value Reference Range Interpretation Comments AGAP (test code = AGAP) 14.7 10.0-20.0 [facility]inteVznggolDZBTLWNYHWKM2479-17-74 15:28:00 Test Item Value Reference Range Interpretation Comments Calcium Lvl (test code = Calcium Lvl) 9.5 8.5-10.5 [facility]inteBlwgfctIEOBAXWICAXF4399-21-99 15:28:00 Test Item Value Reference Range Interpretation Comments CO2 (test code = CO2) 25 24-32 [facility]inteXkcocqqQHNAKVBZBWHB6465-56-03 15:28:00 Test Item Value Reference Range Interpretation Comments eGFR (test code = eGFR) 43 [facility]inteFylsoryRFHVJWUAMVIC1025-12-96 15:28:00 Test Item Value Reference Range Interpretation Comments Creatinine Lvl (test code = Creatinine 1.60 0.50-1.40 Lvl) [facility]inteRwnjnidZCWYTQBBJLOC4163-42-53 15:28:00 Test Item Value Reference Range Interpretation Comments Glucose Lvl (test code = Glucose Lvl) 143 70-99 [facility]inteFovbdvkANTECMRGSAOW4277-06-73 15:28:00 Test Item Value Reference Range Interpretation Comments BUN (test code = BUN) 28 7-22 [facility]inteEtxdpyfYGEBSITEQHTP8485-60-53 15:28:00 Test Item Value Reference Range Interpretation Comments Sodium Lvl (test code = Sodium Lvl) 143 135-145 [facility]inteZpdprldKZOSTRDAVNHL7750-13-51 15:28:00 Test Item Value Reference Range Interpretation Comments Potassium Lvl (test code = Potassium 4.7 3.5-5.1 Lvl) [facility] CenterJgqkcavDXYPXKLVYO5351-84-86 15:28:00 Test Item Value Reference Range Interpretation Comments Hct (test code = Hct) 41.9 42.0-54.0 [facility] CenterCwmduraGPFQBUWPJF9658-58-02 15:28:00 Test Item Value Reference Range Interpretation Comments Hgb (test code = Hgb) 14.1 14.0-18.0 [facility]inteHfniykaAXGVJDEVKZHW7817-68-12 15:28:00 Test Item Value Reference Range Interpretation Comments Chloride Lvl (test code = Chloride Lvl) 108 95-109 [facility]inteItbmjglJRPSHFFXHQMG2269-04-18 15:28:00 Test Item Value Reference Range Interpretation Comments AGAP (test code = AGAP) 14.7 10.0-20.0 [facility]inteWbasrubTAHMXQQZLBFL2228-26-48 15:28:00 Test Item Value Reference Range Interpretation Comments Calcium Lvl (test code = Calcium Lvl) 9.5 8.5-10.5 [facility]inteDtzufzzSUPWSEADKVNN7401-11-66 15:28:00 Test Item Value Reference Range Interpretation Comments CO2 (test code = CO2) 25 24-32 [facility]inteJffjqzvBYXMLGFABZIY5318-94-77 15:28:00 Test Item Value Reference Range Interpretation Comments eGFR (test code = eGFR) 43 [facility]inteGfzttjzKJNOMSYFVGCG0594-04-86 15:28:00 Test Item Value Reference Range Interpretation Comments Creatinine Lvl (test code = Creatinine 1.60 0.50-1.40 Lvl) [facility]inteMcdmyreAGHJFWXXGGSI1699-93-41 15:28:00 Test Item Value Reference Range Interpretation Comments Glucose Lvl (test code = Glucose Lvl) 143 70-99 [facility]inteKzqqnfgENAVIAZXEXID3756-53-46 15:28:00 Test Item Value Reference Range Interpretation Comments BUN (test code = BUN) 28 7-22 [facility]inteQtmcowxEOMODATVTTAJ5642-43-11 15:28:00 Test Item Value Reference Range Interpretation Comments Sodium Lvl (test code = Sodium Lvl) 143 135-145 [facility]inteUjazmyxIHGNSDNUFAKN2057-63-36 15:28:00 Test Item Value Reference Range Interpretation Comments Potassium Lvl (test code = Potassium 4.7 3.5-5.1 Lvl) [facility] CenterZkhqoogCOPMZWUYKY3437-62-91 15:28:00 Test Item Value Reference Range Interpretation Comments Hct (test code = Hct) 41.9 42.0-54.0 [facility] CenterIepizyrYUDBHHLXYT8050-02-93 15:28:00 Test Item Value Reference Range Interpretation Comments Hgb (test code = Hgb) 14.1 14.0-18.0 [facility]2017-05-10 12:14:00 Test Item Value Reference Range Interpretation Comments Alk Phos (test code = Alk Phos) 94 39-136 [facility]2017-05-10 12:14:00 Test Item Value Reference Range Interpretation Comments Albumin Lvl (test code = Albumin Lvl) 3.8 3.5-5.0 [facility]2017-05-10 12:14:00 Test Item Value Reference Range Interpretation Comments Total Protein (test code = Total 7.7 6.4-8.4 Protein) [facility]2017-05-10 12:14:00 Test Item Value Reference Range Interpretation Comments Calcium Lvl (test code = Calcium Lvl) 10.6 8.5-10.5 [facility]2017-05-10 12:14:00 Test Item Value Reference Range Interpretation Comments ALT (test code = ALT) 30 See_Comment [Auto mated message] The system which ge nerated this result transmit alexandro reference range : <=65. The reference range was not used to interpr et this result as josee l/abnormal. [facility]2017-05-10 12:14:00 Test Item Value Reference Range Interpretation Comments BUN (test code = BUN) 30 7-22 [facility]2017-05-10 12:14:00 Test Item Value Reference Range Interpretation Comments Potassium Lvl (test code = Potassium 4.2 3.5-5.1 Lvl) [facility]2017-05-10 12:14:00 Test Item Value Reference Range Interpretation Comments Sodium Lvl (test code = Sodium Lvl) 145 135-145 [facility]2017-05-10 12:14:00 Test Item Value Reference Range Interpretation Comments Creatinine Lvl (test code = Creatinine 1.58 0.50-1.40 Lvl) [facility]2017-05-10 12:14:00 Test Item Value Reference Range Interpretation Comments CO2 (test code = CO2) 25 24-32 [facility]2017-05-10 12:14:00 Test Item Value Reference Range Interpretation Comments Chloride Lvl (test code = Chloride Lvl) 108 95-109 [facility]2017-05-10 12:14:00 Test Item Value Reference Range Interpretation Comments Glucose Lvl (test code = Glucose Lvl) 101 70-99 [facility] CenterBarfzuxNERSGZPRBB1299-46-05 12:14:00 Test Item Value Reference Range Interpretation Comments Monocytes # (test code 0.7 See_Comment [Aut omated message] The = Monocytes #) system which generated this result tra nsmitted reference range : <=0.8. The reference r adriano was not used to int erpret this result as normal/abnormal . [facility] CenterUzfvaugXOBSIVSBPR2253-41-63 12:14:00 Test Item Value Reference Range Interpretation Comments Eosinophils # (test code 0.3 See_Comment [A utomated message] The = Eosinophils #) system whic h generated this result tra nsmitted reference range : <=0.5. The reference r adriano was not used to int erpret this result as normal/abnormal . [facility] CenterRmanooiJAZFAFQBCU2770-76-45 12:14:00 Test Item Value Reference Range Interpretation Comments Lymphocytes # (test code = Lymphocytes 1.7 1.0-5.5 #) [facility] CenterQmtonpcXKJHVYAZFH1709-62-78 12:14:00 Test Item Value Reference Range Interpretation Comments Monocytes (test code = Monocytes) 12.3 2.0-12.0 [facility] CenterSjwfkwgCPKZCZEYFW4955-03-72 12:14:00 Test Item Value Reference Range Interpretation Comments Eosinophils (test code = 4.7 See_Comment [A utomated message] The Eosinophils) system which ge nerated this result tra nsmitted reference range : <=4.0. The reference r adriano was not used to int erpret this result as normal/abnormal . [facility] CenterCjpzqgfWVUHNNWQTR9445-28-18 12:14:00 Test Item Value Reference Range Interpretation Comments Basophils (test code = 0.8 See_Comment [Aut omated message] The Basophils) system which ge nerated this result tra nsmitted reference range : <=1.0. The reference r adriano was not used to int erpret this result as normal/abnormal . [facility] CenterXdwzviuLBGIRHGVRW9160-32-37 12:14:00 Test Item Value Reference Range Interpretation Comments Segs-Bands # (test code = Segs-Bands #) 2.8 1.5-8.1 [facility] CenterSmtbwauHBUMNEAGMN3094-65-21 12:14:00 Test Item Value Reference Range Interpretation Comments Segs (test code = Segs) 51.7 45.0-75.0 [facility] CenterHgigkymVRMVIXVTBX2585-47-27 12:14:00 Test Item Value Reference Range Interpretation Comments Lymphocytes (test code = Lymphocytes) 30.5 20.0-40.0 [facility] CenterHxbbhalNKPGTRZOQO5889-56-05 12:14:00 Test Item Value Reference Range Interpretation Comments PTT (test code = PTT) 33.8 s 22.9-35.8 [facility] CenterVqampgxVPFKGIDDVV7756-37-67 12:14:00 Test Item Value Reference Range Interpretation Comments PT (test code = PT) 13.7 s 12.0-14.7 [facility] CenterVokoiqsQMMZKPBWHX8920-31-50 12:14:00 Test Item Value Reference Range Interpretation Comments INR (test code = INR) 1.03 0.85-1.17 [facility] CenterKgcsxcbHGSAQVLYFS6629-84-38 12:14:00 Test Item Value Reference Range Interpretation Comments RDW (test code = RDW) 12.8 11.5-14.5 [facility] CenterEubgdklRTJJMBTKFI1630-21-70 12:14:00 Test Item Value Reference Range Interpretation Comments Platelet (test code = Platelet) 123 133-450 [facility] CenterLizgvytLQKAESPSGJ7796-98-50 12:14:00 Test Item Value Reference Range Interpretation Comments MPV (test code = MPV) 8.5 7.4-10.4 [facility] CenterFnmqqstQLXXTGXVJN5817-50-14 12:14:00 Test Item Value Reference Range Interpretation Comments MCHC (test code = MCHC) 34.5 32.0-36.0 [facility] CenterLvvwfghFNALUEOXPN3427-65-04 12:14:00 Test Item Value Reference Range Interpretation Comments Hgb (test code = Hgb) 16.6 14.0-18.0 [facility] CenterYbmchgsAGRSTBZCXV5419-69-32 12:14:00 Test Item Value Reference Range Interpretation Comments Hct (test code = Hct) 48.0 42.0-54.0 [facility] CenterMxytpanZRZJOXDCDZ8440-04-39 12:14:00 Test Item Value Reference Range Interpretation Comments MCV (test code = MCV) 91.9 80.0-94.0 [facility] CenterSzhjpegGEBCGDZGOK8057-70-83 12:14:00 Test Item Value Reference Range Interpretation Comments MCH (test code = MCH) 31.7 pg 27.0-31.0 [facility] CenterEhdnnzlDNVQRXQDHL3128-90-49 12:14:00 Test Item Value Reference Range Interpretation Comments WBC (test code = WBC) 5.5 3.7-10.4 [facility] CenterCbizxhaHZAXTYYFVN3838-26-26 12:14:00 Test Item Value Reference Range Interpretation Comments RBC (test code = RBC) 5.22 4.70-6.10 [facility] AND [id number] 12:14:00 Test Item Value Reference Range Interpretation Comments UA Sq Epi (test code = UA Sq Epi) None Seen [facility] AND [id number] 12:14:00 Test Item Value Reference Range Interpretation Comments UA Urobilinogen (test code = UA <=1.0 mg/dL 0.1-1.0 Urobilinogen) [facility] AND [id number] 12:14:00 Test Item Value Reference Range Interpretation Comments UA Protein (test code = UA Negative mg/dL Protein) [facility] AND [id number] 12:14:00 Test Item Value Reference Range Interpretation Comments UA pH (test code = UA pH) 6.0 5.0-8.0 [facility] AND [id number] 12:14:00 Test Item Value Reference Range Interpretation Comments UA Blood (test code = Negative (03/19/17 7:14 UA Blood) AM) [facility] AND [id number] 12:14:00 Test Item Value Reference Range Interpretation Comments UA Ketones (test code = UA Negative mg/dL Ketones) [facility] AND [id number] 12:14:00 Test Item Value Reference Range Interpretation Comments UA Bili (test code = Negative *NA*(03/19/17 UA Bili) 7:14 AM) [facility] AND [id number] 12:14:00 Test Item Value Reference Range Interpretation Comments UA Glucose (test code = UA Negative mg/dL Glucose) [facility] AND [id number] 12:14:00 Test Item Value Reference Range Interpretation Comments UA RBC (test code = no gt See_Comment [Automa alexandro message] The UA RBC) system which ge nerated this result transmit alexandro reference range : <=2. The reference range was not used to interpr et this result as josee l/abnormal. [facility] [id number] 12:14:00 Test Item Value Reference Range Interpretation Comments UA Leuk Est (test Negative (03/19/17 7:14 code = UA Leuk Est) AM) [facility] AND [id number] 12:14:00 Test Item Value Reference Range Interpretation Comments UA WBC (test code = 3 See_Comment [Automa alexandro message] The UA WBC) system which ge nerated this result transmit alexandro reference range : <=5. The reference range was not used to interpr et this result as josee l/abnormal. [facility] AND [id number] 12:14:00 Test Item Value Reference Range Interpretation Comments UA Nitrite (test code Negative (03/19/17 7:14 = UA Nitrite) AM) [facility] AND [id number] 12:14:00 Test Item Value Reference Range Interpretation Comments UA Amorph Mily (test code = Occasional /HPF UA Amorph Mily) [facility] AND [id number] 12:14:00 Test Item Value Reference Range Interpretation Comments UA Mucus (test code = UA Mucus) Few /LPF [facility] [id number] 12:14:00 Test Item Value Reference Range Interpretation Comments UA Turbidity (test code Slight *ABN*(03/19/17 = UA Turbidity) 7:14 AM) [facility] AND [id number] 12:14:00 Test Item Value Reference Range Interpretation Comments UA Spec Grav (test code = UA Spec Grav) 1.017 [facility] AND [id number] 12:14:00 Test Item Value Reference Range Interpretation Comments UA Color (test code = Yellow *NA*(03/19/17 UA Color) 7:14 AM) [facility]2017-05-10 12:14:00 Test Item Value Reference Range Interpretation Comments Calcium Lvl (test code = Calcium Lvl) 10.6 8.5-10.5 [facility]2017-05-10 12:14:00 Test Item Value Reference Range Interpretation Comments ALT (test code = ALT) 30 See_Comment [Auto mated message] The system which ge nerated this result transmit alexandro reference range : <=65. The reference range was not used to interpr et this result as josee l/abnormal. [facility]2017-05-10 12:14:00 Test Item Value Reference Range Interpretation Comments BUN (test code = BUN) 30 7-22 [facility]2017-05-10 12:14:00 Test Item Value Reference Range Interpretation Comments Potassium Lvl (test code = Potassium 4.2 3.5-5.1 Lvl) [facility]2017-05-10 12:14:00 Test Item Value Reference Range Interpretation Comments Sodium Lvl (test code = Sodium Lvl) 145 135-145 [facility]2017-05-10 12:14:00 Test Item Value Reference Range Interpretation Comments Creatinine Lvl (test code = Creatinine 1.58 0.50-1.40 Lvl) [facility]2017-05-10 12:14:00 Test Item Value Reference Range Interpretation Comments CO2 (test code = CO2) 25 24-32 [facility]2017-05-10 12:14:00 Test Item Value Reference Range Interpretation Comments Chloride Lvl (test code = Chloride Lvl) 108 95-109 [facility]2017-05-10 12:14:00 Test Item Value Reference Range Interpretation Comments Glucose Lvl (test code = Glucose Lvl) 101 70-99 [facility] CenterIqrtqoyIFCPFIYJWE8646-59-94 12:14:00 Test Item Value Reference Range Interpretation Comments Monocytes # (test code 0.7 See_Comment [Aut omated message] The = Monocytes #) system which generated this result tra nsmitted reference range : <=0.8. The reference r adriano was not used to int erpret this result as normal/abnormal . [facility] CenterFxrdngjZKCOCPNKAS7920-56-55 12:14:00 Test Item Value Reference Range Interpretation Comments Eosinophils # (test code 0.3 See_Comment [A utomated message] The = Eosinophils #) system whic h generated this result tra nsmitted reference range : <=0.5. The reference r adriano was not used to int erpret this result as normal/abnormal . [facility] CenterZjbzcgkEZTNDMHYBW3692-43-28 12:14:00 Test Item Value Reference Range Interpretation Comments Lymphocytes # (test code = Lymphocytes 1.7 1.0-5.5 #) [facility] CenterXwbpzkfNWFRCXWSLT1191-04-76 12:14:00 Test Item Value Reference Range Interpretation Comments Monocytes (test code = Monocytes) 12.3 2.0-12.0 [facility] CenterZguxdqaBERWYLVIJG4965-95-99 12:14:00 Test Item Value Reference Range Interpretation Comments Eosinophils (test code = 4.7 See_Comment [A utomated message] The Eosinophils) system which ge nerated this result tra nsmitted reference range : <=4.0. The reference r adriano was not used to int erpret this result as normal/abnormal . [facility] CenterMhzyxlvEDUYIHJEND8023-78-92 12:14:00 Test Item Value Reference Range Interpretation Comments Basophils (test code = 0.8 See_Comment [Aut omated message] The Basophils) system which ge nerated this result tra nsmitted reference range : <=1.0. The reference r adriano was not used to int erpret this result as normal/abnormal . [facility] CenterArximhsVNMRFPGCFH6044-13-45 12:14:00 Test Item Value Reference Range Interpretation Comments Segs-Bands # (test code = Segs-Bands #) 2.8 1.5-8.1 [facility] CenterArxdjmhBXIPJIRCKH7952-07-32 12:14:00 Test Item Value Reference Range Interpretation Comments Segs (test code = Segs) 51.7 45.0-75.0 [facility] CenterOfabmbyGXBYDMPPVE9331-51-75 12:14:00 Test Item Value Reference Range Interpretation Comments Lymphocytes (test code = Lymphocytes) 30.5 20.0-40.0 [facility] CenterGurlspoAHASABFZMB7262-73-02 12:14:00 Test Item Value Reference Range Interpretation Comments PTT (test code = PTT) 33.8 s 22.9-35.8 [facility] CenterIjvsfwnLSOQAVPRYM5876-45-39 12:14:00 Test Item Value Reference Range Interpretation Comments PT (test code = PT) 13.7 s 12.0-14.7 [facility] CenterUkshyxlKOIDCDICAX6254-41-46 12:14:00 Test Item Value Reference Range Interpretation Comments INR (test code = INR) 1.03 0.85-1.17 [facility] CenterXlbwkzzNQYFGRPQJT7570-88-96 12:14:00 Test Item Value Reference Range Interpretation Comments RDW (test code = RDW) 12.8 11.5-14.5 [facility] CenterFcsbjvpALHIBLMXRU4292-34-56 12:14:00 Test Item Value Reference Range Interpretation Comments Platelet (test code = Platelet) 123 133-450 [facility] CenterXmlekreYYIOUBBRSP7509-96-70 12:14:00 Test Item Value Reference Range Interpretation Comments MPV (test code = MPV) 8.5 7.4-10.4 [facility] CenterSkzjwxdSYYLFCOSXC2204-15-32 12:14:00 Test Item Value Reference Range Interpretation Comments MCHC (test code = MCHC) 34.5 32.0-36.0 [facility] CenterDnyabriGBASPYEMGW5069-10-77 12:14:00 Test Item Value Reference Range Interpretation Comments Hgb (test code = Hgb) 16.6 14.0-18.0 [facility] CenterUpuupxhPHYNGOMJFW3496-99-37 12:14:00 Test Item Value Reference Range Interpretation Comments Hct (test code = Hct) 48.0 42.0-54.0 [facility] CenterLukehraJEABKDXUFM2480-06-09 12:14:00 Test Item Value Reference Range Interpretation Comments MCV (test code = MCV) 91.9 80.0-94.0 [facility] CenterGnskdjwPKKQNRZFYT9770-59-93 12:14:00 Test Item Value Reference Range Interpretation Comments MCH (test code = MCH) 31.7 pg 27.0-31.0 [facility] CenterSkhhjfxAMJLSPWRLL4701-89-37 12:14:00 Test Item Value Reference Range Interpretation Comments WBC (test code = WBC) 5.5 3.7-10.4 [id number] 12:14:00 Test Item Value Reference Range Interpretation Comments RBC (test code = RBC) 5.22 4.70-6.10 [facility]2017-05-10 12:14:00 Test Item Value Reference Range Interpretation Comments UA Sq Epi (test code = UA Sq Epi) None Seen [facility]2017-05-10 12:14:00 Test Item Value Reference Range Interpretation Comments UA Urobilinogen (test code = UA <=1.0 mg/dL 0.1-1.0 Urobilinogen) [facility] AND [id number] 12:14:00 Test Item Value Reference Range Interpretation Comments UA Protein (test code = UA Negative mg/dL Protein) [facility] AND [id number] 12:14:00 Test Item Value Reference Range Interpretation Comments UA pH (test code = UA pH) 6.0 5.0-8.0 [facility] AND [id number] 12:14:00 Test Item Value Reference Range Interpretation Comments UA Blood (test code = Negative (03/19/17 7:14 UA Blood) AM) [facility] AND [id number] 12:14:00 Test Item Value Reference Range Interpretation Comments UA Ketones (test code = UA Negative mg/dL Ketones) [facility] AND [id number] 12:14:00 Test Item Value Reference Range Interpretation Comments UA Bili (test code = Negative *NA*(03/19/17 UA Bili) 7:14 AM) [facility] AND [id number] 12:14:00 Test Item Value Reference Range Interpretation Comments UA Glucose (test code = UA Negative mg/dL Glucose) [facility] AND [id number] 12:14:00 Test Item Value Reference Range Interpretation Comments UA RBC (test code = no gt See_Comment [Automa alexandro message] The UA RBC) system which ge nerated this result transmit alexandro reference range : <=2. The reference range was not used to interpr et this result as josee l/abnormal. [facility] AND [id number] 12:14:00 Test Item Value Reference Range Interpretation Comments UA Leuk Est (test Negative (03/19/17 7:14 code = UA Leuk Est) AM) [facility] AND [id number] 12:14:00 Test Item Value Reference Range Interpretation Comments UA WBC (test code = 3 See_Comment [Automa alexandro message] The UA WBC) system which ge nerated this result transmit alexandro reference range : <=5. The reference range was not used to interpr et this result as josee l/abnormal. [facility] AND [id number] 12:14:00 Test Item Value Reference Range Interpretation Comments UA Nitrite (test code Negative (03/19/17 7:14 = UA Nitrite) AM) [facility] AND [id number] 12:14:00 Test Item Value Reference Range Interpretation Comments UA Amorph Mily (test code = Occasional /HPF UA Amorph Mily) [facility] AND [id number] 12:14:00 Test Item Value Reference Range Interpretation Comments UA Mucus (test code = UA Mucus) Few /LPF [facility] AND [id number] 12:14:00 Test Item Value Reference Range Interpretation Comments UA Turbidity (test code Slight *ABN*(03/19/17 = UA Turbidity) 7:14 AM) [facility] AND [id number] 12:14:00 Test Item Value Reference Range Interpretation Comments UA Spec Grav (test code = UA Spec Grav) 1.017 [facility] AND [id number] 12:14:00 Test Item Value Reference Range Interpretation Comments UA Color (test code = Yellow *NA*(03/19/17 UA Color) 7:14 AM) [facility]2017-05-10 12:14:00 Test Item Value Reference Range Interpretation Comments B/C Ratio (test code = B/C Ratio) 19 6-25 [facility]2017-05-10 12:14:00 Test Item Value Reference Range Interpretation Comments A/G Ratio (test code = A/G Ratio) 1.0 0.7-1.6 [facility]2017-05-10 12:14:00 Test Item Value Reference Range Interpretation Comments Globulin (test code = Globulin) 3.9 2.7-4.2 [facility]2017-05-10 12:14:00 Test Item Value Reference Range Interpretation Comments AGAP (test code = AGAP) 16.2 10.0-20.0 [facility]2017-05-10 12:14:00 Test Item Value Reference Range Interpretation Comments eGFR (test code = eGFR) 44 [facility]2017-05-10 12:14:00 Test Item Value Reference Range Interpretation Comments AST (test code = AST) 27 See_Comment [Auto mated message] The system which ge nerated this result transmit alexandro reference range : <=37. The reference range was not used to interpr et this result as josee l/abnormal. [facility]2017-05-10 12:14:00 Test Item Value Reference Range Interpretation Comments Bili Total (test code = Bili Total) 0.4 0.2-1.[address] [facility] [id number] 12:14:00 Test Item Value Reference Range Interpretation Comments Alk Phos (test code = Alk Phos) 94 39-136 [id number] 12:14:00 Test Item Value Reference Range Interpretation Comments Albumin Lvl (test code = Albumin Lvl) 3.8 3.5-5.0 [facility]AL[id number] 12:14:00 Test Item Value Reference Range Interpretation Comments Total Protein (test code = Total 7.7 6.4-8.4 Protein) [facility] [id number] 12:14:00 Test Item Value Reference Range Interpretation Comments B/C Ratio (test code = B/C Ratio) 19 6-25 [facility] [id number] 12:14:00 Test Item Value Reference Range Interpretation Comments A/G Ratio (test code = A/G Ratio) 1.0 0.7-1.6 [facility] [id number] 12:14:00 Test Item Value Reference Range Interpretation Comments Globulin (test code = Globulin) 3.9 2.7-4.2 [facility] [id number] 12:14:00 Test Item Value Reference Range Interpretation Comments AGAP (test code = AGAP) 16.2 10.0-20.0 [facility] [id number] 12:14:00 Test Item Value Reference Range Interpretation Comments eGFR (test code = eGFR) 44 [facility]agsAL[facility] [id number] 12:14:00 Test Item Value Reference Range Interpretation Comments AST (test code = AST) 27 See_Comment [Auto mated message] The system which ge nerated this result transmit alexandro reference range : <=37. The reference range was not used to interpr et this result as josee l/abnormal. [facility] simplifyMD [id number] 12:14:00 Test Item Value Reference Range Interpretation Comments Bili Total (test code = Bili Total) 0.4 0.2-1.3 [facility] [id number] 18:04:00 Test Item Value Reference Range Interpretation Comments Antibody Scrn (test Negative (03/11/17 1:04 code = Antibody Scrn) PM) [facility] [id number] 18:04:00 Test Item Value Reference Range Interpretation Comments ABO/Rh (test code = ABO/Rh) O POS [facility] [id number] 18:04:00 Test Item Value Reference Range Interpretation Comments Antibody Scrn (test Negative (03/11/17 1:04 code = Antibody Scrn) PM) [facility] [id number] 18:04:00 Test Item Value Reference Range Interpretation Comments ABO/Rh (test code = ABO/Rh) O POS [facility] [id number] 17:59:00 Test Item Value Reference Range Interpretation Comments RBC product (test code Product available = RBC product) (03/11/17 12:59 PM) [facility] [id number] 17:59:00 Test Item Value Reference Range Interpretation Comments RBC product (test code Product available = RBC product) (03/11/17 12:59 PM) [facility]
[2022-08-01 22:36] LABS: Absolute Lymphocytes (CBC) 4.3 K/uL (0.7-4.9); Hematocrit 52.5 % (39.6-49.0); Lymphocytes % 29.6 % (15.3-44.8); MCV 93.7 fL (80-100); MPV 8.1 fL (7.6-11.3)
[2022-08-01 22:45] LABS: Protime INR 1.17
[2022-08-01 23:05] LABS: Albumin 4.3 g/dL (3.4-5.0); Bilirubin Total 0.6 mg/dL (0.2-1.0); Protein, Total 8.8 g/dL (6.4-8.2)
[2022-08-01 23:06] LABS: Magnesium 1.9 mg/dL (1.8-2.4); Potassium 3.7 mmol/L (3.5-5.1)
[2022-08-01 23:10] LABS: Urine Blood Negative (Negative); Urine Glucose Negative (Negative); Urine Protein 2+ (Negative); Urine Specific Gravity >=1.030 (1.005-1.030)
[2022-08-01 23:34] LABS: Urine Bacteria <20 /HPF (<20); Urine Mucus Slight /HPF (None Seen); Urine RBC <5 /HPF (None Seen)
[2022-08-02] MEDS ORDERED: NA CHLORIDE 0.9% 500 ML ONE (00:41)
--- NOTE | 2022-08-02 01:18 | EDPHYS ---
Physician Documentation [facility] Name: Omi Stone Age: 77 yrs Sex: Male : 1945 Arrival Date: 08/01/2022 Time: 20:52 Bed Treatment Private MD: ED Physician Maldonado Cole HPI: 08/01 21:45 This 77 yrs old Male presents to ER via Ambulatory with complaints of Diarrhea. cp 21:45 The patient presents to the emergency department with nausea, that is mild, diarrhea, cp that is continuous. Onset: The symptoms/episode began/occurred this past Friday. Possible causes: unknown, reports receiving steroid injection this past Friday. Associated signs and symptoms: Pertinent positives: decreased appetite, Pertinent negatives: constipation, dysuria, fever, GI bleeding, vomiting. Severity of symptoms: in the emergency department the symptoms are unchanged despite home interventions. Patient denies recent use of antibiotics. Historical: - Home Meds: 21:28 atorvastatin 40 mg Oral tab 1 tab once daily [Active]; Eliquis Oral [Active]; bm7 Famotidine Oral [Active]; venlafaxine Oral [Active]; Tylenol #3 Oral [Active]; tramadol 50 mg Oral tab 1 tab twice a day [Active]; metoprolol tartrate 50 mg Oral tab 1 tab 2 times per day [Active]; losartan Oral [Active]; tamsulosin 0.4 mg Oral cp24 1 cap once daily [Active]; icosapent ethyl Oral [Active]; Hydromorphone Oral [Active]; - PMHx: 21:28 ascending aortic aneurysm; Atrial Fib; CAD; GERD; Hyperlipidemia; Hypertension; bm7 - Immunization history:: Adult Immunizations up to date, Client reports having NOT received the Covid vaccine. - Social history:: Smoking status: Patient denies any tobacco usage or history of. ROS: 21:50 Constitutional: Negative for body aches, chills, fever, poor PO intake. cp 21:50 Eyes: Negative for injury, pain, redness, and discharge. cp 21:50 ENT: Negative for drainage from ear(s), ear pain, sore throat, difficulty swallowing, difficulty handling secretions. 21:50 Cardiovascular: Negative for chest pain, palpitations. 21:50 Respiratory: Negative for cough, shortness of breath, wheezing. 21:50 Abdomen/GI: Positive for nausea, diarrhea, Negative for abdominal pain, vomiting, constipation, black/tarry stool, rectal bleeding. 21:50 : Negative for urinary symptoms. 21:50 Neuro: Negative for altered mental status, dizziness, headache, syncope, weakness. 21:50 All other systems are negative. Exam: 21:55 Constitutional: The patient appears in no acute distress, alert, awake, cp non-diaphoretic, non-toxic, well developed, well nourished. 21:55 Head/Face: Normocephalic, atraumatic. cp 21:55 Eyes: Periorbital structures: appear normal, Conjunctiva: normal, no exudate, no injection, Sclera: no appreciated abnormality, Lids and lashes: appear normal, bilaterally. 21:55 ENT: External ear(s): are unremarkable, Nose: is normal, Mouth: Lips: moist, Oral mucosa: pink and intact, moist, Posterior pharynx: Airway: no evidence of obstruction, patent, erythema, is not appreciated, exudate, is not appreciated. 21:55 Neck: ROM/movement: is normal, is supple, without pain, no range of motions limitations, no meningismus. 21:55 Chest/axilla: Inspection: normal, Palpation: is normal, no crepitus, no tenderness. 21:55 Cardiovascular: Rate: normal, Rhythm: regular, Edema: is not appreciated, JVD: is not appreciated. 21:55 Respiratory: the patient does not display signs of respiratory distress, Respirations: normal, no use of accessory muscles, no retractions, labored breathing, is not present, Breath sounds: are clear throughout, no decreased breath sounds, no stridor, no wheezing. 21:55 Abdomen/GI: Inspection: abdomen appears normal, Bowel sounds: active, all quadrants, Palpation: abdomen is soft and non-tender, in all quadrants, rebound tenderness, is not appreciated, voluntary guarding, is not appreciated, involuntary guarding, is not appreciated. 21:55 Back: pain, is absent, ROM is normal. 21:55 Skin: no rash present. 21:55 Neuro: Orientation: to person, place \T\ time. Mentation: is normal, Motor: moves all fours, strength is normal, Sensation: is normal. Vital Signs: 21:24 BP 170 / 90; Pulse 72; Resp 18; Temp 97.5(TE); Pulse Ox 98% on R/A; Weight 79.38 kg bm7 (R); Height 5 ft. 10 in. (177.80 cm); Pain 0/10; 08/02 01:49 BP 154 / 84; Pulse 74; Resp 17 S; Pulse Ox 98% on R/A; lg3 08/01 21:24 Body Mass Index 25.11 (79.38 kg, 177.80 cm) bm7 MDM: 08/01 22:00 Differential diagnosis: gastritis, appendicitis, diverticulitis, viral gastroenteritis, cp gastroenteritis, colitis, dehydration, electrolyte abnormality, metabolic acidosis. 22:08 Patient medically screened. 08/02 01:18 Data reviewed: vital signs, nurses notes, lab test result(s), radiologic studies, CT cp scan. 01:18 Counseling: I had a detailed discussion with the patient and/or guardian regarding: the cp historical points, exam findings, and any diagnostic results supporting the discharge/admit diagnosis, lab results, radiology results, the need for outpatient follow up, a family practitioner, to return to the emergency department if symptoms worsen or persist or if there are any questions or concerns that arise at home. Response to treatment: the patient's symptoms have mildly improved after treatment, and as a result, I will discharge patient. 08/01 21:34 Order name: CBC with Diff; Complete Time: 23:11 08/01 23:12 Interpretation: Normal except: WBC 14.70; RBC 5.60; HGB 18.1; HCT 52.5; NEUT A 8.9. 08/01 21:34 Order name: CMP; Complete Time: 23:11 08/01 23:46 Interpretation: Normal except: GLUC 126; BUN 33; CRE 1.54; GFR 46; TP 8.8; GLOB 4.5; cp A/G 1.0. 08/01 21:34 Order name: Lipase; Complete Time: 23:11 08/01 23:46 Interpretation: Abnormal: LIP 568. 08/01 21:34 Order name: Urine Microscopic Only; Complete Time: 23:46 08/01 23:46 Interpretation: Reviewed. 08/01 21:34 Order name: PT-INR; Complete Time: 23:11 08/02 01:08 Interpretation: Reviewed. 09/22 21:34 Order name: Lactate; Complete Time: 23:11 cp 08/02 00:54 Interpretation: Reviewed. cp 08/01 21:34 Order name: Magnesium; Complete Time: 23:11 cp 08/01 21:34 Order name: Phosphorus; Complete Time: 23:11 cp 08/01 22:12 Order name: Occult Blood cp 08/01 22:12 Order name: Ova And Parasites cp 08/01 22:12 Order name: Rotavirus Antigen; Complete Time: 01:02 cp 08/02 01:02 Interpretation: Reviewed. cp 08/01 22:12 Order name: Stool Culture cp 08/01 22:12 Order name: CDIFF cp 08/01 23:10 Order name: Urine Dipstick-Ancillary; Complete Time: 23:11 EDMS 08/01 21:34 Order name: IV Saline Lock; Complete Time: 22:29 cp 08/01 21:34 Order name: Labs collected and sent; Complete Time: 22:29 cp 08/01 21:34 Order name: Urine Dipstick-Ancillary (obtain specimen); Complete Time: 23:26 cp 08/02 01:08 Order name: PO challenge; Complete Time: 01:46 cp 08/02 01:10 Order name: Abdomen EDMS Administered Medications: 00:39 Drug: NS 0.9% 500 ml Route: IV; Rate: 500 ml/hr; Site: right antecubital; vc1 01:46 Follow up: Response: No adverse reaction; IV Status: Completed infusion; IV Intake: lg3 500ml 01:46 Drug: Cipro (ciprofloxacin) 500 mg Route: PO; lg3 01:46 Follow up: Response: No adverse reaction lg3 Disposition Summary: 08/02/22 01:18 Discharge Ordered Location: Home cp Problem: new cp Symptoms: have improved cp Condition: Stable cp Diagnosis - Diarrhea, unspecified cp Followup: cp - With: Private Physician - When: 1 - 2 days - Reason: Recheck today's complaints Discharge Instructions: - Discharge Summary Sheet cp - Food Choices to Help Relieve Diarrhea, Adult cp - Diarrhea, Adult cp Forms: - Medication Reconciliation Form cp - Thank You Letter cp - Antibiotic Education cp - Prescription Opioid Use cp Prescriptions: - Zofran 4 mg Oral Tablet - take 1 tablet by ORAL route every 12 hours As needed; 20 tablet; Refills: 0, cp Product Selection Permitted - Cipro 500 mg Oral Tablet - take 1 tablet by ORAL route every 12 hours for 7 days; 14 tablet; Refills: 0, cp Product Selection Permitted Addendum: 08/03/2022 08:22 Co-signature as Attending Physician, Maldonado Cole DO I was immediately available onsite m s3 in the emergency department for consultation in the care of the patient. Signatures: Dispatcher [employer] EDMS Slim Silva PA PA cp Gibson, Lacie, RN RN lg3 Maldonado Cole DO DO ms3 Zoila Man, RN RN bm7 Mary Smith RN RN vc1 Corrections: (The following items were deleted from the chart) 08/01 21:29 21:28 PSHx: 3 heart surgeries; [place] [id number] 21:29 21:28 PSHx: medtronic implant-NO MRI; [place] [id number] 23:46 23:12 Normal except: GLUC 126; BUN 33; CRE 1.54; GFR 46. cp cp 08/02 01:10 08/01 21:38 Abdomen Pelvis W Con+CT.RAD.BRZ ordered. EDMS EDMS
--- NOTE | 2022-08-02 01:18 | ER ---
Nurse's Notes [facility] Name: Omi Stone Age: 77 yrs Sex: Male : 1945 Arrival Date: 08/01/2022 Time: 20:52 Bed Treatment Private MD: Diagnosis: Diarrhea, unspecified Presentation: 08/01 21:27 Chief complaint: Patient states: I got a steroid shot on Friday and on Friday I bm7 started having diarrhea and it hasn't stopped. Coronavirus screen: At this time, the client does not indicate any symptoms associated with coronavirus-19. Ebola Screen: No symptoms or risks identified at this time. Initial Sepsis Screen: Does the patient meet any 2 criteria? No. Patient's initial sepsis screen is negative. Does the patient have a suspected source of infection? No. Patient's initial sepsis screen is negative. Risk Assessment: Do you want to hurt yourself or someone else? Patient reports no desire to harm self or others. Onset of symptoms was August 02, 2022. 21:27 Method Of Arrival: Ambulatory [facility] 21:27 Acuity: GABRIELA 3 bm7 Triage Assessment: 21:28 General: Appears in no apparent distress. uncomfortable, Behavior is calm, cooperative, bm7 appropriate for age. Pain: Denies pain. EENT: No deficits noted. No signs and/or symptoms were reported regarding the EENT system. Neuro: No deficits noted. Cardiovascular: No deficits noted. Respiratory: No deficits noted. GI: Abdomen is round non-distended, Bowel sounds present X 4 quads. Abd is soft and non tender X 4 quads. Reports diarrhea, Patient currently denies nausea, vomiting. : No deficits noted. No signs and/or symptoms were reported regarding the genitourinary system. Derm: No deficits noted. No signs and/or symptoms reported regarding the dermatologic system. Musculoskeletal: No deficits noted. No signs and/or symptoms reported regarding the musculoskeletal system. Historical: - Home Meds: 21:28 atorvastatin 40 mg Oral tab 1 tab once daily [Active]; Eliquis Oral [Active]; bm7 Famotidine Oral [Active]; venlafaxine Oral [Active]; Tylenol #3 Oral [Active]; tramadol 50 mg Oral tab 1 tab twice a day [Active]; metoprolol tartrate 50 mg Oral tab 1 tab 2 times per day [Active]; losartan Oral [Active]; tamsulosin 0.4 mg Oral cp24 1 cap once daily [Active]; icosapent ethyl Oral [Active]; Hydromorphone Oral [Active]; - PMHx: 21:28 ascending aortic aneurysm; Atrial Fib; CAD; GERD; Hyperlipidemia; Hypertension; bm7 - Immunization history:: Adult Immunizations up to date, Client reports having NOT received the Covid vaccine. - Social history:: Smoking status: Patient denies any tobacco usage or history of. Screenin/23 01:47 Abuse screen: Denies threats or abuse. Denies injuries from another. Nutritional lg3 screening: No deficits noted. Tuberculosis screening: No symptoms or risk factors identified. Fall Risk None identified. Assessment: :47 General: Appears in no apparent distress. uncomfortable, Behavior is calm, cooperative. lg3 Pain: Denies pain. Neuro: No deficits noted. Level of Consciousness is awake, alert, obeys commands, Oriented to person, place, time, situation. Cardiovascular: No deficits noted. Denies chest pain, shortness of breath, Capillary refill < 3 seconds Clubbing of nail beds is absent JVD is absent Patient's skin is warm and dry. Respiratory: No deficits noted. Airway is patent Trachea midline Respiratory effort is even, unlabored, Respiratory pattern is regular, symmetrical, Breath sounds are clear bilaterally. GI: Abdomen is flat, non-distended, Reports diarrhea. : No deficits noted. No signs and/or symptoms were reported regarding the genitourinary system. EENT: No deficits noted. No signs and/or symptoms were reported regarding the EENT system. Derm: No deficits noted. No signs and/or symptoms reported regarding the dermatologic system. Skin is intact, is healthy with good turgor, Skin is dry, Skin is normal, Skin temperature is warm. Musculoskeletal: No deficits noted. No signs and/or symptoms reported regarding the musculoskeletal system. Circulation, motion, and sensation intact. Range of motion: intact in all extremities. Vital Signs: 08/01 21:24 BP 170 / 90; Pulse 72; Resp 18; Temp 97.5(TE); Pulse Ox 98% on R/A; Weight 79.38 kg bm7 (R); Height 5 ft. 10 in. (177.80 cm); Pain 0/10; 08/02 01:49 BP 154 / 84; Pulse 74; Resp 17 S; Pulse Ox 98% on R/A; lg3 08/01 21:24 Body Mass Index 25.11 (79.38 kg, 177.80 cm) bm7 ED Course: 08/01 20:52 Patient arrived in ED. dt4 21:22 Slim Silva PA is PHCP. cp 21:23 Maldonado Cole DO is Attending Physician. cp 21:24 Arm band placed on right wrist. bm7 21:28 Triage completed. bm7 22:29 Initial lab(s) drawn, by me, sent to lab. Urine collected: clean catch specimen, clear. vc1 Inserted saline lock: 20 gauge in left antecubital area, using aseptic technique. Blood collected. 08/02 00:28 Occult Blood Sent. vc1 00:28 Ova And Parasites Sent. vc1 00:28 Rotavirus Antigen Sent. vc1 00:28 Stool Culture Sent. vc1 01:10 Paula Lu, RN is Primary Nurse. lg3 01:16 Abdomen In Process Unspecified. EDMS 01:47 Patient has correct armband on for positive identification. Placed in gown. Bed in low lg3 position. Call light in reach. Side rails up X 1. Client placed on continuous cardiac and pulse oximetry monitoring. NIBP monitoring applied. Door closed. Noise minimized. Warm blanket given. Family accompanied patient. 01:47 No provider procedures requiring assistance completed. IV discontinued, intact, lg3 bleeding controlled, No redness/swelling at site. Pressure dressing applied. Administered Medications: 00:39 Drug: NS 0.9% 500 ml Route: IV; Rate: 500 ml/hr; Site: right antecubital; vc1 01:46 Follow up: Response: No adverse reaction; IV Status: Completed infusion; IV Intake: lg3 500ml 01:46 Drug: Cipro (ciprofloxacin) 500 mg Route: PO; lg3 01:46 Follow up: Response: No adverse reaction lg3 Medication: 01:47 VIS not applicable for this client. lg3 Intake: 01:46 IV: 500ml; Total: 500ml. lg3 Outcome: 01:18 Discharge ordered by MD. cp 01:47 Discharged to home ambulatory, with significant other. lg3 01:47 Condition: stable 01:47 Discharge instructions given to patient, significant other, Instructed on discharge instructions, follow up and referral plans. medication usage, Demonstrated understanding of instructions, follow-up care, medications, Prescriptions given X 1. 01:49 Patient left the ED. lg3 Signatures: Dispatcher [employer] EDMS Slim Silva PA PA cp Gibson, Lacie, RN RN lg3 Zoila Man RN RN bm7 Mary Smith RN RN vc1 Vashti Fletcher dt4 Corrections: (The following items were deleted from the chart) 08/01 21:29 21:28 PSHx: 3 heart surgeries; bm7 bm7 21:29 21:28 PSHx: medtronic implant-NO MRI; bm7 bm7
[2022-08-02] MEDS ORDERED: CIPROFLOXACIN HCL 500 MG TAB ONE (01:38)
[2022-08-02 10:33] LABS: C.diff Antigen/Toxin Ag neg : Tox neg (NEG : NEG)
--- NOTE | 2022-08-02 11:58 | RAD REPORT ---
EXAM DESCRIPTION: CT - Abdomen Pelvis Wo Contrast - 08/01/2022 11:58 pm CLINICAL HISTORY: The patient is 77 years old and is Male; diarrhea TECHNIQUE: Axial computed tomography images of the abdomen and pelvis without intravenous contrast. Sagittal and coronal reformatted images were created and reviewed. This CT exam was performed usi ng one or more of the following dose reduction techniques: automated exposure control, adjustment o f the mA and/or kV according to patient size, and/or use of iterative reconstruction technique. COMPARISON: 05/29/2022 CT abdomen pelvis without contrast FINDINGS: LUNG BASES: Unremarkable. No mass. No consolidation. MEDIASTINUM: Small hiatal hernia. Air-fluid distention of the proximal small bowel without patholog ic bowel dilatation, significant mucosal thickening, perienteric fat stranding, or pneumatosis. Appea kell suggestive of ileus or mild enteritis. Colon and remainder of the small bowel appear within nor mal limits. Appendix is normal. ABDOMEN: LIVER: Numerous tiny too small to characterize hypoattenuating foci throughout the left and right h epatic lobes with 2 simple hepatic cysts noted in the right hepatic lobe, and redemonstrated bilatera l renal cysts. No dedicated imaging follow-up recommended for these findings. GALLBLADDER AND BILE DUCTS: Unremarkable. No calcified stones. No ductal dilation. PANCREAS: Unremarkable. No ductal dilation. SPLEEN: Unremarkable. No splenomegaly. ADRENALS: Unremarkable. No mass. KIDNEYS AND URETERS: Bilateral nonobstructive intrarenal stones. STOMACH AND BOWEL: See above. PELVIS: APPENDIX: See above. BLADDER: Unremarkable. No stones. REPRODUCTIVE: Unremarkable as visualized. ABDOMEN and PELVIS: INTRAPERITONEAL SPACE: Unremarkable. No free air. No significant fluid collection. BONES/JOINTS: Partially visualized sternotomy wires, RCA calcifications. Multilevel degenerative changes of the thoracolumbar spine with multilevel degenerative disc disease and a prominent diffuse disc bulge demonstrated at the L4-5 intervertebral level. No acute os seous abnormality. Total left hip arthroplasty, with moderate to severe degenerative changes of the r ight hip. No dislocation. SOFT TISSUES: Unremarkable. VASCULATURE: Unremarkable. No abdominal aortic aneurysm. LYMPH NODES: Unremarkable. No enlarged lymph nodes. OTHER FINDINGS: Prostamegaly. IMPRESSION: Findings suggesting mild duodenojejunal enteritis. No evidence of obstruction. Electronically signed by: Chevy Doll MD 08/02/2022 12:29 AM CDT Due to temporary technical issues with the PACS/Fluency reporting system, reports are being signed by the in house radiologists without review as a courtesy to insure prompt reporting. The interpreting radiologist is fully responsible for the content of the report.
[2022-08-03 12:58] VITALS: TEMP 97.5; O2SAT 98
[2022-08-03 13:01] VITALS: BP 154/84
== END 2022-08-02 01:49 | disposition home or self-care (01) ==
LOC: ER 20:47
DX: R19.7 Diarrhea, unspecified (principal); I10 Essential (primary) hypertension; E78.5 Hyperlipidemia, unspecified; I48.91 Unspecified atrial fibrillation; Z79.01 Long term (current) use of anticoagulants
CPT/HCPCS: 87045; 85025; 36415; 83735; 87177; 82274; 84100; 85610; 87046; 83605; 87209; 87324; 83690; 80053; 87425; 74176; 96360; 99284; J7040; 81003; 81015

== ENCOUNTER 2023-05-24 22:47 | Emergency (ER) | payer OTHER ==
--- OUTSIDE RECORDS SUMMARY | 2023-05-24 22:55 | XMS REPORT | Continuity of Care Document ---
:1945 Author Organization [facility] t Address [address] [place] [address] [place] [id number] Care Team Providers Name Role Phone Kal Tarango MD Primary Care Physician Jose Dover MD Attending Clinician Carlos Dover MD Attending Clinician Therapy, [facility] Covid Infusion Attending Clinician Unavailable Rafael Boogie MD Attending Clinician RAFAEL BOOGIE Attending Clinician Unavailable Doctor Unassigned, [place] Attending Clinician Unavailable KAL TARANGO Attending Clinician Unavailable Blanca Barbour MA Attending Clinician Unavailable Tommy Carrasco MA Attending Clinician Unavailable NENA VELASQUEZ Attending Clinician Unavailable Arden Lyons Attending Clinician KAL TARANGO Admitting Clinician Unavailable NENA VELASQUEZ Admitting Clinician Unavailable JOSE DOVER Admitting Clinician Unavailable Arden Lyons Admitting Clinician Payers Payer Name Policy Type Policy Number Effective Date Expiration Date S renae [facility] [employer] 1 [id number] 2021 Common TRS/ERS MCR PPO 00:00:00 Spirit - [facility] [place] [id number] [facility] C1 [id number] [facility] C1 [id number] [facility] C1 [id number] [facility] C1 [id number] [facility] 0578 [id number] 2020 00:00:00 Problems Condition Condition Condition Status Onset Resolution Last Treating Co mments Source Name Details Category Date Date Treatment Clinician Date Hx of CABG Hx of CABG Disease Active M ethodi 2-18 st 00:00: Hospita 00 l H/O aortic H/O aortic Disease Active M ethodi valve valve 2-03 st replacemen replacemen 00:00: Ho spita t t 00 l 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 Benign BPH Problem Common prostatic (benign Spirit hyperplasi prostatic - C HI a hyperplasi St a) [facility] Kidney Kidney Problem Common stone stones [facility] [id number] Gross Problem Common hematuria [facility] [id number] Cancer of Problem Comm on prostate [facility] intermedia te [facility] recurrence Medica l risk Center (stage T2b-c or Fiordaliza 7 or PSA 10-20) Aneurysm Aneurysm Problem Resolve 2017-03-24 Memoria (disorder) (disorder) d 00:14:07 l Resolved [place] Problem 03/24/2017 of the heart [facility] Chronic Chronic Problem Active 2017-03-24 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 Enoc n (disorder) (disorder) Active Problem 03/24/2017 in neck and back [facility] Gastroesop Gastroeso Problem Active 2017-03-24 Memoria hageal phageal 00:14:07 l reflux reflux [place] disease disease (disorder) (disorder) Active Problem 03/24/2017 [facility] Hypertensi Hypertens Problem Active 2017-03-24 Memoria ve josef 00:14:07 l disorder, disorder, Herm cj systemic systemic arterial arterial (disorder) (disorder) Active Problem 03/24/2017 [facility] Large Large Problem Active 2017-03-24 Herb cris prostate prostate 00:14:07 l (finding) (finding) Herm cj Active Problem 03/24/2017 [facility] Allergies, Adverse Reactions, Alerts Allergy Allergy Status Severity Reaction(s) Onset Inactive Treating Comm ents Source Name Type Date Date Clinician NO KNOWN Drug Active Univers ALLERGIE Class ity of [facility] Family History Family Member Diagnosis Comments Start Date Stop Date Source Natural father [facility] Natural mother [facility] Social History Social Habit Start Date Stop Date Quantity Comments Source History of Tobacco Common Spirit - Use [facility] Gender identity [facility] Sexual orientation [facility] Alcohol intake 2022-04-30 2022-04-30 Current [facility] 00:00:00 00:00:00 non-drinker of Hospital alcohol (finding) History of Social 2022-04-30 2022-04-[address] function 00:00:00 00:00:00 Hospital Cigarettes smoked 2019-08-10 2019-08-[address] current (pack per 00:00:00 00:00:00 Hospita l day) - Reported Cigarette 2019-08-10 2019-08-10 [facility] pack-years 00:00:00 00:00:00 Hospital Tobacco use and 2019-08-10 2019-08-10 Smokeless [facility] exposure 00:00:00 00:00:00 tobacco non-user Hospital Social History 2017-03-11 2017-03-11 [facility] lina 17:34:26 17:34:26 Sex [birth year] [facility] 00:00:00 00:00:00 Hospital Smoking Status Start Date Stop Date Source Former Smoker 2022-02-27 00:00:00 2022-02-27 00:00:[facility] Medications Ordered Filled Start Stop Current Ordering Indication Dosage Frequency Signature Comments Components Source Medication Medication Date Date Medication? Clinician (SIG) Name Name Eliquis 2.5 Yes TAKE 1 Meth giselle mg tablet 5-[address] 00:00: MOUTH Hospita 00 TWICE A l DAY Eliquis 2.5 0 Yes TAKE 1 Meth giselle mg tablet 1-[address] 00:00: MOUTH Hospita 00 TWICE A l DAY Eliquis 2.5 0 2022- No TAKE 1 Met hodi mg tablet 1-16 05-[address] 00:00: 00:00 MOUTH Hospita 00 :00 TWICE A l DAY venlafaxine 2021-11- No 50mg QD Take 50 mg Methodi (EFFEXOR) 12-[address] 50 MG 12:24: 00:00 daily. Hospita tablet 59 :00 l venlafaxine 2021-11- No 50mg QD Take 50 mg [facility] (EFFEXOR) 12-16- by mouth st 50 MG 12:24: 00:00 daily. Hospita tablet 59 :00 l famotidine 2021-11 No 40mg QD Take 40 mg [facility] (PEPCID) 40 12-[address] MG tablet 12:24: 00:00 daily. Hospi ta 58 :00 l famotidine 2021-11 40mg QD Take 40 mg [facility] (PEPCID) 40 12-[address] MG tablet 12:24: 00:00 daily. Hospi ta 58 :00 l atorvastati 2021-11- No 40mg QD Take 40 mg Methodi n (LIPITOR) 12-[address] 40 mg 12:24: 00:00 daily. Hospita tablet 54 :00 l atorvastati 2021-11 No 40mg QD Take 40 mg Methodi n (LIPITOR) 12-[address] 40 mg 12:24: 00:00 daily. Hospita tablet 54 :00 l aspirin 2021-11 Yes 81mg QD Take 81 mg Meth giselle (ECOTRIN) 2-[address] 81 MG 11:50: daily. Hospita enteric 35 l coated tablet aspirin 2021-11 Yes 81mg QD Take 81 mg Meth giselle (ECOTRIN) 2-[address] 81 MG 11:50: daily. Hospita enteric 35 l coated tablet tamsulosin 2021-11 Yes .4mg QD Take 0.4 Met hodi (FLOMAX) 2-[address] 0.4 mg 11:48: mouth Hospita capsule 44 daily with l dinner. acetaminoph 2021-11 Yes 1{tbl} Q4H Take 1 M ethodi en-codeine 2-[address] (TYLENOL 11:48: mouth Hospita WITH 44 every 4 l CODEINE #3) (four) 300-30 mg hours as per tablet needed for moderate pain .acute pain. tamsulosin 2021-11 Yes .4mg QD Take 0.4 Met hodi (FLOMAX) 2-[address] 0.4 mg 11:48: mouth Hospita capsule 44 daily with l dinner. acetaminoph 2021-11 Yes 1{tbl} Q4H Take 1 M ethodi en-codeine 2-[address] (TYLENOL 11:48: mouth Hospita WITH 44 every 4 l CODEINE #3) (four) 300-30 mg hours as per tablet needed for moderate pain .acute pain. losartan-hy 2021-11- No 1{tbl} QD Take 1 M ethodi drochloroth 12-[address] iazide 00:00: 05:59 mouth Hospita (HYZAAR) 00 :00 daily. l 100-12.5 mg per tablet losartan-hy 2021-11- No 1{tbl} QD Take 1 M ethodi drochloroth 12-16- tablet by st iazide 00:00: 05:59 mouth Hospita (HYZAAR) 00 :00 daily. l 100-12.5 mg per tablet icosapent 2021-11 Yes Methodi ethyL 2-03 st (VASCEPA) 1 00:00: Hospit a gram 00 l capsule icosapent 2021-11 Yes Methodi ethyL 2-03 st (VASCEPA) 1 00:00: Hospit a gram 00 l capsule Eliquis 2.5 2021-11- No TAKE 1 Met hodi mg tablet 0-20 01-[address] 00:00: 00:00 MOUTH Hospita 00 :00 TWICE A l DAY Eliquis 2.5 2021-11- No TAKE 1 Met hodi mg tablet 0-20 01-[address] 00:00: 00:00 MOUTH Hospita 00 :00 TWICE A l DAY Eliquis 2.5 Yes TAKE 1 Meth giselle mg tablet 7-[address] 00:00: MOUTH Hospita 00 TWICE A l DAY Eliquis 2.5 0 2021- No TAKE 1 Met hodi mg tablet 7-25 10-[address] 00:00: 00:00 MOUTH Hospita 00 :00 TWICE A l DAY Eliquis 2.5 2021- No TAKE 1 Met hodi mg tablet 7-25 10-[address] 00:00: 00:00 MOUTH Hospita 00 :00 TWICE A l DAY aspirin Yes 81mg QD Take 81 mg Meth giselle (ECOTRIN) 6-[address] 81 MG 09:19: daily. Hospita enteric 26 l coated tablet tamsulosin Yes .4mg QD Take 0.4 Met hodi (FLOMAX) 6-[address] 0.4 mg 09:19: mouth Hospita capsule 26 daily with l dinner. famotidine 2022-0 Yes 40mg QD Take 40 mg M ethodi (PEPCID) 40 - by mouth st MG tablet 09:19: daily. Hospit a 26 l venlafaxine Yes 50mg QD Take 50 mg [facility]i (EFFEXOR) 6-[address] 50 MG 09:19: daily. Hospita tablet 26 l atorvastati Yes 40mg QD Take 40 mg Methodi n (LIPITOR) 6-[address] 40 mg 09:19: daily. Hospita tablet 26 [place] [id number] 1{tbl} Q4H Take 1 M ethodi en-codeine - tablet by st (TYLENOL 09:19: mouth Hospita WITH 26 every 4 l CODEINE #3) (four) 300-30 mg hours as per tablet needed for moderate pain .acute pain. metoprolol 2022- No 25mg QD Take 1 Meth giselle succinate 04-30- tablet (25 st XL 00:00: 04:59 mg total) Hospita (TOPROL-XL) 00 :00 by mouth l 25 mg 24 hr daily. tablet metoprolol 2022- No 25mg QD Take 1 Meth giselle succinate 04-30- tablet (25 st XL 00:00: 04:59 mg total) Hospita (TOPROL-XL) 00 :00 by mouth l 25 mg 24 hr daily. tablet metoprolol 2022- No 25mg QD Take 1 Meth giselle succinate 04-30- tablet (25 st XL 00:00: 04:59 mg total) Hospita (TOPROL-XL) 00 :00 by mouth l 25 mg 24 hr daily. tablet Eliquis 2.5 2021- No TAKE 1 Met hodi mg tablet 03-04- TABLET BY st 00:00: 00:00 MOUTH Hospita 00 :00 TWICE A l DAY Eliquis 2.5 2021- No TAKE 1 Met hodi mg tablet 03-04- TABLET BY st 00:00: 00:00 MOUTH Hospita 00 :00 TWICE A l DAY Eliquis 2.5 2021- No TAKE 1 Met hodi mg tablet 03-04- TABLET BY st 00:00: 00:00 MOUTH Hospita 00 :00 TWICE A l DAY Eliquis 2.5 Yes TAKE 1 Meth giselle mg tablet 11-[address] 00:00: MOUTH Hospita 00 TWICE A l DAY Eliquis 2.5 2021- No TAKE 1 Met hodi mg tablet 11-[address] 00:00: 00:00 MOUTH Hospita 00 :00 TWICE A l DAY Eliquis 2.5 2021- No TAKE 1 Met hodi mg tablet 11-[address] 00:00: 00:00 MOUTH Hospita [...] Hospita tablet 54 l acetaminoph 2020-11 Yes [id number] 1{tbl} Q4H Take 1 M ethodi en-codeine 2-[address] (TYLENOL 12:56: mouth Hospita WITH 54 every 4 l CODEINE #3) (four) 300-30 mg hours as per tablet needed for moderate pain .acute pain. losartan-hy 2020-11 1{tbl} QD Take 1 M ethodi drochloroth 2-21 12-[address] iazide 00:00: 05:59 mouth Hospita (HYZAAR) 00 :00 daily. l 100-12.5 mg per tablet losartan-hy 2020-11- No 1{tbl} QD Take 1 M ethodi drochloroth 12-31- tablet by st iazide 00:00: 05:59 mouth Hospita (HYZAAR) 00 :00 daily. l 100-12.5 mg per tablet losartan-2020-11- No 1{tbl} QD Take 1 M ethodi drochloroth 12-31- tablet by st iazide 00:00: 00:00 mouth Hospita (HYZAAR) 00 :00 daily. l 100-12.5 mg per tablet losartan-2020-11- No 1{tbl} QD Take 1 M ethodi drochloroth 12-31- tablet by st iazide 00:00: 00:00 mouth Hospita (HYZAAR) 00 :00 daily. l 100-12.5 mg per tablet tiZANidine 2020-11- No 4mg Q8H Take 4 mg M ethodi (ZANAFLEX) 0-05 10-[address] 4 MG tablet 14:43: 00:00 every 8 Ho spita 47 :00 (eight) l hours as needed for muscle spasms. tiZANidine 2020-11 No 4mg Q8H Take 4 mg M ethodi (ZANAFLEX) 0-05 10-[address] 4 MG tablet 14:43: 00:00 every 8 Ho spita 47 :00 (eight) l hours as needed for muscle spasms. losartan 2020-11- No [id number] 50mg QD Take 1 Methodi (Cozaar) 50 0-05 12- 00 tablet (50 s t MG tablet 00:00: 00:00 mg total) Ho spita 00 :00 by mouth l daily. losartan 2020-11- No [id number] 50mg QD Take 1 Method[facility] (Cozaar) 50 0-05 12- 00 tablet (50 s t MG tablet [...] No TAKE 1 Meth giselle tartrate 07-[address] (LOPRESSOR) 00:00: 00:00 MOUTH Hosp cynthia 25 mg 00 :00 TWICE A l tablet DAY metoprolol 2020- No TAKE 1 Meth giselle tartrate 07-[address] (LOPRESSOR) 00:00: 00:00 MOUTH Hosp cynthia 25 mg 00 :00 TWICE A l tablet DAY imdevimab 2020- No [id number] Un [place] ([id number]) 05-26 ity of 600 mg, 13:15: 14:08 [place] casirivimab 00 :00 Medical ([id number]) Branch 600 mg in NaCl 0.9% (NS) 60 mL infusion imdevimab 2020- No [id number] IV Un [place] ([id number]) 05-26 Infusion, it y of 600 mg, 13:15: 14:08 ONCE, Sat Sanchez falk casirivimab 00 :00 05/26/[address] [facility] ([id number]) 0815, For Bra nch 600 mg in 1 NaCl 0.9% dose
Ad (NS) 60 mL corporate wellness coordinator infusion as an IV infusion via pump [...] 2.5mg Q.5D Take 1 Metho di (Eliquis) 5-11 07-[address] 2.5 mg 00:00: 00:00 (2.5 [...] metoprolol Yes TAKE 1 Metho di tartrate -[address] (LOPRESSOR) 00:00: MOUTH Hospi ta 25 mg 00 TWICE A l tablet DAY metoprolol 2020- No TAKE 1 Meth giselle tartrate 01-24-[address] (LOPRESSOR) 00:00: 00:00 MOUTH [...] Take 1 Method i (Cozaar) 50 3-16 -17 tablet (50 s t MG tablet 00:00: [...] Q.5D Take 1 Metho di (Eliquis) -[address] 2.5 mg 00:00: 00:00 (2.5 mg Hospita tablet 00 :00 total) by l mouth 2 (two) times a day. Eliquis 2.5 2019- No TAKE 1 Met hodi mg tablet 08-[address] 00:00: 00:00 MOUTH Hospita [...] (eight) l hours as needed. ULTRAM 50 2020- No 50mg Q8H Take 50 mg M ethodi mg tablet 07-[address] 00:00: 00:00 every 8 Hospita 00 :00 (eight) l hours as needed. rosuvastati 2020- No 1{tbl} Take 1 M ethodi n (CRESTOR) [address] 5 MG tablet 00:00: 00:00 mouth. Hos helio 00 :00 l rosuvastati 2020- No 1{tbl} Take 1 M ethodi n (CRESTOR) [address] 5 MG tablet 00:00: 00:00 mouth. Hos helio 00 :00 l nortriptyli Yes Univer s ne 25 mg 9-10 ity of capsule 00:00: [address] nortriptyli Yes Univer s ne 25 mg 9-10 ity of capsule 00:00: [address] lisinopril Yes Univers 30 mg 8-25 ity of tablet 00:00: [address] lisinopril Yes Univers 30 mg 8-25 ity of tablet 00:00: [address] baclofen 10 Yes Univer s mg tablet 8-18 ity of 00:00: [address] Branch baclofen 10 Yes Univer s mg tablet 8-18 ity of 00:00: [address] RAPAFLO 8 Yes Univers mg capsule 8- ity of 00:00: [address] Branch RAPAFLO 8 Yes Univers mg capsule 8- ity of 00:00: [address] Branch Acetaminoph Yes 1 tab, PO, Memoria [...] PRN l Oxycodone 15:37: for pain, Her roxie Hydrochlori 00 X 7 day, # de 5 MG 50 tab, 0 Oral Tablet Refill(s) [Percocet 5/325] rivaroxaban Yes 10 mg = 1 M emoria 10 MG Oral 5-12 tab, PO, l Tablet 11:04: Daily, # Jarek [Xarelto] 00 10 tab, 0 Refill(s), Pharmacy: [id number] rivaroxaban Yes 10 mg = 1 M emoria 10 MG Oral 5-12 tab, PO, l Tablet 11:04: Daily, # [place] [Xarelto] 00 10 tab, 0 Refill(s), Pharmacy: [id number] rivaroxaban Yes 10 mg = 1 M emoria 10 MG Oral 5-12 tab, PO, l Tablet 11:04: Daily, # Jarek [Xarelto] 00 10 tab, 0 Refill(s), Pharmacy: [facility] #[id number] Saline No Notes: Memoria Flush 0.9% 5-12 (Same as: l 02:00: BD [place] 00 Posiflush) Saline No Notes: Memoria Flush 0.9% 5-12 (Same as: l 02:00: BD [place] 00 Posiflush) Saline No Notes: Memoria Flush 0.9% 5-12 (Same as: l 02:00: BD [place] 00 Posiflush) Saline No Notes: Memoria Flush 0.9% 5-11 (Same as: l 18:01: BD [place] 00 Posiflush) Saline No Notes: Memoria Flush 0.9% 5-11 (Same as: l 18:01: BD [place] 00 Posiflush) Saline No Notes: Memoria Flush 0.9% 5-11 (Same as: l 18:01: BD Jarek 00 Posiflush) Lisinopril No Notes: Memor ia 5-11 (Same as: l 14:00: Prinivil, Jarek 00 Zestril) lansoprazol No 30 mg, Herb [...] 5-11 Route: PO, l 14:00: Drug form: [place] 00 TABDIS, Daily, Dosing Weight 74.716, kg, Start date: 03/20/17 9:00:00 CDT, Duration: 30 day, Stop date: 04/18/17 9:00:00 CDT Famotidine No Notes: Memor ia 20 MG Oral 5-11 (Same as: l Tablet 02:00: Pepcid) gabapentin No Notes: Memor ia 300 MG Oral 5-11 (Same as: l Capsule 02:00: Neurontin) Herm Nortriptyli No Notes: Herb cris ne 5-11 (Same l 02:00: as:Pamelor Jarek 00 , Aventyl) Famotidine No Notes: Memor ia 20 MG Oral 5-11 (Same as: l Tablet 02:00: Pepcid) gabapentin No Notes: Memor ia 300 MG Oral 5-11 (Same as: l Capsule 02:00: Neurontin) Herm cj Nortriptyli No Notes: Herb cris ne 5-11 (Same l 02:00: as:Pamelor [place] 00 , Aventyl) Famotidine No Notes: Memor ia 20 MG Oral 5-11 (Same as: l Tablet 02:00: Pepcid) gabapentin No Notes: Memor ia 300 MG Oral 5-11 (Same as: l Capsule 02:00: Neurontin) Herm cj Nortriptyli No Notes: Herb cris ne 5-11 (Same l 02:00: as:Pamelor Jarek , Aventyl) Tylenol No Notes: Do Memor ia 5-10 not exceed l 22:00: 4 gm/day. [place] (Same as: Tylenol) Docusate No Notes: Memoria Sodium 100 5-10 (Same as: l MG Oral 22:00: Colace) [place] Capsule 00 (Do Not Crush) Tylenol No Notes: Do Memor ia 5-10 not exceed l 22:00: 4 gm/day. Jarek (Same as: Tylenol) Docusate No Notes: Memoria Sodium 100 5-10 (Same as: l MG Oral 22:00: Colace) Jarek Capsule 00 (Do Not Crush) Tylenol No Notes: Do Memor ia 5-10 not exceed l 22:00: 4 gm/day. [place] (Same as: Tylenol) Docusate No Notes: Memoria Sodium 100 5-10 (Same as: l MG Oral 22:00: Colace) Jarek Capsule 00 (Do Not Crush) Protonix No Notes: Memoria 5-10 Tablet l 21:30: should not [place] 00 be chewed or crushed. (Same as: Protonix) Protonix No Notes: Memoria 5-10 Tablet l 21:30: should not Jarek 00 be chewed or crushed. (Same as: Protonix) Protonix No Notes: Memoria 5-10 Tablet l 21:30: should not Jarek 00 be chewed or crushed. (Same as: Protonix) rivaroxaban No Notes: Herb cris 5-10 (Same as: l 21:08: Xarelto) Jarek Do Not Crush rivaroxaban 2017-0 No Notes: Herb cris 5-10 (Same as: l 21:08: Xarelto) Jarek 00 Do Not Crush rivaroxaban No Notes: Herb cris 5-10 (Same as: l 21:08: Xarelto) [place] 00 Do Not Crush Acetaminoph 2016- No Notes: Herb cris en 10 MG/ML [...] Memoria 5-10 Same as: l 18:39: Dilaudid [place] Dilaudid No Notes: Memoria 5-10 Same as: l 18:39: Dilaudid Jarek Dilaudid No Notes: Memoria 5-10 Same as: l 18:39: Dilaudid [place] Cefazolin 2016- No Notes: Memori a 5-10 (Same As: l 18:00: Ancef, Jarek 00 Kefzol) MEDICATION WASTE Product Size: 1000 mg Product Wasted: _0 mg Cefazolin 2016- No Notes: Memori a 5-10 (Same As: l 18:00: Ancef, Jarek 00 Kefzol) MEDICATION WASTE Product Size: 1000 mg Product Wasted: _0 mg Cefazolin 2016- No Notes: Memori a 5-10 (Same As: l 18:00: Ancef, Jarek 00 Kefzol) MEDICATION WASTE Product Size: 1000 mg Product Wasted: _0 mg phenylephri 2017-0 No Route: IV, Memoria ne (ANES) 5-10 Drug form: l 15:15: INJ, ONCE, Stop date: 03/19/17 10:15:00 CDT dexamethaso 2017-0 No Route: IV, Memoria ne (ANES) 5-10 Drug form: l 15:15: INJ, ONCE, Stop date: 03/19/17 10:15:00 CDT glycopyrrol 2017-0 No Route: IV, Memoria ate (ANES) 5-10 Drug form: l 15:15: INJ, ONCE, Stop date: 03/19/17 10:15:00 CDT ondansetron 2017-0 No Route: IV, Memoria (ANES) 5-10 Drug [...] ONCE, Stop date: 03/19/17 10:15:00 CDT ondansetron 2017-0 No Route: IV, Memoria (ANES) 5-10 Drug form: l 15:15: INJ, ONCE, Stop date: 03/19/17 10:15:00 CDT phenylephri 2017-0 No Route: IV, Memoria ne (ANES) 5-10 Drug form: l 15:15: INJ, ONCE, Stop date: 03/19/17 10:15:00 CDT dexamethaso 2017-0 No Route: IV, Memoria ne (ANES) 5-10 Drug form: l 15:15: INJ, ONCE, Jarek Stop date: 03/19/17 10:15:00 CDT glycopyrrol No Route: IV, Memoria ate (ANES) 5-10 Drug form: l 15:15: INJ, ONCE, [place] Stop date: 03/19/17 10:15:00 CDT ondansetron No Route: IV, Memoria (ANES) 5-10 Drug form: l 15:15: INJ, ONCE, [place] Stop date: 03/19/17 10:15:00 CDT Oxycodone No Notes: Memori a Hydrochlori 5-10 (Same as: l de 5 MG 15:07: Roxicodone Herm cj Oral Tablet ) Dulcolax No Notes: Memoria Laxative 5-10 (Same As: l 15:07: Dulcolax, Jarek 00 Correctol) (Do Not Crush) "Do Not Crush" Ondansetron No Notes: Herb cris 5-10 (Same as: l 15:07: Zofran) Jarek MEDICATION WASTE Product Size: 4 mg Product Wasted: _0__ mg Al No Notes: Memoria hydroxide/M 5-10 (aluminum l g 15:07: hydroxide- Jarek hydroxide/s 00 magnesium imethicone hyd-simeth 200 mg-200 icone mg-20 mg/5 200-200-20 mL oral mg/5ml 30 suspension ml ud CHARITY) Lactated No 1,000 mL, Herb cris Ringers 5-10 Rate: 100 l 1,000 mL 15:07: ml/hr, [place] Infuse over: 10 hr, Route: IV, Dosing Weight 74.716 kg, Total Volume: 1,000, Start date: 03/19/17 10:07:00 CDT, Duration: 30 day, Stop date: 04/18/17 10:06:00 CDT Hydromorpho No Notes: Herb cris ne 5-10 Same as l 15:07: Dilaudid [place] 00 Oxycodone No Notes: Memori a Hydrochlori [...] ne 5-10 Same as l 15:07: Dilaudid [place] Oxycodone No Notes: Memori a Hydrochlori 5-10 [...] hydroxide/M 5-10 (aluminum l g 15:07: hydroxide- [place] hydroxide/s 00 magnesium imethicone hyd-simeth 200 mg-200 [...] ONCE, Stop date: 03/19/17 9:39:00 CDT metoprolol 0 No Route: IV, M emoria (ANES) 5-10 Drug form: l 14:39: INJ, ONCE, Stop date: 03/19/17 9:39:00 CDT metoprolol 0 No Route: IV, M emoria (ANES) 5-10 [...] ONCE, Stop date: 03/19/17 9:19:00 CDT propofol 2017-0 No Route: IV, Mem oria (ANES) [...] ONCE, Stop date: 03/19/17 9:19:00 CDT propofol 2017-0 No Route: IV, Mem oria (ANES) [...] ONCE, Stop date: 03/19/17 9:19:00 CDT propofol 2017-0 No Route: IV, Mem oria (ANES) 5-10 Drug form: l 14:19: INJ, ONCE, Stop date: 03/19/17 9:19:00 CDT tranexamic 2017-0 No Route: IV, M emoria acid (ANES) 5-10 Drug form: l 14:14: INJ, ONCE, Stop date: 03/19/17 9:14:00 CDT midazolam 2017-0 No Route: IV, Me moria (ANES) 5-10 Drug form: l 14:14: SOLN, ONCE, Stop date: 03/19/17 9:14:00 CDT fentaNYL 2017-0 No Route: IV, Mem oria (ANES) 5-10 Drug form: l 14:14: INJ, ONCE, Stop date: 03/19/17 9:14:00 CDT tranexamic 2017-0 No Route: IV, M emoria acid (ANES) 5-10 Drug form: l 14:14: INJ, ONCE, Stop date: 03/19/17 9:14:00 CDT midazolam 2017-0 No Route: IV, Me moria (ANES) 5-10 Drug form: l 14:14: SOLN, ONCE, Stop date: 03/19/17 9:14:00 CDT fentaNYL 2017-0 No Route: IV, Mem oria (ANES) 5-10 Drug form: l 14:14: INJ, ONCE, Stop date: 03/19/17 9:14:00 CDT tranexamic 2017-0 No Route: IV, M emoria acid (ANES) 5-10 Drug form: l 14:14: INJ, ONCE, Stop date: 03/19/17 9:14:00 CDT midazolam 2017-0 No Route: IV, Me moria (ANES) 5-10 Drug form: l 14:14: SOLN, Jarek 00 ONCE, Stop date: 03/19/17 9:14:00 CDT fentaNYL 2017-0 No Route: IV, Mem oria (ANES) 5-10 Drug form: l 14:14: INJ, ONCE, Jarek Stop date: 03/19/17 9:14:00 CDT Hydromorpho No Notes: Herb cris ne 5-10 Same as l 13:48: Dilaudid [place] Naloxone No Notes: Memoria 5-10 Same as l 13:48: Narcan Jarek Flumazenil No Notes: Memor ia 5-10 (Same as: l 13:48: Romazicon) [place] Hydralazine No Notes: Herb cris 5-10 (Same as: l 13:48: Apresoline [place] ) Push over 5 minutes Metoprolol No Notes: Memor ia 5-10 (Same as: l 13:48: Lopressor) Jarek 00 Push over 2 minutes Diphenhydra No Notes: Herb cris mine 5-10 (Same as: l 13:48: Benadryl) Jarek 00 Ondansetron No Notes: Herb cris 5-10 (Same as: l 13:48: Zofran) Jarek 00 MEDICATION WASTE Product Size: 4 mg Product Wasted: _0__ mg Morphine No Notes: Memoria 5-10 (Same l 13:48: as:MORPhin [place] 00 e Sulfate) Hydromorpho No Notes: Herb cris ne 5-10 Same as l 13:48: Dilaudid [place] Naloxone No Notes: Memoria 5-10 Same as l 13:48: Narcan Jarek Flumazenil No Notes: Memor ia 5-10 (Same as: l 13:48: Romazicon) Jarek Hydralazine No Notes: Herb cris 5-10 (Same as: l 13:48: Apresoline Jarek ) Push over 5 minutes Metoprolol No Notes: Memor ia 5-10 (Same as: l 13:48: Lopressor) Jarek 00 Push over 2 minutes Diphenhydra No Notes: Herb cris mine 5-10 (Same as: l 13:48: Benadryl) [place] Ondansetron No Notes: Herb cris 5-10 (Same as: l 13:48: Zofran) [place] 00 MEDICATION WASTE Product Size: 4 mg [...] l 13:48: as:MORPhin Jarek 00 e Sulfate) LR 1000 mL No Route: IV, M emoria INJ (ANES) 5-10 Total l 13:29: Volume: Jarek 00 1,000, Start date: 03/19/17 8:29:00 CDT, Stop date: 03/19/17 9:29:00 CDT LR 1000 mL No Route: IV, M emoria INJ (ANES) 5-10 Total l 13:29: Volume: [place] 00 1,000, Start date: 03/19/17 8:29:00 CDT, Stop date: 03/19/17 9:29:00 CDT LR 1000 mL No Route: IV, M emoria INJ (ANES) 5-10 Total l 13:29: Volume: [place] 00 1,000, Start date: 03/19/17 8:29:00 CDT, Stop date: 03/19/17 9:29:00 CDT Lidocaine No Notes: Memori a 5-10 Ingredient l 12:00: s: 2 ml [place] 00 lidocaine 1% inj , 0.2ml sodium bicarbonat e 8.4% inj total volume = 2.2ml Refrigerat e: 14 days Room temp: 7 days Lidocaine No Notes: Memori a 5-10 Ingredient l 12:00: s: 2 ml [place] 00 lidocaine 1% inj , 0.2ml sodium [...] day, Stop date: 04/18/17 6:58:00 CDT Calcium 2017- No 1,000 mL, Memor ia Chloride 5-10 Rate: 25 l 0.0014 11:59: ml/hr, Jraek MEQ/ML / 00 Infuse Potassium over: 40 [...] cris 5-10 (Same As: l 11:00: Cyklokapro Jarek 00 n) Lactated No IV, 100 Memori [...] cris 5-10 (Same As: l 11:00: Cyklokapro Jarek 00 n) Lactated No IV, 100 Memori a Ringers 5-10 ml/hr, l Injection 11:00: ONCALL, Sabi nn IV 00 Start date: 03/19/17 6:00:00 CDT, Duration: 1, 1,000 ml ceFAZolin + No Notes: Herb cris sodium 5-10 (Same As: l chloride 11:00: Ancef, [place] 0.9% 100 mL 00 Kefzol) INJ (for IV set) 100 mL MEDICATION WASTE Product Size: 1000 mg Product Wasted: 0__ mg Neurontin No Notes: Memori a 5-10 (Same as: l 11:00: Neurontin) [place] 00 Cyklokapron No Notes: Herb cris 5-10 (Same As: l 11:00: Cyklokapro [place] 00 n) Lactated No IV, 100 Memori a Ringers 5-10 ml/hr, l Injection 11:00: ONCALL, Sabi nn IV 00 Start date: 03/19/17 6:00:00 CDT, Duration: 1, 1,000 ml ceFAZolin + No Notes: Herb cris sodium 5-10 (Same As: l chloride 11:00: Ancef, [place] 0.9% 100 mL 00 Kefzol) INJ (for IV set) 100 mL MEDICATION WASTE Product Size: 1000 mg Product Wasted: 0__ mg Sodium No IV, 0 Memoria Chloride 5-09 ml/hr, l 0.9% IV 19:29: PRN, PRN Enoc n 00 Line Flush, Start date: 03/18/17 14:29:00 CDT, Duration: 30, 25 ml BD Normal No Notes: Memori a Saline -09 (Same as: l Flush 19:29: BD [place] 00 Posiflush) Sodium No IV, 0 Memoria Chloride 5-09 ml/hr, l 0.9% IV 19:29: PRN, PRN Enoc n 00 Line Flush, Start date: 03/18/17 14:29:00 CDT, Duration: 30, 25 ml BD Normal No Notes: Memori a Saline 5-09 (Same as: l Flush 19:29: BD Jarek 00 Posiflush) Sodium No IV, 0 Memoria Chloride 5-09 ml/hr, l 0.9% IV 19:29: PRN, PRN Enoc n 00 Line Flush, Start date: 03/18/17 14:29:00 CDT, Duration: 30, 25 ml BD Normal No Notes: Memori a Saline 5-09 (Same as: l Flush 19:29: BD Jarek 00 Posiflush) lansoprazol 2017-0 Yes 30 mg = 1 M emoria e 30 mg 5-02 tab, PO, l oral 17:13: Daily, # [place] tablet, 00 30 tab, 0 disintegrat Refill(s) ing lisinopril 2017- Yes 30 mg = 1 Me moria 30 mg oral 5-02 tab, PO, l tablet 17:13: Daily, # [place] 00 30 tab, 0 Refill(s) nortriptyli 2017-0 Yes 50 mg = 1 M emoria ne 50 mg 5-02 cap, PO, l oral 17:13: Bedtime, # [place] capsule 00 30 cap, 1 Refill(s) silodosin 8 2017-0 Yes 8 mg = 1 Me moria MG Oral 5-02 cap, PO, l Capsule 17:13: Daily, 0 Enoc n [Rapaflo] 00 Refill(s) lansoprazol 2017-0 Yes 30 mg = 1 M emoria e 30 mg 5-02 tab, PO, l oral 17:13: Daily, # [place] tablet, 00 30 tab, 0 disintegrat Refill(s) ing lisinopril 2017-0 Yes 30 mg = 1 Me moria 30 mg oral 5-02 tab, PO, l tablet 17:13: Daily, # Jarek 00 30 tab, 0 Refill(s) nortriptyli 2017-0 Yes 50 mg = 1 M emoria ne 50 mg 5-02 cap, PO, l oral 17:13: Bedtime, # [place] capsule 00 30 cap, 1 Refill(s) silodosin 8 2017-0 Yes 8 mg = 1 Me moria MG Oral 5-02 cap, PO, l Capsule 17:13: Daily, 0 Enco n [Rapaflo] 00 Refill(s) lansoprazol 2017-0 Yes 30 mg = 1 M emoria e 30 mg 5-02 tab, PO, l oral 17:13: Daily, # Jarek tablet, 00 30 tab, 0 disintegrat Refill(s) ing lisinopril 2017-0 Yes 30 mg = 1 Me moria 30 mg oral 5-02 tab, PO, l tablet 17:13: Daily, # Jarek 00 30 tab, 0 Refill(s) nortriptyli 2017- Yes 50 mg = 1 M emoria ne 50 mg 5-02 cap, PO, l oral 17:13: Bedtime, # [place] capsule 00 30 cap, 1 Refill(s) silodosin 8 2017 Yes 8 mg = 1 Me moria MG Oral 5-02 cap, PO, l Capsule 17:13: Daily, 0 Enoc n [Rapaflo] 00 Refill(s) Eliquis 2.5 Eliquis 2.5 No Eliquis mg 2.5 mg mg 2.5 mg 2.5 mg 2.5 mg Tamsulosin Tamsulosin No 1{capsu QD Tamsulosin HCl 0.4 MG HCl 0.4 MG le} HCl 0.4 MG Metoprolol Metoprolol No 1{table BID Metoprolol Tartrate 25 Tartrate 25 t_with_ Tartrate MG MG food} 25 MG Metoprolol Metoprolol No 1{table BID Metoprolol Tartrate 25 Tartrate 25 t_with_ Tartrate MG MG food} 25 MG acetaminoph acetaminoph No acetaminop en en hen Eliquis 2.5 Eliquis 2.5 No Eliquis mg 2.5 mg mg 2.5 mg 2.5 mg 2.5 mg Tamsulosin Tamsulosin No 1{capsu QD Tamsulosin HCl 0.4 MG HCl 0.4 MG le} HCl 0.4 MG Atorvastati Atorvastati No 1{table QD Atorvastat n Calcium n Calcium t} in Calcium 40 MG 40 MG 40 MG Metoprolol Metoprolol No 1{table BID Metoprolol Tartrate 25 Tartrate 25 t_with_ Tartrate MG MG food} 25 MG acetaminoph acetaminoph No acetaminop en en hen Eliquis 2.5 Eliquis 2.5 No Eliquis mg 2.5 mg mg 2.5 mg 2.5 mg 2.5 mg Tamsulosin Tamsulosin No 1{capsu QD Tamsulosin HCl 0.4 MG HCl 0.4 MG le} HCl 0.4 MG Atorvastati Atorvastati No 1{table QD Atorvastat n Calcium n Calcium t} in Calcium 40 MG 40 MG 40 MG Eliquis 2.5 Eliquis 2.5 No Eliquis mg 2.5 mg mg 2.5 mg 2.5 mg 2.5 mg Tamsulosin Tamsulosin No 1{capsu QD Tamsulosin HCl 0.4 MG HCl 0.4 MG le} HCl 0.4 MG aspirin aspirin No aspirin losartan 20 losartan 20 No losartan mg mg 20 mg Atorvastati Atorvastati No 1{table QD Atorvastat n Calcium n Calcium t} in Calcium 40 MG 40 MG 40 MG Metoprolol Metoprolol No 1{table BID Metoprolol Tartrate 25 Tartrate 25 t_with_ Tartrate MG MG food} 25 MG acetaminoph acetaminoph No acetaminop en en hen Venlafaxine Venlafaxine No 1{table BID Venlafaxin HCl 25 MG HCl 25 MG t_with_ e HCl 25 food} MG aspirin aspirin No aspirin Tamsulosin Tamsulosin No 1{capsu QD Tamsulosin HCl 0.4 MG HCl 0.4 MG le} HCl 0.4 MG acetaminoph acetaminoph No acetaminop en en hen Venlafaxine Venlafaxine No 1{table BID Venlafaxin HCl 25 MG HCl 25 MG t_with_ e HCl 25 food} MG Eliquis 2.5 Eliquis 2.5 No Eliquis mg 2.5 mg mg 2.5 mg 2.5 mg 2.5 mg losartan 20 losartan 20 No losartan mg mg 20 mg Atorvastati Atorvastati No 1{table QD Atorvastat n Calcium n Calcium t} in Calcium 40 MG 40 MG 40 MG aspirin aspirin No aspirin acetaminoph acetaminoph No acetaminop en en hen Venlafaxine Venlafaxine No 1{table BID Venlafaxin HCl 25 MG HCl 25 MG t_with_ e HCl 25 food} MG Eliquis 2.5 Eliquis 2.5 No Eliquis mg 2.5 mg mg 2.5 mg 2.5 mg 2.5 mg losartan 20 losartan 20 No losartan mg mg 20 mg Atorvastati Atorvastati No 1{table QD Atorvastat n Calcium n Calcium t} in Calcium 40 MG 40 MG 40 MG losartan 20 losartan 20 No losartan mg mg 20 mg acetaminoph acetaminoph No acetaminop en en hen Atorvastati Atorvastati No 1{table QD Atorvastat n Calcium n Calcium t} in Calcium 40 MG 40 MG 40 MG Eliquis 2.5 Eliquis 2.5 No Eliquis mg 2.5 mg mg 2.5 mg 2.5 mg 2.5 mg Venlafaxine Venlafaxine No 1{table BID Venlafaxin HCl 25 MG HCl 25 MG t_with_ e HCl 25 food} MG Aspirin 81 Aspirin 81 No 1{table QD Aspirin 81 81 MG 81 MG t} 81 MG losartan 20 losartan 20 No losartan mg mg 20 mg acetaminoph acetaminoph No acetaminop en en hen Atorvastati Atorvastati No 1{table QD Atorvastat n Calcium n Calcium t} in Calcium 40 MG 40 MG 40 MG Eliquis 2.5 Eliquis 2.5 No Eliquis mg 2.5 mg mg 2.5 mg 2.5 mg 2.5 mg Venlafaxine Venlafaxine No 1{table BID Venlafaxin HCl 25 MG HCl 25 MG t_with_ e HCl 25 food} MG Aspirin 81 Aspirin 81 No 1{table QD Aspirin 81 81 MG 81 MG t} 81 MG Atorvastati Atorvastati No 1{table QD Atorvastat n Calcium n Calcium t} in Calcium 40 MG 40 MG 40 MG acetaminoph acetaminoph No acetaminop en en hen Tamsulosin Tamsulosin 2021- No 1{capsu QD Tamsulosin HCl 0.4 MG HCl 0.4 MG 12-31 le} HCl 0.4 MG 00:00 :00 Tamsulosin Tamsulosin 2021- No 1{capsu QD Tamsulosin HCl 0.4 MG HCl 0.4 MG 12-31 le} HCl 0.4 MG 00:00 :00 Tamsulosin Tamsulosin 2021- No 1{capsu QD Tamsulosin HCl 0.4 MG HCl 0.4 MG 12-31 le} HCl 0.4 MG 00:00 :00 Vital Signs Vital Name Observation Time Observation Value Comments Source height 2022-02-27 10:00:00 69 [in_i] [facility] weight 2022-02-27 10:00:00 170 [lb_av] [facility] temperature 2022-02-27 10:00:00 97.6 [degF] [facility] bmi 2022-02-27 10:00:00 25.1 [facility] oximetry 2022-02-27 10:00:00 100 % [facility] respiratory rate 2022-02-27 10:00:00 16 /min [facility] blood pressure 2022-02-27 10:00:00 139 mm[Hg] [facility] blood pressure 2022-02-27 10:00:00 76 mm[Hg] [facility] height 2021-08-29 09:45:00 69 [in_i] Common [facility] weight 2021-08-29 09:45:00 167 [lb_av] [facility] temperature 2021-08-29 09:45:00 97.6 [degF] Common [facility] bmi 2021-08-29 09:45:00 24.66 kg/m2 [facility] oximetry 2021-08-29 09:45:00 97 % Common [facility] blood pressure 2021-08-29 09:45:00 141 mm[Hg] [facility] blood pressure 2021-08-29 09:45:00 78 mm[Hg] [facility] height 2021-06-28 15:30:00 69 [in_i] [facility] weight 2021-06-28 15:30:00 164 [lb_av] [facility] temperature 2021-06-28 15:30:00 98.2 [degF] Common [facility] bmi 2021-06-28 15:30:00 24.22 kg/m2 [facility] oximetry 2021-06-28 15:30:00 98 % [facility] blood pressure 2021-06-28 15:30:00 139 mm[Hg] Common [facility] - systolic [facility] blood pressure 2021-06-28 15:30:00 66 mm[Hg] [facility] height 2021-06-11 16:40:00 69 [in_i] [facility] weight 2021-06-11 16:40:00 164 [lb_av] Common [facility] temperature 2021-06-11 16:40:00 98.5 [degF] Common [facility] bmi 2021-06-11 16:40:00 24.22 kg/m2 [facility] oximetry 2021-06-11 16:40:00 98 % [facility] blood pressure 2021-06-11 16:40:00 157 mm[Hg] Common [facility] - systolic [facility] blood pressure 2021-06-11 16:40:00 85 mm[Hg] Common [facility] - diastolic [facility] Systolic blood 2021-05-26 15:10:00 146 mm[Hg] [facility] Diastolic blood 2021-05-26 15:10:00 81 mm[Hg] [facility] Heart rate 2021-05-26 15:10:00 67 /min [facility] Body temperature 2021-05-26 15:10:00 36.78 Rena [facility] Oxygen saturation in 2021-05-26 15:10:00 97 /min [facility] Arterial blood by [facility] Pulse oximetry Branch Respiratory rate 2021-05-26 14:40:00 18 /min [facility] height 2021-05-26 13:05:00 177.8 cm [facility] Body weight 2021-05-26 13:05:00 74.844 kg [facility] BMI 2021-05-26 13:05:00 23.68 kg/m2 [facility] Systolic blood 2021-05-26 15:10:00 146 mm[Hg] [facility] Diastolic blood 2021-05-26 15:10:00 81 mm[Hg] Unive rsity of pressure [facility] Heart rate 2021-05-26 15:10:00 67 /min [facility] Body temperature 2021-05-26 15:10:00 36.78 Rena [facility] Oxygen saturation in 2021-05-26 15:10:00 97 /min [facility] Arterial blood by [facility] Pulse oximetry Branch Respiratory rate 2021-05-26 14:40:00 18 /min [facility] Body height 2021-05-26 13:05:00 177.8 cm Universi ty [facility] Body weight 2021-05-26 13:05:00 74.844 kg [facility] BMI 2021-05-26 13:05:00 23.68 kg/m2 [facility] height 2021-05-21 09:20:00 69 [in_i] [facility] weight 2021-05-21 09:20:00 164 [lb_av] [facility] temperature 2021-05-21 09:20:00 97.4 [degF] [facility] bmi 2021-05-21 09:20:00 24.22 kg/m2 [facility] oximetry 2021-05-21 09:20:00 95 % [facility] blood pressure 2021-05-21 09:20:00 164 mm[Hg] [facility] blood pressure 2021-05-21 09:20:00 70 mm[Hg] [facility] Systolic blood 2022-10-15 17:50:00 156 mm[Hg] [facility] pressure Diastolic blood 2022-10-15 17:50:00 76 mm[Hg] [facility] pressure Heart rate 2022-10-15 17:50:00 53 /[facility] height 2022-10-15 17:50:00 177.8 cm [facility] Body weight 2022-10-15 17:50:00 [facility].204 [facility] BMI 2022-10-15 17:50:00 24.11 kg/m2 [facility] Body height 2022-07-26 14:44:00 177.8 cm [facility] Body weight 2022-07-26 14:44:00 79.379 kg [facility] BMI 2022-07-26 14:44:00 25.11 kg/m2 [facility] Systolic blood 2022-04-30 14:19:00 144 mm[Hg] [facility] pressure Diastolic blood 2022-04-30 14:19:00 85 mm[Hg] [facility] pressure Heart rate 2022-04-30 14:19:00 81 /min [facility] Systolic blood 2021-10-30 19:01:00 178 mm[Hg] [facility] pressure Diastolic blood 2021-10-30 19:01:00 82 mm[Hg] [facility] pressure Heart rate 2021-10-30 19:01:00 59 /min [facility] Body height 2021-10-30 18:56:00 177.8 cm [facility] Body weight 2021-10-30 18:56:00 76.658 kg [facility] BMI 2021-10-30 18:56:00 24.25 kg/m2 [facility] Systolic blood 2021-01-23 13:56:00 144 mm[Hg] [facility] pressure Diastolic blood 2021-01-23 13:56:00 77 mm[Hg] [facility] pressure Heart rate 2021-01-23 13:56:00 44 /min [facility] Body height 2021-01-23 13:56:00 177.8 cm [facility] Body weight 2021-01-23 13:56:00 75.751 kg [facility] BMI 2021-01-23 13:56:00 23.96 kg/m2 [facility] Respitory Rate 2017-03-21 14:13:00 Juan Diego clements [place] Systolic (mm Hg) 2017-03-21 14:13:00 Herb ramos [place] Diastolic (mm Hg) 2017-03-21 14:13:00 Mem orial [place] Temperature Oral (F) 2017-03-21 14:13:00 98.2 F [facility] Heart Rate 2017-03-21 14:13:00 [facility] [place] Systolic (mm Hg) 2017-03-21 10:35:00 Herb rial [place] Diastolic (mm Hg) 2017-03-21 10:35:00 Mem orial [place] Respitory Rate 2017-03-21 10:35:00 Memori al [place] Heart Rate 2017-03-21 10:35:00 [facility] [place] Temperature Oral (F) 2017-03-21 10:35:00 98.2 F [facility] [place] Temperature Oral (F) 2017-03-21 04:33:00 98.4 F [facility] [place] Respitory Rate 2017-03-21 04:33:00 Memori al [place] Heart Rate 2017-03-21 04:33:00 [facility] [place] Systolic (mm Hg) 2017-03-21 04:33:00 Herb rial [place] Diastolic (mm Hg) 2017-03-21 04:33:00 Mem orial [place] Height 2017-03-11 17:17:00 170.82 cm [facility] [place] BMI Calculated 2017-03-11 17:17:00 Memori al [place] Weight 2017-03-11 17:17:00 [facility] [place] Procedures Procedure Date / Time Performed Performing Clinician Sour e DC INJECTION 2022-07-26 18:04:06 [facility] TRIG[employer] POINT 1/2 MUSCLES XR CERVICAL SPINE 2 2022-07-26 14:47:44 Carlos Doveri [facility] OR 3 VW ECG 12-LEAD 2022-04-30 14:20:54 Jose [facility] ECG 12-LEAD 2021-10-30 19:00:23 [facility] TTE COMPLETE, W 2021-08-27 19:05:31 Jose [facility] spital CONTRAST, W DOPPLER ([id number]) [id number] CONSENT 2021-05-26 05:01:00 Doctor Unassigned, No [facility] ECG 12-LEAD 2021-01-23 13:58:29 Jose [facility] spital TTE COMPLETE, W 2020-09-21 18:53:55 Jose [facility] spital CONTRAST, W DOPPLER ([id number]) Shoulder joint 2015-11-11 06:00:00 [facility] Her faustin operations<sup>1</sup > Neck repair 2015-03-11 05:00:00 [facility] Her fa[place] Plan of Care Planned Activity Planned Date Details Comments Source Future Scheduled 2023-05-24 COVID-19 VACCINE (#1) [facility] Test 22:50:09 [code = COVID-19 VACCINE (#1)] Future Scheduled 2023-05-24 65+ [facility] 22:50:09 VACCINE (1 - PCV) [code = 65+ PNEUMOCOCCAL VACCINE (1 - PCV)] Future Scheduled 2023-05-24 Hepatitis C screening [facility] Test 22:50:09 (procedure) [code = 232078080] Future Scheduled 2023-05-24 SHINGLES VACCINES (1 Met [facility] Test 22:50:09 of 2) [code = SHINGLES VACCINES (1 of 2)] Future Scheduled 2023-05-24 INFLUENZA VACCINE [facility] Test 22:50:09 [code = INFLUENZA VACCINE] Future Scheduled 2023-02-12 COVID-19 VACCINE (#1) [facility] Test 17:33:22 [code = COVID-19 VACCINE (#1)] Future Scheduled 2023-02-12 65+ [facility]AL [facility] Test 17:33:22 VACCINE (1 - PCV) [code = 65+ PNEUMOCOCCAL VACCINE (1 - PCV)] Future Scheduled 2023-02-12 Hepatitis C screening [facility] Test 17:33:22 (procedure) [code = 000100940] Future Scheduled 2023-02-12 SHINGLES VACCINES (1 Met [facility] Test 17:33:22 of 2) [code = SHINGLES VACCINES (1 of 2)] Future Scheduled 2023-02-12 COLONOSCOPY SCREENING [facility] Test 17:33:22 [code = COLONOSCOPY SCREENING] Future Scheduled 2023-02-12 INFLUENZA VACCINE [facility] Test 17:33:22 [code = INFLUENZA VACCINE] Future Scheduled 2022-07-26 HEPATITIS B VACCINES Met [facility] Test 09:45:36 (1 of 3 - 3-dose series) [code = HEPATITIS B VACCINES (1 of 3 - 3-dose series)] Future Scheduled 2022-07-26 COVID[facility]19 [facility] (#[facility] 09:45:36 [code = COVID-19 VACCINE (#1)] Future Scheduled 2022-07-26 65+ [facility] 09:45:36 VACCINE (1 - PCV) [code = 65+ PNEUMOCOCCAL VACCINE (1 - PCV)] Future Scheduled 2022-07-26 [facility] Test 09:45:36 (procedure) [code = [id number]] Future Scheduled 2022-07-26 SHINGLES VACCINES ([facility] Test 09:45:36 of 2) [code = SHINGLES VACCINES (1 of 2)] Future Scheduled 2022-07-26 [facility]ING [facility] 09:45:36 [code = COLONOSCOPY SCREENING] Future Scheduled 2022-07-26 INFLUENZA VACCINE [facility] Test 09:45:36 [code = INFLUENZA VACCINE] Future Scheduled 2021-12-11 COVID-19 VACCINE (1) Met [facility] Test 14:18:26 [code = COVID-19 VACCINE (1)] Future Scheduled 2021-12-11 65+ [facility] [facility] Test 14:18:26 VACCINE (1 of 4 - PCV13) [code = 65+ PNEUMOCOCCAL VACCINE (1 of 4 - PCV13)] Future Scheduled 2021-12-11 [facility] 14:18:26 (procedure) [code = 643618048] Future Scheduled 2021-12-11 COLONOSCOPY SCREENING [facility] Test 14:18:26 [code = COLONOSCOPY SCREENING] [...] PCV13)] Future Scheduled COVID-19 VACCINE (1) Met [facility] Test [code = COVID-19 VACCINE (1)] Future Scheduled [facility] (procedure) [code = 431047755] Future Scheduled [facility] [code = COLONOSCOPY SCREENING] Future Scheduled SHINGLES VACCINES (#1) [facility] [code = SHINGLES VACCINES (#1)] Future Scheduled INFLUENZA VACCINE [facility] Test [code = INFLUENZA VACCINE] Encounters Start End Encounter Admission Attending Care Care Encounter Source Date/Time Date/Time Type Type Clinicians Facility Department ID 2022-10-07 Outpatient [facility] [id number] Common 08:44:01 [facility] 2022-03-01 Outpatient [facility] [id number] Common 11:23:02 [facility] 2022-02-25 Outpatient [facility] [id number] Common 09:02:01 [facility] 2021-12-05 Outpatient [facility] [id number] Common 11:50:50 [facility] 2023-03-22 2023-03-22 Real [place] 1.2.840.1 [id number] Methodi 00:00:00 00:00:00 Jose Arellano. [address]99.1.[address] 3.430.2.7 Hospit a .3.613305 l .8 2022-11-25 2022-11-25 Refisabella [place] 1.2.840.1 [id number] Methodi 00:00:00 00:00:00 Jose Arellano. 81624.1.[address] 3.430.2.7 Hospit a .3.164712 l .8 2022-11-25 2022-11-25 Real [place] 1.2.840.1 [id number] Methodi 00:00:00 00:00:00 Jose Arellano. 28232.1.[address] 3.430.2.7 Hospit a .3.026271 l .8 2022-10-15 2022-10-15 Osvaldo [place] 1.2.840.1 [id number] Methodi 11:50:00 14:55:55 Visit Jose Nix50.1.[address] 3.430.2.7 Hospit a .3.094201 l .8 2022-10-15 2022-10-15 Office Stanislaw, 1.2.840.1 [id number] Methodi 11:50:00 14:55:55 Visit Jose Aguiar 64181.1.[address] 3.430.2.7 Hospit a .3.701872 l .8 2022-10-15 2022-10-15 Travel 1.2.840.1 1.2.131.571 [id number] Methodi 00:00:00 00:00:[address] 3.430.2.7 0.2.7.3.698 Ho spita .3.878624 084.8 l .8 2022-10-15 2022-10-15 Travel 1.2.840.1 1.2.894.700 [id number] Methodi 00:00:00 00:00:[address] 3.430.2.7 0.2.7.3.698 Ho spita .3.952153 084.8 l .8 2022-10-07 2022-10-07 (TEL) [facility] [id number] Co mmon 00:00:00 00:00:00 [facility] 2022-08-29 2022-08-29 Refisabella [place], 1.2.840.1 [id number] Methodi 00:00:00 00:00:00 Jose Aguiar 86958.1.[address] 3.430.2.7 Hospit a .3.763459 l .8 2022-08-29 2022-08-29 Refill Stanislaw, 1.2.840.1 [id number] Methodi 00:00:00 00:00:00 Jose Aguiar 98073.1.[address] 3.430.2.7 Hospit a .3.472725 l .8 2022-07-26 2022-07-26 Office Stanislaw Carlos 1.2.840.1 [id number] Methodi 09:45:00 11:33:46 Visit Cedrick 66705.1.[address] 3.430.2.7 Hospit a .3.020626 l .8 2022-07-26 2022-07-26 Office Stanislaw Carlos 1.2.840.1 [id number] Methodi 09:45:00 11:33:46 Visit Cedrick 55529.1.[address] 3.430.2.7 Hospit a .3.891571 l .8 2022-07-26 2022-07-26 Outpatient [facility] [id number] [place] 00:00:00 00:00:[address] 2022-07-26 2022-07-26 Travel 1.2.840.1 1.2.340.738 6012 [id number] Methodi 00:00:00 00:00:[address] 3.430.2.7 0.2.7.3.698 Ho spita .3.115322 084.8 l .8 2022-07-26 2022-07-26 Travel 1.2.840.1 1.2.853.265 8384 [id number] Methodi 00:00:00 00:00:[address] 3.430.2.7 0.2.7.3.698 Ho spita .3.342267 084.8 l .8 2022-07-01 2022-07-01 Travel 1.2.840.1 1.2.307.925 0202 687586 Methodi 00:00:00 00:00:[address] 3.430.2.7 0.2.7.3.698 Ho spita .3.965761 084.8 l .8 2022-07-01 2022-07-01 Travel 1.2.840.1 1.2.892.204 7444 784432 Methodi 00:00:00 00:00:[address] 3.430.2.7 0.2.7.3.698 Ho spita .3.441899 084.8 l .8 2022-06-02 2022-06-02 Refill [place], 1.2.840.1 [id number] 7022 Methodi 00:00:00 00:00:00 [address] 71056.1.[address] 3.430.2.7 Hospit a .3.764346 l .8 2022-06-02 2022-06-02 Refill [place], 1.2.840.1 [id number] 2117 Methodi 00:00:00 00:00:00 Jose [address] 26351.1.[address] 3.430.2.7 Hospit a .3.329129 l .8 2022-04-30 2022-04-30 Office [place] 1.2.840.1 [id number] 1230 Methodi 09:30:00 15:24:44 Visit Jose R. 23559.1.[address] 3.430.2.7 Hospit a .3.669984 l .8 2022-04-30 2022-04-30 Travel 1.2.840.1 1.2.870.510 5157 [id number] Methodi 00:00:00 00:00:[address] 3.430.2.7 0.2.7.3.698 Ho spita .3.992774 084.8 l .8 2022-03-02 2022-03-02 Real [place], 1.2.840.1 [id number] 1133 Methodi 00:00:00 00:00:[address]402.1.[address] 3.430.2.7 Hospit a .3.937397 l .8 2022-02-27 2022-02-27 OFFICE STLMLC STLMLC [id number] Co mmon 00:00:00 00:00:00 VISIT Spirit ESTAB PT - CHI LEVEL 2 [facility] 2021-11-28 2021-11-28 Real [place], 1.2.840.1 [id number] 2745 Methodi 00:00:00 00:00:00 Jose Aguiar 38754.1.[address] 3.430.2.7 Hospit a .3.674427 l .8 2021-11-14 2021-11-14 (TEL) STLMLC STLMLC [id number] Co mmon 00:00:00 00:00:00 Spirit - CHI [facility] 2021-10-30 2021-10-30 Office [place] 1.2.840.1 [id number] 4510 Methodi 13:00:00 14:21:17 Visit Jose Aguiar 98244.1.[address] 3.430.2.7 Hospit a .3.711764 l .8 2021-10-30 2021-10-30 Travel 1.2.840.1 1.2.728.729 6291 699498 Methodi 00:00:00 00:00:[address] 3.430.2.7 0.2.7.3.698 Ho spita .3.242490 084.8 l .8 2021-10-22 2021-10-22 Telephone [place], 1.2.840.1 [id number] 2100 748502 Methodi 00:00:00 00:00:00 Jose Aguiar 45961.1.[address] 3.430.2.7 Hospit a .3.296345 l .8 2021-08-29 2021-08-29 OFFICE STLM STLMLC [id number] Co mmon 00:00:00 00:00:00 VISIT EST Spir it PT LEVEL 3 - CHI [facility] 2021-08-27 2021-08-27 [facility] [id number] [place] 00:00:00 00:00:00 JOSE [address] 2021-08-27 2021-08-27 Travel 1.2.840.1 1.2.730.095 3644 996613 Methodi 00:00:00 00:00:[address] 3.430.2.7 0.2.7.3.698 Ho spita .3.674871 084.8 l .8 2021-08-14 2021-08-14 Office [place], 1.2.840.1 [id number] 9606 Methodi 14:30:00 16:47:52 Visit Jose Aguiar 44335.1.[address] 3.430.2.7 Hospit a .3.884859 l .8 2021-08-14 2021-08-14 Travel 1.2.840.1 1.2.583.685 5600 664990 Methodi 00:00:00 00:00:[address] 3.430.2.7 0.2.7.3.698 Ho spita .3.363859 084.8 l .8 2021-08-10 2021-08-10 Travel 1.2.840.1 1.2.714.538 1456 719369 Methodi 00:00:00 00:00:[address] 3.430.2.7 0.2.7.3.698 Ho spita .3.042021 084.8 l .8 2021-08-10 2021-08-10 Telephone [place], 1.2.840.1 [id number] 2099 [id number] Methodi 00:00:00 00:00:00 Jose R. 67886.1.[address] 3.430.2.7 Hospit a .3.824409 l .8 2021-08-10 2021-08-10 Telephone [place], 1.2.840.1 [id number] 2099 103149 Methodi 00:00:00 00:00:[address] Jose R[address] 88636.1.[address] 3.430.2.7 Hospit a .3.972706 l .8 2021-07-31 2021-07-31 Refill [place], 1.2.840.1 [id number] 1190 Methodi 00:00:00 00:00:[address]60.1.[address] 3.430.2.7 Hospit a .3.673896 l .8 2021-07-27 2021-07-27 Real [place] 1.2.840.1 [id number] 4623 Methodi 00:00:00 00:00:00 Jose Aguiar 40900.1.[address] 3.430.2.7 Hospit a .3.783135 l .8 2021-06-28 2021-06-28 OFFICE STLMLC STLMLC [id number] Co mmon 00:00:00 00:00:00 VISIT Spirit ESTAB PT - CHI LEVEL 4 [facility] 2021-06-13 2021-06-13 (TEL) STLMLC STLMLC [id number] Co mmon 00:00:00 00:00:00 Spirit - CHI [facility] 2021-06-11 2021-06-11 OFFICE STLMLC STLMLC [id number] Co mmon 00:00:00 00:00:00 VISIT EST Spir it PT LEVEL 3 - CHI [facility] 2021-05-26 2021-05-26 Nurse Therapy, Adc Covid Infusion [facility] 1.2.840.114 [id number] [facility] 07:59:21 08:29:21 Visit Rafael Boogie 350.1.13.10 ity [facility] 4.2.7.2.686 [place] [facility] [id number] [address] 2021-05-26 2021-05-26 Nurse Therapy, [facility] 1.2.840.114 [id number] 883 07:59:21 08:29:21 Visit Aristeo Adams 350.1.13.10 Infusion [place] 4.2.7.2.686 Surgical [phone] [place] [address] 2021-05-26 2021-05-26 Outpatient R ARIELLE [facility] 83745 04675 Univers 08:00:00 08:00:00 RAFAEL ruiz of [facility] 2021-05-26 2021-05-26 Orders Doctor SERRATO 1.2.840.114 [id number] Univers 00:00:00 00:00:00 Only Unassigned, DALILA 350.1.13.10 ity of [place] [facility] 4.2.7.2.686 Joseph as [phone] [facility] [address] 2021-05-26 2021-05-26 Orders Doctor AMA 1.2.840.114 [id number] 89 00:00:00 00:00:00 Only Unassigned, DALILA 350.1.13.10 [place] [facility] 4.2.7.2.686 [id number] 009 2021-05-21 2021-05-21 OFFICE [facility] [id number] Co mmon 00:00:00 00:00:00 VISIT EST Spir it PT LEVEL 3 - [facility] 2020-12-13 2021-04-01 Outpatient C EMELINA, [facility] BALANCE PT 1000 [id number] [place] 11:08:00 23:59:00 KAL [facility] 2021-03-20 2021-03-20 Refisabella [place], 1.2.840.1 [id number] 2950 Methodi 00:00:00 00:00:[address] 3.430.2.7 Hospit a .3.746760 l .8 2021-03-11 2021-03-11 Refill [place], 1.2.840.1 [id number] 3514 Methodi 00:00:00 00:00:00 Jose Aguiar 64210.1.[address] 3.430.2.7 Hospit a .3.210414 l .8 2021-01-23 2021-01-23 Office [place], 1.2.840.1 [id number] 9248 Methodi 08:44:13 13:22:27 Visit Jose Nix50.1.[address] 3.430.2.7 Hospit a .3.948573 l .8 2021-01-23 2021-01-23 Refill [place] 1.2.840.1 [id number] 0955 Methodi 00:00:00 00:00:00 Jose Aguiar 90719.1.[address] 3.430.2.7 Hospit a .3.854843 l .8 2020-12-17 2020-12-17 Refill [place] 1.2.840.1 [id number] 3641 Methodi 00:00:00 00:00:[address] 35551.1.[address] 3.430.2.7 Hospit a .3.049405 l .8 2020-11-21 2020-11-21 Outpatient [facility] [id number] Common 00:00:00 00:00:00 [facility] 2020-09-25 2020-09-25 Refill [place], 1.2.840.1 [id number] 8801 Methodi 00:00:00 00:00:[address] 01992.1.[address] 3.430.2.7 Hospit a .3.432416 l .8 2020-09-21 2020-09-21 [facility] [id number] [address] [place] [address] 00:00:00 00:00:00 JOSE [address] 2020-09-21 2020-09-21 Travel 1.2.840.1 1.2.558.756 3802 746931 Methodi 00:00:00 00:00:[address] 3.430.2.7 0.2.7.3.698 Ho spita .3.125048 084.8 l .8 2020-09-06 2020-09-06 Refisabella Barbour 1.2.840.1 [id number] Methodi 00:00:00 00:00:[address] 3.430.2.7 Hospit a .3.877233 l .8 2020-08-10 2020-08-10 Outpatient [facility] [id number] Common 00:00:00 00:00:00 [facility] 2020-08-06 2020-08-06 Refisabella [place] 1.2.840.1 [id number] 0612 Methodi 00:00:00 00:00:[address] Jose [address] 93610.1.[address] 3.430.2.7 Hospit a .3.866847 l .8 2020-07-25 2020-07-25 Osvaldo [place] 1.2.840.1 [id number] 4458 Methodi 11:35:29 14:53:02 Visit Jose Aguiar 85200.1.[address] 3.430.2.7 Hospit a .3.329511 l .8 2020-07-24 2020-07-24 Travel 1.2.840.1 1.2.523.388 0779 675453 Methodi 00:00:00 00:00:[address] 3.430.2.7 0.2.7.3.698 Ho spita .3.459368 084.8 l .8 2020-07-23 2020-07-23 Refill [place] 1.2.840.1 [id number] 7376 Methodi 00:00:00 00:00:00 [address]Auiar 93436.1.[address] 3.430.2.7 Hospit a .3.001538 l .8 2020-07-12 2020-07-12 Orders Tommy Carrasco 1.2.840.1 [id number] 2099 [id number] Methodi 00:00:00 00:00:[address] 3.430.2.7 Hospit a .3.070083 l .8 2020-07-11 2020-07-11 Telephone Tommy Carrasco 1.2.840.1 [id number] Methodi 00:00:00 00:00:[address] 3.430.2.7 Hospit a .3.056180 l .8 2020-06-27 2020-06-27 Travel 1.2.840.1 1.2.368.974 2395 351893 Methodi 00:00:00 00:00:[address] 3.430.2.7 0.2.7.3.698 Ho spita .3.943051 084.8 l .8 2020-03-28 2020-03-28 [facility] [id number] [address] [place] [address] 00:00:00 00:00:00 JOSE [address] 2019-11-16 2019-11-24 Inpatient [facility] 027 2100 [id number] [place] 00:00:00 00:00:00 Y, NENA 522 [facility] [place] 2019-10-27 2019-10-27 Outpatient [facility] 572 [id number] [place] 00:00:00 00:00:00 Y, NENA 058 [place] 2019-10-27 2019-10-27 Outpatient [facility] 814 [id number] [place] 00:00:00 00:00:00 Y, NENA 619 [place] 2019-10-20 2019-10-20 Outpatient [facility] 083 [id number] 000 [place] 00:00:00 00:00:00 JOSE 248 Method i 2018-08-28 2018-11-21 Outpatient DOLLY [facility] 1000 [id number] [place] 09:11:00 23:59:00 KAL [facility] 2017-03-19 2017-03-21 Inpatient [facility] [id number] [facility] 11:59:00 16:15:00 r [place] 00 [facility] 2017-03-19 2017-03-21 Inpatient Critical access hospital [id number] [facility] 11:59:00 16:15:[address] 2017-03-19 2017-03-21 Outpatient Eloy [facility] [id number] 475 06:59:00 11:15:00 Arden B 00 Results Test Description Test Time Test Comments Results Result Comments Source ECG 12 lead 2022-04-30 21:44:56 Test Item Value Reference Range Interpretation Comme nts Ventricular rate (test code = 253) Atrial rate (test code = 255) DC interval (test code = 266) QRSD interval [...] ECG of 30-OCT-2021 13:00,-No significant change was found- [address]2022-06-21 21:44:56 Test Item Value Reference Range Interpretation Comments Ventricular rate (test 66 code = 253) Atrial rate (test code 66 = 255) DC interval (test code 152 = 266) QRSD interval (test 86 code = 260) QT interval (test code 412 = 264) QTC interval (test code 431 = 265) P axis 1 (test code = 51 267) QRS axis 1 (test code = 85 268) T wave axis (test code 113 = 270) EKG impression (test Poor data code = 273) quality-Sinus rhythm with marked sinus arrhythmia-Nonspecific T wave abnormality-Abnormal ECG-In automated comparison with ECG of 30-OCT-2021 13:00,-No significant change was found- [address]2021-12-22 04:07:33 Test Item Value Reference Range Interpretation Comments Ventricular rate (test code = 253) Atrial rate (test code = 255) DC interval (test code = 266) QRSD interval [...] 08:58,-premature atrial complexes are no longer present- [address]2021-03-17 10:24:59 Test Item Value Reference Range Interpretation Comments Ventricular rate (test code = 253) Atrial rate (test code = 255) DC interval (test code = 266) QRSD interval (test code = 260) QT interval (test code = 264) QTC interval (test code = 265) P axis 1 (test code = 267) QRS axis 1 (test code = 268) T wave axis (test code = 270) EKG impression (test code = 273) [facility]2017-05-11 08:29:00 Test Item Value Reference Range Interpretation Comments Calcium Lvl (test code = Calcium Lvl) 9.3 8.5-10.5 [facility]2017-05-11 08:29:00 Test Item Value Reference Range Interpretation Comments eGFR (test code = eGFR) 50 [facility]2017-05-11 08:29:00 Test Item Value Reference Range Interpretation Comments Glucose Lvl (test code = Glucose Lvl) 116 70-99 [facility]2017-05-11 08:29:00 Test Item Value Reference Range Interpretation Comments BUN (test code = BUN) 29 7-22 [facility]2017-05-11 08:29:00 Test Item Value Reference Range Interpretation Comments Chloride Lvl (test code = Chloride Lvl) 104 95-109 [facility]2017-05-11 08:29:00 Test Item Value Reference Range Interpretation Comments Sodium Lvl (test code = Sodium Lvl) 138 135-145 [facility]2017-05-11 08:29:00 Test Item Value Reference Range Interpretation Comments CO2 (test code = CO2) 29 24-32 [facility]2017-05-11 08:29:00 Test Item Value Reference Range Interpretation Comments Potassium Lvl (test code = Potassium 4.6 3.5-5.1 Lvl) [facility]2017-05-11 08:29:00 Test Item Value Reference Range Interpretation Comments Creatinine Lvl (test code = Creatinine 1.41 0.50-1.40 Lvl) [facility]2017-05-11 08:29:00 Test Item Value Reference Range Interpretation Comments AGAP (test code = AGAP) 9.6 10.0-20.0 [facility]icsWiucaraQBKDRYCFVL6323-64-60 08:29:00 Test Item Value Reference Range Interpretation Comments Hct (test code = Hct) 38.5 42.0-54.0 [facility]icsBeupucbXYCWSEVLRC8932-27-05 08:29:00 Test Item Value Reference Range Interpretation Comments Hgb (test code = Hgb) 13.0 14.0-18.0 [facility]2017-05-11 08:29:00 Test Item Value Reference Range Interpretation Comments Calcium Lvl (test code = Calcium Lvl) 9.3 8.5-10.5 [place] 550017-05-11 08:29:00 Test Item Value Reference Range Interpretation Comments eGFR (test code = eGFR) 50 [facility]2017-05-11 08:29:00 Test Item Value Reference Range Interpretation Comments Glucose Lvl (test code = Glucose Lvl) 116 70-99 [facility]2017-05-11 08:29:00 Test Item Value Reference Range Interpretation Comments BUN (test code = BUN) 29 7-22 [facility]2017-05-11 08:29:00 Test Item Value Reference Range Interpretation Comments Chloride Lvl (test code = Chloride Lvl) 104 95-109 [facility]2017-05-11 08:29:00 Test Item Value Reference Range Interpretation Comments Sodium Lvl (test code = Sodium Lvl) 138 135-145 [facility]2017-05-11 08:29:00 Test Item Value Reference Range Interpretation Comments CO2 (test code = CO2) 29 24-32 [facility]2017-05-11 08:29:00 Test Item Value Reference Range Interpretation Comments Potassium Lvl (test code = Potassium 4.6 3.5-5.1 Lvl) [facility]2017-05-11 08:29:00 Test Item Value Reference Range Interpretation Comments Creatinine Lvl (test code = Creatinine 1.41 0.50-1.40 Lvl) [facility]2017-05-11 08:29:00 Test Item Value Reference Range Interpretation Comments AGAP (test code = AGAP) 9.6 10.0-20.0 [facility]icsDtthtdaLLDAPIGIRP9357-07-62 08:29:00 Test Item Value Reference Range Interpretation Comments Hct (test code = Hct) 38.5 42.0-54.0 [facility]icsGdkegrbBMPSKTSOOJ7884-45-85 08:29:00 Test Item Value Reference Range Interpretation Comments Hgb (test code = Hgb) 13.0 14.0-18.0 [facility]2017-05-11 08:29:00 Test Item Value Reference Range Interpretation Comments Calcium Lvl (test code = Calcium Lvl) 9.3 8.5-10.5 [facility]2017-05-11 08:29:00 Test Item Value Reference Range Interpretation Comments eGFR (test code = eGFR) 50 [place] 550017-05-11 08:29:00 Test Item Value Reference Range Interpretation Comments Glucose Lvl (test code = Glucose Lvl) 116 70-99 [facility]2017-05-11 08:29:00 Test Item Value Reference Range Interpretation Comments BUN (test code = BUN) 29 7-22 [place] 550017-05-11 08:29:00 Test Item Value Reference Range Interpretation Comments Chloride Lvl (test code = Chloride Lvl) 104 95-109 [facility]2017-05-11 08:29:00 Test Item Value Reference Range Interpretation Comments Sodium Lvl (test code = Sodium Lvl) 138 135-145 [facility]2017-05-11 08:29:00 Test Item Value Reference Range Interpretation Comments CO2 (test code = CO2) 29 24-32 [facility]2017-05-11 08:29:00 Test Item Value Reference Range Interpretation Comments Potassium Lvl (test code = Potassium 4.6 3.5-5.1 Lvl) [facility]2017-05-11 08:29:00 Test Item Value Reference Range Interpretation Comments Creatinine Lvl (test code = Creatinine 1.41 0.50-1.40 Lvl) [facility]2017-05-11 08:29:00 Test Item Value Reference Range Interpretation Comments AGAP (test code = AGAP) 9.6 10.0-20.0 [place] 697397-05-11 08:29:00 Test Item Value Reference Range Interpretation Comments Hct (test code = Hct) 38.5 42.0-54.0 [facility]icsXkqyktaPHZAKLMZYK2837-00-56 08:29:00 Test Item Value Reference Range Interpretation Comments Hgb (test code = Hgb) 13.0 14.0-18.0 [facility]vydjiqVXPWLJWDPHDP6619-64-27 15:28:00 Test Item Value Reference Range Interpretation Comments Chloride Lvl (test code = Chloride Lvl) 108 95-109 [facility] HospitalVygrnsqUCPXBWOAMURL5696-86-14 15:28:00 Test Item Value Reference Range Interpretation Comments AGAP (test code = AGAP) 14.7 10.0-20.0 [facility] HospitalYtvqgmjSRKLBZUFEPYA8969-44-85 15:28:00 Test Item Value Reference Range Interpretation Comments Calcium Lvl (test code = Calcium Lvl) 9.5 8.5-10.5 [facility] HospitalRyivpqqMHSCBZGOEOXC9478-75-45 15:28:00 Test Item Value Reference Range Interpretation Comments CO2 (test code = CO2) 25 24-32 [facility] HospitalOhkwskiICGYDMUWDBBH2563-81-46 15:28:00 Test Item Value Reference Range Interpretation Comments eGFR (test code = eGFR) 43 [facility] HospitalTqomuihIASTIUHSLUAW9217-69-53 15:28:00 Test Item Value Reference Range Interpretation Comments Creatinine Lvl (test code = Creatinine 1.60 0.50-1.40 Lvl) [facility] HospitalYycthduSDBJKEKRJNJD4595-37-30 15:28:00 Test Item Value Reference Range Interpretation Comments Glucose Lvl (test code = Glucose Lvl) 143 70-99 [facility] HospitalQoeopviJMKOWZVLSZYB0775-55-26 15:28:00 Test Item Value Reference Range Interpretation Comments BUN (test code = BUN) 28 7-22 [facility] HospitalMyjchmjODZFICWZEDNS5349-58-19 15:28:00 Test Item Value Reference Range Interpretation Comments Sodium Lvl (test code = Sodium Lvl) 143 135-145 [facility] HospitalFlhgpfaYPZVXZOXVECF6334-37-55 15:28:00 Test Item Value Reference Range Interpretation Comments Potassium Lvl (test code = Potassium 4.7 3.5-5.1 Lvl) [facility]icsYxnbvddGMZFZJXLAM5361-33-16 15:28:00 Test Item Value Reference Range Interpretation Comments Hct (test code = Hct) 41.9 42.0-54.0 [facility]icsTcloygfSUTNCFWMSX9124-19-98 15:28:00 Test Item Value Reference Range Interpretation Comments Hgb (test code = Hgb) 14.1 14.0-18.0 [facility] HospitalZmjnsvpECVNYGUAQSAN4393-64-14 15:28:00 Test Item Value Reference Range Interpretation Comments Chloride Lvl (test code = Chloride Lvl) 108 95-109 [facility] HospitalYmgpfqjYMNJEYJSDWVW8748-95-91 15:28:00 Test Item Value Reference Range Interpretation Comments AGAP (test code = AGAP) 14.7 10.0-20.0 [facility] HospitalAwcxrqgWUSAHKDIXGKW2419-04-77 15:28:00 Test Item Value Reference Range Interpretation Comments Calcium Lvl (test code = Calcium Lvl) 9.5 8.5-10.5 [facility] HospitalNtaxugsZDUNULEPUTXK1509-77-25 15:28:00 Test Item Value Reference Range Interpretation Comments CO2 (test code = CO2) 25 24-32 [facility] HospitalKvqqsrnWJSIKBBCNPTI4082-18-70 15:28:00 Test Item Value Reference Range Interpretation Comments eGFR (test code = eGFR) 43 [facility] HospitalBjzhutdHMPYTFGIGVXD1713-67-60 15:28:00 Test Item Value Reference Range Interpretation Comments Creatinine Lvl (test code = Creatinine 1.60 0.50-1.40 Lvl) [facility] HospitalPximhgpLIMTCFHQVHOK6629-56-93 15:28:00 Test Item Value Reference Range Interpretation Comments Glucose Lvl (test code = Glucose Lvl) 143 70-99 [facility] HospitalTrhcvvzNRDUYBIBRLAJ1048-35-25 15:28:00 Test Item Value Reference Range Interpretation Comments BUN (test code = BUN) 28 7-22 [facility] HospitalYlozafdRPVRGJXGPIIH6551-79-48 15:28:00 Test Item Value Reference Range Interpretation Comments Sodium Lvl (test code = Sodium Lvl) 143 135-145 [facility] HospitalWtzcrpgRXWWRQTIUXPL4288-51-21 15:28:00 Test Item Value Reference Range Interpretation Comments Potassium Lvl (test code = Potassium 4.7 3.5-5.1 Lvl) [facility]icsZmjdsurBWDMEXKGPA7326-38-24 15:28:00 Test Item Value Reference Range Interpretation Comments Hct (test code = Hct) 41.9 42.0-54.0 [facility]icsSiwuotrYECWVDTPZL3155-67-63 15:28:00 Test Item Value Reference Range Interpretation Comments Hgb (test code = Hgb) 14.1 14.0-18.0 [facility] HospitalOwfvwihBYBAEZNWRDAL9613-30-55 15:28:00 Test Item Value Reference Range Interpretation Comments Chloride Lvl (test code = Chloride Lvl) 108 95-109 [facility] HospitalBjbuaciBCUJSBTLQGSX8560-50-06 15:28:00 Test Item Value Reference Range Interpretation Comments AGAP (test code = AGAP) 14.7 10.0-20.0 [facility] HospitalJayibzvZTAIWZTIJZWJ0767-54-37 15:28:00 Test Item Value Reference Range Interpretation Comments Calcium Lvl (test code = Calcium Lvl) 9.5 8.5-10.5 [facility] HospitalQvgjhtoYZQKBLJHJOFJ9401-10-75 15:28:00 Test Item Value Reference Range Interpretation Comments CO2 (test code = CO2) 25 24-32 [facility] HospitalDgmixiaZMSXDPEUQRSM3371-77-89 15:28:00 Test Item Value Reference Range Interpretation Comments eGFR (test code = eGFR) 43 [facility] HospitalNhirbtnQAIHJISRPMUN9265-58-03 15:28:00 Test Item Value Reference Range Interpretation Comments Creatinine Lvl (test code = Creatinine 1.60 0.50-1.40 Lvl) [facility] HospitalImemjulAMRCQHPDIOKZ3052-57-90 15:28:00 Test Item Value Reference Range Interpretation Comments Glucose Lvl (test code = Glucose Lvl) 143 70-99 [facility] HospitalIbgjyvlCPAWFCUKYABU2083-84-94 15:28:00 Test Item Value Reference Range Interpretation Comments BUN (test code = BUN) 28 7-22 [facility] HospitalJhidrbcYGPJWJDWQCKX5247-31-23 15:28:00 Test Item Value Reference Range Interpretation Comments Sodium Lvl (test code = Sodium Lvl) 143 135-145 [facility] HospitalScdcojiUKPQHJUWOCKC8817-54-38 15:28:00 Test Item Value Reference Range Interpretation Comments Potassium Lvl (test code = Potassium 4.7 3.5-5.1 Lvl) [facility]icsGtvenzeOFFHQSOHPO1989-28-98 15:28:00 Test Item Value Reference Range Interpretation Comments Hct (test code = Hct) 41.9 42.0-54.0 [facility]icsQhxnyomCHQMMAFRHG8506-52-61 15:28:00 Test Item Value Reference Range Interpretation Comments Hgb (test code = Hgb) 14.1 14.0-18.0 [facility]2017-05-10 12:14:00 Test Item Value Reference Range Interpretation Comments UA Protein (test code = UA Negative mg/dL Protein) [facility]2017-05-10 12:14:00 Test Item Value Reference Range Interpretation Comments UA pH (test code = UA pH) 6.0 5.0-8.0 [facility]2017-05-10 12:14:00 Test Item Value Reference Range Interpretation Comments UA Blood (test code = Negative (03/19/17 7:14 UA Blood) AM) [facility]2017-05-10 12:14:00 Test Item Value Reference Range Interpretation Comments UA Ketones (test code = UA Negative mg/dL Ketones) [facility]2017-05-10 12:14:00 Test Item Value Reference Range Interpretation Comments UA Bili (test code = Negative *NA*(03/19/17 UA Bili) 7:14 AM) [facility] AND [id number] 12:14:00 Test Item Value Reference Range Interpretation Comments UA Glucose (test code = UA Negative mg/dL Glucose) [facility] AND [id number] 12:14:00 Test Item Value Reference Range Interpretation Comments UA RBC (test code = no gt See_Comment [Automa alexandro message] The UA RBC) system which ge nerated this result transmit alexandro reference range : <=2. The reference range was not used to interpr et this result as josee l/abnormal. [facility] AND [id number] 12:14:00 Test Item Value Reference Range Interpretation Comments UA Leuk Est (test Negative (03/19/17 7:14 code = UA Leuk Est) AM) [facility] AND [id number] 12:14:00 Test Item Value Reference Range Interpretation Comments UA WBC (test code = 3 See_Comment [Automa alexandro message] The UA WBC) system which ge nerated this result transmit alexandro reference range : <=5. The reference range was not used to interpr et this result as josee l/abnormal. [facility] AND [id number] 12:14:00 Test Item Value Reference Range Interpretation Comments UA Nitrite (test code Negative (03/19/17 7:14 = UA Nitrite) AM) [facility] AND [id number] 12:14:00 Test Item Value Reference Range Interpretation Comments UA Amorph Mily (test code = Occasional /HPF UA Amorph Mily) [facility] AND [id number] 12:14:00 Test Item Value Reference Range Interpretation Comments UA Mucus (test code = UA Mucus) Few /LPF [facility] AND [id number] 12:14:00 Test Item Value Reference Range Interpretation Comments UA Turbidity (test code Slight *ABN*(03/19/17 = UA Turbidity) 7:14 AM) [facility] AND [id number] 12:14:00 Test Item Value Reference Range Interpretation Comments UA Spec Grav (test code = UA Spec Grav) 1.017 [facility] AND [id number] 12:14:00 Test Item Value Reference Range Interpretation Comments UA Color (test code = Yellow *NA*(03/19/17 UA Color) 7:14 AM) [facility]2017-05-10 12:14:00 Test Item Value Reference Range Interpretation Comments B/C Ratio (test code = B/C Ratio) 19 6-25 [facility]2017-05-10 12:14:00 Test Item Value Reference Range Interpretation Comments A/G Ratio (test code = A/G Ratio) 1.0 0.7-1.6 [facility]2017-05-10 12:14:00 Test Item Value Reference Range Interpretation Comments Globulin (test code = Globulin) 3.9 2.7-4.2 [facility]2017-05-10 12:14:00 Test Item Value Reference Range Interpretation Comments AGAP (test code = AGAP) 16.2 10.0-20.0 [facility]2017-05-10 12:14:00 Test Item Value Reference Range Interpretation Comments eGFR (test code = eGFR) 44 [facility]2017-05-10 12:14:00 Test Item Value Reference Range Interpretation Comments AST (test code = AST) 27 See_Comment [Auto mated message] The system which ge nerated this result transmit alexandro reference range : <=37. The reference range was not used to interpr et this result as josee l/abnormal. [facility]2017-05-10 12:14:00 Test Item Value Reference Range Interpretation Comments Bili Total (test code = Bili Total) 0.4 0.2-1.3 [facility]2017-05-10 12:14:00 Test Item Value Reference Range Interpretation Comments Alk Phos (test code = Alk Phos) 94 39-136 [facility]2017-05-10 12:14:00 Test Item Value Reference Range Interpretation Comments Albumin Lvl (test code = Albumin Lvl) 3.8 3.5-5.0 [facility]2017-05-10 12:14:00 Test Item Value Reference Range Interpretation Comments Total Protein (test code = Total 7.7 6.4-8.4 Protein) [facility]2017-05-10 12:14:00 Test Item Value Reference Range Interpretation Comments Calcium Lvl (test code = Calcium Lvl) 10.6 8.5-10.5 [facility]2017-05-10 12:14:00 Test Item Value Reference Range Interpretation Comments ALT (test code = ALT) 30 See_Comment [Auto mated message] The system which ge nerated this result transmit alexandro reference range : <=65. The reference range was not used to interpr et this result as josee l/abnormal. [facility]2017-05-10 12:14:00 Test Item Value Reference Range Interpretation Comments BUN (test code = BUN) 30 7-22 [facility]2017-05-10 12:14:00 Test Item Value Reference Range Interpretation Comments Potassium Lvl (test code = Potassium 4.2 3.5-5.1 Lvl) [facility]2017-05-10 12:14:00 Test Item Value Reference Range Interpretation Comments Sodium Lvl (test code = Sodium Lvl) 145 135-145 [facility]2017-05-10 12:14:00 Test Item Value Reference Range Interpretation Comments Creatinine Lvl (test code = Creatinine 1.58 0.50-1.40 Lvl) [facility]2017-05-10 12:14:00 Test Item Value Reference Range Interpretation Comments CO2 (test code = CO2) 25 24-32 [facility]2017-05-10 12:14:00 Test Item Value Reference Range Interpretation Comments Chloride Lvl (test code = Chloride Lvl) 108 95-109 [facility]2017-05-10 12:14:00 Test Item Value Reference Range Interpretation Comments Glucose Lvl (test code = Glucose Lvl) 101 70-99 [facility]i[id number] 12:14:00 Test Item Value Reference Range Interpretation Comments Monocytes # (test code 0.7 See_Comment [Aut omated message] The = Monocytes #) system which generated this result tra nsmitted reference range : <=0.8. The reference r adriano was not used to int erpret this result as normal/abnormal . [facility]icsXjuksxnRTTGMYUHSK3667-89-53 12:14:00 Test Item Value Reference Range Interpretation Comments Eosinophils # (test code 0.3 See_Comment [A utomated message] The = Eosinophils #) system whic h generated this result tra nsmitted reference range : <=0.5. The reference r adriano was not used to int erpret this result as normal/abnormal . [facility]icsCzdhtfpYLZOOHXGXA9029-78-98 12:14:00 Test Item Value Reference Range Interpretation Comments Lymphocytes # (test code = Lymphocytes 1.7 1.0-5.5 #) [facility]icsGgsgzueWELUSUTZPO4558-05-00 12:14:00 Test Item Value Reference Range Interpretation Comments Monocytes (test code = Monocytes) 12.3 2.0-12.0 [facility]icsZfnvqmvPBWCVEBAKB8205-60-53 12:14:00 Test Item Value Reference Range Interpretation Comments Eosinophils (test code = 4.7 See_Comment [A utomated message] The Eosinophils) system which ge nerated this result tra nsmitted reference range : <=4.0. The reference r adriano was not used to int erpret this result as normal/abnormal . [facility]icsHhqckmtFWPUYOWYTH5533-89-22 12:14:00 Test Item Value Reference Range Interpretation Comments Basophils (test code = 0.8 See_Comment [Aut omated message] The Basophils) system which ge nerated this result tra nsmitted reference range : <=1.0. The reference r adriano was not used to int erpret this result as normal/abnormal . [facility]icsZilamjqQXDXZVZEMC0403-39-88 12:14:00 Test Item Value Reference Range Interpretation Comments Segs-Bands # (test code = Segs-Bands #) 2.8 1.5-8.1 [facility]icsNwpbtbuWECKGBEYDX9933-48-56 12:14:00 Test Item Value Reference Range Interpretation Comments Segs (test code = Segs) 51.7 45.0-75.0 [facility]icsWbophvzIDZPAUJSHU4404-65-75 12:14:00 Test Item Value Reference Range Interpretation Comments Lymphocytes (test code = Lymphocytes) 30.5 20.0-40.0 [facility]icsJrdxwtsWVNXJJBHGW4112-97-93 12:14:00 Test Item Value Reference Range Interpretation Comments PTT (test code = PTT) 33.8 s 22.9-35.8 [facility]icsTqxacwcXGXFAXRKSJ7225-14-93 12:14:00 Test Item Value Reference Range Interpretation Comments PT (test code = PT) 13.7 s 12.0-14.7 [facility]icsElkcoycWYSODZTYLH5490-26-87 12:14:00 Test Item Value Reference Range Interpretation Comments INR (test code = INR) 1.03 0.85-1.17 [facility]icsPxkfftbWXBMKQSTUS2397-05-61 12:14:00 Test Item Value Reference Range Interpretation Comments RDW (test code = RDW) 12.8 11.5-14.5 [facility]icsYqgaibdNEKHWFYLAV9875-10-60 12:14:00 Test Item Value Reference Range Interpretation Comments Platelet (test code = Platelet) 123 133-450 [facility] ClinicsLcepglwLPHMFOREQW0850-25-76 12:14:00 Test Item Value Reference Range Interpretation Comments MPV (test code = MPV) 8.5 7.4-10.4 [facility]icsZjivgdbLDEVYKMCMF7177-62-71 12:14:00 Test Item Value Reference Range Interpretation Comments MCHC (test code = MCHC) 34.5 32.0-36.0 [facility] ClinicsCurgvqxGXTNWQBZPS2119-82-74 12:14:00 Test Item Value Reference Range Interpretation Comments Hgb (test code = Hgb) 16.6 14.0-18.0 [facility]icsBwclvmrVNXIOYKWQI5366-54-22 12:14:00 Test Item Value Reference Range Interpretation Comments Hct (test code = Hct) 48.0 42.0-54.0 [facility]icsYcrqkkbNTBPQWEKTF2684-28-87 12:14:00 Test Item Value Reference Range Interpretation Comments MCV (test code = MCV) 91.9 80.0-94.0 [facility]icsFklrkmrSMLFWBTZAE4928-15-20 12:14:00 Test Item Value Reference Range Interpretation Comments MCH (test code = MCH) 31.7 pg 27.0-31.0 [facility] ClinicsGektsakDFETMEXCPD0399-84-31 12:14:00 Test Item Value Reference Range Interpretation Comments WBC (test code = WBC) 5.5 3.7-10.4 [facility] ClinicsEzaffomUPUOWRSIXW2028-14-76 12:14:00 Test Item Value Reference Range Interpretation Comments RBC (test code = RBC) 5.22 4.70-6.10 [facility] [id number] 12:14:00 Test Item Value Reference Range Interpretation Comments UA Sq Epi (test code = UA Sq Epi) None Seen [facility] AND [id number] 12:14:00 Test Item Value Reference Range Interpretation Comments UA Urobilinogen (test code = UA <=1.0 mg/dL 0.1-1.0 Urobilinogen) [facility] AND [id number] 12:14:00 Test Item Value Reference Range Interpretation Comments UA Protein (test code = UA Negative mg/dL Protein) [facility] AND [id number] 12:14:00 Test Item Value Reference Range Interpretation Comments UA pH (test code = UA pH) 6.0 5.0-8.0 [facility] AND [id number] 12:14:00 Test Item Value Reference Range Interpretation Comments UA Blood (test code = Negative (03/19/17 7:14 UA Blood) AM) [facility] AND [id number] 12:14:00 Test Item Value Reference Range Interpretation Comments UA Ketones (test code = UA Negative mg/dL Ketones) [facility] AND [id number] 12:14:00 Test Item Value Reference Range Interpretation Comments UA Bili (test code = Negative *NA*(03/19/17 UA Bili) 7:14 AM) [facility] AND [id number] 12:14:00 Test Item Value Reference Range Interpretation Comments UA Glucose (test code = UA Negative mg/dL Glucose) [facility] AND [id number] 12:14:00 Test Item Value Reference Range Interpretation Comments UA RBC (test code = no gt See_Comment [Automa alexandro message] The UA RBC) system which ge nerated this result transmit alexandro reference range : <=2. The reference range was not used to interpr et this result as josee l/abnormal. [facility] AND [id number] 12:14:00 Test Item Value Reference Range Interpretation Comments UA Leuk Est (test Negative (03/19/17 7:14 code = UA Leuk Est) AM) [facility] AND [id number] 12:14:00 Test Item Value Reference Range Interpretation Comments UA WBC (test code = 3 See_Comment [Automa alexandro message] The UA WBC) system which ge nerated this result transmit alexandro reference range : <=5. The reference range was not used to interpr et this result as josee l/abnormal. [facility] AND [id number] 12:14:00 Test Item Value Reference Range Interpretation Comments UA Nitrite (test code Negative (03/19/17 7:14 = UA Nitrite) AM) [facility] AND [id number] 12:14:00 Test Item Value Reference Range Interpretation Comments UA Amorph Mily (test code = Occasional /HPF UA Amorph Mily) [facility] AND [id number] 12:14:00 Test Item Value Reference Range Interpretation Comments UA Mucus (test code = UA Mucus) Few /LPF [facility] AND [id number] 12:14:00 Test Item Value Reference Range Interpretation Comments UA Turbidity (test code Slight *ABN*(03/19/17 = UA Turbidity) 7:14 AM) [facility] AND [id number] 12:14:00 Test Item Value Reference Range Interpretation Comments UA Spec Grav (test code = UA Spec Grav) 1.017 [facility] AND [id number] 12:14:00 Test Item Value Reference Range Interpretation Comments UA Color (test code = Yellow *NA*(03/19/17 UA Color) 7:14 AM) [facility]2017-05-10 12:14:00 Test Item Value Reference Range Interpretation Comments B/C Ratio (test code = B/C Ratio) 19 6-25 [facility]2017-05-10 12:14:00 Test Item Value Reference Range Interpretation Comments A/G Ratio (test code = A/G Ratio) 1.0 0.7-1.6 [facility]2017-05-10 12:14:00 Test Item Value Reference Range Interpretation Comments Globulin (test code = Globulin) 3.9 2.7-4.2 [facility]2017-05-10 12:14:00 Test Item Value Reference Range Interpretation Comments AGAP (test code = AGAP) 16.2 10.0-20.0 [facility]2017-05-10 12:14:00 Test Item Value Reference Range Interpretation Comments eGFR (test code = eGFR) 44 [facility]2017-05-10 12:14:00 Test Item Value Reference Range Interpretation Comments AST (test code = AST) 27 See_Comment [Auto mated message] The system which ge nerated this result transmit alexandro reference range : <=37. The reference range was not used to interpr et this result as josee l/abnormal. [facility]2017-05-10 12:14:00 Test Item Value Reference Range Interpretation Comments Bili Total (test code = Bili Total) 0.4 0.2-1.3 [facility]2017-05-10 12:14:00 Test Item Value Reference Range Interpretation Comments Alk Phos (test code = Alk Phos) 94 39-136 [facility]2017-05-10 12:14:00 Test Item Value Reference Range Interpretation Comments Albumin Lvl (test code = Albumin Lvl) 3.8 3.5-5.0 [facility]2017-05-10 12:14:00 Test Item Value Reference Range Interpretation Comments Total Protein (test code = Total 7.7 6.4-8.4 Protein) [facility]2017-05-10 12:14:00 Test Item Value Reference Range Interpretation Comments Calcium Lvl (test code = Calcium Lvl) 10.6 8.5-10.5 [facility]2017-05-10 12:14:00 Test Item Value Reference Range Interpretation Comments ALT (test code = ALT) 30 See_Comment [Auto mated message] The system which ge nerated this result transmit alexandro reference range : <=65. The reference range was not used to interpr et this result as josee l/abnormal. [facility]2017-05-10 12:14:00 Test Item Value Reference Range Interpretation Comments BUN (test code = BUN) 30 7-22 [facility]2017-05-10 12:14:00 Test Item Value Reference Range Interpretation Comments Potassium Lvl (test code = Potassium 4.2 3.5-5.1 Lvl) [facility]2017-05-10 12:14:00 Test Item Value Reference Range Interpretation Comments Sodium Lvl (test code = Sodium Lvl) 145 135-145 [facility]2017-05-10 12:14:00 Test Item Value Reference Range Interpretation Comments Creatinine Lvl (test code = Creatinine 1.58 0.50-1.40 Lvl) [facility]2017-05-10 12:14:00 Test Item Value Reference Range Interpretation Comments CO2 (test code = CO2) 25 24-32 [place] [address]-05-10 12:14:00 Test Item Value Reference Range Interpretation Comments Chloride Lvl (test code = Chloride Lvl) 108 95-109 [facility]2017-05-10 12:14:00 Test Item Value Reference Range Interpretation Comments Glucose Lvl (test code = Glucose Lvl) 101 70-99 [facility]i[id number] 12:14:00 Test Item Value Reference Range Interpretation Comments Monocytes # (test code 0.7 See_Comment [Aut omated message] The = Monocytes #) system which generated this result tra nsmitted reference range : <=0.8. The reference r adriano was not used to int erpret this result as normal/abnormal . [facility]icsPyzsbnhZOTEXQWZIQ3685-81-50 12:14:00 Test Item Value Reference Range Interpretation Comments Eosinophils # (test code 0.3 See_Comment [A utomated message] The = Eosinophils #) system whic h generated this result tra nsmitted reference range : <=0.5. The reference r adriano was not used to int erpret this result as normal/abnormal . [facility]icsIgjungiZJVTCIXOZO8342-19-36 12:14:00 Test Item Value Reference Range Interpretation Comments Lymphocytes # (test code = Lymphocytes 1.7 1.0-5.5 #) [facility]icsExnzghmIVGTPAOSYV0475-33-99 12:14:00 Test Item Value Reference Range Interpretation Comments Monocytes (test code = Monocytes) 12.3 2.0-12.0 [facility]icsWnhhgliXSYKVQMAPC3508-63-52 12:14:00 Test Item Value Reference Range Interpretation Comments Eosinophils (test code = 4.7 See_Comment [A utomated message] The Eosinophils) system which ge nerated this result tra nsmitted reference range : <=4.0. The reference r adriano was not used to int erpret this result as normal/abnormal . [facility]icsXypxlntNJRNADFBWX5868-57-00 12:14:00 Test Item Value Reference Range Interpretation Comments Basophils (test code = 0.8 See_Comment [Aut omated message] The Basophils) system which ge nerated this result tra nsmitted reference range : <=1.0. The reference r adriano was not used to int erpret this result as normal/abnormal . [facility]icsTckkyksHUGCRWBCDG0634-35-36 12:14:00 Test Item Value Reference Range Interpretation Comments Segs-Bands # (test code = Segs-Bands #) 2.8 1.5-8.1 [facility]icsZlnwcbtZMAJSKFDBT4595-83-87 12:14:00 Test Item Value Reference Range Interpretation Comments Segs (test code = Segs) 51.7 45.0-75.0 [facility]icsEwixwlqPDEMEXFRVR0998-21-67 12:14:00 Test Item Value Reference Range Interpretation Comments Lymphocytes (test code = Lymphocytes) 30.5 20.0-40.0 [facility]icsWnndivnVUMLYJDWVX3051-54-31 12:14:00 Test Item Value Reference Range Interpretation Comments PTT (test code = PTT) 33.8 s 22.9-35.8 [facility]icsUugzphwCUGEUXJXGP1464-03-82 12:14:00 Test Item Value Reference Range Interpretation Comments PT (test code = PT) 13.7 s 12.0-14.7 [facility]icsOtyrorlRWWDUGPWOP4756-06-54 12:14:00 Test Item Value Reference Range Interpretation Comments INR (test code = INR) 1.03 0.85-1.17 [facility]icsQrktngzXSDJLYAHFC1813-39-02 12:14:00 Test Item Value Reference Range Interpretation Comments RDW (test code = RDW) 12.8 11.5-14.5 [facility]icsSeovxkqOZRGHZHLPZ3625-92-35 12:14:00 Test Item Value Reference Range Interpretation Comments Platelet (test code = Platelet) 123 133-450 [facility]icsKnrzvuyROTGEUUBTX9230-46-46 12:14:00 Test Item Value Reference Range Interpretation Comments MPV (test code = MPV) 8.5 7.4-10.4 [facility]icsQoaotrmWGIKWKLYEX6742-28-86 12:14:00 Test Item Value Reference Range Interpretation Comments MCHC (test code = MCHC) 34.5 32.0-36.0 [facility]icsJosjqciTGPWMVGVLC2032-96-06 12:14:00 Test Item Value Reference Range Interpretation Comments Hgb (test code = Hgb) 16.6 14.0-18.0 [facility]icsLrvfaokFOZGQSCAWQ0238-22-67 12:14:00 Test Item Value Reference Range Interpretation Comments Hct (test code = Hct) 48.0 42.0-54.0 [facility]icsZszuioxUYQDDXBDRQ3249-83-40 12:14:00 Test Item Value Reference Range Interpretation Comments MCV (test code = MCV) 91.9 80.0-94.0 [facility]icsJnyndsrICHOYQVFSC5114-08-13 12:14:00 Test Item Value Reference Range Interpretation Comments MCH (test code = MCH) 31.7 pg 27.0-31.0 [facility]icsVgepzbwIRLZYWUNHC3332-64-63 12:14:00 Test Item Value Reference Range Interpretation Comments WBC (test code = WBC) 5.5 3.7-10.4 [facility]icsUcadgrkWLIMFJEAIE5926-46-80 12:14:00 Test Item Value Reference Range Interpretation Comments RBC (test code = RBC) 5.22 4.70-6.10 [facility]2017-05-10 12:14:00 Test Item Value Reference Range Interpretation Comments UA Sq Epi (test code = UA Sq Epi) None Seen [facility]2017-05-10 12:14:00 Test Item Value Reference Range Interpretation Comments UA Urobilinogen (test code = UA <=1.0 mg/dL 0.1-1.0 Urobilinogen) [facility]2017-05-10 12:14:00 Test Item Value Reference Range Interpretation Comments Calcium Lvl (test code = Calcium Lvl) 10.6 8.5-10.5 [facility]2017-05-10 12:14:00 Test Item Value Reference Range Interpretation Comments ALT (test code = ALT) 30 See_Comment [Auto mated message] The system which ge nerated this result transmit alexandro reference range : <=65. The reference range was not used to interpr et this result as josee l/abnormal. [facility]2017-05-10 12:14:00 Test Item Value Reference Range Interpretation Comments BUN (test code = BUN) 30 7-22 [facility]2017-05-10 12:14:00 Test Item Value Reference Range Interpretation Comments Potassium Lvl (test code = Potassium 4.2 3.5-5.1 Lvl) [facility]2017-05-10 12:14:00 Test Item Value Reference Range Interpretation Comments Sodium Lvl (test code = Sodium Lvl) 145 135-145 [facility]2017-05-10 12:14:00 Test Item Value Reference Range Interpretation Comments Creatinine Lvl (test code = Creatinine 1.58 0.50-1.40 Lvl) [facility]2017-05-10 12:14:00 Test Item Value Reference Range Interpretation Comments CO2 (test code = CO2) 25 24-32 [facility]2017-05-10 12:14:00 Test Item Value Reference Range Interpretation Comments Chloride Lvl (test code = Chloride Lvl) 108 95-109 [facility]2017-05-10 12:14:00 Test Item Value Reference Range Interpretation Comments Glucose Lvl (test code = Glucose Lvl) 101 70-99 [facility]icsWujytfbVFSPMRQTJJ9564-58-78 12:14:00 Test Item Value Reference Range Interpretation Comments Monocytes # (test code 0.7 See_Comment [Aut omated message] The = Monocytes #) system which generated this result tra nsmitted reference range : <=0.8. The reference r adriano was not used to int erpret this result as normal/abnormal . [facility]icsOdonzcaCLJWBYVEGX7871-01-20 12:14:00 Test Item Value Reference Range Interpretation Comments Eosinophils # (test code 0.3 See_Comment [A utomated message] The = Eosinophils #) system whic h generated this result tra nsmitted reference range : <=0.5. The reference r adriano was not used to int erpret this result as normal/abnormal . [facility]icsBoablqyBGOMTAAMNO6948-73-21 12:14:00 Test Item Value Reference Range Interpretation Comments Lymphocytes # (test code = Lymphocytes 1.7 1.0-5.5 #) [facility]icsWlzymhlWASNQZXZRQ8397-13-38 12:14:00 Test Item Value Reference Range Interpretation Comments Monocytes (test code = Monocytes) 12.3 2.0-12.0 [facility]icsOzdtkfcLYFYHKJIIE8047-93-88 12:14:00 Test Item Value Reference Range Interpretation Comments Eosinophils (test code = 4.7 See_Comment [A utomated message] The Eosinophils) system which ge nerated this result tra nsmitted reference range : <=4.0. The reference r adriano was not used to int erpret this result as normal/abnormal . [facility]icsJujqzpuJUCTPZTPHI9863-11-94 12:14:00 Test Item Value Reference Range Interpretation Comments Basophils (test code = 0.8 See_Comment [Aut omated message] The Basophils) system which ge nerated this result tra nsmitted reference range : <=1.0. The reference r adriano was not used to int erpret this result as normal/abnormal . [facility] ClinicsBcozwakGGPYZERZEI5074-64-61 12:14:00 Test Item Value Reference Range Interpretation Comments Segs-Bands # (test code = Segs-Bands #) 2.8 1.5-8.1 [facility]icsIzwhyhhGSMEUHIYNE1197-63-84 12:14:00 Test Item Value Reference Range Interpretation Comments Segs (test code = Segs) 51.7 45.0-75.0 [facility]icsOjkhheoTRBTCNFWIM6131-07-54 12:14:00 Test Item Value Reference Range Interpretation Comments Lymphocytes (test code = Lymphocytes) 30.5 20.0-40.0 [facility]icsFywhtjbZIPTPLAGBV0288-05-39 12:14:00 Test Item Value Reference Range Interpretation Comments PTT (test code = PTT) 33.8 s 22.9-35.8 [facility]icsQqkgnriKCFAAUZEZG8890-30-20 12:14:00 Test Item Value Reference Range Interpretation Comments PT (test code = PT) 13.7 s 12.0-14.7 [id number] 12:14:00 Test Item Value Reference Range Interpretation Comments INR (test code = INR) 1.03 0.85-1.17 [id number] 12:14:00 Test Item Value Reference Range Interpretation Comments RDW (test code = RDW) 12.8 11.5-14.5 [id number] 12:14:00 Test Item Value Reference Range Interpretation Comments Platelet (test code = Platelet) 123 133-450 [id number] 12:14:00 Test Item Value Reference Range Interpretation Comments MPV (test code = MPV) 8.5 7.4-10.4 [id number] 12:14:00 Test Item Value Reference Range Interpretation Comments MCHC (test code = MCHC) 34.5 32.0-36.0 [id number] 12:14:00 Test Item Value Reference Range Interpretation Comments Hgb (test code = Hgb) 16.6 14.0-18.0 [id number] 12:14:00 Test Item Value Reference Range Interpretation Comments Hct (test code = Hct) 48.0 42.0-54.0 [id number] 12:14:00 Test Item Value Reference Range Interpretation Comments MCV (test code = MCV) 91.9 80.0-94.0 [id number] 12:14:00 Test Item Value Reference Range Interpretation Comments MCH (test code = MCH) 31.7 pg 27.0-31.0 [id number] 12:14:00 Test Item Value Reference Range Interpretation Comments WBC (test code = WBC) 5.5 3.7-10.4 [id number] 12:14:00 Test Item Value Reference Range Interpretation Comments RBC (test code = RBC) 5.22 4.70-6.10 [facility] AND [id number] 12:14:00 Test Item Value Reference Range Interpretation Comments UA Sq Epi (test code = UA Sq Epi) None Seen [facility] AND [id number] 12:14:00 Test Item Value Reference Range Interpretation Comments UA Urobilinogen (test code = UA <=1.0 mg/dL 0.1-1.0 Urobilinogen) [facility] AND [id number] 12:14:00 Test Item Value Reference Range Interpretation Comments UA Protein (test code = UA Negative mg/dL Protein) [facility] AND [id number] 12:14:00 Test Item Value Reference Range Interpretation Comments UA pH (test code = UA pH) 6.0 5.0-8.0 [facility] AND [id number] 12:14:00 Test Item Value Reference Range Interpretation Comments UA Blood (test code = Negative (03/19/17 7:14 UA Blood) AM) [facility] AND [id number] 12:14:00 Test Item Value Reference Range Interpretation Comments UA Ketones (test code = UA Negative mg/dL Ketones) [facility] AND [id number] 12:14:00 Test Item Value Reference Range Interpretation Comments UA Bili (test code = Negative *NA*(03/19/17 UA Bili) 7:14 AM) [facility] AND [id number] 12:14:00 Test Item Value Reference Range Interpretation Comments UA Glucose (test code = UA Negative mg/dL Glucose) [facility] AND [id number] 12:14:00 Test Item Value Reference Range Interpretation Comments UA RBC (test code = no gt See_Comment [Automa alexandro message] The UA RBC) system which ge nerated this result transmit alexandro reference range : <=2. The reference range was not used to interpr et this result as josee l/abnormal. [facility] AND [id number] 12:14:00 Test Item Value Reference Range Interpretation Comments UA Leuk Est (test Negative (03/19/17 7:14 code = UA Leuk Est) AM) [facility] AND [id number] 12:14:00 Test Item Value Reference Range Interpretation Comments UA WBC (test code = 3 See_Comment [Automa alexandro message] The UA WBC) system which ge nerated this result transmit alexandro reference range : <=5. The reference range was not used to interpr et this result as josee l/abnormal. [facility] AND [id number] 12:14:00 Test Item Value Reference Range Interpretation Comments UA Nitrite (test code Negative (03/19/17 7:14 = UA Nitrite) AM) [facility] AND [id number] 12:14:00 Test Item Value Reference Range Interpretation Comments UA Amorph Mily (test code = Occasional /HPF UA Amorph Mily) [facility] AND [id number] 12:14:00 Test Item Value Reference Range Interpretation Comments UA Mucus (test code = UA Mucus) Few /LPF [facility] AND [id number] 12:14:00 Test Item Value Reference Range Interpretation Comments UA Turbidity (test code Slight *ABN*(03/19/17 = UA Turbidity) 7:14 AM) [facility] AND [id number] 12:14:00 Test Item Value Reference Range Interpretation Comments UA Spec Grav (test code = UA Spec Grav) 1.017 [facility] AND [id number] 12:14:00 Test Item Value Reference Range Interpretation Comments UA Color (test code = Yellow *NA*(03/19/17 UA Color) 7:14 AM) [facility] [id number] 12:14:00 Test Item Value Reference Range Interpretation Comments B/C Ratio (test code = B/C Ratio) 19 6-25 [facility]2017-05-10 12:14:00 Test Item Value Reference Range Interpretation Comments A/G Ratio (test code = A/G Ratio) 1.0 0.7-1.6 [facility]2017-05-10 12:14:00 Test Item Value Reference Range Interpretation Comments Globulin (test code = Globulin) 3.9 2.7-4.2 [facility]2017-05-10 12:14:00 Test Item Value Reference Range Interpretation Comments AGAP (test code = AGAP) 16.2 10.0-20.0 [facility]2017-05-10 12:14:00 Test Item Value Reference Range Interpretation Comments eGFR (test code = eGFR) 44 [facility]2017-05-10 12:14:00 Test Item Value Reference Range Interpretation Comments AST (test code = AST) 27 See_Comment [Auto mated message] The system which ge nerated this result transmit alexandro reference range : <=37. The reference range was not used to interpr et this result as josee l/abnormal. [facility]2017-05-10 12:14:00 Test Item Value Reference Range Interpretation Comments Bili Total (test code = Bili Total) 0.4 0.2-1.3 [facility]2017-05-10 12:14:00 Test Item Value Reference Range Interpretation Comments Alk Phos (test code = Alk Phos) 94 39-136 [facility]2017-05-10 12:14:00 Test Item Value Reference Range Interpretation Comments Albumin Lvl (test code = Albumin Lvl) 3.8 3.5-5.0 [facility]2017-05-10 12:14:00 Test Item Value Reference Range Interpretation Comments Total Protein (test code = Total 7.7 6.4-8.4 Protein) [facility] [employer] [id number] 18:04:00 Test Item Value Reference Range Interpretation Comments Antibody Scrn (test Negative (03/11/17 1:04 code = Antibody Scrn) PM) [facility] [employer] [id number] 18:04:00 Test Item Value Reference Range Interpretation Comments ABO/Rh (test code = ABO/Rh) O POS [facility] [id number] 18:04:00 Test Item Value Reference Range Interpretation Comments Antibody Scrn (test Negative (03/11/17 1:04 code = Antibody Scrn) PM) [facility] [id number] 18:04:00 Test Item Value Reference Range Interpretation Comments ABO/Rh (test code = ABO/Rh) O POS [facility] [id number] 18:04:00 Test Item Value Reference Range Interpretation Comments Antibody Scrn (test Negative (03/11/17 1:04 code = Antibody Scrn) PM) [facility] [id number] 18:04:00 Test Item Value Reference Range Interpretation Comments ABO/Rh (test code = ABO/Rh) O POS [facility] [id number] 17:59:00 Test Item Value Reference Range Interpretation Comments RBC product (test code Product available = RBC product) (03/11/17 12:59 PM) [facility] [id number] 17:59:00 Test Item Value Reference Range Interpretation Comments RBC product (test code Product available = RBC product) (03/11/17 12:59 PM) [facility] [id number] 17:59:00 Test Item Value Reference Range Interpretation Comments RBC product (test code Product available = RBC product) (03/11/17 12:59 PM) [facility] Notes Date/Time Note Provider Source 2017-03-19 11:10:20-00:00 Pelvis single view [facility] HISTORY: Postop. COMPARISON: None available. FINDINGS: Left hip replaceme nt evident. Postoperative changes surrounding soft tissues. 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 IMPRESSION: 1. Status post left hip replacement. SL: [id number] 2017-03-19 08:45:00-00:00 FLUOROSCOPIC GUIDANCE: [facility] INDICATION: Intraoperative guidance for arthropl asty TOTAL FLUOROSCOPY TIME: 47.6 seconds FINDINGS: Fluoroscopic cr nce provided to the clinical service for purposes interprocedural guidance. Images provided demonstrate intraoperative views during left total hip arthroplasty Images obtaine d during the procedure were interpreted by perfo rming physician. IMPRESSION: 1. Intraoperative findings as described. SL: [id number]
[2023-05-24] MEDS ORDERED: HYDROCODONE/APAP 10/325 TAB ONE (23:32)
[2023-05-24] MEDS ORDERED: KETOROLAC 30 MG/ML INJ ONE (23:33)
--- NOTE | 2023-05-25 00:05 | ER ---
Nurse's Notes [facility] Name: Omi Stone Age: 77 yrs Sex: Male : 1945 Arrival Date: 05/24/2023 Time: 22:47 Bed 11 Private MD: Diagnosis: Acute frontal sinusitis;Migraine without aura, not intractable Presentation: 05/24 23:06 Coronavirus screen: Vaccine status: Patient reports being unvaccinated. Ebola Screen: kd3 No symptoms or risks identified at this time. Initial Sepsis Screen: Does the patient meet any 2 criteria? No. Patient's initial sepsis screen is negative. Does the patient have a suspected source of infection? No. Patient's initial sepsis screen is negative. Risk Assessment: Do you want to hurt yourself or someone else? Patient reports no desire to harm self or others. Onset of symptoms was May 24, 2023. 23:06 Method Of Arrival: Ambulatory kd3 23:06 Acuity: GABRIELA 4 kd3 23:07 Chief complaint: Patient states: My head hurts and i am having sinus issues. I just kd3 need some kind of pain relief. I don't know if yall can do anything for me. Triage Assessment: 23:07 Headache History: Denies prior headaches. General: Appears uncomfortable, Behavior is kd3 calm, cooperative. Pain: Complains of pain in headache Pain currently is 8 out of 10 on a pain scale. Pain began gradually, Also complains of no other associated symptoms. Neuro: Level of Consciousness is awake, alert, obeys commands, Oriented to person, place, time, situation. Historical: - Allergies: 23:07 No Known Allergies; kd3 - PMHx: 23:06 ascending aortic aneurysm; CAD; Hyperlipidemia; GERD; Atrial Fib; Hypertension; kd3 - Immunization history:: Adult Immunizations up to date. - Social history:: Smoking status: Patient denies any tobacco usage or history of. Screenin:14 [facility] ED Fall Risk Assessment (Adult) History of falling in the last 3 months, jb4 including since admission No falls in past 3 months (0 pts) Confusion or Disorientation No (0 pts) Score/Fall Risk Level 0 - 2 = Low Risk Oriented to surroundings, Maintained a safe environment. Abuse screen: Denies threats or abuse. Nutritional screening: No deficits noted. Tuberculosis screening: No symptoms or risk factors identified. Assessment: 23:14 General: Appears in no apparent distress. uncomfortable, Behavior is calm, cooperative, jb4 appropriate for age. Pain: Complains of pain in left frontal area, left side of forehead, left temporal area and left yazidism Pain does not radiate. Pain currently is 10 out of 10 on a pain scale. Quality of pain is described as pressure. Neuro: Level of Consciousness is awake, alert, obeys commands, Oriented to person, place, time, situation, Reports photophobia. Cardiovascular: Patient's skin is warm and dry. Respiratory: Airway is patent Respiratory effort is even, unlabored, Respiratory pattern is regular, symmetrical. GI: No signs and/or symptoms were reported involving the gastrointestinal system. : No signs and/or symptoms were reported regarding the genitourinary system. EENT: No signs and/or symptoms were reported regarding the EENT system. Derm: Skin is intact, Skin is pink, warm \T\ dry. Musculoskeletal: Circulation, motion, and sensation intact. Range of motion: intact in all extremities. Vital Signs: 23:04 BP 161 / 95; Pulse 65; Resp 19; Temp 98.1(TE); Pulse Ox 97% on R/A; Weight 74.84 kg; kd3 Height 5 ft. 10 in. ; 23:04 Body Mass Index 23.67 (74.84 kg, 177.8 cm) kd3 ED Course: 22:51 Patient arrived in ED. ja2 22:53 [facility] sb4 22:54 Ángel Montgomery MD is Attending Physician. sb4 23:06 Triage completed. kd3 23:07 Arm band placed on left wrist. kd3 23:14 Patient has correct armband on for positive identification. Bed in low position. Call jb4 light in reach. Side rails up X 1. 23:34 Kusum Rico RN is Primary Nurse. kd3 05/25 00:10 Provided Education on: . kd3 00:10 No provider procedures requiring assistance completed. Patient did not have IV access kd3 during this emergency room visit. Administered Medications: 05/24 23:27 Drug: Ketorolac IM 30 mg Route: IM; Site: right gluteus; jb4 05/25 00:11 Follow up: Response: No adverse reaction; Pain is decreased kd3 05/24 23:27 Drug: [place] PO 10 mg-325 mg 1 tabs Route: PO; jb4 05/25 00:11 Follow up: Response: No adverse reaction; Pain is decreased kd3 00:10 Drug: Amoxicillin-Clavulanate PO 875 mg Route: PO; kd3 00:11 Follow up: Response: No adverse reaction; Pain is decreased kd3 Medication: 00:10 VIS not applicable for this client. kd3 Outcome: 00:04 Discharge ordered by . betty 00:10 Discharged to home ambulatory. kd3 00:10 Condition: stable 00:10 Discharge instructions given to patient, family, Instructed on discharge instructions, follow up and referral plans. Demonstrated understanding of instructions, follow-up care, medications, Prescriptions given X 2. 00:11 Patient left the ED. kd3 Signatures: Skinny Alfonso RN RN jb4 Lakeisha Gomes Kyli, RN RN kd3 Laquita Hua, PA-C PABinta [id number]
--- NOTE | 2023-05-25 00:05 | EDPHYS ---
Physician Documentation [facility] Name: Omi Stone Age: 77 yrs Sex: Male : 1945 Arrival Date: 05/24/2023 Time: 22:47 Bed 11 Private MD: ED Physician Ángel Montgomery HPI: 05/24 23:37 This 77 yrs old Male presents to ER via Ambulatory with complaints of Sinus Pain, sb4 Headache. 23:37 Onset: The symptoms/episode began/occurred 1 week(s) ago. patient states he started sb4 experiencing sinus congestion and headache about a week ago and was prescribed an intranasal medication that initially helped but now the pain has come back significantly worse and he cannot get any relief. Historical: - Allergies: 23:07 No Known Allergies; kd3 - PMHx: 23:06 ascending aortic aneurysm; CAD; Hyperlipidemia; GERD; Atrial Fib; Hypertension; kd3 - Immunization history:: Adult Immunizations up to date. - Social history:: Smoking status: Patient denies any tobacco usage or history of. ROS: 23:37 Constitutional: Negative for fever, chills, and weight loss. sb4 23:37 Cardiovascular: Negative for chest pain, palpitations, and edema, Respiratory: Negative for shortness of breath, cough, wheezing, and pleuritic chest pain, Abdomen/GI: Negative for abdominal pain, nausea, vomiting, diarrhea, and constipation, Back: Negative for injury and pain, MS/Extremity: Negative for injury and deformity, Skin: Negative for injury, rash, and discoloration. 23:37 ENT: Positive for nasal discharge, sinus congestion, sinus pain, Negative for rhinorrhea, sore throat. 23:37 Neuro: Positive for headache, Negative for altered mental status, dizziness, syncope. 23:37 All other systems are negative. Exam: 23:37 Head/Face: Normocephalic, atraumatic. Eyes: Extra-ocular motions intact. Periorbital sb4 areas with no swelling, redness, or edema. Cardiovascular: Regular rate and rhythm with a normal S1 and S2. Respiratory: Lungs have equal breath sounds bilaterally, clear to auscultation and percussion. No rales, rhonchi or wheezes noted. No increased work of breathing, no retractions or nasal flaring. Abdomen/GI: Soft, non-tender, no distension. Skin: Warm, dry with normal turgor. Normal color with no rashes, no lesions, and no evidence of cellulitis. MS/ Extremity: Pulses equal, no cyanosis. Neurovascular intact. Full, normal range of motion. Neuro: Awake and alert, GCS 15, oriented to person, place, time, and situation. Cranial nerves II-XII grossly intact. Motor strength 5/5 in all extremities. Sensory grossly intact. Cerebellar exam normal. Normal gait. 23:37 Constitutional: The patient appears alert, awake, in obvious pain, uncomfortable. 23:37 Head/face: Sinus tenderness, that is moderate. Vital Signs: 23:04 BP 161 / 95; Pulse 65; Resp 19; Temp 98.1(TE); Pulse Ox 97% on R/A; Weight 74.84 kg; kd3 Height 5 ft. 10 in. ; 23:04 Body Mass Index 23.67 (74.84 kg, 177.8 cm) kd3 MDM: 22:54 Patient medically screened. sb4 23:37 Differential Diagnosis: Influenza Upper Respiratory Infection Sinusitis Viral Syndrome sb4 Other migraine. 05/25 00:03 Data reviewed: vital signs, nurses notes, and as a result, I will discharge patient. sb4 Test considered but Not performed: Labs: not indicated. Historians other than the Patient: Spouse/Significant Other: . Counseling: I had a detailed discussion with the patient and/or guardian regarding: the historical points, exam findings, and any diagnostic results supporting the discharge/admit diagnosis, to return to the emergency department if symptoms worsen or persist or if there are any questions or concerns that arise at home. Medication response: Toradol partially relieved the patient's pain. Administered Medications: 05/24 23:27 Drug: Ketorolac IM 30 mg Route: IM; Site: right gluteus; jb4 05/25 00:11 Follow up: Response: No adverse reaction; Pain is decreased kd3 05/24 23:27 Drug: [place] PO 10 mg-325 mg 1 tabs Route: PO; jb4 05/25 00:11 Follow up: Response: No adverse reaction; Pain is decreased kd3 00:10 Drug: Amoxicillin-Clavulanate PO 875 mg Route: PO; kd3 00:11 Follow up: Response: No adverse reaction; Pain is decreased kd3 Disposition: 05:00 Co-signature as Attending Physician, Ángel Montgomery MD I reviewed the patient's care rt provided by the Advanced Practice Provider and agree with the diagnosis and treatment plan. Disposition Summary: 05/25/23 00:04 Discharge Ordered Location: Home sb4 Problem: an ongoing problem sb4 Symptoms: have improved sb4 Condition: Stable sb4 Diagnosis - Acute frontal sinusitis sb4 - Migraine without aura, not intractable sb4 Followup: sb4 - With: Private Physician - When: As needed - Reason: Recheck today's complaints, Continuance of care, Re-evaluation by your physician Discharge Instructions: - Discharge Summary Sheet sb4 - Sinusitis, Adult, Uetq-[id number] sb4 - Migraine Headache, Vmpa-bg-Vtsq sb4 Forms: - Medication Reconciliation Form sb4 - Thank You Letter sb4 - Antibiotic Education sb4 - Prescription Opioid Use sb4 - Patient Portal Instructions sb4 Prescriptions: - Augmentin 875-125 mg Oral Tablet - take 1 tablet by ORAL route every 12 hours for 10 days; 20 tablet; Refills: 0, sb4 Product Selection Permitted - Tramadol 50 mg Oral Tablet - take 1 tablet by ORAL route every 8 hours as needed; 12 tablet; Refills: 0, sb4 Product Selection Permitted Signatures: Skinny Alfonso RN RN jb4 Kusum Rico RN RN kd3 Laquita Hua PA-C PA-C sb4 Ángel Montgomery MD MD rt
[2023-05-25] MEDS ORDERED: AMOX/K CLAV 875 MG TAB ONE (00:16)
[2023-05-25 01:06] VITALS: BP 161/95; TEMP 98.1; O2SAT 97
== END 2023-05-25 00:11 | disposition home or self-care (01) ==
LOC: ER 22:47
DX: J01.10 Acute frontal sinusitis, unspecified (principal); G43.009 Migraine without aura, not intractable, without status migrainosus; I10 Essential (primary) hypertension
CPT/HCPCS: 96372; 99284

== ENCOUNTER 2023-07-15 10:03 | Emergency (ER) | payer OTHER ==
--- OUTSIDE RECORDS SUMMARY | 2023-07-15 10:11 | XMS REPORT | Continuity of Care Document ---
:1945 Author Organization [facility] t Address [address] [place] [address] [place] [id number] Care Team Providers Name Role Phone Kal Tarango MD Primary Care Physician Jose Dover MD Attending Clinician Carlos Dover MD Attending Clinician Therapy, [facility] Covid Infusion Attending Clinician Unavailable Rafael Boogie MD Attending Clinician RAFAEL BOOGIE Attending Clinician Unavailable Doctor Unassigned, [place] Attending Clinician Unavailable KAL TARANGO Attending Clinician Unavailable Blanca Barbour MA Attending Clinician Unavailable Tommy Carrasco MA Attending Clinician Unavailable NENA VELASQUEZ Attending Clinician Unavailable Arden Lyons Attending Clinician KAL TARANGO Admitting Clinician Unavailable NENA VELASQUEZ Admitting Clinician Unavailable JOSE DOVER Admitting Clinician Unavailable Arden Lyons Admitting Clinician Payers Payer Name Policy Type Policy Number Effective Date Expiration Date S re[facility] 1 [id number] 2021 Common TRS/ERS MCR PPO 00:00:00 [place] [id number] [place] [id number] [facility] C1 [id number] [facility] C1 [id number] [facility] C1 [id number] [facility] 0578 [id number] 2020 00:00:00 Problems Condition Condition Condition Status [...] 2018-11 Overview : [facility] cardiovasc cardiovasc 2-04 [facility] 00:00: g of this Hospita system system 00 note l might be different from the original. 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 0-29 st disease disease 00:00: Hospita involving involving 00 l [place] coronary coronary artery of artery of [place] heart heart without without angina angina pectoris pectoris CAD in CAD in Disease Active 2018-11 [facility] [place] 0-29 st artery artery 00:00: Hospita 00 [...] LEFT Diagnosis Active 2017-03-28 Memoria HIP, HIP, 03-11 22:02:00 l OSTEOARTHR OSTEOARTHR 00:00: He rmann ITIS LEFT ITIS LEFT 00 HIP HIP Active 03/11/2017 [facility] Prostate Prostate Problem Commo n cancer cancer [facility] Benign BPH Problem Common prostatic (benign Spirit hyperplasi prostatic - C HI a hyperplasi 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 Enoc n (disorder) (disorder) Active Problem 03/24/2017 in neck and back [facility] Gastroesop Gastroeso Problem Active 2017-03-24 Memoria hageal phageal 00:14:07 l reflux reflux [place] disease disease (disorder) (disorder) Active Problem 03/24/2017 [facility] Hypertensi Hypertens Problem Active 2017-03-24 Memoria ve josef 00:14:07 l disorder, disorder, Herm cj systemic systemic arterial arterial (disorder) (disorder) Active Problem 03/24/2017 [facility] Large Large Problem Active 2017-03-24 Memor ia prostate prostate 00:14:07 l (finding) (finding) Herm cj Active Problem 03/24/2017 [facility] Allergies, Adverse Reactions, Alerts Allergy Allergy Status Severity Reaction(s) Onset Inactive Treating Comm ents Source Name Type Date Date Clinician NO KNOWN Drug Active Univers ALLERGIE Class [facility] Family History Family Member Diagnosis Comments Start Date Stop Date Source [facility] Social History Social Habit Start Date Stop Date Quantity Comments Source History of Tobacco Common Spirit - Use [facility] Gender identity [facility] Sexual orientation [facility] Alcohol intake 2022-04-30 2022-04-30 Current Jewish 00:00:00 00:00:00 non-drinker of Hospital alcohol (finding) History of Social 2022-04-30 2022-04-[address] function 00:00:00 00:00:00 Hospital Cigarettes smoked 2019-08-10 2019-08-[address] current (pack per 00:00:00 00:00:00 Hospita l day) - Reported Cigarette 2019-08-10 2019-08-10 [facility] pack-years 00:00:00 00:00:00 Hospital Tobacco use and 2019-08-10 2019-08-10 Smokeless Jewish exposure 00:00:00 00:00:00 tobacco non-user Hospital Social History 2017-03-11 2017-03-11 [facility] 17:34:26 17:34:26 Sex [birth year] Jewish 00:00:00 00:00:00 Hospital Smoking Status Start Date Stop Date Source Former Smoker 2022-02-27 00:00:00 2022-02-27 00:00:00 Common S pirit - [facility] Medications Ordered Filled Start Stop Current Ordering Indication Dosage Frequency Signature Comments Components Source Medication Medication Date Date Medication? Clinician (SIG) Name Name Eliquis 2.5 Yes TAKE 1 Meth giselle mg tablet 8-[address] 00:00: MOUTH Hospita 00 TWICE A l DAY Eliquis 2.5 Yes TAKE 1 Meth giselle mg tablet 5-[address] 00:00: MOUTH Hospita 00 TWICE A l DAY Eliquis 2.5 0 2022- No TAKE 1 Met hodi mg tablet 5-15 08-[address] 00:00: 00:00 MOUTH Hospita 00 :00 TWICE A l DAY Eliquis 2.5 Yes TAKE 1 Meth giselle mg tablet 1-[address] 00:00: MOUTH Hospita 00 TWICE A l DAY Eliquis 2.5 2022- No TAKE 1 Met hodi mg tablet 1-16 05-[address] 00:00: 00:00 MOUTH Hospita 00 :00 TWICE A l DAY Eliquis 2.5 2022- No TAKE 1 Met hodi mg tablet 1-16 05-[address] 00:00: 00:00 MOUTH Hospita 00 :00 TWICE A l DAY venlafaxine 2021-11- No 50mg QD Take 50 mg [facility] (EFFEXOR) 2-06 12-[address] 50 MG 12:24: 00:00 daily. Hospita tablet 59 :00 l venlafaxine 2021-11- No 50mg QD Take 50 mg [facility] (EFFEXOR) 12-[address] 50 MG 12:24: 00:00 daily. Hospita tablet 59 :00 l venlafaxine 2021-11- No 50mg QD Take 50 mg [facility] (EFFEXOR) 12-[address] 50 MG 12:24: 00:00 daily. Hospita tablet 59 :00 l famotidine 2021-11- No 40mg QD Take 40 mg [facility] (PEPCID) 40 12-[address] MG tablet 12:24: 00:00 daily. Hospi ta 58 :00 l famotidine 2021-11 No 40mg QD Take 40 mg [facility] (PEPCID) 40 12-[address] MG tablet 12:24: 00:00 daily. Hospi ta 58 :00 l famotidine 2021-11- No 40mg QD Take 40 mg [facility] (PEPCID) 40 12-[address] MG tablet 12:24: 00:00 daily. Hospi ta 58 :00 l atorvastati 2021-11- No 40mg QD Take 40 mg Methodi n (LIPITOR) 12-[address] 40 mg 12:24: 00:00 daily. Hospita tablet 54 :00 l atorvastati 2021-11- No 40mg QD Take 40 mg Methodi n (LIPITOR) 12-[address] 40 mg 12:24: 00:00 daily. Hospita tablet 54 :00 l atorvastati 2021-11- No 40mg QD Take 40 mg Methodi n (LIPITOR) 12-[address] 40 mg 12:24: 00:00 daily. Hospita tablet 54 :00 l aspirin 2021-11 Yes 81mg QD Take 81 mg Meth giselle (ECOTRIN) - by mouth st 81 MG 11:50: daily. [...] daily with l dinner. acetaminoph 2021-11 Yes [id number] 1{tbl} Q4H Take 1 M ethodi en-codeine 2-[address] (TYLENOL 11:48: mouth Hospita WITH 44 every 4 l CODEINE #3) (four) 300-30 mg hours as per tablet needed for moderate pain .acute pain. tamsulosin 2021-11 Yes .4mg QD Take 0.4 Met hodi (FLOMAX) 2-[address] 0.4 mg 11:48: mouth Hospita capsule 44 daily with l dinner. acetaminoph 2021-11 Yes [id number] 1{tbl} Q4H Take 1 M ethodi en-codeine 2-[address] (TYLENOL 11:48: mouth Hospita WITH 44 every 4 l CODEINE #3) (four) 300-30 mg hours as per tablet needed for moderate pain .acute pain. tamsulosin 2021-11 Yes .4mg QD Take 0.4 Met hodi (FLOMAX) 2-[address] 0.4 mg 11:48: mouth Hospita capsule 44 daily with l dinner. acetaminoph 2021-11 Yes [id number] 1{tbl} Q4H Take 1 M ethodi en-codeine 2-[address] (TYLENOL 11:48: mouth Hospita WITH 44 every 4 l CODEINE #3) (four) 300-30 mg hours as per tablet needed for moderate pain .acute pain. losartan-hy 2021-11- No 1{tbl} QD Take 1 M ethodi drochloroth 2-06 12-[address] iazide 00:00: 05:59 mouth Hospita (HYZAAR) 00 :00 daily. l 100-12.5 mg per tablet losartan-hy 2021-11- No 1{tbl} QD Take 1 M ethodi drochloroth 12-16- tablet by st iazide 00:00: 05:59 mouth Hospita (ZAAR) 00 :00 daily. l 100-12.5 mg per tablet [facility]- 2021-11- No 1{tbl} QD Take 1 M ethodi drochloroth 12-[address] iazide 00:00: 05:59 mouth Hospita (ZAOK) 00 :00 daily. l 100-12.5 mg per [...] :00 TWICE A l DAY Eliquis 2.5 0 2021- No TAKE 1 Met hodi mg tablet 7-25 10-[address] 00:00: 00:00 MOUTH Hospita 00 :00 TWICE A l DAY Eliquis 2.5 2021- No TAKE 1 Met hodi mg tablet 7-25 10-[address] 00:00: 00:00 MOUTH Hospita 00 :00 TWICE A l DAY aspirin 2021-0 Yes 81mg QD Take 81 mg Meth giselle (ECOTRIN) 6-[address] 81 MG 09:19: daily. Hospita enteric 26 l coated tablet tamsulosin 0 Yes .4mg QD Take 0.4 Met hodi (FLOMAX) 6-[address] 0.4 mg 09:19: mouth Hospita capsule 26 daily with l dinner. famotidine Yes 40mg QD Take 40 mg M ethodi (PEPCID) 40 6-[address] MG tablet 09:19: daily. Hospit a 26 l venlafaxine 0 Yes 50mg QD Take 50 mg [facility] (EFFEXOR) 6-[address] 50 MG 09:19: daily. Hospita tablet 26 l atorvastati 0 Yes 40mg QD Take 40 mg Methodi n (LIPITOR) 6-[address] 40 mg 09:19: daily. Hospita tablet 26 l acetaminoph 0 Yes [id number] 1{tbl} Q4H Take 1 M ethodi en-codeine 6- tablet by st (TYLENOL 09:19: mouth Hospita WITH 26 every 4 l CODEINE #3) (four) 300-30 mg hours as per tablet needed for moderate pain .acute pain. metoprolol 2022- No 25mg QD Take 1 Meth giselle succinate 04-30- tablet ( st XL 00:00: 04:59 mg total) Hospita (TOPROL-XL) 00 :00 by mouth l 25 mg 24 hr daily. tablet metoprolol 2021-0 2022- No 25mg QD Take 1 Meth giselle succinate -30 04- tablet ( st XL 00:00: 04:59 mg total) Hospita (TOPROL-XL) 00 :00 by mouth l 25 mg 24 hr daily. tablet metoprolol 2021-0 2022- No 25mg QD Take 1 Meth giselle succinate -30 04- tablet ( st XL 00:00: 04:59 mg total) Hospita (TOPROL-XL) 00 :00 by mouth l 25 mg 24 hr daily. tablet metoprolol 0 2022- No 25mg QD Take 1 Meth giselle succinate 04-30- tablet (25 st XL 00:00: 04:59 mg total) Hospita (TOPROL-XL) 00 :00 by mouth l 25 mg 24 hr daily. tablet Eliquis 2.5 2021- No TAKE 1 Met hodi mg tablet 03-04- TABLET BY st 00:00: 00:00 MOUTH Hospita 00 :00 TWICE A l DAY Eliquis 2.5 0 2021- No TAKE 1 Met hodi mg tablet 03-04- TABLET BY st 00:00: 00:00 MOUTH Hospita 00 :00 TWICE A l DAY Eliquis 2.5 0 2021- No TAKE 1 Met hodi mg tablet 03-04- TABLET BY st 00:00: 00:00 MOUTH Hospita 00 :00 TWICE A l DAY Eliquis 2.5 0 Yes TAKE 1 Meth giselle mg tablet - TABLET BY st 00:00: MOUTH Hospita 00 TWICE A l DAY Eliquis 2.5 0 2021- No TAKE 1 Met hodi mg tablet 11-28- TABLET BY st 00:00: 00:00 MOUTH Hospita 00 :00 TWICE A l DAY Eliquis 2.5 0 2021- No TAKE 1 Met hodi mg tablet 11-28- TABLET BY st 00:00: 00:00 MOUTH Hospita [...] Hospita tablet 54 l acetaminoph 2020-11 Yes [id number] 1{tbl} Q4H Take 1 M ethodi en-codeine 2-[address] (TYLENOL 12:56: mouth Hospita WITH 54 every 4 l CODEINE #3) (four) 300-30 mg hours as per tablet needed for moderate pain .acute pain. losartan- 2020-11- No 1{tbl} QD Take 1 M ethodi drochloroth 2-21 - tablet by st iazide 00:00: 05:59 mouth Hospita (HYZAAR) 00 :00 daily. l 100-12.5 mg per tablet losartan- 2020-11- No 1{tbl} QD Take 1 M ethodi drochloroth 2-30 10- tablet by st iazide 00:00: 05:59 mouth Hospita (HYZAAR) 00 :00 daily. l 100-12.5 mg per tablet losartan- 2020-11- No 1{tbl} QD Take 1 M ethodi drochloroth 2-30 10- tablet by st iazide 00:00: 00:00 mouth Hospita (HYZAAR) 00 :00 daily. l 100-12.5 mg per tablet losartan- 2020-11- No 1{tbl} QD Take 1 M ethodi drochloroth 2-30 10- tablet by st iazide 00:00: 00:00 mouth Hospita (HYZAAR) 00 :00 daily. l 100-12.5 mg per tablet losartan- 2020-11- No 1{tbl} QD Take 1 M ethodi drochloroth 2-30 10- tablet by st iazide 00:00: 00:00 mouth [...] needed for muscle spasms. losartan 2020-11 No [id number] 50mg QD Take 1 [facility] (Cozaar) 50 0-05 10-30 00 tablet (50 s t MG tablet 00:00: 00:00 mg total) Ho spita 00 :00 by mouth l daily. losartan 2020-11 No [id number] 50mg QD Take 1 [facility] (Cozaar) 50 [...] DAY metoprolol 2020- No TAKE 1 Meth gieslle tartrate 07-27 10-[address] (LOPRESSOR) 00:00: 00:00 MOUTH Hosp cynthia 25 mg 00 :00 TWICE A l tablet DAY metoprolol 2020- No TAKE 1 Meth giselle tartrate 07-[address] (LOPRESSOR) 00:00: 00:00 MOUTH Hosp cynthia 25 mg 00 :00 TWICE A l tablet DAY imdevimab 2020- No [id number] Nino cheyenne ([id number]) 05-26 ity of 600 mg, 13:15: 14:08 [place] casirivimab 00 :00 Medical ([id number]) Branch 600 mg in NaCl 0.9% (NS) 60 mL infusion imdevimab 2020- No [id number] IV Un [place] ([id number]) 05-26 Infusion, it y of 600 mg, 13:15: 14:08 ONCE, Sat Josephyusra falk casirivimab 00 :00 05/26/21 at [facility] ([id number]) 0815, For Bra nch 600 mg in 1 NaCl 0.9% dose
Ad (NS) 60 mL [facility] infusion as an IV infusion via pump [...] metoprolol Yes TAKE 1 Metho di tartrate 01-[address] (LOPRESSOR) 00:00: MOUTH Hospi ta 25 mg 00 TWICE A l tablet DAY metoprolol 2020- No TAKE 1 Meth giselle tartrate 01-[address] (LOPRESSOR) 00:00: 00:00 MOUTH Hosp cynthia 25 mg 00 :00 TWICE A l tablet DAY DULoxetine 2020- No 60mg Take 60 mg [facility] (CYMBALTA) 3-16 03-[address] 60 MG 13:53: 00:00 as needed. Hospi ta capsule 04 :00 l DULoxetine No 60mg Take 60 mg [facility] (CYMBALTA) 01-[address] 60 MG 08:53: 00:00 as needed. Hospi ta capsule 04 :00 l losartan 2021- No 50mg QD Take 1 Method i (Cozaar) 50 01-23-17 tablet (50 s t MG tablet 00:00: 04:59 mg total) Ho spita 00 :00 by mouth l daily. losartan 2020- No 50mg QD Take 1 Method i (Cozaar) 50 -16 10-05 tablet (50 s t MG tablet 00:00: 00:00 mg total) Ho spita 00 :00 by mouth l daily. losartan 2020- No 50mg QD Take 1 Method i (Cozaar) 50 - 10-05 tablet (50 s t MG tablet 00:00: 00:00 mg total) Ho spita 00 :00 by mouth l daily. Eliquis 2.5 2020- No TAKE 1 Met hodi mg tablet 12-18- TABLET BY st 00:00: 00:00 MOUTH Hospita 00 :00 TWICE A l DAY Eliquis 2.5 2020- No TAKE 1 Met hodi mg tablet 12-18-[address] 00:00: 00:00 MOUTH Hospita 00 :00 TWICE A l DAY apixaban 2019-11 No 2.5mg Q.5D Take 1 Metho di (Eliquis) 11-[address] 2.5 mg 00:00: 00:00 (2.5 mg Hospita tablet 00 :00 total) by l mouth 2 (two) times a day. apixaban 2019-11 No 2.5mg Q.5D Take 1 Metho di (Eliquis) 11-25-[address] 2.5 mg 00:00: 00:00 (2.5 [...] 2020- No TAKE 1 Meth giselle tartrate 07-[address] (LOPRESSOR) 00:00: 00:00 MOUTH [...] 2020- No TAKE 1 Meth giselle tartrate -20 -[address] (LOPRESSOR) 00:00: 00:00 [...] 25 mg 9-10 ity of capsule 00:00: [place] [facility] nortriptyli Yes Univer s ne 25 mg 9-10 ity of capsule 00:00: [place] [facility] lisinopril Yes Univers 30 mg 8-25 ity of tablet 00:00: [place] [facility] lisinopril Yes Univers 30 mg 8-25 ity of tablet 00:00: [place] [facility] baclofen 10 Yes Univer s mg tablet 8-18 ity of 00:00: [address] baclofen 10 Yes Univer s mg tablet 06-27 ity of 00:00: [address] RAPAFLO 8 Yes Univers mg capsule 06-16 ity of 00:00: [place] [facility] RAPAFLO 8 Yes Univers mg capsule 06-16 ity of 00:00: [place] [facility] Acetaminoph Yes 1 tab, PO, Memoria en [...] [Xarelto] 00 10 tab, 0 Refill(s), Pharmacy: [id number] rivaroxaban Yes 10 mg = 1 M emoria 10 MG Oral 5-12 tab, PO, l Tablet 11:04: Daily, [place] [Xarelto] 00 10 tab, 0 Refill(s), Pharmacy: [facility][id number] rivaroxaban Yes 10 mg = 1 M emoria 10 MG Oral 5-12 tab, PO, l Tablet 11:04: Daily, # [place] [Xarelto] 00 10 tab, 0 Refill(s), Pharmacy: [id number] rivaroxaban Yes 10 mg = 1 M emoria 10 MG Oral 5-12 tab, PO, l Tablet 11:04: Daily, # [place] [Xarelto] 00 10 tab, 0 Refill(s), Pharmacy: [facility] #[id number] Saline No Notes: Memoria Flush 0.9% 5-12 (Same as: l 02:00: BD [place] 00 Posiflush) Saline No Notes: Memoria Flush 0.9% 5-12 (Same as: l 02:00: BD [place] 00 Posiflush) Saline No Notes: Memoria Flush 0.9% 5-12 (Same as: l 02:00: BD [place] 00 Posiflush) Saline No Notes: Memoria Flush 0.9% 5-12 (Same as: l 02:00: BD [place] 00 Posiflush) Saline No Notes: Memoria Flush 0.9% 5-11 (Same as: l 18:01: BD J[place] 00 Posiflush) Saline No Notes: Memoria Flush 0.9% 5-11 (Same as: l 18:01: BD [place] 00 Posiflush) Saline No Notes: Memoria Flush 0.9% 5-11 (Same as: l 18:01: BD J[place] 00 Posiflush) Saline No Notes: [...] day, Stop date: 04/18/17 9:00:00 CDT Lisinopril 0 No Notes: Memor ia 5-11 (Same as: l 14:00: Prinivil, [place] Zestril) lansoprazol No 30 mg, Herb cris e 5-11 Route: PO, l 14:00: Drug form: [place] TABDIS, Daily, Dosing Weight 74.716, kg, Start date: 03/20/17 9:00:00 CDT, Duration: 30 day, Stop date: 04/18/17 9:00:00 CDT Lisinopril No Notes: Memor ia 5-11 (Same as: l 14:00: Prinivil, [place] Zestril) lansoprazol No 30 mg, Herb cris e 5-11 Route: PO, l 14:00: Drug form: [place] 00 TABDIS, Daily, Dosing Weight 74.716, kg, Start date: 03/20/17 9:00:00 CDT, Duration: 30 day, Stop date: 04/18/17 9:00:00 CDT Lisinopril No Notes: Memor ia 5-11 (Same as: l 14:00: Prinivil, J[place] Zestril) lansoprazol No 30 mg, Herb cris e 5-11 Route: PO, l 14:00: Drug form: J[place] TABDIS, Daily, Dosing Weight 74.716, kg, Start date: 03/20/17 9:00:00 CDT, Duration: 30 day, Stop date: 04/18/17 9:00:00 CDT Famotidine No Notes: Memor ia 20 MG Oral 5-11 (Same as: l Tablet 02:00: Pepcid) gabapentin No Notes: Memor ia 300 MG Oral 5-11 (Same as: l Capsule 02:00: Neurontin) Nortriptyli No Notes: Herb cris ne 5-11 (Same l 02:00: as:Pamelor [place] 00 , Aventyl) Famotidine No Notes: Memor ia 20 MG Oral 5-11 (Same as: l Tablet 02:00: Pepcid) Jarek 00 gabapentin No Notes: Memor ia 300 MG Oral 5-11 (Same as: l Capsule 02:00: Neurontin) Herm cj Nortriptyli No Notes: Herb cris ne 5-11 (Same l 02:00: as:Pamelor J[place] 00 , Aventyl) Famotidine No Notes: Memor ia 20 MG Oral 5-11 (Same as: l Tablet 02:00: Pepcid) Jarek 00 gabapentin No Notes: Memor ia 300 MG Oral 5-11 (Same as: l Capsule 02:00: Neurontin) Herm cj Nortriptyli No Notes: Herb cris ne 5-11 (Same l 02:00: as:Pamelor J[place] 00 , Aventyl) Famotidine No Notes: Memor ia 20 MG Oral 5-11 (Same as: l Tablet 02:00: Pepcid) [place] 00 gabapentin No Notes: Memor ia 300 MG Oral 5-11 (Same as: l Capsule 02:00: Neurontin) Herm cj Nortriptyli No Notes: Herb cris ne 5-11 (Same l 02:00: as:Pamelor [place] 00 , Aventyl) Tylenol No Notes: Do Memor ia 5-10 not exceed l 22:00: 4 gm/day. [place] (Same as: Tylenol) Docusate No Notes: Memoria Sodium 100 5-10 (Same as: l MG Oral 22:00: Colace) Jarek Capsule 00 (Do Not Crush) Tylenol No Notes: Do Memor ia 5-10 not exceed l 22:00: 4 gm/day. Jarek (Same as: Tylenol) Docusate No Notes: Memoria Sodium 100 5-10 (Same as: l MG Oral 22:00: Colace) [place] Capsule 00 (Do Not Crush) Tylenol No Notes: Do Memor ia 5-10 not exceed l 22:00: 4 gm/day. Jarek (Same as: Tylenol) Docusate No Notes: Memoria Sodium 100 5-10 (Same as: l MG Oral 22:00: Colace) Jarek Capsule 00 (Do Not Crush) Tylenol No Notes: Do Memor ia 5-10 not exceed l 22:00: 4 gm/day. [place] 00 (Same as: Tylenol) Docusate No Notes: Memoria Sodium 100 5-10 (Same as: l MG Oral 22:00: Colace) Jarek Capsule 00 (Do Not Crush) Protonix No Notes: Memoria 5-10 Tablet l 21:30: should not [place] 00 be chewed or crushed. (Same as: Protonix) Protonix No Notes: Memoria 5-10 Tablet l 21:30: should not [place] 00 be chewed or crushed. (Same as: Protonix) Protonix No Notes: Memoria 5-10 Tablet l 21:30: should not Jarek 00 be chewed or crushed. (Same as: Protonix) Protonix No Notes: Memoria 5-10 Tablet l 21:30: should not [place] 00 be chewed or crushed. (Same as: Protonix) rivaroxaban No Notes: Herb cris 5-10 (Same as: l 21:08: Xarelto) Jarek 00 Do Not Crush rivaroxaban No Notes: Herb cris 5-10 (Same as: l 21:08: Xarelto) [place] 00 Do Not Crush rivaroxaban No Notes: [...] 1000 mg Product Wasted: __0_ mg Acetaminoph 2017-0 No Notes: Herb cris en 10 MG/ML 5-10 Infuse l Injectable 20:00: over 15 Herm cj Solution 00 minutes Do not exceed 4gm/day of acetaminop hen MEDICATION WASTE Product Size: 1000 mg Product Wasted: __0_ mg Acetaminoph 2017- No Notes: Herb cris en 10 MG/ML 5-10 Infuse l Injectable 20:00: over 15 Herm cj Solution 00 minutes Do not exceed 4gm/day of acetaminop hen MEDICATION WASTE Product Size: 1000 mg Product Wasted: __0_ mg Dilaudid 2016- No Notes: Memoria 5-10 Same as: l 18:39: Dilaudid Jarek Dilaudid 2016- No Notes: Memoria 5-10 Same as: l 18:39: Dilaudid [place] Dilaudid 2016-0 No Notes: Memoria 5-10 Same as: l 18:39: Dilaudid [place] 00 Dilaudid 2016-0 No Notes: Memoria 5-10 Same as: l 18:39: Dilaudid [place] Cefazolin 2016- No Notes: Memori a 5-10 (Same As: l 18:00: Ancef, [place] 00 Kefzol) MEDICATION WASTE Product Size: 1000 mg Product Wasted: _0 mg Cefazolin 2017-0 No Notes: Memori a 5-10 (Same As: l 18:00: Ancef, [place] 00 Kefzol) MEDICATION WASTE Product Size: 1000 mg Product Wasted: _0 mg Cefazolin 2017-0 No Notes: Memori a 5-10 (Same As: l 18:00: Ancef, [place] Kefzol) MEDICATION WASTE Product Size: 1000 mg Product Wasted: _0 mg Cefazolin 2016-0 No Notes: Memori a 5-10 (Same As: l 18:00: Ancef, [place] 00 Kefzol) MEDICATION WASTE Product Size: 1000 [...] 5-10 Drug form: l 15:15: INJ, ONCE, [place] 00 Stop date: 03/19/17 10:15:00 CDT glycopyrrol 2017 No Route: IV, Memoria ate (ANES) 5-10 Drug form: l 15:15: INJ, ONCE, [place] 00 Stop date: 03/19/17 10:15:00 CDT ondansetron No Route: IV, Memoria (ANES) 5-10 Drug form: l 15:15: INJ, ONCE, Stop date: 03/19/17 10:15:00 CDT phenylephri No Route: IV, Memoria ne (ANES) [...] 5-10 (Same As: l 15:07: Dulcolax, [place] 00 Correctol) (Do Not Crush) "Do Not Crush" Ondansetron No Notes: Herb cris 5-10 (Same as: l 15:07: Zofran) Jarek MEDICATION WASTE Product Size: 4 mg Product Wasted: _0__ mg Al No Notes: Memoria hydroxide/M 5-10 (aluminum l g 15:07: hydroxide- [place] hydroxide/s 00 magnesium imethicone hyd-simeth 200 mg-200 [...] hydroxide/M 5-10 (aluminum l g 15:07: hydroxide- [place] hydroxide/s 00 magnesium imethicone hyd-simeth 200 mg-200 icone mg-20 mg/5 200-200-20 mL oral mg/5ml 30 suspension ml ud CHARITY) Lactated No 1,000 mL, Herb cris Ringers 5-10 Rate: 100 l 1,000 mL 15:07: ml/hr, [place] 00 Infuse over: 10 hr, Route: IV, [...] 5-10 (Same As: l 15:07: Dulcolax, [place] 00 Correctol) (Do Not Crush) "Do Not Crush" Ondansetron No Notes: Herb cris 5-10 (Same as: l 15:07: Zofran) [place] 00 MEDICATION WASTE Product Size: 4 mg [...] hydroxide/M 5-10 (aluminum l g 15:07: hydroxide- [place] hydroxide/s 00 magnesium imethicone hyd-simeth 200 mg-200 [...] ONCE, Stop date: 03/19/17 9:39:00 CDT metoprolol No Route: IV, M emoria (ANES) 5-10 Drug form: l 14:39: INJ, ONCE, Stop date: 03/19/17 9:39:00 CDT metoprolol No Route: IV, M emoria (ANES) 5-10 Drug form: l 14:39: INJ, ONCE, Stop date: 03/19/17 9:39:00 CDT metoprolol No Route: IV, M emoria (ANES) 5-10 Drug form: l 14:39: INJ, ONCE, Stop date: 03/19/17 9:39:00 CDT Dilaudid No Route: IV, Mem oria (ANES) 5-10 Drug form: l 14:34: INJ, ONCE, Stop date: 03/19/17 9:34:00 CDT Dilaudid No Route: IV, Mem oria (ANES) 5-10 Drug form: l 14:34: INJ, ONCE, Stop date: 03/19/17 9:34:00 CDT Dilaudid 2017-0 No Route: IV, Mem oria (ANES) 5-10 Drug form: l 14:34: INJ, ONCE, Stop date: 03/19/17 9:34:00 CDT Dilaudid 2017-0 No Route: IV, Mem oria (ANES) 5-10 Drug form: l 14:34: INJ, ONCE, Stop date: 03/19/17 9:34:00 CDT rocuronium 2017-0 No Route: IV, M [...] 5-10 Drug form: l 14:14: SOLN, Jarek ONCE, Stop date: 03/19/17 9:14:00 CDT fentaNYL 2017-0 No Route: IV, Mem oria (ANES) 5-10 Drug form: l 14:14: INJ, ONCE, Stop date: 03/19/17 9:14:00 CDT tranexamic [id number] No Route: IV, M emoria acid (ANES) 5-10 Drug form: l 14:14: INJ, ONCE, Stop date: 03/19/17 9:14:00 CDT midazolam 2017-0 No Route: IV, Me moria (ANES) 5-10 Drug form: l 14:14: SOLN, [place] 00 ONCE, Stop date: 03/19/17 9:14:00 CDT [...] 5-10 Drug form: l 14:14: INJ, ONCE, [place] Stop date: 03/19/17 9:14:00 CDT Hydromorpho No Notes: Herb cris ne 5-10 Same as l 13:48: Dilaudid Jarek Naloxone No Notes: Memoria 5-10 Same as l 13:48: Narcan [place] Flumazenil No Notes: Memor ia 5-10 (Same as: l 13:48: Romazicon) Jarek Hydralazine No Notes: Herb cris 5-10 (Same as: l 13:48: Apresoline [place] ) Push over 5 minutes Metoprolol No Notes: Memor ia 5-10 (Same as: l 13:48: Lopressor) Jarek 00 Push over 2 minutes Diphenhydra No Notes: Herb cris mine 5-10 (Same as: l 13:48: Benadryl) [place] 00 Ondansetron No Notes: Herb cris 5-10 (Same as: l 13:48: Zofran) Jarek 00 MEDICATION WASTE Product Size: 4 mg Product Wasted: _0__ mg Morphine No Notes: Memoria 5-10 (Same l 13:48: as:MORPhin [place] 00 e Sulfate) Hydromorpho No Notes: Herb cris ne 5-10 Same as l 13:48: Dilaudid Jarek Naloxone No Notes: Memoria 5-10 Same as l 13:48: Narcan [place] Flumazenil No Notes: Memor ia 5-10 (Same as: l 13:48: Romazicon) Jarek Hydralazine No Notes: Herb cris 5-10 (Same as: l 13:48: Apresoline Jarek ) Push over 5 minutes Metoprolol No Notes: Memor ia 5-10 (Same as: l 13:48: Lopressor) [place] 00 Push over 2 minutes Diphenhydra No Notes: Herb cris mine 5-10 (Same as: l 13:48: Benadryl) Jarek Ondansetron No Notes: Herb cris 5-10 (Same as: l 13:48: Zofran) Jarek 00 MEDICATION WASTE Product Size: 4 mg Product Wasted: _0__ mg Morphine No Notes: Memoria 5-10 (Same l 13:48: as:MORPhin [place] 00 e Sulfate) Hydromorpho No Notes: Herb cris ne 5-10 Same as l 13:48: Dilaudid Jarek 00 Naloxone No Notes: Memoria 5-10 Same as l 13:48: Narcan Jarek 00 Flumazenil No Notes: Memor ia 5-10 (Same as: l 13:48: Romazicon) [place] Hydralazine No Notes: Herb cris 5-10 (Same as: l 13:48: Apresoline [place] 00 ) Push over 5 minutes Metoprolol No Notes: Memor ia 5-10 (Same as: l 13:48: Lopressor) [place] 00 Push over 2 minutes Diphenhydra No Notes: Herb cris mine 5-10 (Same as: l 13:48: Benadryl) [place] Ondansetron No Notes: Herb cris 5-10 (Same as: l 13:48: Zofran) Jarek 00 MEDICATION WASTE Product Size: 4 mg Product Wasted: _0__ mg Morphine No Notes: Memoria 5-10 (Same l 13:48: as:MORPhin [place] 00 e Sulfate) Hydromorpho No Notes: Herb cris ne 5-10 Same as l 13:48: Dilaudid Jarek 00 Naloxone No Notes: Memoria 5-10 Same as l 13:48: Narcan [place] 00 Flumazenil No Notes: Memor ia 5-10 (Same as: l 13:48: Romazicon) [place] 00 Hydralazine No Notes: Herb cris 5-10 (Same as: l 13:48: Apresoline Jarek 00 ) Push over 5 minutes Metoprolol No Notes: Memor ia 5-10 (Same as: l 13:48: Lopressor) [place] 00 Push over 2 minutes Diphenhydra No [...] (ANES) 5-10 Total l 13:29: Volume: Jarek 1,000, Start date: 03/19/17 8:29:00 CDT, Stop date: 03/19/17 9:29:00 CDT LR 1000 mL No Route: IV, M emoria INJ (ANES) 5-10 Total l 13:29: Volume: [place] 1,000, Start date: 03/19/17 8:29:00 CDT, Stop date: 03/19/17 9:29:00 CDT LR 1000 mL No Route: IV, M emoria INJ (ANES) 5-10 Total l 13:29: Volume: Jarek 1,000, Start date: 03/19/17 8:29:00 CDT, Stop date: 03/19/17 9:29:00 CDT LR 1000 mL No Route: IV, M emoria INJ (ANES) 5-10 Total l 13:29: Volume: [place] 1,000, Start date: 03/19/17 8:29:00 CDT, Stop [...] 5-10 Ingredient l 12:00: s: 2 ml [place] 00 lidocaine 1% inj , 0.2ml sodium bicarbonat e 8.4% inj total volume = 2.2ml Refrigerat e: 14 days Room temp: 7 days Lidocaine No Notes: Memori a 5-10 Ingredient l 12:00: s: 2 ml [place] 00 lidocaine 1% inj , 0.2ml sodium [...] 5-10 Rate: 25 l 0.0014 11:59: ml/hr, [place] MEQ/ML / 00 Infuse Potassium over: 40 Chloride hr, Route: 0.004 IV, Dosing MEQ/ML / Weight Sodium 74.716 kg, Chloride Total 0.103 Volume: MEQ/ML / 1,000, Sodium Start Lactate date: 0.028 03/19/17 MEQ/ML 6:59:00 Injectable CDT, Solution Duration: 30 day, Stop date: 04/18/17 6:58:00 CDT Calcium 2017- No 1,000 mL, Memor ia Chloride 5-10 Rate: 25 l 0.0014 11:59: ml/hr, [place] MEQ/ML / 00 Infuse Potassium over: 40 [...] cris 5-10 (Same As: l 11:00: Cyklokapro [place] 00 n) Lactated No IV, 100 Memori a Ringers 5-10 ml/hr, l Injection 11:00: ONCFuentes SORENSENa nn IV 00 Start date: 03/19/17 6:00:00 CDT, Duration: 1, 1,000 ml ceFAZolin + No Notes: Herb cris sodium 5-10 (Same As: l chloride 11:00: Ancef, [place] 0.9% 100 mL 00 Kefzol) INJ (for IV set) 100 mL MEDICATION WASTE Product Size: 1000 mg Product Wasted: 0__ mg Neurontin No Notes: Memori a 5-10 (Same as: l 11:00: Neurontin) [place] 00 Cyklokapron No Notes: Herb cris 5-10 (Same As: l 11:00: Cyklokapro [place] 00 n) Lactated No IV, 100 Memori a Ringers 5-10 ml/hr, l Injection 11:00: ONCALL, Sabi nn IV 00 Start date: 03/19/17 6:00:00 CDT, Duration: 1, 1,000 ml ceFAZolin + No Notes: Herb cris sodium 5-10 (Same As: l chloride 11:00: Ancef, [place] 0.9% 100 mL 00 Kefzol) INJ (for IV set) 100 mL MEDICATION WASTE Product Size: 1000 mg Product Wasted: 0__ mg Neurontin No Notes: Memori a 5-10 (Same as: l 11:00: Neurontin) Jarek Cyklokapron No Notes: Herb cris 5-10 (Same As: l 11:00: Cyklokapro [place] 00 n) Lactated No IV, 100 Memori [...] a 5-10 (Same as: l 11:00: Neurontin) [place] Cyklokapron No Notes: Herb cris 5-10 (Same As: l 11:00: Cyklokapro Jarek 00 n) Lactated No IV, 100 Memori a Ringers 5-10 ml/hr, l Injection 11:00: Sabi GONZALEZ nn IV 00 Start date: 03/19/17 6:00:00 CDT, Duration: 1, 1,000 ml ceFAZolin + No Notes: Herb cris sodium 5-10 (Same As: l chloride 11:00: Ancef, [place] 0.9% 100 mL 00 Kefzol) INJ (for IV set) 100 mL MEDICATION WASTE Product Size: 1000 mg Product Wasted: 0__ mg Sodium No IV, 0 Memoria Chloride 5-09 ml/hr, l 0.9% IV 19:29: PRN, PRN Enoc n 00 Line Flush, Start date: 03/18/17 14:29:00 CDT, Duration: 30, 25 ml BD Normal No Notes: Memori a Saline 5-09 (Same as: l Flush 19:29: BD [place] 00 Posiflush) Sodium No IV, 0 Memoria Chloride 5-09 ml/hr, l 0.9% IV 19:29: PRN, PRN Enoc n 00 Line Flush, Start date: 03/18/17 14:29:00 CDT, Duration: 30, 25 ml BD Normal No Notes: Memori a Saline 5-09 (Same as: l Flush 19:29: BD [place] 00 Posiflush) Sodium No IV, 0 Memoria Chloride 5-09 ml/hr, l 0.9% IV 19:29: PRN, PRN Enoc n 00 Line Flush, Start date: 03/18/17 14:29:00 CDT, Duration: 30, 25 ml BD Normal No Notes: Memori a Saline -09 (Same as: l Flush 19:29: BD Jarek [...] Jarek 00 30 tab, 0 Refill(s) nortriptyli Yes 50 mg = 1 M emoria ne 50 mg 5-02 cap, PO, l oral 17:13: Bedtime, # Jarek capsule 00 30 cap, 1 Refill(s) silodosin 8 Yes 8 mg = 1 Me moria MG Oral 5-02 cap, PO, l Capsule 17:13: Daily, 0 Enoc n [Rapaflo] 00 Refill(s) lansoprazol 2017- Yes 30 mg = 1 M emoria e 30 mg 5-02 tab, PO, l oral 17:13: Daily, # [place] tablet, 00 30 tab, 0 disintegrat Refill(s) ing lisinopril 2017 Yes 30 mg = 1 Me moria 30 mg oral 5-02 tab, PO, l tablet 17:13: Daily, # Jarek 00 30 tab, 0 Refill(s) nortriptyli 2017-0 Yes 50 mg = 1 M emoria ne 50 mg 5-02 cap, PO, l oral 17:13: Bedtime, # [place] capsule 00 30 cap, 1 Refill(s) silodosin 8 Yes 8 mg = 1 Me moria MG Oral 5-02 cap, PO, l Capsule 17:13: Daily, 0 Enoc n [Rapaflo] 00 Refill(s) lansoprazol 2017-0 Yes 30 mg = 1 M emoria e 30 mg 5-02 tab, PO, l oral 17:13: Daily, # [place] tablet, 00 30 tab, 0 disintegrat Refill(s) ing lisinopril 2017-0 Yes 30 mg = 1 Me moria 30 mg oral 5-02 tab, PO, l tablet 17:13: Daily, # [place] 00 30 tab, 0 Refill(s) nortriptyli 2017-0 Yes 50 mg = 1 M emoria ne 50 mg 5-02 cap, PO, l oral 17:13: Bedtime, # [place] capsule 00 30 cap, 1 Refill(s) silodosin 8 2017 Yes 8 mg = 1 Me moria MG Oral 5-02 cap, PO, l Capsule 17:13: Daily, 0 Enoc n [Rapaflo] 00 Refill(s) lansoprazol 2017-0 Yes 30 mg = 1 M emoria e 30 mg 5-02 tab, PO, l oral 17:13: Daily, # [place] tablet, 00 30 tab, 0 disintegrat Refill(s) ing lisinopril 2017-0 Yes 30 mg = 1 Me moria 30 mg oral 5-02 tab, PO, l tablet 17:13: Daily, # [place] 00 30 tab, 0 Refill(s) nortriptyli 2017 Yes 50 mg = 1 M emoria [...] Comments Source height 2022-02-27 10:00:00 69 [in_i] [facility] weight 2022-02-27 10:00:00 170 [lb_av] [facility] temperature 2022-02-27 10:00:00 97.6 [degF] [facility] bmi 2022-02-27 10:00:00 25.1 kg/m2 [facility] oximetry 2022-02-27 10:00:00 100 % [facility] respiratory rate 2022-02-27 10:00:00 16 /min [facility] blood pressure 2022-02-27 10:00:00 139 mm[Hg] [facility] blood pressure 2022-02-27 10:00:00 76 mm[Hg] [facility] height 2021-08-29 09:45:00 69 [in_i] Common [facility] weight 2021-08-29 09:45:00 167 [lb_av] [facility] temperature 2021-08-29 09:45:00 97.6 [degF] [facility] bmi 2021-08-29 09:45:00 24.66 kg/m2 [facility] oximetry 2021-08-29 09:45:00 97 % [facility] blood pressure 2021-08-29 09:45:00 141 mm[Hg] [facility] blood pressure 2021-08-29 09:45:00 78 mm[Hg] [facility] height 2021-06-28 15:30:00 69 [in_i] [facility] weight 2021-06-28 15:30:00 164 [lb_av] [facility] temperature 2021-06-28 15:30:00 98.2 [degF] [facility] bmi 2021-06-28 15:30:00 24.22 kg/m2 [facility] oximetry 2021-06-28 15:30:00 98 % Common [facility] blood pressure 2021-06-28 15:30:00 139 mm[Hg] [facility] blood pressure 2021-06-28 15:30:00 66 mm[Hg] [facility] height 2021-06-11 16:40:00 69 [in_i] Common [facility] weight 2021-06-11 16:40:00 164 [lb_av] Common [facility] temperature 2021-06-11 16:40:00 98.5 [degF] Common [facility] bmi 2021-06-11 16:40:00 24.22 kg/m2 [facility] oximetry 2021-06-11 16:40:00 98 % [facility] blood pressure 2021-06-11 16:40:00 157 mm[Hg] [facility] blood pressure 2021-06-11 16:40:00 85 mm[Hg] [facility] Systolic blood 2021-05-26 15:10:00 146 mm[Hg] [facility] Diastolic blood 2021-05-26 15:10:00 81 mm[Hg] Unive rsity of [facility] Heart rate 2021-05-26 15:10:00 67 /min [facility] Body temperature 2021-05-26 15:10:00 36.78 [facility] Oxygen saturation in 2021-05-26 15:10:00 97 /min [facility] Arterial blood by [facility] Pulse oximetry Branch Respiratory rate 2021-05-26 14:40:00 18 /min [facility] Body height 2021-05-26 13:05:00 177.8 cm [facility] Body weight 2021-05-26 13:05:00 74.844 kg [facility] BMI 2021-05-26 13:05:00 23.68 kg/m2 [facility] Systolic blood 2021-05-26 15:10:00 146 mm[Hg] Univer sity of pressure [facility] Diastolic blood 2021-05-26 15:10:00 81 mm[Hg] Unive rsity of pressure [facility] Heart rate 2021-05-26 15:10:00 67 /min [facility] Body temperature 2021-05-26 15:10:00 36.78 [facility] O[facility] in 2021-05-26 15:10:00 97 /min [facility] Arterial blood by [facility] Pulse oximetry Branch Respiratory rate 2021-05-26 14:40:00 18 /min [facility] Body height 2021-05-26 13:05:00 177.8 cm [facility] Body weight 2021-05-26 13:05:00 74.844 kg [facility] BMI 2021-05-26 13:05:00 23.68 kg/m2 [facility] height 2021-05-21 09:20:00 69 [in_i] [facility] weight 2021-05-21 09:20:00 164 [lb_av] [facility] temperature 2021-05-21 09:20:00 97.4 [degF] [facility] bmi 2021-05-21 09:20:00 24.22 kg/m2 [facility] oximetry 2021-05-21 09:20:00 95 % [facility] blood pressure 2021-05-21 09:20:00 164 mm[Hg] [facility] blood pressure 2021-05-21 09:20:00 70 mm[Hg] [facility] Systolic blood 2022-10-15 17:50:00 156 mm[Hg] [facility] blood 2022-10-15 17:50:00 76 mm[Hg] Metho [facility] pressure Heart rate 2022-10-15 17:50:00 53 /[facility] 2022-10-15 17:50:00 177.8 cm [facility] Body weight 2022-10-15 17:50:00 76.204 kg [facility] BMI 2022-10-15 17:50:00 24.11 kg/m2 [facility] Body height 2022-07-26 14:44:00 177.8 cm [facility] Body weight 2022-07-26 14:44:00 79.379 kg [facility] BMI 2022-07-26 14:44:00 25.11 kg/m2 [facility] Systolic blood 2022-04-30 14:19:00 144 mm[Hg] [facility] pressure Diastolic blood 2022-04-30 14:19:00 85 mm[Hg] [facility] pressure Heart rate 2022-04-30 14:19:00 81 /min [facility] Systolic blood 2021-10-30 19:01:00 178 mm[Hg] [facility] pressure Diastolic blood 2021-10-30 19:01:00 82 mm[Hg] [facility] pressure Heart rate 2021-10-30 19:01:00 59 /min [facility] Body height 2021-10-30 18:56:00 177.8 cm [facility] Body weight 2021-10-30 18:56:00 76.658 kg [facility] BMI 2021-10-30 18:56:00 24.25 kg/m2 [facility] Systolic blood 2021-01-23 13:56:00 144 mm[Hg] [facility] pressure Diastolic blood 2021-01-23 13:56:00 77 mm[Hg] [facility] pressure Heart rate 2021-01-23 13:56:00 44 /min [facility] Body height 2021-01-23 13:56:00 177.8 cm [facility] Body weight 2021-01-23 13:56:00 75.751 kg [facility] BMI 2021-01-23 13:56:00 23.96 kg/m2 [facility] Respitory Rate 2017-03-21 14:13:00 Memamber al Jarek Systolic (mm Hg) 2017-03-21 14:13:00 Herbjunaid Tilley Diastolic (mm Hg) 2017-03-21 14:13:00 Mem orial [place] Temperature Oral (F) 2017-03-21 14:13:00 98.2 F Memorial [place] Heart Rate 2017-03-21 14:13:00 Memorial Jarek Systolic (mm Hg) 2017-03-21 10:35:00 Herb rial [place] Diastolic (mm Hg) 2017-03-21 10:35:00 Mem orial Jarek Respitory Rate 2017-03-21 10:35:00 Memori al Jarek Heart Rate 2017-03-21 10:35:00 Memorial [place] Temperature Oral (F) 2017-03-21 10:35:00 98.2 F [facility] Jarek Temperature Oral (F) 2017-03-21 04:33:00 98.4 F Memorial [place] Respitory Rate 2017-03-21 04:33:00 Memori al Jarek Heart Rate 2017-03-21 04:33:00 Memorial [place] Systolic (mm Hg) 2017-03-21 04:33:00 Herb rial [place] Diastolic (mm Hg) 2017-03-21 04:33:00 Mem orial [place] Height 2017-03-11 17:17:00 170.82 cm [facility] [place] BMI Calculated 2017-03-11 17:17:00 Memori al [place] Weight 2017-03-11 17:17:00 [facility] Jarek Procedures Procedure Date / Time Performed Performing Clinician [facility] e IA INJECTION 2022-07-26 18:04:06 [facility] SINGLE/MECHANICAL ADJUSTER TRIGGER POINT 1/2 MUSCLES XR CERVICAL SPINE 2 2022-07-26 14:47:44 [facility] ECG 12-LEAD 2022-04-30 14:20:54 Jose [facility] ECG 12-LEAD 2021-10-30 19:00:23 [facility] [place] [facility] TTE COMPLETE, W 2021-08-27 19:05:31 Jose [place] spital CONTRAST, W DOPPLER ([id number]) [id number] CONSENT 2021-05-26 05:01:00 Doctor Unassigned, No [facility] ECG 12-LEAD 2021-01-23 13:58:29 Jose [place] spital TTE COMPLETE, W 2020-09-21 18:53:55 Jose [place] spinicolasa CONTRAST, W DOPPLER ([id number]) Shoulder joint 2015-11-11 06:00:00 [facility] Her faustin operations<sup>1</sup > Neck repair 2015-03-11 05:00:00 [facility] Her faustin Plan of Care Planned Activity Planned Date Details Comments Source Future Scheduled 2023-07-11 COVID-19 [facility]ACCINE (#1) [facility] 18:06:11 [code = COVID-19 VACCINE (#1)] Future Scheduled 2023-07-11 65+ P[facility]UMOCOCCAL [facility] Test 18:06:11 VACCINE (1 - PCV) [code = 65+ PNEUMOCOCCAL VACCINE (1 - PCV)] Future Scheduled 2023-07-11 [facility] 18:06:11 (procedure) [code = 106652184] Future Scheduled 2023-07-11 [facility]IN[facility]:06:11 of 2) [code = SHINGLES VACCINES (1 of 2)] Future Scheduled 2023-07-11 INFLUENZA VACCINE (#1) [facility] 18:06:11 [code = INFLUENZA VACCINE (#1)] Future Scheduled 2023-05-24 COVID-19 VACCINE (#1) [facility] 22[facility]50:09 [code = COVID-19 VACCINE (#1)] Future Scheduled 2023-05-24 65+ P[facility]UMOCOCCAL [facility] Test 22:50:09 VACCINE (1 - PCV) [code = 65+ PNEUMOCOCCAL VACCINE (1 - PCV)] Future Scheduled 2023-05-24 [facility] 22:50:09 (procedure) [code = 563059960] Future Scheduled 2023-05-24 SHINGLES VACCINES (1 [facility] 22:50:09 of 2) [code = SHINGLES VACCINES (1 of 2)] Future Scheduled 2023-05-24 INFLUENZA VACCINE [facility] Test 22:50:09 [code = INFLUENZA VACCINE] Future Scheduled 2023-02-12 COVID-19 VACCINE (#1) [facility] 17:33:22 [code = COVID-19 VACCINE (#1)] Future Scheduled 2023-02-12 65+ PNEUMOCOCCAL [facility] Test 17:33:22 VACCINE (1 - PCV) [code = 65+ PNEUMOCOCCAL VACCINE (1 - PCV)] Future Scheduled 2023-02-12 Hepatitis C screening [facility] Test 17:33:22 (procedure) [code = 543280078] Future Scheduled 2023-02-12 SHINGLES VACCINES (1 Met [facility] Hospital Test 17:33:22 of 2) [code = SHINGLES VACCINES (1 of 2)] Future Scheduled 2023-02-12 COLONOSCOPY SCREENING [facility] Test 17:33:22 [code = COLONOSCOPY SCREENING] Future Scheduled 2023-02-12 INFLUENZA VACCINE [facility] Test 17:33:22 [code = INFLUENZA VACCINE] Future Scheduled 2022-07-26 HEPATITIS B VACCINES [facility] Hospital Test 09:45:36 (1 of 3 - 3-dose series) [code = HEPATITIS B VACCINES (1 of 3 - 3-dose series)] Future Scheduled 2022-07-26 COVID-19 VACCINE (#1) [facility] Test 09:45:36 [code = COVID-19 VACCINE (#1)] Future Scheduled 2022-07-26 65+ PNEUMOCOCCAL [facility] Test 09:45:36 VACCINE (1 - PCV) [code = 65+ PNEUMOCOCCAL VACCINE (1 - PCV)] Future Scheduled 2022-07-26 Hepatitis C screening [facility] Test 09:45:36 (procedure) [code = 333856024] Future Scheduled 2022-07-26 SHINGLES VACCINES (1 [facility] Test 09:45:36 of 2) [code = SHINGLES VACCINES (1 of 2)] Future Scheduled 2022-07-26 COLONOSCOPY SCREENING [facility] Test 09:45:36 [code = COLONOSCOPY SCREENING] Future Scheduled 2022-07-26 INFLUENZA VACCINE [facility] Test 09:45:36 [code = INFLUENZA VACCINE] Future Scheduled 2021-12-11 COVID-19 VACCINE (1) [facility] Hospital Test 14:18:26 [code = COVID-19 VACCINE (1)] Future Scheduled 2021-12-11 65+ PNEUMOCOCCAL [facility] Test 14:18:26 VACCINE (1 of 4 - PCV13) [code = 65+ PNEUMOCOCCAL VACCINE (1 of 4 - PCV13)] Future Scheduled 2021-12-11 Hepatitis C screening [facility] Hospital Test 14:18:26 (procedure) [code = 457152172] Future Scheduled 2021-12-11 COLONOSCOPY SCREENING [facility] Hospital Test 14:18:26 [code = COLONOSCOPY SCREENING] [...] PCV13)] Future Scheduled COVID-19 VACCINE (1) [facility] Hospital Test [code = COVID-19 VACCINE (1)] Future Scheduled Hepatitis C screening [facility] Test (procedure) [code = 153539841] Future Scheduled COLONOSCOPY SCREENING [facility] Test [code = COLONOSCOPY SCREENING] Future Scheduled SHINGLES [facility]ACCINES (#[facility]) [facility] [code = SHINGLES VACCINES (#1)] Future Scheduled INFLUENZA VACCINE [facility] Test [code = INFLUENZA VACCINE] Encounters Start End Encounter Admission Attending Care Care Encounter Source Date/Time Date/Time Type Type Clinicians Facility Department ID 2022-10-07 Outpatient [facility] [id number] Common 08:44:01 [facility] 2022-03-01 Outpatient [facility] [id number] Common 11:23:02 [facility] 2022-02-25 Outpatient [facility] [id number] Common 09:02:01 [facility] 2021-12-05 Outpatient [facility] [id number] Common 11:50:50 [id number] [facility] 2023-06-21 2023-06-21 Carolin Gerard2.840.1 [id number] Methodi 00:00:00 00:00:00 Jose Aguiar [address]59.1.[address] 3.430.2.7 Hospit a .3.644285 l .8 2023-03-22 2023-03-22 Refill [place], 1.2.840.1 [id number] Methodi 00:00:00 00:00:00 Jose [id number] 3.430.2.7 Hospit a .3.257359 l .8 2023-03-22 2023-03-22 Refill [place], 1.2.840.1 [id number] Methodi 00:00:00 00:00:00 Jose R[address]88.1.[address] 3.430.2.7 Hospit a .3.536038 l .8 2022-11-25 2022-11-25 Refill [place], 1.2.840.1 [id number] Methodi 00:00:00 00:00:00 Jose R. [address]84.1.[address] 3.430.2.7 Hospit a .3.696824 l .8 2022-11-25 2022-11-25 Refill [place], 1.2.840.1 [id number] Methodi 00:00:00 00:00:00 Jose R. 75106.1.[address] 3.430.2.7 Hospit a .3.842657 l .8 2022-10-15 2022-10-15 Office [place], 1.2.840.1 [id number] Methodi 11:50:00 14:55:55 Visit Jose R. 93837.1.[address] 3.430.2.7 Hospit a .3.441641 l .8 2022-10-15 2022-10-15 Office [place], 1.2.840.1 [id number] Methodi 11:50:00 14:55:55 Visit Jose R. 27473.1.[address] 3.430.2.7 Hospit a .3.189051 l .8 2022-10-15 2022-10-15 Travel 1.2.840.1 [id number] 0001 [id number] Methodi 00:00:00 00:00:[address] 3.430.2.7 0.2.7.3.698 Ho spita .3.865327 084.8 l .8 2022-10-15 2022-10-15 Travel 1.2.840.1 [id number] [id number] Methodi 00:00:00 00:00:[address] 3.430.2.7 0.2.7.3.698 Ho spita .3.584478 084.8 l .8 2022-10-07 2022-10-07 (TEL) STLMLC STLMLC [id number] Co mmon 00:00:00 00:00:00 [facility] 2022-08-29 2022-08-29 Refill [place], 1.2.840.1 [id number] Methodi 00:00:00 00:00:00 Jose Arellano. 30722.1.[address] 3.430.2.7 Hospit a .3.348028 l .8 2022-08-29 2022-08-29 Refill [place], 1.2.840.1 [id number] 4762 Methodi 00:00:00 00:00:00 Jose R. 77772.1.[address] 3.430.2.7 Hospit a .3.840682 l .8 2022-07-26 2022-07-26 Office [place] 1.2.840.1 [id number] Methodi 09:45:00 11:33:46 Visit [place] 55357.1.[address] 3.430.2.7 Hospit a .3.283947 l .8 2022-07-26 2022-07-26 Office [place] 1.2.840.1 [id number] Methodi 09:45:00 11:33:46 Visit [place] 80492.1.[address] 3.430.2.7 Hospit a .3.440889 l .8 2022-07-26 2022-07-26 Outpatient [facility] 2100 [id number] [place] 00:00:00 00:00:[address] 2022-07-26 2022-07-26 Travel 1.2.840.1 1.2.179.909 1696 [id number] Methodi 00:00:00 00:00:[address] 3.430.2.7 0.2.7.3.698 Ho spita .3.270066 084.8 l .8 2022-07-26 2022-07-26 Travel 1.2.840.1 1.2.093.482 2181 [id number] Methodi 00:00:00 00:00:[address] 3.430.2.7 0.2.7.3.698 Ho spita .3.582823 084.8 l .8 2022-07-01 2022-07-01 Travel 1.2.840.1 1.2.551.483 8166 177340 Methodi 00:00:00 00:00:[address] 3.430.2.7 0.2.7.3.698 Ho spita .3.074797 084.8 l .8 2022-06-02 2022-06-02 Refill [place], 1.2.840.1 [id number] 6420 Methodi 00:00:00 00:00:[address] 3.430.2.7 Hospit a .3.816162 l .8 2022-04-30 2022-04-30 Office [place], 1.2.840.1 [id number] 3772 Methodi 09:30:00 15:24:44 Visit Jose Aguiar 18023.1.[address] 3.430.2.7 Hospit a .3.340285 l .8 2022-04-30 2022-04-30 Travel 1.2.840.1 1.2.911.637 6248 612883 Methodi 00:00:00 00:00:[address] 3.430.2.7 0.2.7.3.698 Ho spita .3.319631 084.8 l .8 2022-03-02 2022-03-02 Refill [place] 1.2.840.1 [id number] 6602 Methodi 00:00:00 00:00:00 Jose Aguiar 99964.1.[address] 3.430.2.7 Hospit a .3.784314 l .8 2022-02-27 2022-02-27 OFFICE STLMLC STLMLC [id number] Co mmon 00:00:00 00:00:00 VISIT [facility] 2 [facility] 2021-11-28 2021-11-28 Refill [place] 1.2.840.1 [id number] 7801 Methodi 00:00:00 00:00:00 Jose Aguiar 10038.1.[address] 3.430.2.7 Hospit a .3.551708 l .8 2021-11-14 2021-11-14 (TEL) STLMLC STLMLC [id number] Co mmon 00:00:00 00:00:00 [facility] 2021-10-30 2021-10-30 Office [place] 1.2.840.1 [id number] 9325 Methodi 13:00:00 14:21:17 Visit Jose Aguiar 46024.1.[address] 3.430.2.7 Hospit a .3.246013 l .8 2021-10-30 2021-10-30 Travel 1.2.840.1 1.2.329.643 2632 153840 Methodi 00:00:00 00:00:[address] 3.430.2.7 0.2.7.3.698 Ho spita .3.559078 084.8 l .8 2021-10-22 2021-10-22 Telephone [place] 1.2.840.1 [id number] 2100 008243 Methodi 00:00:00 00:00:00 Jose Arellano. 98268.1.[address] 3.430.2.7 Hospit a .3.791161 l .8 2021-08-29 2021-08-29 OFFICE STLMLC STLMLC [id number] Co mmon 00:00:00 00:00:00 VISIT EST Spir it PT LEVEL 3 - [facility] 2021-08-27 2021-08-27 [facility] [id number] 048 [place] 00:00:00 00:00:00 JOSE Diaz Method [facility] 2021-08-27 2021-08-27 Travel 1.2.840.1 1.2.332.264 3093 875003 Methodi 00:00:00 00:00:[address] 3.430.2.7 0.2.7.3.698 Ho spita .3.624103 084.8 l .8 2021-08-14 2021-08-14 Office [place], 1.2.840.1 [id number] 3171 Methodi 14:30:00 16:47:52 Visit Jose Cosme 67433.1.[address] 3.430.2.7 Hospit a .3.670883 l .8 2021-08-14 2021-08-14 Travel 1.2.840.1 1.2.489.375 0322 323854 Methodi 00:00:00 00:00:[address] 3.430.2.7 0.2.7.3.698 Ho spita .3.932171 084.8 l .8 2021-08-10 2021-08-10 Travel 1.2.840.1 1.2.720.830 1382 747863 Methodi 00:00:00 00:00:[address] 3.430.2.7 0.2.7.3.698 Ho spita .3.173667 084.8 l .8 2021-08-10 2021-08-10 Telephone [place], 1.2.840.1 [id number] Methodi 00:00:00 00:00:[address] 13237.1.[address] 3.430.2.7 Hospit a .3.841534 l .8 2021-08-10 2021-08-10 Telephone [place], 1.2.840.1 [id number] 2100 727487 Methodi 00:00:00 00:00:[address] Jose R[address] 80519.1.[address] 3.430.2.7 Hospit a .3.878172 l .8 2021-07-31 2021-07-31 Refill [place], 1.2.840.1 [id number] 8316 Methodi 00:00:00 00:00:[address] 27528.1.[address] 3.430.2.7 Hospit a .3.240665 l .8 2021-07-27 2021-07-27 Refill [place], 1.2.840.1 [id number] 8828 Methodi 00:00:00 00:00:[address] 37253.1.[address] 3.430.2.7 Hospit a .3.422598 l .8 2021-06-28 2021-06-28 OFFICE STLMLC STLMLC [id number] Co mmon 00:00:00 00:00:00 VISIT Spirit ESTAB PT - CHI LEVEL 4 [facility] 2021-06-13 2021-06-13 (TEL) STLMLC STLMLC [id number] Co mmon 00:00:00 00:00:00 [facility] - [facility] 2021-06-11 2021-06-11 OFFICE STLMLC STLMLC [id number] Co mmon 00:00:00 00:00:00 VISIT EST Spir it PT LEVEL 3 - [facility] 2021-05-26 2021-05-26 Nurse Therapy, Adc Covid Infusion [facility] 1.2.840.114 [id number] [facility] 07:59:21 08:29:21 Visit Rafael Boogie 350.1.13.10 itJenelle 4[place] [facility] [id number] [facility] 053 Juda 2021-05-26 2021-05-26 Nurse Therapy, [facility] 1.2.840.114 [id number] 883 07:59:21 08:29:21 Visit Aristeo Imani Bryan 350.1.13.10 Infusion [place] 4.2.7.2.686 Surgical [phone] [place] [address] 2021-05-26 2021-05-26 Outpatient Adan BOOGIE, [facility] [id number] [id number] [facility] 08:00:00 08:00:00 RAFAEL ity of [facility] 2021-05-26 2021-05-26 Orders Doctor AMA 1.2.840.114 [id number] Univers 00:00:00 00:00:00 Only Unassigned, DALILA 350.1.13.10 ity of [place] 4.2.7.2.686 Joseph as [phone] [address] 2021-05-26 2021-05-26 Orders Doctor SERRATO 1.2.840.114 [id number] 89 00:00:00 00:00:00 Only Unassigned, DALILA 350.1.13.10 [place] 4.2.7.2.[id number] [facility] 2021-05-21 2021-05-21 OFFICE STLMLC STLMLC [id number] Co mmon 00:00:00 00:00:00 VISIT EST Spir it PT LEVEL 3 - [facility] 2020-12-13 2021-04-01 Outpatient C ODLLY TARANGO BALANCE PT 1000 [id number] [facility] 11:08:00 23:59:00 KAL [facility] 2021-03-20 2021-03-20 Refisabella [place] 1.2.840.1 [id number] 5362 Methodi 00:00:00 00:00:00 Jose Aguiar 20654.1.[address] 3.430.2.7 Hospit a .3.925862 l 8 2021-03-11 2021-03-11 Real [place] 1.2.840.1 [id number] 2939 Methodi 00:00:00 00:00:00 Jose Aguiar 58178.1.[address] 3.430.2.7 Hospit a .3.524926 l .8 2021-01-23 2021-01-23 Office [place], 1.2.840.1 [id number] 122531 4284 Methodi 08:44:13 13:22:27 Visit Jose Aguiar 01316.1.[address] 3.430.2.7 Hospit a .3.846060 l .8 2021-01-23 2021-01-23 Refill [place], 1.2.840.1 [id number] 2598 Methodi 00:00:00 00:00:00 Jose RNhi 00300.1.[address] 3.430.2.7 Hospit a .3.300050 l .8 2020-12-17 2020-12-17 Refill [place], 1.2.840.1 [id number] 2063 Methodi 00:00:00 00:00:00 Jose Aguiar 89851.1.[address] 3.430.2.7 Hospit a .3.351874 l .8 2020-11-21 2020-11-21 Outpatient STLMLC STLMLC [id number] Common 00:00:00 00:00:00 [facility] 2020-09-25 2020-09-25 Refill [place], 1.2.840.1 [id number] 6174 Methodi 00:00:00 00:00:[address]301.1.[address] 3.430.2.7 Hospit a .3.191757 l .8 2020-09-21 2020-09-21 [facility] [id number] 072 [place] 00:00:00 00:00:00 JOSE [address] 2020-09-21 2020-09-21 Travel 1.2.840.1 1.2.387.044 0793 647729 Methodi 00:00:00 00:00:[address] 3.430.2.7 0.2.7.3.698 Ho spita .3.029516 084.8 l .8 2020-09-06 2020-09-06 Refill Km, 1.2.840.1 [id number] 985 7093222 Methodi 00:00:00 00:00:[address] 3.430.2.7 Hospit a .3.326000 l .8 2020-08-10 2020-08-10 Outpatient STLMLC STLMLC [id number] Common 00:00:00 00:00:00 [facility] 2020-08-06 2020-08-06 Refill [place], 1.2.840.1 [id number] 4661 Methodi 00:00:00 00:00:00 Jose Aguiar 22526.1.[address] 3.430.2.7 Hospit a .3.525756 l .8 2020-07-25 2020-07-25 Osvaldo [place] 1.2.840.1 [id number] 4296 Methodi 11:35:29 14:53:02 Visit Jose Aguiar 46590.1.[address] 3.430.2.7 Hospit a .3.683576 l .8 2020-07-24 2020-07-24 Travel 1.2.840.1 1.2.865.365 6047 700753 Methodi 00:00:00 00:00:[address] 3.430.2.7 0.2.7.3.698 Ho spita .3.634341 084.8 l .8 2020-07-23 2020-07-23 Refill [place] 1.2.840.1 [id number] 1425 Methodi 00:00:00 00:00:00 Jose Aguiar 00940.1.[address] 3.430.2.7 Hospit a .3.551953 l .8 2020-07-12 2020-07-12 Tommy Lopez 1.2.840.1 [id number] 2099 281677 Methodi 00:00:00 00:00:[address] 3.430.2.7 Hospit a .3.781703 l .8 2020-07-11 2020-07-11 Tommy Newby 1.2.840.1 [id number] 21 [id number] Methodi 00:00:00 00:00:[address] 3.430.2.7 Hospit a .3.292640 l .8 2020-06-27 2020-06-27 Travel 1.2.840.1 1.2.078.781 2297 560582 Methodi 00:00:00 00:00:[address] 3.430.2.7 0.2.7.3.698 Ho spita .3.289650 084.8 l .8 2020-03-28 2020-03-28 [facility] [id number] 256 [place] 00:00:00 00:00:00 JOSE [address] 2019-11-16 2019-11-24 Inpatient [facility] 027 2100 [id number] [place] 00:00:00 00:00:00 NENA Medina 522 Meth [place] 2019-10-27 2019-10-27 Outpatient [facility] 439 [id number] [place] 00:00:00 00:00:00 YNENA 058 Meth [place] 2019-10-27 2019-10-27 Outpatient [facility] 424 [id number] [place] 00:00:00 00:00:00 YNENA 619 Meth [place] 2019-10-20 2019-10-20 [facility] [id number] 000 [place] 00:00:00 00:00:00 JOSE [address] 2018-08-28 2018-11-21 Outpatient Hi TARANGO, Hi BALANCE PT 1000 [id number] [facility] 09:11:00 23:59:00 KAL [facility] 2017-03-19 2017-03-21 [facility] [id number] [facility] 11:59:00 16:15:00 adan Tilley 00 [facility] 2017-03-19 2017-03-21 [facility]patient [facility] 27108 10568 [place] 11:59:00 16:15:00 r Jarek 00 [facility] 2017-03-19 2017-03-21 [place] [address] [id number] 475 06:59:00 11:15:00 Arden Parham 00 Results Test Description Test Time Test Comments Results Result Comments Source ECG 12 lead 2022-04-30 21:44:56 Test Item Value Reference Range Interpretation Comme nts Ventricular rate (test code = 253) Atrial rate (test code = 255) IA interval (test code = 266) QRSD interval [...] of 30-OCT-2021 13:00,-No significant change was found- [address]2022-06-21 21:44:56 Test Item Value Reference Range Interpretation Comments Ventricular rate (test 66 code = 253) Atrial rate (test code 66 = 255) IA interval (test code 152 = 266) QRSD [...] of 30-OCT-2021 13:00,-No significant change was found- [address]2021-12-22 04:07:33 Test Item Value Reference Range Interpretation Comments Ventricular rate (test code = 253) Atrial rate (test code = 255) IA interval (test code = 266) QRSD interval [...] 08:58,-premature atrial complexes are no longer present[facility] 12 feto9617-58-17 10:24:59 Test Item Value Reference Range Interpretation Comments Ventricular rate (test code = 253) Atrial rate (test code = 255) IA interval (test code = 266) QRSD interval (test code = 260) QT interval (test code = 264) QTC interval (test code = 265) P axis 1 (test code = 267) QRS axis 1 (test code = 268) T wave axis (test code = 270) EKG impression (test code = 273) [facility]2017-05-11 08:29:00 Test Item Value Reference Range Interpretation Comments Calcium Lvl (test code = Calcium Lvl) 9.3 8.5-10.5 [facility]2017-05-11 08:29:00 Test Item Value Reference Range Interpretation Comments eGFR (test code = eGFR) 50 [facility]2017-05-11 08:29:00 Test Item Value Reference Range Interpretation Comments Glucose Lvl (test code = Glucose Lvl) 116 70-99 [facility]2017-05-11 08:29:00 Test Item Value Reference Range Interpretation Comments BUN (test code = BUN) 29 7-22 [facility]2017-05-11 08:29:00 Test Item Value Reference Range Interpretation Comments Chloride Lvl (test code = Chloride Lvl) 104 95-109 [facility]2017-05-11 08:29:00 Test Item Value Reference Range Interpretation Comments Sodium Lvl (test code = Sodium Lvl) 138 135-145 [facility]2017-05-11 08:29:00 Test Item Value Reference Range Interpretation Comments CO2 (test code = CO2) 29 24-32 [facility]2017-05-11 08:29:00 Test Item Value Reference Range Interpretation Comments Potassium Lvl (test code = Potassium 4.6 3.5-5.1 Lvl) [facility]2017-05-11 08:29:00 Test Item Value Reference Range Interpretation Comments Creatinine Lvl (test code = Creatinine 1.41 0.50-1.40 Lvl) [facility]2017-05-11 08:29:00 Test Item Value Reference Range Interpretation Comments AGAP (test code = AGAP) 9.6 10.0-20.0 [facility]2240-41-23 08:29:00 Test Item Value Reference Range Interpretation Comments Hct (test code = Hct) 38.5 42.0-54.0 [facility] HospitalGqacjesLOBYCNUAAW2397-14-18 08:29:00 Test Item Value Reference Range Interpretation Comments Hgb (test code = Hgb) 13.0 14.0-18.0 [facility]2017-05-11 08:29:00 Test Item Value Reference Range Interpretation Comments Calcium Lvl (test code = Calcium Lvl) 9.3 8.5-10.5 [facility]2017-05-11 08:29:00 Test Item Value Reference Range Interpretation Comments eGFR (test code = eGFR) 50 [facility]2017-05-11 08:29:00 Test Item Value Reference Range Interpretation Comments Glucose Lvl (test code = Glucose Lvl) 116 70-99 [facility]2017-05-11 08:29:00 Test Item Value Reference Range Interpretation Comments BUN (test code = BUN) 29 7-22 [facility]2017-05-11 08:29:00 Test Item Value Reference Range Interpretation Comments Chloride Lvl (test code = Chloride Lvl) 104 95-109 [facility]2017-05-11 08:29:00 Test Item Value Reference Range Interpretation Comments Sodium Lvl (test code = Sodium Lvl) 138 135-145 [facility]2017-05-11 08:29:00 Test Item Value Reference Range Interpretation Comments CO2 (test code = CO2) 29 24-32 [facility]2017-05-11 08:29:00 Test Item Value Reference Range Interpretation Comments Potassium Lvl (test code = Potassium 4.6 3.5-5.1 Lvl) [facility]2017-05-11 08:29:00 Test Item Value Reference Range Interpretation Comments Creatinine Lvl (test code = Creatinine 1.41 0.50-1.40 Lvl) [facility]2017-05-11 08:29:00 Test Item Value Reference Range Interpretation Comments AGAP (test code = AGAP) 9.6 10.0-20.0 [facility] HospitalUxirlzcFYXNELZERW2631-17-73 08:29:00 Test Item Value Reference Range Interpretation Comments Hct (test code = Hct) 38.5 42.0-54.0 [facility] HospitalUidxaeuUFKEZEJSGP1441-65-21 08:29:00 Test Item Value Reference Range Interpretation Comments Hgb (test code = Hgb) 13.0 14.0-18.0 [facility]2017-05-11 08:29:00 Test Item Value Reference Range Interpretation Comments Calcium Lvl (test code = Calcium Lvl) 9.3 8.5-10.5 [facility]2017-05-11 08:29:00 Test Item Value Reference Range Interpretation Comments eGFR (test code = eGFR) 50 [facility]2017-05-11 08:29:00 Test Item Value Reference Range Interpretation Comments Glucose Lvl (test code = Glucose Lvl) 116 70-99 [facility]2017-05-11 08:29:00 Test Item Value Reference Range Interpretation Comments BUN (test code = BUN) 29 7-22 [facility]2017-05-11 08:29:00 Test Item Value Reference Range Interpretation Comments Chloride Lvl (test code = Chloride Lvl) 104 95-109 [facility]2017-05-11 08:29:00 Test Item Value Reference Range Interpretation Comments Sodium Lvl (test code = Sodium Lvl) 138 135-145 [facility]2017-05-11 08:29:00 Test Item Value Reference Range Interpretation Comments CO2 (test code = CO2) 29 24-32 [place] 519487-05-11 08:29:00 Test Item Value Reference Range Interpretation Comments Potassium Lvl (test code = Potassium 4.6 3.5-5.1 Lvl) [facility]2017-05-11 08:29:00 Test Item Value Reference Range Interpretation Comments Creatinine Lvl (test code = Creatinine 1.41 0.50-1.40 Lvl) [facility]2017-05-11 08:29:00 Test Item Value Reference Range Interpretation Comments AGAP (test code = AGAP) 9.6 10.0-20.0 [facility] HospitalVuoodexUKPDCWYJNQ0393-44-28 08:29:00 Test Item Value Reference Range Interpretation Comments Hct (test code = Hct) 38.5 42.0-54.0 [facility] HospitalAntzcfyKELIMIVTJU7787-30-27 08:29:00 Test Item Value Reference Range Interpretation Comments Hgb (test code = Hgb) 13.0 14.0-18.0 [facility]2017-05-11 08:29:00 Test Item Value Reference Range Interpretation Comments Calcium Lvl (test code = Calcium Lvl) 9.3 8.5-10.5 [facility]2017-05-11 08:29:00 Test Item Value Reference Range Interpretation Comments eGFR (test code = eGFR) 50 [facility]2017-05-11 08:29:00 Test Item Value Reference Range Interpretation Comments Glucose Lvl (test code = Glucose Lvl) 116 70-99 [facility]2017-05-11 08:29:00 Test Item Value Reference Range Interpretation Comments BUN (test code = BUN) 29 7-22 [facility]2017-05-11 08:29:00 Test Item Value Reference Range Interpretation Comments Chloride Lvl (test code = Chloride Lvl) 104 95-109 [facility]2017-05-11 08:29:00 Test Item Value Reference Range Interpretation Comments Sodium Lvl (test code = Sodium Lvl) 138 135-145 [facility]2017-05-11 08:29:00 Test Item Value Reference Range Interpretation Comments CO2 (test code = CO2) 29 24-32 [facility]2017-05-11 08:29:00 Test Item Value Reference Range Interpretation Comments Potassium Lvl (test code = Potassium 4.6 3.5-5.1 Lvl) [facility]2017-05-11 08:29:00 Test Item Value Reference Range Interpretation Comments Creatinine Lvl (test code = Creatinine 1.41 0.50-1.40 Lvl) [facility]2017-05-11 08:29:00 Test Item Value Reference Range Interpretation Comments AGAP (test code = AGAP) 9.6 10.0-20.0 [facility] HospitalHahzdjqJJJNHXDLXI9755-31-21 08:29:00 Test Item Value Reference Range Interpretation Comments Hct (test code = Hct) 38.5 42.0-54.0 [facility] HospitalJxrelaoYEPSRUISKC8900-17-45 08:29:00 Test Item Value Reference Range Interpretation Comments Hgb (test code = Hgb) 13.0 14.0-18.0 [facility]ikwxjySXKKZEMBOCQO4832-67-44 15:28:00 Test Item Value Reference Range Interpretation Comments Chloride Lvl (test code = Chloride Lvl) 108 95-109 [facility] CenterJirlkvaUWEVNIBSOFNF1743-13-14 15:28:00 Test Item Value Reference Range Interpretation Comments AGAP (test code = AGAP) 14.7 10.0-20.0 [facility] CenterIgrizktIBXQFRWZSPLC1474-81-10 15:28:00 Test Item Value Reference Range Interpretation Comments Calcium Lvl (test code = Calcium Lvl) 9.5 8.5-10.5 [facility] CenterPrcldgxYBLUNDWQXJSK3954-99-41 15:28:00 Test Item Value Reference Range Interpretation Comments CO2 (test code = CO2) 25 24-32 [facility] CenterKabzuvqRKYMPQZQRYXQ1333-22-95 15:28:00 Test Item Value Reference Range Interpretation Comments eGFR (test code = eGFR) 43 [facility] CenterTqwyszsELIVSQYTXMXJ4594-08-92 15:28:00 Test Item Value Reference Range Interpretation Comments Creatinine Lvl (test code = Creatinine 1.60 0.50-1.40 Lvl) [facility] CenterAirsjqhDPFUAOFHFSIP5561-36-78 15:28:00 Test Item Value Reference Range Interpretation Comments Glucose Lvl (test code = Glucose Lvl) 143 70-99 [facility] CenterOfgmbwzBAQDNOGHKBEA7423-48-22 15:28:00 Test Item Value Reference Range Interpretation Comments BUN (test code = BUN) 28 7-22 [facility] CenterZjiisfuTNFMWVMLELZQ5407-01-93 15:28:00 Test Item Value Reference Range Interpretation Comments Sodium Lvl (test code = Sodium Lvl) 143 135-145 [facility] CenterYtdkdpkBBWDFJDNWALY2591-20-69 15:28:00 Test Item Value Reference Range Interpretation Comments Potassium Lvl (test code = Potassium 4.7 3.5-5.1 Lvl) [facility] HospitalAakdtznNECVPBYQXK6725-02-98 15:28:00 Test Item Value Reference Range Interpretation Comments Hct (test code = Hct) 41.9 42.0-54.0 [facility] HospitalBtsjjntEYZVBKBFPB8244-75-00 15:28:00 Test Item Value Reference Range Interpretation Comments Hgb (test code = Hgb) 14.1 14.0-18.0 [facility] CenterSpanhaqHGLKXZUQTUTD9009-29-97 15:28:00 Test Item Value Reference Range Interpretation Comments Chloride Lvl (test code = Chloride Lvl) 108 95-109 [facility] CenterXmbgieeDVUIGORQFPRF7845-18-69 15:28:00 Test Item Value Reference Range Interpretation Comments AGAP (test code = AGAP) 14.7 10.0-20.0 [facility] CenterZkfzbsvWHFUKGPBVBOC0451-53-99 15:28:00 Test Item Value Reference Range Interpretation Comments Calcium Lvl (test code = Calcium Lvl) 9.5 8.5-10.5 [facility] CenterVptzuxlWVYXPMSTRTFM4502-57-38 15:28:00 Test Item Value Reference Range Interpretation Comments CO2 (test code = CO2) 25 24-32 [facility] CenterVrjjpvdXYZUQCYUZYCO2076-90-09 15:28:00 Test Item Value Reference Range Interpretation Comments eGFR (test code = eGFR) 43 [facility] CenterYugrcxrALALFWUBOHXF3174-78-90 15:28:00 Test Item Value Reference Range Interpretation Comments Creatinine Lvl (test code = Creatinine 1.60 0.50-1.40 Lvl) [facility] CenterAirtilxDXHHWYHBQLOJ8023-21-76 15:28:00 Test Item Value Reference Range Interpretation Comments Glucose Lvl (test code = Glucose Lvl) 143 70-99 [facility] CenterWetvtcjDRWCWTLIJMRX9973-19-87 15:28:00 Test Item Value Reference Range Interpretation Comments BUN (test code = BUN) 28 7-22 [facility] CenterIrkwvdcWRGPTWPANFXD4680-07-33 15:28:00 Test Item Value Reference Range Interpretation Comments Sodium Lvl (test code = Sodium Lvl) 143 135-145 [facility] CenterRigbtjuMGWCKOQHKDBI5331-08-18 15:28:00 Test Item Value Reference Range Interpretation Comments Potassium Lvl (test code = Potassium 4.7 3.5-5.1 Lvl) [facility] HospitalNrqunwvDVEFREKTPW8898-98-70 15:28:00 Test Item Value Reference Range Interpretation Comments Hct (test code = Hct) 41.9 42.0-54.0 [facility] HospitalHwksovmONVCWURUFO8764-03-81 15:28:00 Test Item Value Reference Range Interpretation Comments Hgb (test code = Hgb) 14.1 14.0-18.0 [facility] CenterRlpkvwwJDKNFCXBLXLB9930-07-36 15:28:00 Test Item Value Reference Range Interpretation Comments Chloride Lvl (test code = Chloride Lvl) 108 95-109 [facility] CenterUtgdkqtRRRXZOEJFQYG5918-64-52 15:28:00 Test Item Value Reference Range Interpretation Comments AGAP (test code = AGAP) 14.7 10.0-20.0 [facility] CenterYqyqoatUYWQDNSOYIJT1868-30-96 15:28:00 Test Item Value Reference Range Interpretation Comments Calcium Lvl (test code = Calcium Lvl) 9.5 8.5-10.5 [facility] CenterLneornhTNUPFLLMPXFE6675-37-59 15:28:00 Test Item Value Reference Range Interpretation Comments CO2 (test code = CO2) 25 24-32 [facility] CenterYeesghuWXVYKWEGJFPZ3528-98-26 15:28:00 Test Item Value Reference Range Interpretation Comments eGFR (test code = eGFR) 43 [facility] CenterKibblqzSNYDYBQOYBWR6630-15-64 15:28:00 Test Item Value Reference Range Interpretation Comments Creatinine Lvl (test code = Creatinine 1.60 0.50-1.40 Lvl) [facility] CenterHtxnjyfSKUQTKVDWMAI0117-07-63 15:28:00 Test Item Value Reference Range Interpretation Comments Glucose Lvl (test code = Glucose Lvl) 143 70-99 [facility] CenterYjyjiouBWHTJCIFTNRJ9672-74-55 15:28:00 Test Item Value Reference Range Interpretation Comments BUN (test code = BUN) 28 7-22 [facility]nyzreZNNELFGKLJOV8917-00-35 15:28:00 Test Item Value Reference Range Interpretation Comments Sodium Lvl (test code = Sodium Lvl) 143 135-145 [facility]QfncbmaHSXGUXSORZIW8242-06-71 15:28:00 Test Item Value Reference Range Interpretation Comments Potassium Lvl (test code = Potassium 4.7 3.5-5.1 Lvl) [facility]1946 15:28:00 Test Item Value Reference Range Interpretation Comments Hct (test code = Hct) 41.9 42.0-54.0 [facility]BbdcswrXRAYZFNZPN9332-89-66 15:28:00 Test Item Value Reference Range Interpretation Comments Hgb (test code = Hgb) 14.1 14.0-18.0 [facility]etkttwYZWLMQRZOSBN8476-89-99 15:28:00 Test Item Value Reference Range Interpretation Comments Chloride Lvl (test code = Chloride Lvl) 108 95-109 [facility]FoqwcyfLWVESDDQMSBK5194-47-94 15:28:00 Test Item Value Reference Range Interpretation Comments AGAP (test code = AGAP) 14.7 10.0-20.0 [facility] Center[id number] 15:28:00 Test Item Value Reference Range Interpretation Comments Calcium Lvl (test code = Calcium Lvl) 9.5 8.5-10.5 [facility]laipqcPLXCYDYVZOOK2670-62-69 15:28:00 Test Item Value Reference Range Interpretation Comments CO2 (test code = CO2) 25 24-32 [facility]ZgityvzRSHJVDIDBNCI8110-26-46 15:28:00 Test Item Value Reference Range Interpretation Comments eGFR (test code = eGFR) 43 [facility]VfmxlksRRCMFLYCAYQA6860-91-06 15:28:00 Test Item Value Reference Range Interpretation Comments Creatinine Lvl (test code = Creatinine 1.60 0.50-1.40 Lvl) [facility]OwfrvrzWHYWNHICBZWI7019-76-40 15:28:00 Test Item Value Reference Range Interpretation Comments Glucose Lvl (test code = Glucose Lvl) 143 70-99 [facility]OsfwrdiGQNRTIRPNFVK4494-97-23 15:28:00 Test Item Value Reference Range Interpretation Comments BUN (test code = BUN) 28 7-22 [facility] CenterYhrfiquAEWRIOUDJVCH4518-87-28 15:28:00 Test Item Value Reference Range Interpretation Comments Sodium Lvl (test code = Sodium Lvl) 143 135-145 [facility] CenterQfropzmKQACXRJHPIHE2179-45-07 15:28:00 Test Item Value Reference Range Interpretation Comments Potassium Lvl (test code = Potassium 4.7 3.5-5.1 Lvl) [facility]XyzthsbRCFYYGPDOE5474-99-89 15:28:00 Test Item Value Reference Range Interpretation Comments Hct (test code = Hct) 41.9 42.0-54.0 [facility] CenterMvndgxgZQHRUBYYTL6597-80-38 15:28:00 Test Item Value Reference Range Interpretation Comments Hgb (test code = Hgb) 14.1 14.0-18.0 [facility] CenterCHEM [id number] 12:14:00 Test Item Value Reference Range Interpretation Comments Creatinine Lvl (test code = Creatinine 1.58 0.50-1.40 Lvl) [facility]2017-05-10 12:14:00 Test Item Value Reference Range Interpretation Comments CO2 (test code = CO2) 25 24-32 [facility]2017-05-10 12:14:00 Test Item Value Reference Range Interpretation Comments Chloride Lvl (test code = Chloride Lvl) 108 95-109 [facility]2017-05-10 12:14:00 Test Item Value Reference Range Interpretation Comments Glucose Lvl (test code = Glucose Lvl) 101 70-99 [facility]HzuuplgZMHICESWST6237-05-16 12:14:00 Test Item Value Reference Range Interpretation Comments Monocytes # (test code 0.7 See_Comment [Aut omated message] The = Monocytes #) system which generated this result tra nsmitted reference range : <=0.8. The reference r adriano was not used to int erpret this result as normal/abnormal . [facility] HospitalLhelwdjJYYOQSOVKS7661-06-53 12:14:00 Test Item Value Reference Range Interpretation Comments Eosinophils # (test code 0.3 See_Comment [A utomated message] The = Eosinophils #) system whic h generated this result tra nsmitted reference range : <=0.5. The reference r adriano was not used to int erpret this result as normal/abnormal . [facility] HospitalLlfnlhzBZRGXLVACZ9815-65-03 12:14:00 Test Item Value Reference Range Interpretation Comments Lymphocytes # (test code = Lymphocytes 1.7 1.0-5.5 #) [facility] HospitalQeieborONXSYIIMRA5084-94-78 12:14:00 Test Item Value Reference Range Interpretation Comments Monocytes (test code = Monocytes) 12.3 2.0-12.0 [facility] HospitalOzmyzlcYIFYLKABLE7968-12-12 12:14:00 Test Item Value Reference Range Interpretation Comments Eosinophils (test code = 4.7 See_Comment [A utomated message] The Eosinophils) system which ge nerated this result tra nsmitted reference range : <=4.0. The reference r adriano was not used to int erpret this result as normal/abnormal . [facility] HospitalFcdxaxiPSFHBZTUXD9742-33-04 12:14:00 Test Item Value Reference Range Interpretation Comments Basophils (test code = 0.8 See_Comment [Aut omated message] The Basophils) system which ge nerated this result tra nsmitted reference range : <=1.0. The reference r adriano was not used to int erpret this result as normal/abnormal . [facility] HospitalCnxuevkXUZLOYASVU5828-26-74 12:14:00 Test Item Value Reference Range Interpretation Comments Segs-Bands # (test code = Segs-Bands #) 2.8 1.5-8.1 [facility] HospitalFdtyvbbVYBWCZAQWA2550-79-03 12:14:00 Test Item Value Reference Range Interpretation Comments Segs (test code = Segs) 51.7 45.0-75.0 [facility] HospitalPiimijyJSAPSTASYS9983-92-16 12:14:00 Test Item Value Reference Range Interpretation Comments Lymphocytes (test code = Lymphocytes) 30.5 20.0-40.0 [facility] HospitalFqmtfzwQDNNCDSKQS4836-98-08 12:14:00 Test Item Value Reference Range Interpretation Comments PTT (test code = PTT) 33.8 s 22.9-35.8 [facility] HospitalWqikijvRCSGHBLPXA9632-41-87 12:14:00 Test Item Value Reference Range Interpretation Comments PT (test code = PT) 13.7 s 12.0-14.7 [facility] HospitalMekujbnWFTUVLJEOS1006-31-91 12:14:00 Test Item Value Reference Range Interpretation Comments INR (test code = INR) 1.03 0.85-1.17 [facility] HospitalObpeiopSBSTHAFSCV0818-36-79 12:14:00 Test Item Value Reference Range Interpretation Comments RDW (test code = RDW) 12.8 11.5-14.5 [facility] HospitalUzqrtpgHUAGTKXFRN4723-98-05 12:14:00 Test Item Value Reference Range Interpretation Comments Platelet (test code = Platelet) 123 133-450 [facility] HospitalImbwtwfTNBJQEUALE0705-92-70 12:14:00 Test Item Value Reference Range Interpretation Comments MPV (test code = MPV) 8.5 7.4-10.4 [facility] HospitalRhknaehOZQHAVMUWT0502-59-98 12:14:00 Test Item Value Reference Range Interpretation Comments MCHC (test code = MCHC) 34.5 32.0-36.0 [facility] HospitalDcencmbRCQDIAYKNF3237-28-46 12:14:00 Test Item Value Reference Range Interpretation Comments Hgb (test code = Hgb) 16.6 14.0-18.0 [facility] HospitalLkzjkhxFLOXYXWPAZ6988-74-79 12:14:00 Test Item Value Reference Range Interpretation Comments Hct (test code = Hct) 48.0 42.0-54.0 [facility] HospitalRrzcgjpPPYONSGLPN9988-44-22 12:14:00 Test Item Value Reference Range Interpretation Comments MCV (test code = MCV) 91.9 80.0-94.0 [facility] HospitalEaorrjpZPLZNFCNFU0783-15-98 12:14:00 Test Item Value Reference Range Interpretation Comments MCH (test code = MCH) 31.7 pg 27.0-31.0 [facility] HospitalGvddqwxRMWKQFQQII3500-33-05 12:14:00 Test Item Value Reference Range Interpretation Comments WBC (test code = WBC) 5.5 3.7-10.4 [facility] HospitalFantyuqWFDSBYDKRJ8649-85-60 12:14:00 Test Item Value Reference Range Interpretation Comments RBC (test code = RBC) 5.22 4.70-6.10 [facility] AND [id number] 12:14:00 Test Item Value Reference Range Interpretation Comments UA Sq Epi (test code = UA Sq Epi) None Seen [facility] AND [id number] 12:14:00 Test Item Value Reference Range Interpretation Comments UA Urobilinogen (test code = UA <=1.0 mg/dL 0.1-1.0 Urobilinogen) [facility] AND [id number] 12:14:00 Test Item Value Reference Range Interpretation Comments UA Protein (test code = UA Negative mg/dL Protein) [facility] AND [id number] 12:14:00 Test Item Value Reference Range Interpretation Comments UA pH (test code = UA pH) 6.0 5.0-8.0 [facility] AND [id number] 12:14:00 Test Item Value Reference Range Interpretation Comments UA Blood (test code = Negative (03/19/17 7:14 UA Blood) AM) [facility] AND [id number] 12:14:00 Test Item Value Reference Range Interpretation Comments UA Ketones (test code = UA Negative mg/dL Ketones) [facility] AND [id number] 12:14:00 Test Item Value Reference Range Interpretation Comments UA Bili (test code = Negative *NA*(03/19/17 UA Bili) 7:14 AM) [facility] AND [id number] 12:14:00 Test Item Value Reference Range Interpretation Comments UA Glucose (test code = UA Negative mg/dL Glucose) [facility] AND [id number] 12:14:00 Test Item Value Reference Range Interpretation Comments UA RBC (test code = no gt See_Comment [Automa alexandro message] The UA RBC) system which ge nerated this result transmit alexandro reference range : <=2. The reference range was not used to interpr et this result as josee l/abnormal. [facility] AND [id number] 12:14:00 Test Item Value Reference Range Interpretation Comments UA Leuk Est (test Negative (03/19/17 7:14 code = UA Leuk Est) AM) [facility] AND [id number] 12:14:00 Test Item Value Reference Range Interpretation Comments UA WBC (test code = 3 See_Comment [Automa alexandro message] The UA WBC) system which ge nerated this result transmit alexandro reference range : <=5. The reference range was not used to interpr et this result as josee l/abnormal. [facility] AND [id number] 12:14:00 Test Item Value Reference Range Interpretation Comments UA Nitrite (test code Negative (03/19/17 7:14 = UA Nitrite) AM) [facility] AND [id number] 12:14:00 Test Item Value Reference Range Interpretation Comments UA Amorph Mily (test code = Occasional /HPF UA Amorph Mily) [facility] AND [id number] 12:14:00 Test Item Value Reference Range Interpretation Comments UA Mucus (test code = UA Mucus) Few /LPF [facility] AND [id number] 12:14:00 Test Item Value Reference Range Interpretation Comments UA Turbidity (test code Slight *ABN*(03/19/17 = UA Turbidity) 7:14 AM) [facility] AND [id number] 12:14:00 Test Item Value Reference Range Interpretation Comments UA Spec Grav (test code = UA Spec Grav) 1.017 [facility] AND [id number] 12:14:00 Test Item Value Reference Range Interpretation Comments UA Color (test code = Yellow *NA*(03/19/17 UA Color) 7:14 AM) [facility] [id number] 12:14:00 Test Item Value Reference Range Interpretation Comments B/C Ratio (test code = B/C Ratio) 19 6-25 [facility]2017-05-10 12:14:00 Test Item Value Reference Range Interpretation Comments A/G Ratio (test code = A/G Ratio) 1.0 0.7-1.6 [facility]2017-05-10 12:14:00 Test Item Value Reference Range Interpretation Comments Globulin (test code = Globulin) 3.9 2.7-4.2 [facility]2017-05-10 12:14:00 Test Item Value Reference Range Interpretation Comments AGAP (test code = AGAP) 16.2 10.0-20.0 [facility]2017-05-10 12:14:00 Test Item Value Reference Range Interpretation Comments eGFR (test code = eGFR) 44 [facility]2017-05-10 12:14:00 Test Item Value Reference Range Interpretation Comments AST (test code = AST) 27 See_Comment [Auto mated message] The system which ge nerated this result transmit alexandro reference range : <=37. The reference range was not used to interpr et this result as josee l/abnormal. [facility]2017-05-10 12:14:00 Test Item Value Reference Range Interpretation Comments Bili Total (test code = Bili Total) 0.4 0.2-1.3 [facility]2017-05-10 12:14:00 Test Item Value Reference Range Interpretation Comments Alk Phos (test code = Alk Phos) 94 39-136 [facility]2017-05-10 12:14:00 Test Item Value Reference Range Interpretation Comments Albumin Lvl (test code = Albumin Lvl) 3.8 3.5-5.0 [facility]2017-05-10 12:14:00 Test Item Value Reference Range Interpretation Comments Total Protein (test code = Total 7.7 6.4-8.4 Protein) [facility] AND [id number] 12:14:00 Test Item Value Reference Range Interpretation Comments UA Protein (test code = UA Negative mg/dL Protein) [facility] AND [id number] 12:14:00 Test Item Value Reference Range Interpretation Comments UA pH (test code = UA pH) 6.0 5.0-8.0 [facility] AND [id number] 12:14:00 Test Item Value Reference Range Interpretation Comments UA Blood (test code = Negative (03/19/17 7:14 UA Blood) AM) [facility] AND [id number] 12:14:00 Test Item Value Reference Range Interpretation Comments UA Ketones (test code = UA Negative mg/dL Ketones) [facility] AND [id number] 12:14:00 Test Item Value Reference Range Interpretation Comments UA Bili (test code = Negative *NA*(03/19/17 UA Bili) 7:14 AM) [facility] AND [id number] 12:14:00 Test Item Value Reference Range Interpretation Comments UA Glucose (test code = UA Negative mg/dL Glucose) [facility] AND [id number] 12:14:00 Test Item Value Reference Range Interpretation Comments UA RBC (test code = no gt See_Comment [Automa alexandro message] The UA RBC) system which ge nerated this result transmit alexandro reference range : <=2. The reference range was not used to interpr et this result as josee l/abnormal. [facility] AND [id number] 12:14:00 Test Item Value Reference Range Interpretation Comments UA Leuk Est (test Negative (03/19/17 7:14 code = UA Leuk Est) AM) [facility] AND [id number] 12:14:00 Test Item Value Reference Range Interpretation Comments UA WBC (test code = 3 See_Comment [Automa alexandro message] The UA WBC) system which ge nerated this result transmit alexandro reference range : <=5. The reference range was not used to interpr et this result as josee l/abnormal. [facility] AND [id number] 12:14:00 Test Item Value Reference Range Interpretation Comments UA Nitrite (test code Negative (03/19/17 7:14 = UA Nitrite) AM) [facility] AND [id number] 12:14:00 Test Item Value Reference Range Interpretation Comments UA Amorph Mily (test code = Occasional /HPF UA Amorph Mily) [facility] AND [id number] 12:14:00 Test Item Value Reference Range Interpretation Comments UA Mucus (test code = UA Mucus) Few /LPF [facility] AND [id number] 12:14:00 Test Item Value Reference Range Interpretation Comments UA Turbidity (test code Slight *ABN*(03/19/17 = UA Turbidity) 7:14 AM) [facility] AND [id number] 12:14:00 Test Item Value Reference Range Interpretation Comments UA Spec Grav (test code = UA Spec Grav) 1.017 [facility] AND [id number] 12:14:00 Test Item Value Reference Range Interpretation Comments UA Color (test code = Yellow *NA*(03/19/17 UA Color) 7:14 AM) [facility]2017-05-10 12:14:00 Test Item Value Reference Range Interpretation Comments B/C Ratio (test code = B/C Ratio) 19 6-25 [facility]2017-05-10 12:14:00 Test Item Value Reference Range Interpretation Comments A/G Ratio (test code = A/G Ratio) 1.0 0.7-1.6 [facility]2017-05-10 12:14:00 Test Item Value Reference Range Interpretation Comments Globulin (test code = Globulin) 3.9 2.7-4.2 [facility]2017-05-10 12:14:00 Test Item Value Reference Range Interpretation Comments AGAP (test code = AGAP) 16.2 10.0-20.0 [facility]2017-05-10 12:14:00 Test Item Value Reference Range Interpretation Comments eGFR (test code = eGFR) 44 [facility]2017-05-10 12:14:00 Test Item Value Reference Range Interpretation Comments AST (test code = AST) 27 See_Comment [Auto mated message] The system which ge nerated this result transmit alexandro reference range : <=37. The reference range was not used to interpr et this result as josee l/abnormal. [facility]2017-05-10 12:14:00 Test Item Value Reference Range Interpretation Comments Bili Total (test code = Bili Total) 0.4 0.2-1.3 [facility]2017-05-10 12:14:00 Test Item Value Reference Range Interpretation Comments Alk Phos (test code = Alk Phos) 94 39-136 [facility]2017-05-10 12:14:00 Test Item Value Reference Range Interpretation Comments Albumin Lvl (test code = Albumin Lvl) 3.8 3.5-5.0 [facility]2017-05-10 12:14:00 Test Item Value Reference Range Interpretation Comments Total Protein (test code = Total 7.7 6.4-8.4 Protein) [facility]2017-05-10 12:14:00 Test Item Value Reference Range Interpretation Comments Calcium Lvl (test code = Calcium Lvl) 10.6 8.5-10.5 [facility]2017-05-10 12:14:00 Test Item Value Reference Range Interpretation Comments ALT (test code = ALT) 30 See_Comment [Auto mated message] The system which ge nerated this result transmit alexandro reference range : <=65. The reference range was not used to interpr et this result as josee l/abnormal. [facility]2017-05-10 12:14:00 Test Item Value Reference Range Interpretation Comments BUN (test code = BUN) 30 7-22 [facility]2017-05-10 12:14:00 Test Item Value Reference Range Interpretation Comments Potassium Lvl (test code = Potassium 4.2 3.5-5.1 Lvl) [facility]2017-05-10 12:14:00 Test Item Value Reference Range Interpretation Comments Sodium Lvl (test code = Sodium Lvl) 145 135-145 [facility]2017-05-10 12:14:00 Test Item Value Reference Range Interpretation Comments Creatinine Lvl (test code = Creatinine 1.58 0.50-1.40 Lvl) [facility]2017-05-10 12:14:00 Test Item Value Reference Range Interpretation Comments CO2 (test code = CO2) 25 24-32 [facility]2017-05-10 12:14:00 Test Item Value Reference Range Interpretation Comments Chloride Lvl (test code = Chloride Lvl) 108 95-109 [facility]2017-05-10 12:14:00 Test Item Value Reference Range Interpretation Comments Glucose Lvl (test code = Glucose Lvl) 101 70-99 [facility]VctbpsjARRPYMCPCT9604-19-77 12:14:00 Test Item Value Reference Range Interpretation Comments Monocytes # (test code 0.7 See_Comment [Aut omated message] The = Monocytes #) system which generated this result tra nsmitted reference range : <=0.8. The reference r adriano was not used to int erpret this result as normal/abnormal . [facility]WknvczsZAWGVVTPEU4881-58-92 12:14:00 Test Item Value Reference Range Interpretation Comments Eosinophils # (test code 0.3 See_Comment [A utomated message] The = Eosinophils #) system whic h generated this result tra nsmitted reference range : <=0.5. The reference r adriano was not used to int erpret this result as normal/abnormal . [facility] Hospit[id number] 12:14:00 Test Item Value Reference Range Interpretation Comments Lymphocytes # (test code = Lymphocytes 1.7 1.0-5.5 #) [facility] HospitalGwyoqhuTLJAFAWLAO6396-15-34 12:14:00 Test Item Value Reference Range Interpretation Comments Monocytes (test code = Monocytes) 12.3 2.0-12.0 [facility] HospitalGlerrziLNGXZLLMYR8920-44-74 12:14:00 Test Item Value Reference Range Interpretation Comments Eosinophils (test code = 4.7 See_Comment [A utomated message] The Eosinophils) system which ge nerated this result tra nsmitted reference range : <=4.0. The reference r adriano was not used to int erpret this result as normal/abnormal . [facility] HospitalVzggecuPJGEJZAJZD3946-66-91 12:14:00 Test Item Value Reference Range Interpretation Comments Basophils (test code = 0.8 See_Comment [Aut omated message] The Basophils) system which ge nerated this result tra nsmitted reference range : <=1.0. The reference r adriano was not used to int erpret this result as normal/abnormal . [facility] HospitalUfeurbtZQSQAOKIHU8665-74-11 12:14:00 Test Item Value Reference Range Interpretation Comments Segs-Bands # (test code = Segs-Bands #) 2.8 1.5-8.1 [facility] HospitalIfmogdaMPLHIXRBPH8254-57-16 12:14:00 Test Item Value Reference Range Interpretation Comments Segs (test code = Segs) 51.7 45.0-75.0 [facility] HospitalOpfbvtoEARBLBUHLE0494-10-06 12:14:00 Test Item Value Reference Range Interpretation Comments Lymphocytes (test code = Lymphocytes) 30.5 20.0-40.0 [facility] HospitalTtioplrBWDPTMOPLT2480-46-93 12:14:00 Test Item Value Reference Range Interpretation Comments PTT (test code = PTT) 33.8 s 22.9-35.8 [facility] HospitalHiwovbcUFYTQEKKQK6315-22-55 12:14:00 Test Item Value Reference Range Interpretation Comments PT (test code = PT) 13.7 s 12.0-14.7 [facility] HospitalJbkylggEAWETANUWB9765-83-69 12:14:00 Test Item Value Reference Range Interpretation Comments INR (test code = INR) 1.03 0.85-1.17 [facility] HospitalRgtiutgAPNTDVXZUR2307-17-26 12:14:00 Test Item Value Reference Range Interpretation Comments RDW (test code = RDW) 12.8 11.5-14.5 [facility] HospitalLuregtpWKQJXZACAM8756-61-71 12:14:00 Test Item Value Reference Range Interpretation Comments Platelet (test code = Platelet) 123 133-450 [facility] HospitalWiqovaiUEITMSOGOR7122-85-70 12:14:00 Test Item Value Reference Range Interpretation Comments MPV (test code = MPV) 8.5 7.4-10.4 [facility] HospitalQqiaaruEPOVQHUSDW3602-91-55 12:14:00 Test Item Value Reference Range Interpretation Comments MCHC (test code = MCHC) 34.5 32.0-36.0 [facility] HospitalLydgncxIADUBTSYRG8726-78-14 12:14:00 Test Item Value Reference Range Interpretation Comments Hgb (test code = Hgb) 16.6 14.0-18.0 [facility] HospitalDjtmcjnUMKNWVDSWZ8477-78-15 12:14:00 Test Item Value Reference Range Interpretation Comments Hct (test code = Hct) 48.0 42.0-54.0 [facility] HospitalSdqkxyaWFVUKFAVST2617-00-97 12:14:00 Test Item Value Reference Range Interpretation Comments MCV (test code = MCV) 91.9 80.0-94.0 [facility] HospitalLgiubmyHDQGLVLONR6477-31-44 12:14:00 Test Item Value Reference Range Interpretation Comments MCH (test code = MCH) 31.7 pg 27.0-31.0 [facility] HospitalGfevuhjIDXGPFLOZX3509-74-35 12:14:00 Test Item Value Reference Range Interpretation Comments WBC (test code = WBC) 5.5 3.7-10.4 [facility]LsjtzzvAVGRNLKTJN7277-09-57 12:14:00 Test Item Value Reference Range Interpretation Comments RBC (test code = RBC) 5.22 4.70-6.10 [facility] AND [id number] 12:14:00 Test Item Value Reference Range Interpretation Comments UA Sq Epi (test code = UA Sq Epi) None Seen [facility] AND [id number] 12:14:00 Test Item Value Reference Range Interpretation Comments UA Urobilinogen (test code = UA <=1.0 mg/dL 0.1-1.0 Urobilinogen) [facility] AND [id number] 12:14:00 Test Item Value Reference Range Interpretation Comments UA Protein (test code = UA Negative mg/dL Protein) [facility] AND [id number] 12:14:00 Test Item Value Reference Range Interpretation Comments UA pH (test code = UA pH) 6.0 5.0-8.0 [facility] AND [id number] 12:14:00 Test Item Value Reference Range Interpretation Comments UA Blood (test code = Negative (03/19/17 7:14 UA Blood) AM) [facility] AND [id number] 12:14:00 Test Item Value Reference Range Interpretation Comments UA Ketones (test code = UA Negative mg/dL Ketones) [facility] AND [id number] 12:14:00 Test Item Value Reference Range Interpretation Comments UA Bili (test code = Negative *NA*(03/19/17 UA Bili) 7:14 AM) [facility] AND [id number] 12:14:00 Test Item Value Reference Range Interpretation Comments UA Glucose (test code = UA Negative mg/dL Glucose) [facility] AND [id number] 12:14:00 Test Item Value Reference Range Interpretation Comments UA RBC (test code = no gt See_Comment [Automa alexandro message] The UA RBC) system which ge nerated this result transmit alexandro reference range : <=2. The reference range was not used to interpr et this result as josee l/abnormal. [facility] AND [id number] 12:14:00 Test Item Value Reference Range Interpretation Comments UA Leuk Est (test Negative (03/19/17 7:14 code = UA Leuk Est) AM) [facility] AND [id number] 12:14:00 Test Item Value Reference Range Interpretation Comments UA WBC (test code = 3 See_Comment [Automa alexandro message] The UA WBC) system which ge nerated this result transmit alexandro reference range : <=5. The reference range was not used to interpr et this result as josee l/abnormal. [facility] AND [id number] 12:14:00 Test Item Value Reference Range Interpretation Comments UA Nitrite (test code Negative (03/19/17 7:14 = UA Nitrite) AM) [facility] AND [id number] 12:14:00 Test Item Value Reference Range Interpretation Comments UA Amorph Mily (test code = Occasional /HPF UA Amorph Mily) [facility] AND [id number] 12:14:00 Test Item Value Reference Range Interpretation Comments UA Mucus (test code = UA Mucus) Few /LPF [facility] AND [id number] 12:14:00 Test Item Value Reference Range Interpretation Comments UA Turbidity (test code Slight *ABN*(03/19/17 = UA Turbidity) 7:14 AM) [facility] AND [id number] 12:14:00 Test Item Value Reference Range Interpretation Comments UA Spec Grav (test code = UA Spec Grav) 1.017 [facility] AND [id number] 12:14:00 Test Item Value Reference Range Interpretation Comments UA Color (test code = Yellow *NA*(03/19/17 UA Color) 7:14 AM) [facility] [id number] 12:14:00 Test Item Value Reference Range Interpretation Comments B/C Ratio (test code = B/C Ratio) 19 6-25 [facility]2017-05-10 12:14:00 Test Item Value Reference Range Interpretation Comments A/G Ratio (test code = A/G Ratio) 1.0 0.7-1.6 [facility]2017-05-10 12:14:00 Test Item Value Reference Range Interpretation Comments Globulin (test code = Globulin) 3.9 2.7-4.2 [facility]2017-05-10 12:14:00 Test Item Value Reference Range Interpretation Comments AGAP (test code = AGAP) 16.2 10.0-20.0 [facility]2017-05-10 12:14:00 Test Item Value Reference Range Interpretation Comments eGFR (test code = eGFR) 44 [facility]2017-05-10 12:14:00 Test Item Value Reference Range Interpretation Comments AST (test code = AST) 27 See_Comment [Auto mated message] The system which ge nerated this result transmit alexandro reference range : <=37. The reference range was not used to interpr et this result as josee l/abnormal. [facility]2017-05-10 12:14:00 Test Item Value Reference Range Interpretation Comments Bili Total (test code = Bili Total) 0.4 0.2-1.3 [facility]2017-05-10 12:14:00 Test Item Value Reference Range Interpretation Comments Alk Phos (test code = Alk Phos) 94 39-136 [facility]2017-05-10 12:14:00 Test Item Value Reference Range Interpretation Comments Albumin Lvl (test code = Albumin Lvl) 3.8 3.5-5.0 [facility]2017-05-10 12:14:00 Test Item Value Reference Range Interpretation Comments Total Protein (test code = Total 7.7 6.4-8.4 Protein) [facility]2017-05-10 12:14:00 Test Item Value Reference Range Interpretation Comments Calcium Lvl (test code = Calcium Lvl) 10.6 8.5-10.5 [facility]2017-05-10 12:14:00 Test Item Value Reference Range Interpretation Comments ALT (test code = ALT) 30 See_Comment [Auto mated message] The system which ge nerated this result transmit alexandro reference range : <=65. The reference range was not used to interpr et this result as josee l/abnormal. [facility]2017-05-10 12:14:00 Test Item Value Reference Range Interpretation Comments BUN (test code = BUN) 30 7-22 [place] 519487-05-10 12:14:00 Test Item Value Reference Range Interpretation Comments Potassium Lvl (test code = Potassium 4.2 3.5-5.1 Lvl) [facility]2017-05-10 12:14:00 Test Item Value Reference Range Interpretation Comments Sodium Lvl (test code = Sodium Lvl) 145 135-145 [facility]2017-05-10 12:14:00 Test Item Value Reference Range Interpretation Comments Creatinine Lvl (test code = Creatinine 1.58 0.50-1.40 Lvl) [facility]2017-05-10 12:14:00 Test Item Value Reference Range Interpretation Comments CO2 (test code = CO2) 25 24-32 [facility]2017-05-10 12:14:00 Test Item Value Reference Range Interpretation Comments Chloride Lvl (test code = Chloride Lvl) 108 95-109 [facility]2017-05-10 12:14:00 Test Item Value Reference Range Interpretation Comments Glucose Lvl (test code = Glucose Lvl) 101 70-99 [facility]ldfnaJNUSIEXNUT8299-97-03 12:14:00 Test Item Value Reference Range Interpretation Comments Monocytes # (test code 0.7 See_Comment [Aut omated message] The = Monocytes #) system which generated this result tra nsmitted reference range : <=0.8. The reference r adriano was not used to int erpret this result as normal/abnormal . [facility] HospitalKtdigjrEOIDZDRHIF2664-67-18 12:14:00 Test Item Value Reference Range Interpretation Comments Eosinophils # (test code 0.3 See_Comment [A utomated message] The = Eosinophils #) system whic h generated this result tra nsmitted reference range : <=0.5. The reference r adriano was not used to int erpret this result as normal/abnormal . [facility] HospitalPlbixrgEELPUHSLZF3215-20-23 12:14:00 Test Item Value Reference Range Interpretation Comments Lymphocytes # (test code = Lymphocytes 1.7 1.0-5.5 #) [facility] HospitalGqqsvqzBLXUBOCSKU9610-60-74 12:14:00 Test Item Value Reference Range Interpretation Comments Monocytes (test code = Monocytes) 12.3 2.0-12.0 [facility] HospitalDvoqcttEGDVISKKQS1756-44-60 12:14:00 Test Item Value Reference Range Interpretation Comments Eosinophils (test code = 4.7 See_Comment [A utomated message] The Eosinophils) system which ge nerated this result tra nsmitted reference range : <=4.0. The reference r adriano was not used to int erpret this result as normal/abnormal . [facility] HospitalSspjmdyJVQIUUMRIN4165-18-12 12:14:00 Test Item Value Reference Range Interpretation Comments Basophils (test code = 0.8 See_Comment [Aut omated message] The Basophils) system which ge nerated this result tra nsmitted reference range : <=1.0. The reference r adriano was not used to int erpret this result as normal/abnormal . [facility] HospitalAcquascHYXLNKVFVH4932-18-83 12:14:00 Test Item Value Reference Range Interpretation Comments Segs-Bands # (test code = Segs-Bands #) 2.8 1.5-8.1 [facility] HospitalUukobonQUGLKLRPSR8663-90-18 12:14:00 Test Item Value Reference Range Interpretation Comments Segs (test code = Segs) 51.7 45.0-75.0 [facility] HospitalNwihpfcHHKOQYBEHH6713-96-24 12:14:00 Test Item Value Reference Range Interpretation Comments Lymphocytes (test code = Lymphocytes) 30.5 20.0-40.0 [facility] HospitalIvdsyxqXTZETDHCTA1054-34-94 12:14:00 Test Item Value Reference Range Interpretation Comments PTT (test code = PTT) 33.8 s 22.9-35.8 [facility] HospitalJirvfjdEXSCORBYZE7236-35-00 12:14:00 Test Item Value Reference Range Interpretation Comments PT (test code = PT) 13.7 s 12.0-14.7 [facility] HospitalBmujxptANNBQBWVJX5991-23-92 12:14:00 Test Item Value Reference Range Interpretation Comments INR (test code = INR) 1.03 0.85-1.17 [facility] HospitalCfacughLDXIVMBRPE1772-49-05 12:14:00 Test Item Value Reference Range Interpretation Comments RDW (test code = RDW) 12.8 11.5-14.5 [facility] HospitalEekkdrpDEBIZDBRUV3578-61-16 12:14:00 Test Item Value Reference Range Interpretation Comments Platelet (test code = Platelet) 123 133-450 [facility] HospitalSsuiwhaEJTQSDEYNP0580-44-43 12:14:00 Test Item Value Reference Range Interpretation Comments MPV (test code = MPV) 8.5 7.4-10.4 [facility] HospitalAldncqqXLZCICNJLZ8969-69-72 12:14:00 Test Item Value Reference Range Interpretation Comments MCHC (test code = MCHC) 34.5 32.0-36.0 [facility] HospitalAoweguhDIPOKPKFTR4917-55-95 12:14:00 Test Item Value Reference Range Interpretation Comments Hgb (test code = Hgb) 16.6 14.0-18.0 [facility] HospitalXdnpubnUZREGKXZYB2771-01-34 12:14:00 Test Item Value Reference Range Interpretation Comments Hct (test code = Hct) 48.0 42.0-54.0 [facility] HospitalAisxtxbQBRXIDUASQ3054-92-74 12:14:00 Test Item Value Reference Range Interpretation Comments MCV (test code = MCV) 91.9 80.0-94.0 [facility] HospitalJnmhzvrGGNSTQPWGT7928-99-80 12:14:00 Test Item Value Reference Range Interpretation Comments MCH (test code = MCH) 31.7 pg 27.0-31.0 [facility] HospitalIndlbebNKGOFSVNUS3156-40-26 12:14:00 Test Item Value Reference Range Interpretation Comments WBC (test code = WBC) 5.5 3.7-10.4 [facility] HospitalLrhrbeePNJKKQVHFM4886-12-21 12:14:00 Test Item Value Reference Range Interpretation Comments RBC (test code = RBC) 5.22 4.70-6.10 [facility]2017-05-10 12:14:00 Test Item Value Reference Range Interpretation Comments UA Sq Epi (test code = UA Sq Epi) None Seen [facility]2017-05-10 12:14:00 Test Item Value Reference Range Interpretation Comments UA Urobilinogen (test code = UA <=1.0 mg/dL 0.1-1.0 Urobilinogen) [facility] AND [id number] 12:14:00 Test Item Value Reference Range Interpretation Comments UA Protein (test code = UA Negative mg/dL Protein) [facility] AND [id number] 12:14:00 Test Item Value Reference Range Interpretation Comments UA pH (test code = UA pH) 6.0 5.0-8.0 [facility]2017-05-10 12:14:00 Test Item Value Reference Range Interpretation Comments UA Blood (test code = Negative (03/19/17 7:14 UA Blood) AM) [facility] AND [id number] 12:14:00 Test Item Value Reference Range Interpretation Comments UA Ketones (test code = UA Negative mg/dL Ketones) [facility] AND [id number] 12:14:00 Test Item Value Reference Range Interpretation Comments UA Bili (test code = Negative *NA*(03/19/17 UA Bili) 7:14 AM) [facility] AND [id number] 12:14:00 Test Item Value Reference Range Interpretation Comments UA Glucose (test code = UA Negative mg/dL Glucose) [facility] AND [id number] 12:14:00 Test Item Value Reference Range Interpretation Comments UA RBC (test code = no gt See_Comment [Automa alexandro message] The UA RBC) system which ge nerated this result transmit alexandro reference range : <=2. The reference range was not used to interpr et this result as josee l/abnormal. [facility] AND [id number] 12:14:00 Test Item Value Reference Range Interpretation Comments UA Leuk Est (test Negative (03/19/17 7:14 code = UA Leuk Est) AM) [facility] AND [id number] 12:14:00 Test Item Value Reference Range Interpretation Comments UA WBC (test code = 3 See_Comment [Automa alexandro message] The UA WBC) system which ge nerated this result transmit alexandro reference range : <=5. The reference range was not used to interpr et this result as josee l/abnormal. [facility] AND [id number] 12:14:00 Test Item Value Reference Range Interpretation Comments UA Nitrite (test code Negative (03/19/17 7:14 = UA Nitrite) AM) [facility] AND [id number] 12:14:00 Test Item Value Reference Range Interpretation Comments UA Amorph Mily (test code = Occasional /HPF UA Amorph Mily) [facility] AND [id number] 12:14:00 Test Item Value Reference Range Interpretation Comments UA Mucus (test code = UA Mucus) Few /LPF [facility] AND [id number] 12:14:00 Test Item Value Reference Range Interpretation Comments UA Turbidity (test code Slight *ABN*(03/19/17 = UA Turbidity) 7:14 AM) [facility] AND [id number] 12:14:00 Test Item Value Reference Range Interpretation Comments UA Spec Grav (test code = UA Spec Grav) 1.017 [facility] AND [id number] 12:14:00 Test Item Value Reference Range Interpretation Comments UA Color (test code = Yellow *NA*(03/19/17 UA Color) 7:14 AM) [facility] [id number] 12:14:00 Test Item Value Reference Range Interpretation Comments B/C Ratio (test code = B/C Ratio) 19 6-25 [facility]2017-05-10 12:14:00 Test Item Value Reference Range Interpretation Comments A/G Ratio (test code = A/G Ratio) 1.0 0.7-1.6 [facility]2017-05-10 12:14:00 Test Item Value Reference Range Interpretation Comments Globulin (test code = Globulin) 3.9 2.7-4.2 [facility]2017-05-10 12:14:00 Test Item Value Reference Range Interpretation Comments AGAP (test code = AGAP) 16.2 10.0-20.0 [facility]2017-05-10 12:14:00 Test Item Value Reference Range Interpretation Comments eGFR (test code = eGFR) 44 [facility]2017-05-10 12:14:00 Test Item Value Reference Range Interpretation Comments AST (test code = AST) 27 See_Comment [Auto mated message] The system which ge nerated this result transmit alexandro reference range : <=37. The reference range was not used to interpr et this result as josee l/abnormal. [facility]2017-05-10 12:14:00 Test Item Value Reference Range Interpretation Comments Bili Total (test code = Bili Total) 0.4 0.2-1.3 [facility]2017-05-10 12:14:00 Test Item Value Reference Range Interpretation Comments Alk Phos (test code = Alk Phos) 94 39-136 [facility]2017-05-10 12:14:00 Test Item Value Reference Range Interpretation Comments Albumin Lvl (test code = Albumin Lvl) 3.8 3.5-5.0 [facility]2017-05-10 12:14:00 Test Item Value Reference Range Interpretation Comments Total Protein (test code = Total 7.7 6.4-8.4 Protein) [facility]2017-05-10 12:14:00 Test Item Value Reference Range Interpretation Comments Calcium Lvl (test code = Calcium Lvl) 10.6 8.5-10.5 [facility]2017-05-10 12:14:00 Test Item Value Reference Range Interpretation Comments ALT (test code = ALT) 30 See_Comment [Auto mated message] The system which ge nerated this result transmit alexandro reference range : <=65. The reference range was not used to interpr et this result as josee l/abnormal. [facility]2017-05-10 12:14:00 Test Item Value Reference Range Interpretation Comments BUN (test code = BUN) 30 7-22 [facility]2017-05-10 12:14:00 Test Item Value Reference Range Interpretation Comments Potassium Lvl (test code = Potassium 4.2 3.5-5.1 Lvl) [facility]2017-05-10 12:14:00 Test Item Value Reference Range Interpretation Comments Sodium Lvl (test code = Sodium Lvl) 145 135-145 [facility]2017-05-10 12:14:00 Test Item Value Reference Range Interpretation Comments Creatinine Lvl (test code = Creatinine 1.58 0.50-1.40 Lvl) [facility]2017-05-10 12:14:00 Test Item Value Reference Range Interpretation Comments CO2 (test code = CO2) 25 24-32 [facility]2017-05-10 12:14:00 Test Item Value Reference Range Interpretation Comments Chloride Lvl (test code = Chloride Lvl) 108 95-109 [facility]2017-05-10 12:14:00 Test Item Value Reference Range Interpretation Comments Glucose Lvl (test code = Glucose Lvl) 101 70-99 [facility] HospitalCrcovdbIBNORZEYCJ2634-66-02 12:14:00 Test Item Value Reference Range Interpretation Comments Monocytes # (test code 0.7 See_Comment [Aut omated message] The = Monocytes #) system which generated this result tra nsmitted reference range : <=0.8. The reference r adriano was not used to int erpret this result as normal/abnormal . [facility] HospitalSvuhkfrXWHBGQGAGE9464-95-76 12:14:00 Test Item Value Reference Range Interpretation Comments Eosinophils # (test code 0.3 See_Comment [A utomated message] The = Eosinophils #) system whic h generated this result tra nsmitted reference range : <=0.5. The reference r adriano was not used to int erpret this result as normal/abnormal . [facility] HospitalVnktsvwSZOIUWGEYI9746-90-13 12:14:00 Test Item Value Reference Range Interpretation Comments Lymphocytes # (test code = Lymphocytes 1.7 1.0-5.5 #) [facility] HospitalJyakufaXHVTSDJAWR6471-06-95 12:14:00 Test Item Value Reference Range Interpretation Comments Monocytes (test code = Monocytes) 12.3 2.0-12.0 [facility] HospitalIsxoessCWEBOEIEPD3557-03-64 12:14:00 Test Item Value Reference Range Interpretation Comments Eosinophils (test code = 4.7 See_Comment [A utomated message] The Eosinophils) system which ge nerated this result tra nsmitted reference range : <=4.0. The reference r adriano was not used to int erpret this result as normal/abnormal . [facility] HospitalAhsnchgOMLPEGZFAE2258-87-46 12:14:00 Test Item Value Reference Range Interpretation Comments Basophils (test code = 0.8 See_Comment [Aut omated message] The Basophils) system which ge nerated this result tra nsmitted reference range : <=1.0. The reference r adriano was not used to int erpret this result as normal/abnormal . [facility] HospitalPpadbmbLQXISSVYEU3449-91-87 12:14:00 Test Item Value Reference Range Interpretation Comments Segs-Bands # (test code = Segs-Bands #) 2.8 1.5-8.1 [facility] HospitalPcnvpbbVBEZEOUTNT7433-55-48 12:14:00 Test Item Value Reference Range Interpretation Comments Segs (test code = Segs) 51.7 45.0-75.0 [facility] HospitalRxjybdyQIETSKNKQN2283-87-87 12:14:00 Test Item Value Reference Range Interpretation Comments Lymphocytes (test code = Lymphocytes) 30.5 20.0-40.0 [facility] HospitalGybhiuvMSGJEXHLIK1895-69-14 12:14:00 Test Item Value Reference Range Interpretation Comments PTT (test code = PTT) 33.8 s 22.9-35.8 [facility] HospitalGfeduojXTWXKVWSLH7031-96-30 12:14:00 Test Item Value Reference Range Interpretation Comments PT (test code = PT) 13.7 s 12.0-14.7 [facility] HospitalYrxwhicYAJQRJLNXW7640-51-60 12:14:00 Test Item Value Reference Range Interpretation Comments INR (test code = INR) 1.03 0.85-1.17 [facility] HospitalKtoufazLWJVYUNOUE5406-85-05 12:14:00 Test Item Value Reference Range Interpretation Comments RDW (test code = RDW) 12.8 11.5-14.5 [facility] HospitalXlvitxrRXXFSNFMFO1658-66-45 12:14:00 Test Item Value Reference Range Interpretation Comments Platelet (test code = Platelet) 123 133-450 [facility] HospitalKdwsutgBAHRPCHVIK0778-28-72 12:14:00 Test Item Value Reference Range Interpretation Comments MPV (test code = MPV) 8.5 7.4-10.4 [facility] HospitalKjbeddgWRGVYVCIES0089-66-72 12:14:00 Test Item Value Reference Range Interpretation Comments MCHC (test code = MCHC) 34.5 32.0-36.0 [facility] HospitalNgpycbkXHNOZCFWLN7744-46-14 12:14:00 Test Item Value Reference Range Interpretation Comments Hgb (test code = Hgb) 16.6 14.0-18.0 [facility] HospitalTfrovzlHTOBBAEDCS5126-79-13 12:14:00 Test Item Value Reference Range Interpretation Comments Hct (test code = Hct) 48.0 42.0-54.0 [facility] HospitalHzurdrhKMEYJBUTAL4592-98-59 12:14:00 Test Item Value Reference Range Interpretation Comments MCV (test code = MCV) 91.9 80.0-94.0 [facility] HospitalCwzipadTOPHIDHHJI5952-71-98 12:14:00 Test Item Value Reference Range Interpretation Comments MCH (test code = MCH) 31.7 pg 27.0-31.0 [facility] HospitalRlrgpcoFJMNRAFFYE4692-05-17 12:14:00 Test Item Value Reference Range Interpretation Comments WBC (test code = WBC) 5.5 3.7-10.4 [facility] HospitalXayiravAUNDMIMFQA6575-63-59 12:14:00 Test Item Value Reference Range Interpretation Comments RBC (test code = RBC) 5.22 4.70-6.10 [facility]2017-05-10 12:14:00 Test Item Value Reference Range Interpretation Comments UA Sq Epi (test code = UA Sq Epi) None Seen [facility] [id number] 12:14:00 Test Item Value Reference Range Interpretation Comments UA Urobilinogen (test code = UA <=1.0 mg/dL 0.1-1.0 Urobilinogen) [facility] [id number] 12:14:00 Test Item Value Reference Range Interpretation Comments Calcium Lvl (test code = Calcium Lvl) 10.6 8.5-10.5 [facility]2017-05-10 12:14:00 Test Item Value Reference Range Interpretation Comments ALT (test code = ALT) 30 See_Comment [Auto mated message] The system which ge nerated this result transmit alexandro reference range : <=65. The reference range was not used to interpr et this result as josee l/abnormal. [facility] [id number] 12:14:00 Test Item Value Reference Range Interpretation Comments BUN (test code = BUN) 30 7-22 [facility] [id number] 12:14:00 Test Item Value Reference Range Interpretation Comments Potassium Lvl (test code = Potassium 4.2 3.5-5.1 Lvl) [facility] [id number] 12:14:00 Test Item Value Reference Range Interpretation Comments Sodium Lvl (test code = Sodium Lvl) 145 135-145 [facility] [employer] [facility] [id number] 18:04:00 Test Item Value Reference Range Interpretation Comments Antibody Scrn (test Negative (03/11/17 1:04 code = Antibody Scrn) PM) [facility] [id number] 18:04:00 Test Item Value Reference Range Interpretation Comments ABO/Rh (test code = ABO/Rh) O POS [facility] [id number] 18:04:00 Test Item Value Reference Range Interpretation Comments Antibody Scrn (test Negative (03/11/17 1:04 code = Antibody Scrn) PM) [facility] [id number] 18:04:00 Test Item Value Reference Range Interpretation Comments ABO/Rh (test code = ABO/Rh) O POS [facility] [id number] 18:04:00 Test Item Value Reference Range Interpretation Comments Antibody Scrn (test Negative (03/11/17 1:04 code = Antibody Scrn) PM) [facility] [id number] 18:04:00 Test Item Value Reference Range Interpretation Comments ABO/Rh (test code = ABO/Rh) O POS [facility] [id number] 18:04:00 Test Item Value Reference Range Interpretation Comments Antibody Scrn (test Negative (03/11/17 1:04 code = Antibody Scrn) PM) [facility] [id number] 18:04:00 Test Item Value Reference Range Interpretation Comments ABO/Rh (test code = ABO/Rh) O POS [facility] [id number] 17:59:00 Test Item Value Reference Range Interpretation Comments RBC product (test code Product available = RBC product) (03/11/17 12:59 PM) [facility] [id number] 17:59:00 Test Item Value Reference Range Interpretation Comments RBC product (test code Product available = RBC product) (03/11/17 12:59 PM) [facility] [id number] 17:59:00 Test Item Value Reference Range Interpretation Comments RBC product (test code Product available = RBC product) (03/11/17 12:59 PM) [facility] [id number] 17:59:00 Test Item Value Reference Range Interpretation Comments RBC product (test code Product available = RBC product) (03/11/17 12:59 PM) [facility] Date/Time Note Provider Source 2017-03-19 11:10:20-00:00 Pelvis single view [facility] HISTORY: Postop. COMPARISON: None available. FINDINGS: Left hip replaceme nt evident. Postoperative changes surrounding soft tissues. 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 IMPRESSION: 1. Status post left hip replacement. SL: [id number] 2017-03-19 11:10:20-00:00 Pelvis single view [facility] HISTORY: Postop. COMPARISON: None available. FINDINGS: Left hip replaceme nt evident. Postoperative changes surrounding soft tissues. 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 IMPRESSION: 1. Status post left hip replacement. SL: [id number] 2017-03-19 08:45:00-00:00 FLUOROSCOPIC GUIDANCE: [facility] INDICATION: Intraoperative guidance for arthropl asty TOTAL FLUOROSCOPY TIME: 47.6 seconds FINDINGS: Fluoroscopic cr nce provided to the clinical service for purposes interprocedural guidance. Images provided demonstrate intraoperative views during left total hip arthroplasty Images obtaine d during the procedure were interpreted by perfjunaid latoya physician. IMPRESSION: 1. Intraoperative findings as described. SL: [id number] 2017-03-19 08:45:00-00:00 FLUOROSCOPIC GUIDANCE: [facility] INDICATION: Intraoperative guidance for arthropl asty TOTAL FLUOROSCOPY TIME: 47.6 seconds FINDINGS: Fluoroscopic cr nce provided to the clinical service for purposes interprocedural guidance. Images provided demonstrate intraoperative views during left total hip arthroplasty Images obtaine d during the procedure were interpreted by perfjunaid latoya physician. IMPRESSION: 1. Intraoperative findings as described. SL: [id number]
[2023-07-15 10:53] LABS: Urine Bacteria >50 /HPF (<20); Urine RBC >50 /HPF (None Seen)
--- NOTE | 2023-07-15 11:18 | RAD REPORT ---
EXAM DESCRIPTION: CT - Stone Protocol - 07/15/2023 10:43 am CLINICAL HISTORY: Flank pain. painless hematuria COMPARISON: Abdomen Pelvis W Contrast dated 02/25/2023 TECHNIQUE: Axial images were obtained without oral or IV contrast. Lack of contrast limits solid org an and vascular assessment. The [id number] spans the entirety of the system partially obscuring uppermost abdomen and lung bases. Coronal reformatted images were obtained and reviewed. All CT scans are performed using dose optimization technique as appropriate and may include automated exposure control or mA/KV adjustment according to patient size. FINDINGS: The lower lung truong are clear. Imaged portions of the liver and spleen show no suspicious findings on non-contrast imaging.Benign he patic cysts are noted. The pancreas and adrenal glands are normal. No pathologic lymphadenopathy in t he abdomen or pelvis. Multiple calculi are present in the calices of both kidneys, the largest collection a small calculi a re in the inferior calyx left kidney. No hydronephrosis. Bilateral renal cysts are present the larges t measuring 6 cm in the medial inferior pole right kidney. No bowel obstruction, free air, free fluid or abscess. Normal appendix noted.Small fat containing rig ht inguinal hernia. Advanced multilevel degenerative changes of the lumbar spine with levoscoliosis. Left total hip arthr oplasty. IMPRESSION: Bilateral caliceal stones are present without hydronephrosis. Multiple benign appearing bilateral renal cysts present, greater in size and number on the right.
--- NOTE | 2023-07-15 11:35 | EDPHYS ---
Physician Documentation [facility] Name: Omi Stone Age: 78 yrs Sex: Male : 1945 Arrival Date: 07/15/2023 Time: 10:03 Bed 5 Private MD: ED Physician Slim Sherman HPI: 07/15 11:31 This 78 yrs old Male presents to ER via Ambulatory with complaints of Urinary Problem. snw 11:31 Onset: The symptoms/episode began/occurred acutely, 1 week(s) ago, and became snw persistent. Associated signs and symptoms: Pertinent positives: hematuria. The patient has experienced a previous episode. Sees Dr. Molina, Dr. Bergman. Will f/u with Dr. Bergman. Historical: - Allergies: 12:12 Augmentin; jl7 - PMHx: 10:27 ascending aortic aneurysm; Atrial Fib; CAD; GERD; Hyperlipidemia; Hypertension; hb - Immunization history:: Adult Immunizations up to date. - Social history:: Smoking status: Patient denies any tobacco usage or history of. ROS: 11:30 Constitutional: Negative for fever, chills, and weight loss, Eyes: Negative for injury, snw pain, redness, and discharge, ENT: Negative for injury, pain, and discharge, Neck: Negative for injury, pain, and swelling, Cardiovascular: Negative for chest pain, palpitations, and edema, Respiratory: Negative for shortness of breath, cough, wheezing, and pleuritic chest pain, Abdomen/GI: Negative for abdominal pain, nausea, vomiting, diarrhea, and constipation, Back: Negative for injury and pain, MS/Extremity: Negative for injury and deformity, Skin: Negative for injury, rash, and discoloration, Neuro: Negative for headache, weakness, numbness, tingling, and seizure, Psych: Negative for depression, anxiety, suicide ideation, homicidal ideation, and hallucinations. 11:30 : Positive for hematuria, painless. Exam: 11:30 Constitutional: This is a well developed, well nourished patient who is awake, alert, snw and in no acute distress. Head/Face: Normocephalic, atraumatic. Eyes: Pupils equal round and reactive to light, extra-ocular motions intact. Lids and lashes normal. Conjunctiva and sclera are non-icteric and not injected. Cornea within normal limits. Periorbital areas with no swelling, redness, or edema. ENT: Nares patent. No nasal discharge, no septal abnormalities noted. Tympanic membranes are normal and external auditory canals are clear. Oropharynx with no redness, swelling, or masses, exudates, or evidence of obstruction, uvula midline. Mucous membranes moist. Chest/axilla: Normal chest wall appearance and motion. Nontender with no deformity. No lesions are appreciated. Abdomen/GI: Soft, non-tender, with normal bowel sounds. No distension or tympany. No guarding or rebound. No evidence of tenderness throughout. Back: No spinal tenderness. No costovertebral tenderness. Full range of motion. Skin: Warm, dry with normal turgor. Normal color with no rashes, no lesions, and no evidence of cellulitis. MS/ Extremity: Pulses equal, no cyanosis. Neurovascular intact. Full, normal range of motion. Neuro: Awake and alert, GCS 15, oriented to person, place, time, and situation. Cranial nerves II-XII grossly intact. Motor strength 5/5 in all extremities. Sensory grossly intact. Cerebellar exam normal. Normal gait. Psych: Awake, alert, with orientation to person, place and time. Behavior, mood, and affect are within normal limits. Vital Signs: 10:26 BP 137 / 81; Pulse 64; Resp 20; Temp 97.9(TE); Pulse Ox 96% on R/A; Weight 72.57 kg; hb Height 5 ft. 10 in. ; Pain 0/10; 11:49 BP 132 / 83; Pulse 53; Resp 15; Pulse Ox 99% ; Pain 0/10; jl7 10:26 Body Mass Index 22.96 (72.57 kg, 177.8 cm) hb 10:26 Pain Scale: Adult hb 11:49 Pain Scale: Adult jl7 MDM: 10:41 Patient medically screened. snw 11:33 Differential diagnosis: viral Infection, bacterial infection, UTI. Data reviewed: vital snw signs, nurses notes. I considered the following discharge prescriptions or medication management in the emergency department Medications were administered in the Emergency Department. See MAR. Counseling: I had a detailed discussion with the patient and/or guardian regarding the historical points, exam findings, and any diagnostic results supporting the discharge/admit diagnosis, the presence of at least one elevated blood pressure reading (>120/80) during this emergency department visit, lab results, radiology results, the need for outpatient follow up, for definitive care, to return to the emergency department if symptoms worsen or persist or if there are any questions or concerns that arise at home. Special discussion: I have referred the patient to see his PCP for further evaluation of high blood pressure. Based on the history and exam findings, there is no indication for further emergent testing or inpatient evaluation. I discussed with the patient/guardian the need to see the urologist for further evaluation of the symptoms. 11:37 ED course: Denies CP, back pain, abd pain. Pt takes Eliquis 2.5mg BID, Losartan HCTZ snw 100/12.5 daily, Metoprolol succ 25mg daily, Tamsulosin 0.4mg qhs, T#3 prn . 07/15 10:47 Order name: Urine Microscopic Only; Complete Time: 11:06 EDMS 07/15 10:56 Order name: Urine Culture EDMS 07/15 10:34 Order name: CT Stone Protocol; Complete Time: 11:21 snw Administered Medications: 11:49 Drug: LevOfloxacin PO 500 mg Route: PO; jl7 12:05 Follow up: Response: No adverse reaction jl7 Disposition Summary: 07/15/23 11:35 Discharge Ordered Location: Home snw Condition: Stable snw Diagnosis - Cystitis, unspecified with hematuria snw Followup: snw - With: Emergency Department - When: As needed - Reason: Fever > 102 F, Worsening of condition Followup: snw - With: Private Physician - When: 1 week - Reason: Recheck today's complaints, Continuance of care, Re-evaluation by your physician Followup: snw - With: Franky Bergman MD - When: 1 - 2 days - Reason: Recheck today's complaints, Continuance of care, Re-evaluation by your physician Discharge Instructions: - Discharge Summary Sheet snw - Hematuria, Adult snw - Urinary Tract Infection, Adult snw Forms: - Medication Reconciliation Form snw - Thank You Letter snw - Antibiotic Education snw - Prescription Opioid Use snw - Patient Portal Instructions snw - Leadership Thank You Letter snw Prescriptions: - levofloxacin 500 mg Oral Tablet - take 1 tablet by ORAL route once daily for 10 days; 10 tablet; Refills: 0, snw Product Selection Permitted Signatures: Dispatcher Via6 EDMD Enedina Francisco, ANODIZE MACHINE OPERATOR-C ANODIZE MACHINE OPERATOR-Csnw Emma Cisse, RN RN Ady Newman RN RN jl7 Corrections: (The following items were deleted from the chart) 10:46 10:22 Urinalysis W/Microscopic+U.LAB.BRZ ordered. EDMS EDMS 12:12 10:27 Allergies: No Known Allergies; miguel salomon
--- NOTE | 2023-07-15 11:35 | ER ---
Nurse's Notes [facility] Name: Omi Stone Age: 78 yrs Sex: Male : 1945 Arrival Date: 07/15/2023 Time: 10:03 Bed 5 Private MD: Diagnosis: Cystitis, unspecified with hematuria Presentation: 07/15 10:26 Chief complaint: Blood in urine x 1 week. Denies pain. Coronavirus screen: At this hb time, the client does not indicate any symptoms associated with coronavirus-19. Ebola Screen: No symptoms or risks identified at this time. Initial Sepsis Screen: Does the patient meet any 2 criteria? No. Patient's initial sepsis screen is negative. Does the patient have a suspected source of infection? No. Patient's initial sepsis screen is negative. Risk Assessment: Do you want to hurt yourself or someone else? Patient reports no desire to harm self or others. Onset of symptoms was July 09, 2023. 10:26 Method Of Arrival: Ambulatory hb 10:26 Acuity: GABRIELA 3 hb Historical: - Allergies: 12:12 Augmentin; jl7 - PMHx: 10:27 ascending aortic aneurysm; Atrial Fib; CAD; GERD; Hyperlipidemia; Hypertension; hb - Immunization history:: Adult Immunizations up to date. - Social history:: Smoking status: Patient denies any tobacco usage or history of. Screenin:00 [facility] ED Fall Risk Assessment (Adult) History of falling in the last 3 months, jl7 including since admission No falls in past 3 months (0 pts) Score/Fall Risk Level 0 - 2 = Low Risk Oriented to surroundings, Maintained a safe environment. Abuse screen: Denies threats or abuse. Denies injuries from another. Nutritional screening: No deficits noted. Tuberculosis screening: No symptoms or risk factors identified. Assessment: 10:30 General: Appears in no apparent distress. uncomfortable, Behavior is calm, cooperative, jl7 appropriate for age. Pain: Denies pain. Neuro: Level of Consciousness is awake, alert, obeys commands, Oriented to person, place, time, situation. Cardiovascular: Patient's skin is warm and dry. Respiratory: Airway is patent Respiratory effort is even, unlabored, Respiratory pattern is regular, symmetrical. : Urine is abdiel blood. Derm: Skin is pink, warm \T\ dry. 10:43 Reassessment: Pt to CT via wheelchair. jl7 11:49 Reassessment: Patient appears in no apparent distress at this time. No changes from jl7 previously documented assessment. Patient and/or family updated on plan of care and expected duration. Pain level reassessed. Patient is alert, oriented x 3, equal unlabored respirations, skin warm/dry/pink. Vital Signs: 10:26 BP 137 / 81; Pulse 64; Resp 20; Temp 97.9(TE); Pulse Ox 96% on R/A; Weight 72.57 kg; hb Height 5 ft. 10 in. ; Pain 0/10; 11:49 BP 132 / 83; Pulse 53; Resp 15; Pulse Ox 99% ; Pain 0/10; jl7 10:26 Body Mass Index 22.96 (72.57 kg, 177.8 cm) hb 10:26 Pain Scale: Adult hb 11:49 Pain Scale: Adult jl7 ED Course: 10:07 Patient arrived in ED. mg5 10:21 Enedina Francisco [facility]C [facility] snw 10:21 Slim Sherman MD is Attending Physician. snw 10:27 Triage completed. hb 10:27 Arm band placed on. hb 10:35 Ady Newman, MK is Primary Nurse. jl7 10:42 Urine collected: clean catch specimen, abdiel blood. jl7 10:44 CT Stone Protocol In Process Unspecified. EDMS 11:00 Patient has correct armband on for positive identification. Provided Education on: use jl7 of call powell. 11:34 Franky Bergman MD is Referral Physician. snw 11:50 No provider procedures requiring assistance completed. Patient did not have IV access jl7 during this emergency room visit. Administered Medications: 11:49 Drug: LevOfloxacin PO 500 mg Route: PO; jl7 12:05 Follow up: Response: No adverse reaction jl7 Medication: 11:50 VIS not applicable for this client. jl7 Outcome: 11:35 Discharge ordered by . snw 12:05 Discharged to home ambulatory. jl7 12:05 Condition: stable 12:05 Discharge instructions given to patient, Instructed on discharge instructions, follow up and referral plans. medication usage, Demonstrated understanding of instructions, follow-up care, medications, Prescriptions given X 1. 12:05 Patient left the ED. jl7 Signatures: Dispatcher [employer] EDEnedina Fuller, VP PLATFORMS-C VP PLATFORMS-Csnw Emma Cisse, Ady Lerma RN, RN RN jl7 Padmini Garcia mg5 Corrections: (The following items were deleted from the chart) 12:12 10:27 Allergies: No Known Allergies; miguel salomon
[2023-07-15] MEDS ORDERED: levoFLOXacin 250 MG TAB ONE (11:59)
[2023-07-15 12:44] VITALS: TEMP 97.9
[2023-07-15 12:45] VITALS: BP 132/83; O2SAT 99
== END 2023-07-15 12:05 | disposition home or self-care (01) ==
LOC: ER 10:03
DX: N30.91 Cystitis, unspecified with hematuria (principal); I48.91 Unspecified atrial fibrillation; I25.10 Atherosclerotic heart disease of native coronary artery without angina pectoris; K21.9 Gastro-esophageal reflux disease without esophagitis; E78.5 Hyperlipidemia, unspecified; I10 Essential (primary) hypertension; Z88.1 Allergy status to other antibiotic agents
CPT/HCPCS: 74176; 76377; 81015; 87086; 87088; 99283

== ENCOUNTER 2025-08-15 16:17 | Emergency (ER) | payer OTHER ==
[2025-08-15 17:16] LABS: Absolute Lymphocytes (CBC) 3.6 K/uL (0.7-4.9); Hematocrit 47.4 % (39.6-49.0); Hemoglobin 16.2 g/dL (13.6-17.9); MCH 31.2 pg (27.0-35.0); MCHC 34.2 g/dL (32.0-36.0); MCV 91.3 fL (80-100); MPV 8.6 fL (7.6-11.3); Nucleated RBC Absolute Count 0.0 (0-0); Nucleated Red Blood Cells % 0.1 % (0-0); RBC Red Blood Cell Count 5.20 M/uL (4.33-5.43); White Blood Count 8.20 thou/uL (4.3-10.9)
[2025-08-15 17:32] LABS: ALT/SGPT 39.0 U/L (16-61); AST/SGOT 36.0 U/L (15-37); Albumin 3.4 g/dL (3.4-5.0); Albumin/Globulin Ratio 0.9 (1.1-1.8); Alkaline Phosphatase 70.0 U/L (45-117); Anion Gap 11.5 mEq/L (5.0-15.0); BUN Blood Urea Nitrogen 25.0 mg/dL (7-18); Globulin 4.0 g/dL (2.3-3.5); Glucose Level 89.0 mg/dL (74-106); Lipase 131.0 U/L (13-75); Potassium 3.5 mEq/L (3.5-5.1)
--- NOTE | 2025-08-15 18:27 | RAD REPORT ---
EXAMINATION: Abdomen Pelvis W Contrast CLINICAL INDICATION: Male, 80 years old.ABD PAIN TECHNIQUE: CT abdomen and pelvis was performed, after the administration of IV contrast, as per [facility] protocol. Axial, sagittal and coronal reconstructions were obtained. One or more of the following dose reduction techniques were used: Automated exposure control, adjustment of the mA and/o r kV according to patient size, and/or iterative reconstruction. Unless otherwise specified, incidental findings do not require dedicated imaging follow-up. [id number]. COMPARISON: 02/25/2023 FINDINGS: LOWER CHEST: No acute process identified. No significant pericardial effusion. Mild circumferential t hickening of the distal esophagus which could reflect esophagitis. UPPER GI: No significant abnormality. LIVER: Hepatic steatosis. Benign appearing and/or stable lesions are identified. No suspicious mass. GALLBLADDER/BILE DUCTS: No biliary ductal dilatation.? PANCREAS: No mass, ductal dilation, or vinay-pancreatic fluid. SPLEEN: Unremarkable. ADRENALS: No adrenal masses. KIDNEYS AND URETERS: No hydronephrosis. Low density and/or too small to characterize renal lesions wh ich are statistically benign. Nonobstructing renal calculi. No ureteral calculi. ABDOMINAL AORTA AND OTHER VESSELS: Severe atherosclerotic changes. No aortic aneurysm. PERITONEUM: No abnormal free fluid. No free air. LYMPH NODES: No pathologic lymphadenopathy. ABDOMINAL WALL: Unremarkable SMALL BOWEL/COLON: Small bowel has normal course and caliber. No colonic wall thickening or pericolon ic inflammatory changes. Normal appendix. URINARY BLADDER: Underdistended but grossly unremarkable. REPRODUCTIVE ORGANS: No pathologic process. MUSCULOSKELETAL: Multilevel degenerative changes in the spine. No acute fracture. Bilateral hip arthr oplasties. ADDITIONAL FINDINGS: None. IMPRESSION: No acute findings within the abdomen or pelvis. Normal appendix. No bowel obstruction.
--- NOTE | 2025-08-15 18:48 | ER ---
Nurse's Notes [facility] Name: Omi Stone Age: 80 yrs Sex: Male : 1945 Arrival Date: 08/15/2025 Time: 16:17 Bed 18 Private MD: Diagnosis: Diarrhea, unspecified Presentation: 08/15 16:40 Chief complaint: Patient states: diarrhea since Friday. Denies fever. Denies n/v. bp Reports generalized weakness. Coronavirus screen: Vaccine status: Patient reports being unvaccinated. Ebola Screen: No symptoms or risks identified at this time. Initial Sepsis Screen: Does the patient meet any 2 criteria? No. Patient's initial sepsis screen is negative. Does the patient have a suspected source of infection? No. Patient's initial sepsis screen is negative. Risk Assessment: Do you want to hurt yourself or someone else? Patient reports no desire to harm self or others. Onset of symptoms was August 10, 2025. 16:40 Method Of Arrival: Ambulatory bp 16:40 Acuity: GABRIELA 3 bp Historical: - Allergies: 16:41 Augmentin; bp - PMHx: 16:41 ascending aortic aneurysm; Atrial Fib; CAD; GERD; Hyperlipidemia; Hypertension; bp - PSHx: 16:41 Coronary artery bypass graft; bp - Immunization history:: Adult Immunizations up to date. - Infectious Disease History:: Denies. - Social history:: Smoking status: Patient denies any tobacco usage or history of. Screenin:00 [facility] ED Fall Risk Assessment (Adult) History of falling in the last 3 months, ar8 including since admission No falls in past 3 months (0 pts) Confusion or Disorientation No (0 pts) Intoxicated or Sedated No (0 pts) Impaired Gait No (0 pts) Mobility Assist Device Used No (0 pt) Altered Elimination No (0 pt) Score/Fall Risk Level 0 - 2 = Low Risk Oriented to surroundings, Maintained a safe environment. Abuse screen: Denies threats or abuse. Nutritional screening: No deficits noted. Tuberculosis screening: No symptoms or risk factors identified. Assessment: 17:01 General: Appears in no apparent distress. Behavior is calm, cooperative. Pain: Denies ar8 pain. Neuro: Level of Consciousness is awake, alert, obeys commands, Oriented to person, place, time, situation. Cardiovascular: Rhythm is sinus rhythm. Respiratory: Airway is patent Respiratory effort is even, unlabored, Respiratory pattern is regular, symmetrical. GI: Reports diarrhea, since last . : No signs and/or symptoms were reported regarding the genitourinary system. EENT: No signs and/or symptoms were reported regarding the EENT system. 18:59 Reassessment: Delay in discharge, patient receiving NS 500ml bolus. ar8 19:00 Reassessment: Patient appears in no apparent distress at this time. No changes from cp4 previously documented assessment. Patient and/or family updated on plan of care and expected duration. Pain level reassessed. Patient is alert, oriented x 3, equal unlabored respirations, skin warm/dry/pink. Patient finishing IV fluids. Vital Signs: 16:40 BP 176 / 94; Pulse 66; Resp 18; Temp 98.2; Pulse Ox 99% ; Weight 72.57 kg; Height 5 ft. bp 10 in. ; 17:00 BP 160 / 93; Pulse 70; Resp 22; Pulse Ox 96% on R/A; ar8 17:45 BP 175 / 97; Pulse 57; Resp 20; Pulse Ox 99% on R/A; ar8 18:56 BP 155 / 87; Pulse 56; Resp 16; Pulse Ox 100% on R/A; Pain 0/10; ar8 20:32 BP 123 / 69; Pulse 70; Resp 18; Pulse Ox 98% ; cp4 16:40 Body Mass Index 22.96 (72.57 kg, 177.8 cm) bp 18:56 Pain Scale: Adult ar8 ED Course: 16:20 Patient arrived in ED. mr 16:23 Latrice Calix FNP-C is PHCP. kb 16:23 Tara Adams MD is Attending Physician. kb 16:41 Triage completed. bp 16:41 Arm band placed on Patient placed in an exam room. bp 16:46 Collins Avendaño, RN is Primary Nurse. ar8 17:00 Radiology exam delayed due to lab results not completed at this time. (BUN/Creatinine) ls3 IV insertion attempt and/or patient not having appropriate IV at this time. 17:00 Bed in low position. Call light in reach. Side rails up X2. Provided Education on: plan ar8 of care, diagnostics and estimated wait time. Client placed on continuous cardiac and pulse oximetry monitoring. NIBP monitoring applied. 17:00 No provider procedures requiring assistance completed. Inserted saline lock: 22 gauge ar8 in right forearm, using aseptic technique. Blood collected. Flushed with 10 mL NS. 17:[address] via stretcher. ar8 18:12 CT Abd/Pelvis - IV Contrast Only In Process Unspecified. EDMS 18:13 Patient [address] back from [address]. ar8 20:33 intact, bleeding controlled, No redness/swelling at site. Pressure dressing applied. cp4 Administered Medications: 18:57 Drug: NS 0.9% IV 500 ml 500 ml IV at 1 bolus once; to be given as a bolus over 30 ar8 minutes Volume: 500 ml; Route: IV; Rate: 1 bolus; Site: right forearm; 20:34 Follow up: IV Status: Completed infusion cp4 Medication: 17:00 VIS not applicable for this client. ar8 Outcome: 18:47 Discharge ordered by . kb 20:33 Discharged to home ambulatory, cp4 20:33 Condition: stable 20:33 Discharge instructions given to patient, family, Instructed on discharge instructions, follow up and referral plans. Demonstrated understanding of instructions, follow-up care, 20:33 Patient left the ED. cp4 Signatures: Dispatcher [employer] EDWI Latrice Calix, MANAGER PROCESS EXCELLENCE-C MANAGER PROCESS EXCELLENCE-Shelbi Rios, Dominick Moreland, RN RN Eladia Galicia Christina cp4 Collins Avendaño RN RN ar8
--- NOTE | 2025-08-15 18:48 | EDPHYS ---
Physician Documentation [facility] Name: Omi Stone Age: 80 yrs Sex: Male : 1945 Arrival Date: 08/15/2025 Time: 16:17 Bed 18 Private MD: ED Physician Tara Adams HPI: 08/15 17:02 This 80 yrs old Male presents to ER via Ambulatory with complaints of Diarrhea. kb 17:02 Pt is a 80 year old male who presents for diarrhea that started 6 days ago. States he kb has developed weakness as well. Denies abd pain, nausea, vomiting, fever. Historical: - Allergies: 16:41 Augmentin; bp - PMHx: 16:41 ascending aortic aneurysm; Atrial Fib; CAD; GERD; Hyperlipidemia; Hypertension; bp - PSHx: 16:41 Coronary artery bypass graft; bp - Immunization history:: Adult Immunizations up to date. - Infectious Disease History:: Denies. - Social history:: Smoking status: Patient denies any tobacco usage or history of. ROS: 17:02 Constitutional: As per HPI kb Exam: 17:02 Constitutional: This is a well developed, well nourished patient who is awake, alert, kb and in no acute distress. Head/Face: Normocephalic, atraumatic. ENT: Moist Mucous membranes Cardiovascular: Regular rate Respiratory: Respirations even and unlabored. No increased work of breathing. Talking in full sentences Abdomen/GI: Soft, non-tender. No distention Skin: Warm, dry with normal turgor. Normal color. MS/ Extremity: Pulses equal, no cyanosis. Neurovascular intact. Full, normal range of motion. Neuro: Awake and alert, GCS 15, oriented to person, place, time, and situation. Vital Signs: 16:40 BP 176 / 94; Pulse 66; Resp 18; Temp 98.2; Pulse Ox 99% ; Weight 72.57 kg; Height 5 ft. bp 10 in. ; 17:00 BP 160 / 93; Pulse 70; Resp 22; Pulse Ox 96% on R/A; ar8 17:45 BP 175 / 97; Pulse 57; Resp 20; Pulse Ox 99% on R/A; ar8 18:56 BP 155 / 87; Pulse 56; Resp 16; Pulse Ox 100% on R/A; Pain 0/10; ar8 20:32 BP 123 / 69; Pulse 70; Resp 18; Pulse Ox 98% ; cp4 16:40 Body Mass Index 22.96 (72.57 kg, 177.8 cm) bp 18:56 Pain Scale: Adult ar8 MDM: 16:23 Medical Screening Exam initiated kb 18:45 Data reviewed: vital signs, nurses notes. kb 18:45 Differential diagnosis: Nonspecific abd pain, diverticulitis, viral gastroenteritis, kb gastroenteritis. Consideration of Admission/Observation Escalation of care including admission/observation considered. admission considered but labs reassuring, pt tolerating po intake. Historians other than the Patient: Spouse/Significant Other: spouse. Counseling: I had a detailed discussion with the patient and/or guardian regarding the historical points, exam findings, and any diagnostic results supporting the discharge/admit diagnosis, lab results, radiology results, the need for outpatient follow up, a family practitioner, to return to the emergency department if symptoms worsen or persist or if there are any questions or concerns that arise at home. 08/15 16:24 Order name: CBC with Diff; Complete Time: 17:22 kb 08/15 16:24 Order name: CMP; Complete Time: 17:36 kb 08/15 16:24 Order name: Lipase; Complete Time: 17:36 kb 08/15 16:34 Order name: B12; Complete Time: 18:45 kb 08/15 16:24 Order name: CT Abd/Pelvis - IV Contrast Only; Complete Time: 18:35 kb 08/15 16:24 Order name: IV Saline Lock; Complete Time: 17:05 kb 08/15 16:24 Order name: Labs collected and sent; Complete Time: 17:05 kb Administered Medications: 18:57 Drug: NS 0.9% IV 500 ml 500 ml IV at 1 bolus once; to be given as a bolus over 30 ar8 minutes Volume: 500 ml; Route: IV; Rate: 1 bolus; Site: right forearm; 20:34 Follow up: IV Status: Completed infusion cp4 Disposition Summary: 08/15/25 18:47 Discharge Ordered Notes: Location: Home kb Condition: Stable kb Diagnosis - Diarrhea, unspecified kb Followup: kb - With: Emergency Department - When: As needed - Reason: Worsening of condition Followup: kb - With: Private Physician - When: 2 - 3 days - Reason: Recheck today's complaints, Continuance of care, Re-evaluation by your physician Discharge Instructions: - Discharge Summary Sheet kb - Food Choices to Help Relieve Diarrhea, Adult kb - Diarrhea, Adult, [id number] kb Forms: - Medication Reconciliation Form kb - Antibiotic Education kb - Prescription Opioid Use kb - Patient Portal Instructions kb - Leadership Thank You Letter kb Signatures: Dispatcher [employer] EDMS Latrice Calix, LENS INSERTER-C ALON-Dominick Verduzco RN RN Collins Harper RN RN ar8 Dolly Humphrey cp4 Corrections: (The following items were deleted from the chart) 16:24 16:24 CBC+H.LAB.BRZ ordered. EDMS EDMS 16:24 16:24 COMPREHENSIVE METABOLIC PANEL+C.LAB.BRZ ordered. EDMS EDMS 16:24 16:24 LIPASE+C.LAB.BRZ ordered. EDMS EDMS 16:24 16:24 C.difficile GDH Ag \T\ Toxin AB+LAB.BRZ ordered. EDMS EDMS 16:24 16:24 Stool Culture+BA.LAB.BRZ ordered. EDMS EDMS 16:24 16:24 Abdomen Pelvis W Con+CT.RAD.BRZ ordered. EDMS EDMS 16:35 16:35 VITAMIN B12+C.LAB.BRZ ordered. EDMS EDMS
[2025-08-15] MEDS ORDERED: NA CHLORIDE 0.9% 500 ML ONE (18:52)
[2025-08-15 21:14] VITALS: TEMP 98.2
[2025-08-15 21:19] VITALS: BP 123/69; O2SAT 98
== END 2025-08-15 20:33 | disposition home or self-care (01) ==
LOC: ER 16:17
DX: R19.7 Diarrhea, unspecified (principal); E78.5 Hyperlipidemia, unspecified; I10 Essential (primary) hypertension; I48.11 Longstanding persistent atrial fibrillation; Z88.1 Allergy status to other antibiotic agents
CPT/HCPCS: 96361; 85025; 36415; 82607; 83690; 80053; 74177; 96360; 99285; Q9967; J7040